=== PATIENT | male | born 1935 | race Caucasian/White ===

== ENCOUNTER 2020-02-11 14:28 | Outpatient (CLI) | payer OTHER, SELFPAY ==
--- NOTE | 2020-02-11 14:40 | USCV_ITS ---
Ruthie Bowen Age: 84 Gender: M : 1935 Exam Date: 02/11/2020 15:00 Ordering Phys: Stan Sen MD Technologist: Amrit Steen Exam Location: [facility] – [place] Indication: SOB CHEST PAIN BP: / HR: 78 Rhythm: Sinus Technical Quality: Good MEASUREMENTS (Male / Female) Normal Values 2D ECHO LV Diastolic Diameter PLAX 4.1 cm 4.2 - 5.9 / 3.9 - 5.3 cm LV Systolic Diameter PLAX 3.5 cm IVS Diastolic Thickness 1.0 cm 0.6 - 1.0 / 0.6 - 0.9 cm IVS Systolic Thickness 1.3 cm LVPW Diastolic Thickness 0.9 cm 0.6 - 1.0 / 0.6 - 0.9 cm LVPW Systolic Thickness 1.4 cm LVOT Diameter 2.1 cm LV Ejection Fraction 2D Teich 28.8 % LV Ejection Fraction MOD 2C 64.9 % LV Ejection Fraction 2C AL 65.4 % LA Diameter 5.5 cm LA Width 4.0 cm LA Height 5.6 cm RA Width 3.9 cm RA Height 5.7 cm Aorta at Sinotubular Diameter 1.3 cm M-MODE LV Diastolic Diameter MM 5.1 cm 4.2 - 5.9 / 3.9 - 5.3 cm LV Systolic Diameter MM 3.1 cm LV Ejection Fraction MM Teich 69.2 % IVS Diastolic Thickness MM 1.0 cm 0.6 - 1.0 / 0.6 - 0.9 cm IVS Systolic Thickness MM 1.3 cm LVPW Diastolic Thickness MM 1.0 cm 0.6 - 1.0 / 0.6 - 0.9 cm LVPW Systolic Thickness MM 1.7 cm RV Diastolic Diameter MM 1.7 cm Aortic Annulus Diameter 3.5 cm LA Ao Ratio MM 1.6 MV E Point Septal Separation 0.7 cm DOPPLER AV Peak Velocity 239.0 cm/s LVOT Peak Velocity 123.0 cm/s AV Area Cont Eq vti 2.1 cm squared AV Area Cont Eq pk 1.8 cm squared MV Area PHT 5.0 cm squared Mitral E to A Ratio 0.9 MV E' Velocity 14.0 cm/s Mitral E to MV E' Ratio 9.2 Mitral E to LV E' Lateral Ratio 7.8 Mitral E to LV E' Septal Ratio 11.3 TR Peak Velocity 267.0 cm/s TR Peak Gradient 28.6 mmHg TV Peak E Velocity 99.0 cm/s Right Atrial Pressure 3.0 mmHg Pulmonary Artery Systolic Pressu 31.5 mmHg PV Peak Velocity 145.0 cm/s FINDINGS Left Ventricle Normal left ventricular size, systolic function and wall thickness, with no regional wall motion abnormalities. Left ventricular ejection fraction is estimated at 64%. Normal diastolic function. Right Ventricle Normal right ventricular size and systolic function, RVSP 31.5 mmHg. Right Atrium Upper normal right atrial size. Left Atrium Mildly increased left atrial size. Mitral Valve Mild mitral annular calcification. No mitral valve stenosis. Mild mitral valve regurgitation. Aortic Valve Mildly thickened and calcified trileaflet aortic valve. Aortic valve sclerosis without stenosis. No aortic valve regurgitation. Tricuspid Valve Structurally normal tricuspid valve. Mild tricuspid valve regurgitation. Pulmonic Valve Structurally normal pulmonic valve. No pulmonary valve stenosis. Trace pulmonary valve regurgitation. Pericardium No pericardial effusion. Aorta Normal-sized aortic root. CONCLUSIONS 1. Normal left ventricular size, systolic function and wall thickness, with no regional wall motion abnormalities. Left ventricular ejection fraction is estimated at 64%. Normal diastolic function. 2. Normal right ventricular size and systolic function. 3. Pulmonary artery pressure estimated at 32 mmHg. 4. Mild mitral and tricuspid valve regurgitation. 5. No prior similar studies to compare. Flor Greene MD (Electronically Signed) Final Date: 13 February 2020 14:46 S
== END 2020-02-11 14:29 | disposition home or self-care (01) ==
LOC: RAD 14:31
PROVIDERS: Visit Provider Orthopaedic Surgery
DX: I25.10 Atherosclerotic heart disease of native coronary artery without angina pectoris (principal); R06.02 Shortness of breath; R07.9 Chest pain, unspecified; I34.0 Nonrheumatic mitral (valve) insufficiency; I07.1 Rheumatic tricuspid insufficiency
CPT/HCPCS: 93306

== ENCOUNTER → 2020-07-06 11:43 | Outpatient (BNVA) | payer OTHER, SELFPAY | PROVIDERS: Visit Provider Specialist | DX: R56.9 Unspecified convulsions (principal) | CPT/HCPCS: 95816 ==

== ENCOUNTER → 2020-08-05 11:50 | Outpatient (BNVA) | payer OTHER, SELFPAY | PROVIDERS: PCP Emergency Medicine Emergency Medical Services; Referring Provider Family Medicine; Visit Provider Specialist | DX: M17.11 Unilateral primary osteoarthritis, right knee (principal); M25.561 Pain in right knee; Z41.9 Encounter for procedure for purposes other than remedying health state, unspecified | CPT/HCPCS: 73560; 73565; 87081; 87086 ==

== ENCOUNTER → 2020-08-19 08:31 | Outpatient (BNVA) | payer OTHER, MEDICARE, SELFPAY | PROVIDERS: PCP Emergency Medicine Emergency Medical Services; Visit Provider Specialist | DX: Z01.812 Encounter for preprocedural laboratory examination (principal) | CPT/HCPCS: 87635 ==

== ENCOUNTER 2020-08-24 13:56 | Observation (INO) | payer OTHER, SELFPAY ==
[2020-08-19 08:59] VITALS: BMI 28.8
[2020-08-19 09:32] LABS: Basophils % 0.2 %; Eosinophils # 0.1 10^3/uL (0.0-0.8); Eosinophils % 1.9 %; Lymphocytes # 1.5 10^3/uL (0.8-4.8); Lymphocytes % 35.6 %; Mean Corpuscular HGB Conc 33.3 g/dL (30.0-36.0); Mean Corpuscular Hemoglobin 34.8 pg (28.0-34.0); Mean Corpuscular Volume 104.4 fL (80-94); Mean Platelet Volume 9.4 fL (7.4-10.4); Monocytes # 0.3 10^3/uL (0.2-0.9); Monocytes % 7.9 %; Neutrophils # 2.25 10^3/uL (1.8-7.7); Neutrophils % 54.2 %; Nucleated Red Blood Cells % 0 %; Platelet Count 130 10^3/cmm (130-400); Red Blood Count 3.16 10^6/uL (4.1-5.3); White Blood Count 4.2 10^3/uL (4.0-10.0)
[2020-08-19 09:35] LABS: Add Urine Microscopic? NO
--- NOTE | 2020-08-19 09:37 | P.ANESASSM_ITS ---
Pre-Anesthetic Assessment Pre-Anesthetic Assessment: Height/Weight: Height 1.7 m Weight 83.461 kg Preop Diagnosis: Right knee DJD Proposed Procedure: Operation Date: 08/24/20 10:35 Proposed Procedures p Total Knee Arthroplasty 72293 M17.10(Right) - Shira Tucker MD Familial anesthetic complications: None Social: Social History: No alcohol and No tobacco Exam: Pre-Anes Outpt Exam: alert, oriented x 3, clear to auscultation bilaterally and regular rate & rhythm Airway: Cervical ROM: WNL MP: 3 Dentition: Other (missing) Pulmonary: Pulmonary: Asthma and Sleep apnea (severe - refuses BIPAP) Comments: allergies CV/HEM: CV/HEM: CAD (triple bypass in 2012 - doing well since then, f/u every 2 years) and HTN Comments: plavix for stents in heart, takes nitroglycerin every once in awhile for chest pain GI: GI: GERD Neuropsych: Neuropsych: Seizure and TIA Anesthetic Plan: ASA status: 3 Anesthesia: Regional (specify below) Other: spinal + adductor Risk of > 500 ml blood loss (7ml/kg in children): No PFSH Anesthesia PFSH: Social History Smoking and tobacco status: never smoked Alcohol intake: never Data Anesthesia CBC & Chem 7: 08/19/20 09:25 08/19/20 09:25 Other Labs: Laboratory Results - last 48 hr 08/19/20 09:25 WBC 4.2 RBC 3.16 L Hgb 11.0 L Hct 33.0 L MCV 104.4 H MCH 34.8 H MCHC 33.3 RDW 13.0 Plt Count 130 MPV 9.4 Neut % (Auto) 54.2 Lymph % (Auto) 35.6 [place] % (Auto) 7.9 Eos % (Auto) 1.9 Baso % (Auto) 0.2 Neut # (Auto) 2.25 Lymph # (Auto) 1.5 [place] # (Auto) 0.3 Eos # (Auto) 0.1 Baso # (Auto) 0.0 Nucleated RBC % (auto) 0 Nucleated RBCs # 0.0 Cardiac Studies: No Data to Display
[2020-08-19 09:43] LABS: Bilirubin Urine Neg (Negative); Blood Urine Neg (Negative); Glucose Urine UA Norm (Normal); Ketones Urine Negative (Negative); Leukocyte Esterase Urine Negative (Negative); Nitrate Urine Negative (Negative); Protein Urine Neg (Negative); Urine Appearance Clear (CLEAR); Urine Color Straw (Yellow); Urobilinogen Urine Norm (Negative); pH Urine 5 (5-7)
[2020-08-19 09:51] LABS: Alanine Aminotransferase 13 U/L (0-41); Albumin Level 3.9 g/dL (3.5-5.2); Alkaline Phosphatase 63 IU/L (40-130); Anion Gap 12.2 (5-19); Aspartate Amino Transferase 16 U/L (0-40); Blood Urea Nitrogen 19 mg/dL (8-23); Calcium 8.9 mg/dL (8.5-10.5); Carbon Dioxide 28 mmol/L (22-29); Chloride 101 mmol/L (98-107); Globulin 2.9 g/dL (1.3-4.6); Glucose 144 mg/dL (65-115); Osmolality Calculated 289 mOsm/kg (285-295); Potassium 4.2 mmol/L (3.5-5.1); Sodium 137 mmol/L (136-145); Total Bilirubin 0.3 mg/dL (0.15-1.2); Total Protein 6.8 g/dL (6.6-8.7)
[2020-08-24] VITALS (16 sets, daily range): BP systolic 101–145; BP diastolic 57–75; PULSE 64–86; RESP 16–25; TEMP 36.3–36.9; O2SAT 93–100
--- NOTE | 2020-08-24 10:06 | W.PM.OPSUD ---
Surgery/Procedure H&P Update DATE OF PROCEDURE: August 24, 2020 DATE H&P PERFORMED: 08/05/20 H&P UPDATE INFORMATION: I have reviewed H&P completed within last 30 days, No changes to prior documentation and H&P is in [facility] EMR on date indicated PREOP DIAGNOSIS: Right knee DJD PLANNED PROCEDURE: Operation Date: 08/24/20 13:15 Proposed Procedures p Total Knee Arthroplasty 68558 M17.10(Right) - Shira Tucker MD Related Problem List Diagnoses (1) Primary osteoarthritis of right knee:
--- NOTE | 2020-08-24 10:36 | P.ANESUD_ITS ---
Pre-Anesthetic Update Pre-Anesthetic Assessment: Date of Surgery/Procedure: 08/24/20 Preop Paige gnosis: Right knee DJD Proposed Procedure: Operation Date: 08/24/20 13:15 Proposed Procedures p Total Knee Arthroplasty 60997 M17.10(Right) - Shira Tucker MD Any changes to Pre-Anesthetic Assessment?: No Last Intake: Intake Last Liquid Date 08/23/20 Last Liquid Time 16:00 Last Solid Date 08/23/20 Last Solid Time 16:00 Vitals: Temperature 98.5 F 08/24/20 10:30 Temperature Source Temporal Artery S can 08/24/20 10:30 Pulse Rate 82 08/24/20 10:30 Respiratory Rate 18 08/24/20 10:30 Blood Pressure 121/72 08/24/20 10:30 Blood Pressure Gina n 88 08/24/20 10:30 Pulse Oximetry 93 08/24/20 10:30 Oxygen Delivery Me thod 08/24/20 10:30 Exam: Pre-Anes Outpt Exam: alert, oriented x 3, clear to auscultation bilaterally and regular rate & rhythm Cardiac Studies: No Data to Display
[2020-08-24] MEDS: sodium chloride 0.9% 1,000 ML 30 ML IV (10:48)
[2020-08-24] MEDS: CELEcoxib 200 mg Capsule 400 MG PO (11:00)
[2020-08-24] MEDS: vancomycin 1,000 MG in sodium chloride 0.9% 250 ML 250 MG IV (11:12)
--- NOTE | 2020-08-24 11:54 | ANES.PROC ---
Anesthesia Procedures Procedure/Date: 08/24/20 Nerve Block ^: Nerve Block 1: Main Anesthesia: spinal anesthesia block Time Out Performed: Yes Consent: requested by attending/covering physician, from patient, risks and benefits reviewed and patient agrees to proceed Nerve block location: adductor canal (right) Anesthesia monitors applied: pulse oximetry, EKG, BP cuff and oxygen Nerve block position: supine Anesthetic Used: ropivicaine 0.5% Amount of anesthesia used (mL): 20 Ultrasound used to: recognize landmarks Nerve Stimulator Used?: No Interscalene/Femoral BLK: 4 stimuplex 21 g needle used for position and inplane approach Injection: neg aspiration of heme Patient Tolerated Procedure: well Complications: none
[2020-08-24] MEDS: vancomycin 1,000 MG SDV 1000 MG XX (12:21)
[2020-08-24] MEDS: ceFAZolin 1,000 mg SDV 2000 MG IRRIGATION (12:22)
--- NOTE | 2020-08-24 14:17 | XR_ITS ---
WS: [id number] Exam: XR knee RT 1-2V [id number] Date/Time of Exam: 08/24/2020 2:00 PM Reason For Exam: Right TKA A total knee prosthesis has been placed and appears to be in excellent position. Postoperative change s in the adjacent soft tissues. Anterior surgical skin clips. Additional surgical clips along the med ial aspect of the upper tibia may be secondary to vein harvesting. XR/XR knee RT 1-2V [id number] IMPRESSION: 1. Total knee prosthesis in excellent position.
--- NOTE | 2020-08-24 14:29 | P.OP_ITS ---
Operative Report Date of procedure: August 24, 2020 Pre-op Diagnosis: Right knee degenerative osteoarthritis with flexion contracture Post-op diagnosis: same Post-op Findings: Severe degenerative osteoarthritis with complete absence of ca rtilage and flexion contracture. Procedure Done: Right total knee arthroplasty Implants: The Mai total knee system with a size 4 triathlon beaded posterior stabilized femur right, a triathlon titanium tibial component size 5 beaded, a triathlon X3 posterior stabilized tibial bearing insert size 5 X 13 mm and a beaded triathlon titanium asymmetric patella size 32 x 10 mm Specimens removed/disposition: Bone, disposed of Pathology: none sent Surgeon: Shiar Tucker [employer] Flight Mechanic: [employer] operating [facility] assistance Anesthesia: MAC (With spinal, ASA 3) Estimated blood loss (mL): 5 Tourniquet time (min): 90 (At 250 mmHg) IV fluids (mL): 1,000 Urine output (mL): 100 Complications: None Findings: Severe degenerative osteoarthritis with a slight flexion contracture, obliteration of cartilage, and severe degenerative osteoarthritis Condition: stable Disposition: PACU (Then to floor for postoperative pain management and rehabilitation as well as medical monitoring) Brief History: This 84-year-old gentleman presented to the office with severe right knee pain which was incapacitating. He was unable to ambulate or perform reasonable activities of daily living. None of these activities were able to be accomplished comfortably. He was unresponsive to conservative measures and wished to proceed with right total knee arthroplasty risks and complications were discussed with him and his family. Consents were signed preoperatively, a nd questions were answered. The patient wished to proceed. Procedure: The patient was brought to the operating theater, and after undergoing adequate spinal anesthesia supplemented with regional block and sedation, ASA 3, the right lower extremity was prepped with Dura-Prep and draped in usual fashion following placement of a tourniquet high on the leg. The leg was then draped free. Following prepping and draping, the leg was exsanguinated, and the tourniquet was elevated to 250 mm Hg for a total tourniquet time of 90 minutes. Prior to elevation of the tourniquet, but following exposure of the site of surgery, a surgical pause was performed. At the time of the surgical pause, we confirmed the site and side of surgery. Additionally, we confirmed the appropriate and timely administration of preoperative antibiotics, vancomycin 1 g. and Transexemic acid 1 g. The availability of equipment was confirmed, and the patient's identity was verbalized as well. Following the surgical pause, an incision was made centering over the patella continuing proximally and distally as necessary to allow access to the knee joint. Dissection continued through skin and soft tissues using a scalpel. Hemostasis was obtained using electrocautery. The skin incision was followed by a median parapatellar arthrotomy. The leg was extended and the patella was everted. Following this, the leg was returned to flexed position. The distal femur was exposed and a drill hole was made in this for placement of the distal femoral jig. The distal femoral jig was set at 5? of valgus. The distal femoral cutting block was then placed in appropriate position, and an akbar wing was used to confirm an appropriate amount of distal femur would be resected. The distal femoral resection was accomplished with 10 mm of bone being resected distally secondary to the patient's preoperative flexion contracture. After the distal femoral resection had been accomplished, the femur was measured and it measured a size 4. Medial lateral dimension also measured a size 4. A size 4 femoral cutting block was placed in position, and we were then able to accomplish the anterior, posterior and chamfer cuts. This jig was then removed and the notch guide was placed in position. With the notch guide in appropriate position, the notch was excised including resection of the anterior and posterior cruciate ligaments. This notch was to allow for the posterior stabilized femoral component. At this point, the femur was prepared and attention was directed to the proximal tibia. The posterior knee retractor was placed along with medial and lateral retractors. Further resection of the menisci was accomplished as we had better visualization. A complete meniscectomy was performed both medially and laterally with care being taken to protect the popliteus. Retractors were then placed so that the proximal tibia was well visualized. A drill hole was then made in the tibia for placement of the intramedullary guide. This guide was placed so that approximately 2 mm of bone would be resected from the deficient medial tibial plateau. The intramedullary guide was utilized supplemented with an extramedullary guide to assure appropriate alignment for the proximal tibial resection. The proximal tibial jig was then evaluated, pinned in position, and the proximal tibial resection was accomplished without difficulty. The jig was removed, and the proximal tibia was measured. It measured a size 5. We then attempted a trial reduction with a size 5 by 13 mm insert. A small medial release was required. Osteophytes were also removed from the posterior tibia and femur. The femoral component was placed in position for the trial reduction, and the knee was placed through range of motion. With this, there was excellent stability with excellent varus-valgus alignment with appropriate patellar tracking. Extension was noted to be full as well. This was felt to be the appropriate size insert. There was full extension and flexion without lift off and the rotation of the tibia was marked. Alignment was checked from the hip to the ankle, and this was noted to be appropriate as well. Attention was then directed to the patella. The patella was measured with a caliper. We resected sufficient patella to leave approximately 14 mm of patella remaining. Measurements of the patella then indicated that a size asymmetric 32 mm x 10 mm was the appropriate patellar size. We then placed the jig to drill for the 3 pegs of the press-fit patella, and these drill holes were made without incident. A trial patella was then placed, and the knee was placed through range of motion. The patella was noted to track nicely without evidence of subluxation. The femur was prepared for a press-fit femur by drilling 2 holes for the femoral pegs. All trial components were subsequently removed. The tibial tray was then pinned into position, and we broached the tibia for the stem of the tibial component. Subsequently, 4 drill holes were made for placement of the press-fit tibia. This was accomplished without difficulty. Care was taken to assure appropriate rotation of the tibia as well as appropriate position on the proximal tibia. The tibial tray was completely seated on the proximal tibia. Following broaching, the tibial guide was removed, and all surfaces were copiously irrigated. The surfaces were then dried and a bone plug was placed into the distal femur. Exparel was also injected at this point. The Tritanium tibia was impacted into position. The beaded femur was then impacted into position in a cementless fashion. The tibial insert was placed. The patella was pressed into position with a patellar clamp. The knee was irrigated with 20 mL of Betadine and 500 mL of normal saline, and this was allowed to remain in the knee for 3-4 minutes. The knee was then copiously irrigated and suctioned dry. Attention was then directed to closure. Closure was accomplished with 0 Vicryl in the fascial tissues. Following this, a 2-0 Monocryl was used in the subcutaneous tissues, and the skin was closed with skin albert. A sterile dressing was then placed consisting of Exofin, telfa, 4x4's, ABD, sterile soft roll, and an Jack wrap. The patient was returned the Recovery Room in a satisfactory condition. X-rays were obtained there. The patient will be discharged to the floor for postoperative rehabilitation and pain management. Associated Problem List Diagnoses (1) Primary osteoarthritis of right knee:
--- NOTE | 2020-08-24 14:54 | SUR.PHASEI ---
1358 PT RO PACU AWAKE ALERT PLACED ON 3LNC PT WAS SPINAL ANESTHESIA, , PT ALERT FOLLOWS COMMANDS AND MOVES BILAT FEET, X RAY CALLED RT KNEE DRESSING D/I FIRST ICE TO SITE, DISTAL FOOT PINK WARM WITH PULSE MARKED, AND BILAT FOOT PUMPS ON .
--- NOTE | 2020-08-24 14:56 | SUR.PHASEI ---
1432 PT AWAKE ALERT MOVES BILAT FEET , RT KNEE DRESSING D.I PT TO FLOOR PER BED VSS CASTRO TO DD YELLOW URINE NOTED.
--- NOTE | 2020-08-24 15:29 | PM.CONSULT ---
Providers/Reason For Consult Consulting Physican/Specialty*: Orthopedic Reason for Consult*: Cardiovascular history, postoperative care Attending Physician: Shira Tucker MD Primary Care Provider: Antony Minaya DO History of Present Illness History of Present Illness Ruthie Bowen is a 84 year old male with a past medical history of CAD status post CABG, patient went under a cardiac catheterization in December 2019, found to have moderate right coronary artery disease with moderate circumflex disease, patent graft to diagonal and patent RUBIO to LAD, history of TIA, hypertension, hyperlipidemia, restless leg, who presents to [facility] for a right knee total arthroplasty by Dr. Tucker. Hospitalist team was consulted for medical management. Patient tells me that he is doing well, denies any chest pain, he saw his zipper joiner free of preoperative evaluation, he has been doing fine since then, no recent fevers, no chills, no cough, no shortness of breath. Denies a history of smoking. No history of COPD. No history of diabetes. No history of kidney disease. Does have a history of TIAs in the past. He tells me that his first has , the second that he is with currently they have been together for many years, he will was in the for over 20 years, he has had multiple surgeries he cannot remember all of them, he is a bit concerned about getting the second Covid vaccination, he really wants to get the second vaccination, he is planning on getting it this weekend, but he plans on going to the health center in his 's truck, and they will give me a shot while I am in the truck. Review of Systems Const: Denies: fever(s), chills, fatigue or malaise Eyes: Denies: change in vision or blurry vision ENMT: Denies: nasal congestion Resp: Denies: dyspnea, productive cough, non-productive cough or wheezing GI: Denies: abdominal pain, nausea, vomiting, hematemesis, diarrhea, constipation, hematochezia or melena : Denies: flank pain, difficulty urinating, dysuria or urinary frequency Musc: Denies: neck pain or back pain Skin/Breast: Denies: rash Neuro: Denies: headache(s), dizziness or vertigo Psych: Denies: anxiety or depression Endo: Denies: polyuria or polydipsia Meds/Allergies Home Medications and Allergies Home Medications Medication Instructions Recorded Confirmed Last Taken Type acetaminophen 500 mg capsule 500 mg PO Q6H PRN 07/06/20 08/24/20 08/10/20 History aspirin 81 mg tablet,delayed 81 mg PO DAILY 07/06/20 08/24/20 08/19/20 History release clonazepam 0.5 mg tablet 0.25 mg PO BID 07/06/20 08/24/20 08/23/20 History clopidogrel 75 mg tablet 75 mg PO DAILY 07/06/20 08/19/20 08/19/20 History diphenhydramine HCl 25 mg tablet 25 mg PO QID PRN 07/06/20 08/24/20 08/19/20 History docusate sodium 100 mg tablet 100 mg PO BID 07/06/20 08/24/20 08/19/20 History furosemide 40 mg tablet 40 mg PO DAILY 07/06/20 08/24/20 08/23/20 History gabapentin 300 mg capsule 300 mg PO BID 07/06/20 08/24/20 08/23/20 History isosorbide mononitrate 20 mg tablet 20 mg PO BID 07/06/20 08/24/20 08/24/20 06:30 History multivit-iron 18 mg-folic acid 400 18 tab PO DAILY 07/06/20 08/24/20 08/19/20 History mcg-calcium 450 mg-minerals tablet nitroglycerin 0.4 mg sublingual 0.4 mg SUBLINGUAL Q5M PRN 07/06/20 08/24/20 06/19/20 History tablet oxycodone-acetaminophen 5 mg-325 1 tab PO Q6H PRN 07/06/20 08/24/20 08/22/20 History mg tablet pantoprazole 20 mg tablet,delayed 20 mg PO DAILY 07/06/20 08/24/20 08/23/20 History release ropinirole 5 mg tablet 5 mg PO DAILY 07/06/20 08/24/20 08/23/20 History terazosin 10 mg capsule 10 mg PO DAILY 07/06/20 08/24/20 08/23/20 History vitamins A,C,O-bwxp-nrxbhz 14,320 1 cap PO BID 07/06/20 08/24/20 08/19/20 History unit-226 mg-200 unit capsule Allergies Allergy/AdvReac Type Severity Reaction Status Date / Time gluten Allergy Mild sick Verified 08/19/20 08:52 bee venom protein (honey bee) Allergy ADR-Swelling Verified 08/19/20 08:53 of the Eye PFSH Acute PFSH: Medical History (Updated 08/24/20 @ 15:33 by Evelio Esposito MD) Bronchitis History of TIA (transient ischemic attack) Pneumonia Shortness of breath Surgical History (Updated 08/24/20 @ 15:33 by Evelio Esposito MD) History of angioplasty 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 Family History Other CAD (coronary artery disease) Social History Smoking and tobacco status: never smoked Alcohol intake: never Vitals/I&O/Wt Last Vital Signs Temp 97.3 F L 08/24/20 14:30 Pulse 67 08/24/20 14:30 Resp 20 H 08/24/20 14:30 BP 136/67 08/24/20 14:30 Pulse Ox 99 08/24/20 14:30 08/24/20 08/24/20 08/24/20 06:59 14:59 22:59 Intake Total 560 / 560 Output Total 205 / 205 Balance 355 / 355 Physical Exam Const: COMMON NORMALS: no acute distress and patient oriented x3 GENERAL APPEARANCE: cooperative and comfortable HENMT: COMMON NORMALS: normocephalic HEAD & SCALP: normocephalic Eye: COMMON NORMALS: Equal, round and reactive pupils present and EOMs intact bilaterally GENERAL EYE: appearance normal, both eyes and all related structures PUPIL: Yes Equal, round and reactive pupils present Neck/C-Spine: COMMON NORMALS: full ROM, no lymphadenopathy and no JVD Lymph: LYMPHATIC: no lymphadenopathy noted Resp: COMMON NORMALS: normal respiratory effort, No retractions, No use of accessory muscles and clear to auscultation bilaterally AUSCULTATION: clear to auscultation bilaterally Cardio: COMMON NORMALS: no JVD, regular rate, regular rhythm, S1 normal heart sound present, S2 normal heart sound present, No gallops present (Cardio), No clicks present (Cardio) and No murmurs present (Cardio) RATE: regular rate RHYTHM: regular rhythm HEART SOUNDS: S1 normal heart sound present and S2 normal heart sound present GI: COMMON NORMALS: Normal to inspection, nondistended, normoactive bowel sounds present, Soft to palpation, non-tender and No hepatosplenomegaly present PALPATION: Yes Soft to palpation and Yes No hepatosplenomegaly present Extremity: COMMON NORMALS: normal to inspection, full ROM and no pedal edema Neuro: COMMON NORMALS: patient oriented x3 and CN's II-XII intact bilaterally Psych: COMMON NORMALS: mental status grossly normal Urinary Catheter Management^: F: Cath Placed During This Visit: yes Urinary Catheter Date of Insertion: 08/24/20 Urinary Catheter Time of Insertion: 11:40 A&P Assessment and plan (1) Primary osteoarthritis of right knee: Status post right knee arthroplasty by Dr. Tucker Pain control and anticoagulation as per orthopedic team PT OT Patient has had issues with anemia in the past, history of gastric ulcers in the past,, will monitor hemoglobin Patient and are adamant that he does not have a history of dementia, no history of UTIs, will monitor mentation closely Status: Acute (2) Hyperlipidemia: Continue home medication Status: Acute (3) Hypertension: Monitor blood pressures closely Status: Acute (4) CAD (coronary artery disease): Telemetry monitoring, monitor for chest pain Status: Acute Coding Level of Care Code Acute Enrollment Processor for Tushar Hoskins Diagnoses Primary osteoarthritis of right knee M17.11 Hyperlipidemia E78.5 Hypertension I10 CAD (coronary artery disease) I25.10
--- NOTE | 2020-08-24 16:28 | ANE.PACU2 ---
Inpatient post-anesthesia follow up: Airway intact: Yes Vital signs: Temperature 97.3 F Pulse Rate 64 Respiratory Rate 20 Blood Pressure 136/67 Pulse Oximetry 94 Oxygen Delivery Me thod Nasal Cannula Oxygen Flow Rate 2 Fraction of Inspir ed Oxygen Hydration adequate: Yes Nausea and vomiting: No Pain level: 1 Mental status: Baseline
[2020-08-24] MEDS: calcium carbonate 500 mg Chew Tablet 1000 MG PO (17:36)
[2020-08-24] MEDS: gabapentin 300 mg Capsule PO (17:36)
[2020-08-24] MEDS: iron polysaccharide complex 150 mg Capsule PO (17:36)
[2020-08-24] MEDS: CLONazepam 0.5 mg Tablet 0.25 MG PO (17:37)
[2020-08-24] MEDS: chlorhexidine gluconate 0.12% Btl 473 mL 30 ML MUCOUS MEM (17:48)
[2020-08-24] MEDS: isosorbide mononitrate 20 mg Tablet PO (17:53)
[2020-08-24] MEDS: CELEcoxib 200 mg Capsule PO (22:22)
[2020-08-25] VITALS: BP 101/43; PULSE 69; RESP 20; TEMP 36.7; O2SAT 94
[2020-08-25 02:22] LABS: Basophils % 0.2 %; Eosinophils % 0.9 %; Hematocrit 30.2 % (42.0-52.0); Hemoglobin 9.8 g/dL (11.7-16.6); Lymphocytes % 20.5 %; Mean Corpuscular HGB Conc 32.5 g/dL (30.0-36.0); Mean Corpuscular Hemoglobin 34.6 pg (28.0-34.0); Mean Corpuscular Volume 106.7 fL (80-94); Mean Platelet Volume 9.5 fL (7.4-10.4); Monocytes # 0.4 10^3/uL (0.2-0.9); Monocytes % 9.1 %; Neutrophils # 3.21 10^3/uL (1.8-7.7); Neutrophils % 69.3 %; Nucleated Red Blood Cells % 0 %; Platelet Count 118 10^3/cmm (130-400); Red Blood Count 2.83 10^6/uL (4.1-5.3); Red Cell Distribution Width 12.9 % (12.1-15.1); White Blood Count 4.6 10^3/uL (4.0-10.0)
[2020-08-25 02:41] LABS: Anion Gap 9.3 (5-19); Blood Urea Nitrogen 30 mg/dL (8-23); Calcium 8.6 mg/dL (8.5-10.5); Carbon Dioxide 29 mmol/L (22-29); Chloride 103 mmol/L (98-107); Glucose 102 mg/dL (65-115); Osmolality Calculated 290 mOsm/kg (285-295); Potassium 4.3 mmol/L (3.5-5.1); Sodium 137 mmol/L (136-145)
[2020-08-25 04:00] VITALS: BP 120/66; PULSE 73; RESP 20; TEMP 36.5; O2SAT 93
--- NOTE | 2020-08-25 05:10 | PC.NURSE ---
Removed Shelley Catheter at this time. Patient tolerated well. Patient had 350 mls out for the shift of clear yellow urine.
--- NOTE | 2020-08-25 07:06 | PC.NURSE ---
Bedside report to Sanjuana HOLLOWAY at this time.
[2020-08-25 07:26] VITALS: BP 125/65; PULSE 46; RESP 17; TEMP 36.9; O2SAT 95
[2020-08-25] MEDS: iron polysaccharide complex 150 mg Capsule PO (08:50)
[2020-08-25] MEDS: calcium carbonate 500 mg Chew Tablet 1000 MG PO (08:50)
[2020-08-25] MEDS: isosorbide mononitrate 20 mg Tablet PO (08:50)
[2020-08-25] MEDS: terazosin 5 mg Capsule 10 MG PO (08:50)
[2020-08-25] MEDS: CLONazepam 0.5 mg Tablet 0.25 MG PO (08:50)
[2020-08-25] MEDS: ropinirole 2 mg Tablet 5 MG PO (08:50)
[2020-08-25] MEDS: pantoprazole DR 40 mg Tablet PO (08:51)
[2020-08-25] MEDS: clopidogrel 75 mg Tablet PO (08:51)
[2020-08-25] MEDS: cholecalciferol (vitamin D3) 1,000 unit Tablet 1000 UNIT PO (08:51)
[2020-08-25] MEDS: FUROsemide 40 mg Tablet PO (08:51)
[2020-08-25] MEDS: CELEcoxib 200 mg Capsule PO (08:51)
[2020-08-25] MEDS: aspirin 325 mg EC Tablet PO (08:51)
[2020-08-25] MEDS: chlorhexidine gluconate 0.12% Btl 473 mL 30 ML MUCOUS MEM (08:51)
[2020-08-25] MEDS: multivitamin therapeutic Tablet 1 TAB PO (08:51)
[2020-08-25] MEDS: gabapentin 300 mg Capsule PO (08:51)
--- NOTE | 2020-08-25 09:52 | PC.CHAP ---
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 [] Patient/Family/Request visit [] Outpatient visit [] Follow-up visit [] Physician referral [] Code/Alert [x] Routine visit [] Staff referral [] Actively dying [] Patient sleeping [] Family support [] [] Out of room [] Palliative care [] [] Receiving care in room [] Pre-surgical visit [] Trauma [] Long length of stay [] ICU visit [] Other: Relational/Emotional Strength [x] Patient feels connected with others/family/visitors/staff [] Distress [] Loneliness/isolation [] Abandonment Spirituality of Patient [x] Person of Leslie [x] Attends Spiritism of their Leslie [x] Believes in Prayer [] Reads Bible or Spiritism materials [] There are Spiritual issues to be addressed Parlor Maid Interventions [x] Prayer [x] Active listening [] Non-anxious presence [] Spiritual/emotional support [] Crisis/trauma care [] Spiritual counseling [] Bereavement support [] Provided bereavement packet [] Provided Bible/devotional materials [] Provided toy/stuffed animal, coloring book to patient or family member [] Provided Communion [] Anointing/[facility] [] Salvation [x] Completed spiritual assessment [] Other: Impact on Illness or Injury [] Angry [] Fearful [] Anxious [] Often cries [] Exhaustion [] Unable to work [] Unable to attend orthodoxy [] Unable to walk/stand [] Unable to read [] Unable to drive [] Unable to eat/drink [] Unable to sleep [] Unable to be with family [] Patient intubated [] Other: Summary Time spent with patient 10 min
[2020-08-25] MEDS: vancomycin 1,000 MG in sodium chloride 0.9% 250 ML 250 MG IV (10:57)
[2020-08-25 11:25] VITALS: BP 104/57; PULSE 69; RESP 18; TEMP 36.4; O2SAT 95
--- NOTE | 2020-08-25 13:37 | PM.DCS ---
Discharge Providers Date of Admission: 08/24/20 13:56 Date of Discharge: August 25, 2020 Attending Provider at Admission: Shira Tucker MD Attending Provider at Discharge: Shira Tucker MD Primary Care Provider: Antony Minaya DO Diagnoses at Discharge Discharge Diagnosis (1) History of total right knee replacement: Status: Acute Permanent problem details: The Mai total knee system with a size 4 triathlon beaded posterior stabilized femur right, a triathlon titanium tibial component size 5 beaded, a triathlon X3 posterior stabilized tibial bearing insert size 5 X 13 mm and a beaded triathlon titanium asymmetric patella size 32 x 10 mm (2) Primary osteoarthritis of right knee: Status: Acute (3) Hyperlipidemia: Status: Acute (4) Hypertension: Status: Acute (5) CAD (coronary artery disease): Status: Acute Reason for Visit Reason for Visit: osteoarthirits of right knee Hospital Course Hospital Course This 84-year-old gentleman was admitted under observation status following right total knee arthroplasty. The patient came in under same-day surgery status, and he underwent an uneventful right total knee arthroplasty. The implants utilized include The [place] total knee system with a size 4 triathlon beaded posterior stabilized femur right, a triathlon titanium tibial component size 5 beaded, a triathlon X3 posterior stabilized tibial bearing insert size 5 X 13 mm and a beaded triathlon titanium asymmetric patella size 32 x 10 mm. The patient was evaluated by the medical service secondary to multiple medical comorbidities. They followed him throughout this hospital stay as well. On the first postoperative day, the patient was evaluated midday. He had worked with physical therapy. He was neurologically intact and was complaining of no pain. His dressing was removed, and his wound was benign. There was no evidence of DVT as the calf was quite soft. He was independent and actually in less pain and more functional than he had been prior to his surgical procedure. After discussion with the patient and his , he wished to be discharged home. He therefore was scheduled to be discharged home after evaluation by the medical service with [facility]. Physical Exam Const: COMMON NORMALS: no acute distress, average body habitus, patient oriented x3 and alert GENERAL APPEARANCE: cooperative and comfortable ORIENTATION/CONSCIOUSNESS: Yes awake HENMT: COMMON NORMALS: normocephalic and atraumatic HEAD & SCALP: normocephalic and atraumatic Eye: GENERAL EYE: appearance normal, both eyes and all related structures Chest: COMMONS NORMALS: normal inspection of the chest Resp: COMMON NORMALS: normal respiratory effort EFFORT & INSPECTION: Yes able to speak in complete sentences and Yes symmetric chest movement Extremity: RIGHT LOWER EXTREMITY: Yes knee joint (Dressing is removed, and the wound is benign. There is no swelling.) Right knee: Yes inspection (There is no drainage or evidence of infection. Minimal erythema), Yes palpation (No tenderness to palpation), Yes ROM (Not evaluated) and Yes neurovascular exam (Intact distally with no evidence of DVT) Neuro: COMMON NORMALS: patient oriented x3 SENSORIUM/ORIENTATION: Yes alert Psych: COMMON NORMALS: mental status grossly normal APPEARANCE: Yes grossly normal ATTITUDE: Yes calm and Yes engaged ATTENTION/CONCENTRATION: Yes attention grossly intact Skin: COMMON NORMALS: no rashes or lesions noted GENERAL SKIN EXAM: no rashes or lesions noted Urinary Catheter Management^: F: Cath Placed During This Visit: yes, but has since been removed by the nurse Reason for Continuing Indwelling Catheter: Decision to DC Catheter Urinary Catheter Date of Insertion: 08/24/20 Urinary Catheter Time of Insertion: 11:40 Date Urinary Catheter Removed: 08/25/20 Time Urinary Catheter Discontinued: 05:00 Discharge Data Data Completed and Pending: Completed Studies During Hospitalization Category Date Time Status XR knee RT 1-2V 7 [id number] Urgent Exams 08/24/20 14:17 Completed Pending at discharge Category Date Time Status Complete Blood Co unt w/Auto AM LABS Lab 08/26/20 04:00 Ordered Complete Blood Co unt w/Auto AM LABS Lab 08/27/20 04:00 Ordered Labs from last 24 hours 08/25/20 08/25/20 02:10 02:10 WBC 4.6 RBC 2.83 L Hgb 9.8 L Hct 30.2 L MCV 106.7 H MCH 34.6 H MCHC 32.5 RDW 12.9 Plt Count 118 L MPV 9.5 Neut % (Auto) 69.3 Lymph % (Auto) 20.5 [place] % (Auto) 9.1 Eos % (Auto) 0.9 Baso % (Auto) 0.2 Neut # (Auto) 3.21 Lymph # (Auto) 1.0 [place] # (Auto) 0.4 Eos # (Auto) 0.0 Baso # (Auto) 0.0 Nucleated RBC % (a uto) 0 Nucleated RBCs # 0.0 Sodium 137 Potassium 4.3 Chloride 103 Carbon Dioxide 29 Anion Gap 9.3 BUN 30 H Creatinine 1.4 H GFR Calculation Not Reportable Glucose 102 Calculated Osmolal ity 290 Calcium 8.6 Vitals: Last Vital Signs Temp 97.5 F L 08/25/20 11:25 Pulse 69 08/25/20 11:25 Resp 18 08/25/20 11:25 BP 104/57 08/25/20 11:25 Pulse Ox 95 08/25/20 11:25 Discharge Plan Discharge Patient Disposition: Home Health Service Condition: Stable Prescriptions: New aspirin 325 mg Tablet,Delayed Release (Dr/Ec) 325 mg PO DAILY 30 Days Qty: 0 RF: 0 celecoxib 200 mg Capsule 200 mg PO DAILY Qty: 30 RF: 0 oxycodone 5 mg Tablet 5 mg PO Q4H PRN (Reason: Moderate Pain) Qty: 30 RF: 0 Continued clopidogrel 75 mg tablet 75 mg PO DAILY RF: 0 terazosin 10 mg capsule 10 mg PO DAILY RF: 0 pantoprazole 20 mg tablet,delayed release (DR/EC) 20 mg PO DAILY RF: 0 ropinirole 5 mg tablet 5 mg PO DAILY RF: 0 gabapentin 300 mg capsule 300 mg PO BID RF: 0 isosorbide mononitrate 20 mg tablet 20 mg PO BID RF: 0 docusate sodium [DOK] 100 mg tablet 100 mg PO BID RF: 0 furosemide 40 mg tablet 40 mg PO DAILY RF: 0 clonazepam 0.5 mg tablet 0.25 mg PO BID RF: 0 diphenhydramine HCl [Allergy (diphenhydramine)] 25 mg tablet 25 mg PO QID PRN (Reason: Allergy Symptoms) RF: 0 aspirin [Adult Low Dose Aspirin] 81 mg tablet,delayed release (DR/EC) 81 mg PO DAILY RF: 0 PreserVision AREDS 14,320-226-200 [id number]-li-bllp capsule 1 cap PO BID RF: 0 One Daily Women's Health 18 mg iron-400 mcg-450 mg Ca tablet 18 tab PO DAILY RF: 0 nitroglycerin 0.4 mg tablet, sublingual 0.4 mg sublingual Q5M PRN (Reason: Chest Pain) RF: 0 acetaminophen 500 mg capsule 500 mg PO Q6H PRN (Reason: Pain) RF: 0 Discontinued oxycodone-acetaminophen 5-325 mg tablet 1 tab PO Q6H PRN (Reason: Pain) RF: 0 Discharge Orders: Discharge Order (Routine); Ordered 08/25/20 Ordered By: Shira Tucker Other Ambulatory Orders: Complete Blood Count w/Auto (Routine) Timeframe: 1 Week Location: Determined by Patient Ordered By: Evelio Esposito Physical Therapy Eval and Treat Outpatient (Order) Timeframe: 2 Weeks Facility: [facility] - Location: Physical Therapy Ordered By: Shira Tucker Referrals: Shira Tucker MD [Physician] - 09/06/20 9:45 am Discharge Diet: Advance as tolerated and Usual diet Discharge Activity: Increase activity as tolerated, Limit activity as instructed, Use walker/crutches as instructed and As per PT/OT instructions Patient Instructions: Oxycodone/Acetaminophen (By mouth), Aspirin (By mouth), Celecoxib (By mouth), Total Knee Replacement (DC) Activity Restrictions/Additional Instructions: Gait training, ambulation, and strengthening with physical therapy. Home health Recheck hemoglobin at primary care provider in 1 week, hemoglobin discharge 9.7 Discharge Attestations Time Spent in Discharge Care*: greater than 30 min Specific Discharge Activities: educating patient, documenting/other paperwork and evaluating patient/reviewing data Quality Metrics Clinical Quality Measures During this hospital stay, did patient experience: None Coding Level of Care Code Acute Hands Parter for Tushar Fwd Diagnoses History of total right knee replacement Z96.651 Primary osteoarthritis of right knee M17.11 Hyperlipidemia E78.5 Hypertension I10 CAD (coronary artery disease) I25.10 Anemia D64.9
--- NOTE | 2020-08-25 13:45 | PM.PN ---
Subjective Subjective: Interval history: Patient was examined this morning, he was a bit somnolent while sitting in the chair, leaning forward, he told me he did not sleep all night, he did follow commands, I reexamined patient in the afternoon, he is packed and ready at bedside, ready to go home, alert oriented x3, has no complaints of chest pain, no shortness of breath, no lightheadedness, dizziness His hemoglobin is 9.8, platelet count 118, follow-up with primary care provider in 1 week for repeat CBC Vitals/I&O/Wt Last Vital Signs Temp 97.5 F L 08/25/20 11:25 Pulse 69 08/25/20 11:25 Resp 18 08/25/20 11:25 BP 104/57 08/25/20 11:25 Pulse Ox 95 08/25/20 11:25 08/24/20 08/25/20 08/25/20 22:59 06:59 14:59 Intake Total 300 / 860 100 / 960 200 / 200 Output Total 350 / 555 150 / 150 Balance 300 / 655 -250 / 405 50 / 50 Physical Exam Urinary Catheter Management^: F: Cath Placed During This Visit: yes, but has since been removed by the nurse Reason for Continuing Indwelling Catheter: Decision to DC Catheter Urinary Catheter Date of Insertion: 08/24/20 Urinary Catheter Time of Insertion: 11:40 Date Urinary Catheter Removed: 08/25/20 Time Urinary Catheter Discontinued: 05:00 Data : 08/25/20 02:10 08/25/20 02:10 A&P Assessment and plan (1) Primary osteoarthritis of right knee: Status post right knee arthroplasty by Dr. Tucker Pain control and anticoagulation as per orthopedic team PT OT Patient has had issues with anemia in the past, history of gastric ulcers in the past,, hemoglobin discharge 9.8, repeat hemoglobin in 1 week Patient and are adamant that he does not have a history of dementia, no history of UTIs, will monitor mentation closely Status: Acute (2) Hyperlipidemia: Continue home medication Status: Acute (3) Hypertension: Monitor blood pressures closely Status: Acute (4) CAD (coronary artery disease): Telemetry monitoring, monitor for chest pain Status: Acute Attestations Medical Necessity Statement*: Patient will be discharged today for right knee arthroplasty Coding Level of Care Code Acute Blanket Weaver for g Fwd Diagnoses Primary osteoarthritis of right knee M17.11 Hyperlipidemia E78.5 Hypertension I10 CAD (coronary artery disease) I25.10
[2020-08-25 14:48] VITALS: BP 104/57; PULSE 69; RESP 18; TEMP 36.4; O2SAT 95
== END 2020-08-25 14:48 | disposition home health service (06) ==
LOC: MEDSURG 13:56
PROVIDERS: Admitting Provider Specialist; PCP Emergency Medicine Emergency Medical Services; Visit Provider Specialist
PROC: (CPT 27447; principal; 2020-08-24 12:45)
DX: M17.11 Unilateral primary osteoarthritis, right knee (principal); E78.5 Hyperlipidemia, unspecified; I10 Essential (primary) hypertension; I25.10 Atherosclerotic heart disease of native coronary artery without angina pectoris; D64.9 Anemia, unspecified
CPT/HCPCS: 27447; 36415; 51702; 64447; 73560; 76942; 80048; 80053; 81003; 85025; 96365; 96375; 96376; 97110; 97116; 97161; 97165; 97530; C1776; C9290; G0378; J0131; J0690; J2250; J2704; J2795; J3370; J3490; J7030; J7050

== ENCOUNTER → 2020-09-01 10:41 | Outpatient (BNVA) | payer OTHER, SELFPAY | PROVIDERS: PCP Emergency Medicine Emergency Medical Services; Visit Provider Specialist | DX: Z96.651 Presence of right artificial knee joint (principal); Z47.1 Aftercare following joint replacement surgery | CPT/HCPCS: 73560; 73565 ==

== ENCOUNTER 2020-09-01 12:14 | Outpatient (CLI) | payer OTHER, BC, SELFPAY ==
[2020-09-01 14:39] LABS: Basophils % 0.2 %; Eosinophils # 0.1 10^3/uL (0.0-0.8); Eosinophils % 1.1 %; Hematocrit 28.9 % (42.0-52.0); Hemoglobin 9.7 g/dL (11.7-16.6); Lymphocytes # 1.1 10^3/uL (0.8-4.8); Lymphocytes % 22.4 %; Mean Corpuscular HGB Conc 33.6 g/dL (30.0-36.0); Mean Corpuscular Hemoglobin 35.4 pg (28.0-34.0); Mean Corpuscular Volume 105.5 fL (80-94); Monocytes # 0.4 10^3/uL (0.2-0.9); Monocytes % 8.6 %; Neutrophils # 3.19 10^3/uL (1.8-7.7); Neutrophils % 67.3 %; Nucleated Red Blood Cells % 0 %; Platelet Count 150 10^3/cmm (130-400); Red Blood Count 2.74 10^6/uL (4.1-5.3); Red Cell Distribution Width 13.3 % (12.1-15.1); White Blood Count 4.7 10^3/uL (4.0-10.0)
[2020-09-01 15:04] LABS: D Dimer 10.53 ug/mIFEU (0-0.59)
== END 2020-09-01 12:15 | disposition home or self-care (01) ==
PROVIDERS: PCP Emergency Medicine Emergency Medical Services; Visit Provider Specialist
DX: Z96.651 Presence of right artificial knee joint (principal); D64.9 Anemia, unspecified; E78.5 Hyperlipidemia, unspecified
CPT/HCPCS: 36415; 85025; 85378; 87086

== ENCOUNTER 2020-09-02 18:30 | Emergency (ER) | payer OTHER, BC, SELFPAY ==
--- NOTE | 2020-09-02 18:39 | USCV_ITS ---
[place] Ruthie Age: 84 Gender: M : 1935 Exam Date: 09/02/2020 19:44 Ordering Phys: Katelynn Olsen MD Technologist: Amrit Steen [place] [facility]ication: RT LEG SWELLING POST KNEE SURG HISTORY: Lower extremity swelling. PROCEDURES: Venous duplex imaging was performed in only the right lower extremity. The following venous structures were evaluated: common femoral vein, profunda vein, proximal portion of the greater saphenous vein, superficial femoral vein, and the popliteal vein. In addition, the posterior tibial and peroneal trunk were evaluated. On the right side, the common femoral, superficial femoral, profunda femoral, popliteal, posterior tibial, greater saphenous veins and the peroneal trunk were identified and interrogated in the standard fashion. These veins were found to be easily compressible with spontaneous blood flow. No evidence of insufficiency or thrombus noted. FINDINGS: Normal 2-D Doppler and augmentation and compressibility throughout the lower extremity venous structures. Additional imaging through the proximal calf veins also reveals no thrombus. Limited evaluation of the greater saphenous vein is patent with no thrombus.. There is subcutaneous right lower extremity edema noted. CONCLUSIONS No DVT right lower extremity. Dr. Kelley Alvarado DO (Electronically Signed) Final Date: 03 September 2020 08:52 S
[2020-09-02 18:50] VITALS: BP 136/68; PULSE 74; RESP 15; TEMP 37.1; O2SAT 97; BMI 28.8
--- NOTE | 2020-09-02 19:09 | ED_ITS ---
HPI - Recheck/Abnormal Lab/Rx General: Chief Complaint: Recheck/Abnormal Lab/Rx Stated Complaint: abnormal lab work Time Seen by Provider: 09/02/20 18:56 Source: patient Mode of arrival: ambulatory Limitations: no limitations History of Present Illness: HPI narrative: 84-year-old male who had knee surgery roughly 10 days ago. He states he fell 3 days after that on the right knee. He states he had x-rays and had no fractures he states that since then he has had swelling from his mid thigh down. He saw his orthopedist today who stated his incision looked good was worried about a DVT and sent him up here to rule out DVT. He denies any shortness of breath or chest pain. Review of Systems Const: Denies: fever(s), chills, body aches or change in appetite Eyes: Denies: blurry vision or eye discomfort ENMT: Denies: throat pain or dental pain Card: Denies: chest pain Resp: Denies: dyspnea GI: Denies: abdominal pain, nausea, vomiting or diarrhea : Denies: dysuria Musc: Denies: neck pain or back pain Skin/Breast: Denies: rash Neuro: Denies: headache(s) Psych: Denies: depression Paul/Lymph: Denies: easy bruising All/Imm: Denies: urticaria PFSH ED PFSH: Medical History Bronchitis History of TIA (transient ischemic attack) Pneumonia Shortness of breath Surgical History History of angioplasty 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 Family History Other CAD (coronary artery disease) Social History Smoking and tobacco status: never smoked Alcohol intake: never Physical Exam Const: COMMON NORMALS: no acute distress, patient oriented x3 and healthy appearing HENMT: COMMON NORMALS: normocephalic and atraumatic HEAD & SCALP: normocephalic and atraumatic Eye: COMMON NORMALS: Equal, round and reactive pupils present and EOMs intact bilaterally PUPIL: Yes Equal, round and reactive pupils present Neck/C-Spine: COMMON NORMALS: full ROM and supple Chest: COMMONS NORMALS: normal inspection of the chest and normal palpation of entire chest wall Resp: COMMON NORMALS: normal respiratory effort, No retractions, No use of accessory muscles and clear to auscultation bilaterally AUSCULTATION: clear to auscultation bilaterally Cardio: COMMON NORMALS: regular rate, regular rhythm and No murmurs present (Cardio) RATE: regular rate RHYTHM: regular rhythm GI: COMMON NORMALS: Normal to inspection, nondistended, normoactive bowel sounds present, Soft to palpation, non-tender and no masses PALPATION: Yes Soft to palpation Extremity: NARRATIVE EXTREMITY EXAM: Swelling to right calf and knee. Incisions clean dry and intact with no signs of infection. No warmth to the right knee joint. Distal pulses are intact Neuro: COMMON NORMALS: patient oriented x3, moves all extremities and no focal motor deficits Psych: COMMON NORMALS: mental status grossly normal, Normal thought process present and cooperative THOUGHT PROCESS: Normal thought process present Skin: COMMON NORMALS: no rashes or lesions noted and no wounds GENERAL SKIN EXAM: no rashes or lesions noted Course Vital Signs: Vital signs: Vital Signs Temperature 98.7 F 09/02/20 18:50 Pulse Rate 69 09/02/20 20:48 Respiratory Rate 17 09/02/20 20:48 Blood Pressure 128/59 09/02/20 20:48 Pulse Oximetry 97 09/02/20 20:48 MDM - Recheck/Abnormal Lab/Rx MDM Narrative: Medical decision making narrative: Patient presents with swelling the right leg. Patient has good pulses distally and ultrasound here shows no DVT. Patient has no signs of joint infection or cellulitis. Patient stable for discharge and is to follow-up with PCP and return if worsening. Imaging Data^: US: Attestation: I personally reviewed and interpreted this imaging study as follows: My impression: no dvt Discharge Plan Discharge Patient Disposition: Home Clinical Impression: Leg swelling Condition: Stable Prescriptions: No Action clopidogrel 75 mg tablet 75 mg PO DAILY RF: 0 terazosin 10 mg capsule 10 mg PO DAILY RF: 0 pantoprazole 20 mg tablet,delayed release (DR/EC) 20 mg PO DAILY RF: 0 ropinirole 5 mg tablet 5 mg PO DAILY RF: 0 gabapentin 300 mg capsule 300 mg PO BID RF: 0 isosorbide mononitrate 20 mg tablet 20 mg PO BID RF: 0 docusate sodium [DOK] 100 mg tablet 100 mg PO BID RF: 0 furosemide 40 mg tablet 40 mg PO DAILY RF: 0 clonazepam 0.5 mg tablet 0.25 mg PO BID RF: 0 diphenhydramine HCl [Allergy (diphenhydramine)] 25 mg tablet 25 mg PO QID PRN (Reason: Allergy Symptoms) RF: 0 aspirin [Adult Low Dose Aspirin] 81 mg tablet,delayed release (DR/EC) 81 mg PO DAILY RF: 0 PreserVision AREDS 14,320-226-200 clyh-ik-grid capsule 1 cap PO BID RF: 0 One Daily Women's Health 18 mg iron-400 mcg-450 mg Ca tablet 18 tab PO DAILY RF: 0 nitroglycerin 0.4 mg tablet, sublingual 0.4 mg sublingual Q5M PRN (Reason: Chest Pain) RF: 0 acetaminophen 500 mg capsule 500 mg PO Q6H PRN (Reason: Pain) RF: 0 aspirin 325 mg Tablet,Delayed Release (Dr/Ec) 325 mg PO DAILY 30 Days Qty: 0 RF: 0 celecoxib 200 mg Capsule 200 mg PO DAILY Qty: 30 RF: 0 oxycodone 5 mg Tablet 5 mg PO Q4H PRN (Reason: Moderate Pain) Qty: 30 RF: 0 Discharge Orders: Discharge ED (Routine); Ordered 09/02/20 Ordered By: Katelynn Olsen Referrals: Shira Tucker MD [Physician] - 1-3 days Antony Minaya DO [Primary Care Provider] - Discharge Diet: Advance as tolerated Discharge Activity: Resume usual activity Patient Instructions: Leg Edema (ED) Coding Level of Care Code ED Archery Instructor for Chg Fwd Exam Comprehensive
[2020-09-02 20:48] VITALS: BP 128/59; PULSE 69; RESP 17; O2SAT 97
[2020-09-02 20:52] LABS: Add Urine Microscopic? NO
[2020-09-02 20:57] LABS: Bilirubin Urine Neg (Negative); Blood Urine Neg (Negative); Glucose Urine UA Norm (Normal); Ketones Urine Negative (Negative); Leukocyte Esterase Urine Negative (Negative); Nitrate Urine Negative (Negative); Protein Urine Neg (Negative); Urine Appearance Clear (CLEAR); Urine Color Yellow (Yellow); Urobilinogen Urine 1 mg/dL (Negative); pH Urine 7 (5-7)
== END 2020-09-02 20:48 | disposition home or self-care (01) ==
PROVIDERS: Emergency Provider Emergency Medicine; PCP Emergency Medicine Emergency Medical Services
DX: M79.89 Other specified soft tissue disorders (principal); Z79.02 Long term (current) use of antithrombotics/antiplatelets; Z79.82 Long term (current) use of aspirin; Z86.73 Personal history of transient ischemic attack (TIA), and cerebral infarction without residual deficits; Z95.1 Presence of aortocoronary bypass graft
CPT/HCPCS: 81003; 93971; 99283

== ENCOUNTER → 2020-09-13 09:38 | Outpatient (BNVA) | payer OTHER, BC, SELFPAY | PROVIDERS: PCP Emergency Medicine Emergency Medical Services; Visit Provider Specialist | DX: Z96.651 Presence of right artificial knee joint (principal) | CPT/HCPCS: 73560; 73565 ==

== ENCOUNTER 2020-09-16 06:00 | Outpatient (RCR) | payer OTHER, SELFPAY | END 2020-09-29 23:59 | disposition home or self-care (01) | LOC: GPT 06:00 | PROVIDERS: PCP Emergency Medicine Emergency Medical Services; Referring Provider Specialist; Visit Provider Specialist | DX: Z47.1 Aftercare following joint replacement surgery (principal); Z96.651 Presence of right artificial knee joint | CPT/HCPCS: 97110; 97116; 97162; 97530 ==

== ENCOUNTER 2020-09-20 10:22 | Emergency (ER) | payer OTHER, MEDICARE, SELFPAY ==
[2020-09-20 10:34] VITALS: BP 99/58; PULSE 93; RESP 19; TEMP 36.8; O2SAT 97; BMI 28.8
--- NOTE | 2020-09-20 10:49 | USCV_ITS ---
[place]uth[place] Bowen Age: 84 Gender: M : 1935 Exam Date: 09/20/2020 11:40 Ordering Phys: Julito Yoon DO Technologist: Maritza Gibbs Exam Location: [facility] – [place] Indication: RLE PAIN S/P RT KNEE REPLACMENT HISTORY: Lower extremity pain. Status post knee surgery. PROCEDURES: Venous duplex imaging was performed in only the right lower extremity. The following venous structures were evaluated: common femoral vein, profunda vein, proximal portion of the greater saphenous vein, superficial femoral vein, and the popliteal vein. In addition, the posterior tibial and peroneal trunk were evaluated. Serial compression, augmentation maneuvers, and spectral Doppler flow evaluation were performed. FINDINGS: Acute DVT in the right deep profunda and peroneal veins. Complex cystic mass with low level echos and no vascularity measuring 2.4 cm in the right popliteal fossa. CONCLUSIONS Acute DVT right peroneal and deep profunda veins. Dr. Kelley Alvarado DO (Electronically Signed) Final Date: 20 September 2020 16:28 S
--- NOTE | 2020-09-20 10:50 | CT_ITS ---
WS: [id number] CT HEAD NONCONTRAST HISTORY: acute neurologic changes TECHNIQUE: Contiguous axial imaging performed through the brain in 2.5 mm imaging. Bone and soft tiss ue windows. Sagittal and coronal reformats reviewed. All CT scans at [facility] use at ast one of these dose optimization techniques: automated exposure control; mA and/or kV adjustment pe r patient size (includes targeted exams where dose is matched to clinical indication); or iterative r econstruction. DLP: 953.55 mGy.cm COMPARISON: None available. No acute intracranial hemorrhage, midline shift or mass effect. Mild symmetric atrophy and chronic microvascular ischemic disease. Large territory infarcts. Tiny la cunar infarct in the RIGHT centrum semiovale ovale. Ventricles: Mildly prominent ventricles and extra-axial spaces on the basis of atrophy. Paranasal sinuses: Complete opacification of the RIGHT maxillary sinus. Mastoid air cells: Well pneumatized. Calvarium and scalp: Skull is intact with no soft tissue edema or swelling. CT/CT head wo con* [id number] IMPRESSION: 1. No acute intracranial hemorrhage or edema. 2. Mild cerebral atrophy and chronic ischemic disease. 3. RIGHT maxillary sinusitis.
--- NOTE | 2020-09-20 10:50 | XR_ITS ---
WS: [id number] Exam: XR chest 1V portable [id number] Date/Time of Exam: 09/20/2020 10:50 AM Reason For Exam: dyspnea/cough Comparison 07/24/2018. Persistent small left pleural effusion. The lungs are fully expanded. No consolidating infiltrates. M ild plaque atelectasis in the left base. Signs of previous CABG surgery. Cardiomediastinal structures are otherwise unremarkable. Reverse left total shoulder prosthesis. XR/XR chest 1V portable [id number] IMPRESSION: 1. Persistent small left pleural effusion and plaque atelectasis in the left lo wer lobe. Overall, no change.
--- NOTE | 2020-09-20 10:55 | PC.NURSE ---
post right knee surgery, right lower extremity edema noted.
--- NOTE | 2020-09-20 11:01 | ED_ITS ---
HPI - General Adult General: Chief complaint: General Medical Stated complaint: SHAKING, VISION LOSS Time Seen by Provider: 09/20/20 10:34 History of Present Illness: HPI narrative: 84-year-old male presents emergency room with complaints of shaking and tremor with some visual disturbance states he feels like he is in a fog overall is not feeling very well. Few weeks ago he had an right knee arthroplasty done. He felt like it has been increasingly worsening since then. He is also complaining of right calf pain. The wound from the right knee arthroplasty is healing well. He has been taking aspirin 81 mg a day as well as aspirin 325 4 times a day according to the who arranges medicines. His prescription for was 325 once daily of the aspirin but then when she got the bottle [id number] she interpreted as 4 times a day and is giving it to him without off the. Fortunately he has not been taking all of his medicines every day so he may not have been getting as much aspirin as she initially described. Otherwise he is awake and alert although somewhat hard of hearing. He does follow commands well. He has some obvious tremor almost more along the lines of a check with initiation of motion. He denies chest pain or shortness of breath denies headache usually the episodes bother him more in the morning and then resolved spontaneously. Has been taking oxycodone 5 mg twice a day. Onset (ago): week(s) (1-2 wks, worse the last 4 days. 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) Severity: mild Quality: aching (R lower leg) Relieving factors: none Exacerbating factors: none Associated symptoms: Deny chest pain, confusion, cough, diaphoresis, decreased appetite, dyspnea, fevers/chills, headache(s), malaise, nausea, rash, palpitations, seizures, short of breath, syncope, vomiting or weakness Treatments prior to arrival: none Review of Systems Const: Denies: malaise or diaphoresis ENMT: Denies: throat pain, ear or mastoid pain, nasal discharge or nasal congestion Card: Denies: chest pain, palpitations or syncope Resp: Denies: dyspnea GI: Denies: nausea or vomiting : Denies: flank pain, dysuria, urinary frequency or urinary urgency Skin/Breast: Denies: rash Neuro: Denies: headache(s) or confusion PFSH ED PFSH: Medical History Bronchitis History of TIA (transient ischemic attack) Pneumonia Shortness of breath Surgical History History of angioplasty 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 Family History Other CAD (coronary artery disease) Social History Smoking and tobacco status: never smoked Alcohol intake: never Physical Exam Const: COMMON NORMALS: no acute distress GENERAL APPEARANCE: cooperative an d comfortable ORIENTATION/CONSCIOUSNESS: Yes awake, Yes oriented to person, Yes oriented to place and Yes oriented to time HENMT: COMMON NORMALS: normocephalic, atraumatic and hearing grossly normal bilaterally HEAD & SCALP: normocephalic and atraumatic Neck/C-Spine: COMMON NORMALS: no JVD Resp: COMMON NORMALS: normal respiratory effort, No retractions, No use of accessory muscles and clear to auscultation bilaterally AUSCULTATION: clear to auscultation bilaterally Cardio: COMMON NORMALS: no JVD, regular rate, regular rhythm and No murmurs present (Cardio) RATE: regular rate RHYTHM: regular rhythm GI: COMMON NORMALS: Soft to palpation and No hepatosplenomegaly present AUSCULTATION: Yes normoactive bowel sounds PALPATION: Yes Soft to palpation, No Tenderness to palpation present (GI), No Guarding due to palpation present (GI) and Yes No hepatosplenomegaly present Extremity: COMMON NORMALS: normal to inspection, capillary refill normal, no clubbing, cyanosis or edema, no calf tenderness and no pedal edema Neuro: SENSORIUM/ORIENTATION: Yes oriented to person, Yes oriented to place and Yes oriented to time Skin: COMMON NORMALS: no rashes or lesions noted GENERAL SKIN EXAM: no rashes or lesions noted Course Vital Signs: Vital signs: Vital Signs Temperature 98.2 F 09/20/20 10:34 Pulse Rate 83 09/20/20 13:28 Respiratory Rate 16 09/20/20 13:28 Blood Pressure 121/81 09/20/20 13:28 Pulse Oximetry 97 09/20/20 13:28 MDM - General Adult MDM Narrative: Medical decision making narrative: Patient does have a DVT. Start him on Eliquis. He also has some level of iatrogenic hypotension re commend that he stop his isosorbide at this point. He does have bilateral spasmic-like attacks especially in the hands they seem to occur more often when he is startled. Will refer him to neurology for that. Reviewed the findings with the patient. Lab Data: Labs: Lab Results 09/20/20 09/20/20 Range/Units 11:15 11:15 WBC 4.1 (4.0-10.0) 10^3/ uL RBC 2.70 L (4.1-5.3) 10^6/u L Hgb 9.3 L (11.7-16.6) g/dL Hct 28.6 L (42.0-52.0) % MCV 105.9 H (80-94) fL MCH 34.4 H (28.0-34.0) pg MCHC 32.5 (30.0-36.0) g/dL RDW 14.0 (12.1-15.1) % Plt Count 147 (130-400) 10^3/c mm MPV 10.3 (7.4-10.4) fL Neut % (Auto) 64.3 % Lymph % (Auto) 24.6 % [place] % (Auto) 9.0 % Eos % (Auto) 1.7 % Baso % (Auto) 0.2 % Neut # (Auto) 2.64 (1.8-7.7) 10^3/u L Lymph # (Auto) 1.0 (0.8-4.8) 10^3/u L [place] # (Auto) 0.4 (0.2-0.9) 10^3/u L Eos # (Auto) 0.1 (0.0-0.8) 10^3/u L Baso # (Auto) 0.0 (0.0-0.1) 10^3/u L Nucleated RBC % (a uto) 0 % Nucleated RBCs # 0.0 /100WBC Sodium 140 (136-145) mmol/L Potassium 5.4 H (3.5-5.1) mmol/L Chloride 103 (98-107) mmol/L Carbon Dioxide 28 (22-29) mmol/L Anion Gap 14.4 (5-19) BUN 26 H (8-23) mg/dL Creatinine 1.4 H (0.7-1.2) mg/dL GFR Calculation Not Reportable Glucose 122 H (65-115) mg/dL Calculated Osmolal ity 296 H (285-295) mOsm/k g Calcium 8.7 (8.5-10.5) mg/dL Total Bilirubin 0.4 (0.15-1.2) mg/dL AST 30 (0-40) U/L ALT 8 (0-41) U/L Alkaline Phosphata se 72 (40-130) IU/L Creatine Kinase 81 (39-308) U/L Total Protein 6.4 L (6.6-8.7) g/dL Albumin 3.6 (3.5-5.2) g/dL Globulin 2.8 (1.3-4.6) g/dL Discharge Plan Discharge Patient Disposition: Home Clinical Impression: DVT (deep venous thrombosis), Hypertension, History of total right knee replacement, Medication side effects, Iatrogenic hypotension Condition: Stable Prescriptions: [facility] DVT-PE Treat 30D Start 5 mg (74 tabs) tablets,dose pack See Rx Instructions .ROUTE .COMPLEX Qty: 74 RF: 0 Discontinued isosorbide mononitrate 30 mg Tablet Extended Release 24 Hr 30 mg PO DAILY@08 RF: 0 No Action clopidogrel 75 mg tablet 75 mg PO DAILY@08 RF: 0 terazosin 10 mg capsule 10 mg PO DAILY@08 RF: 0 pantoprazole 20 mg tablet,delayed release (DR/EC) 20 mg PO BID@,18 RF: 0 gabapentin 300 mg capsule 300 mg PO BID@,18 RF: 0 docusate sodium [DOK] 100 mg tablet 100 mg PO BID@,18 RF: 0 furosemide 40 mg tablet 40 mg PO DAILY@08 RF: 0 clonazepam 0.5 mg tablet 0.25 mg PO BID@,18 RF: 0 diphenhydramine HCl [Allergy (diphenhydramine)] 25 mg tablet 50 mg PO BEDTIME RF: 0 aspirin [Adult Low Dose Aspirin] 81 mg tablet,delayed release (DR/EC) 81 mg PO DAILY@08 RF: 0 PreserVision AREDS 14,320-226-200 [id number] capsule 1 cap PO BID@08,18 RF: 0 One Daily [facility] 18 mg iron-400 mcg-450 mg Ca tablet 1 tab PO DAILY@08 RF: 0 nitroglycerin 0.4 mg tablet, sublingual 0.4 mg sublingual Q5M PRN (Reason: Chest Pain) RF: 0 acetaminophen 500 mg capsule 500 mg PO Q6H PRN (Reason: Pain) RF: 0 oxycodone 5 mg tablet 5 mg PO Q4H PRN (Reason: Moderate Pain) 7 Days Qty: 30 RF: 0 ropinirole 1 mg Tablet 1 mg PO BEDTIME@1999 RF: 0 Celebrex 200 mg capsule 200 mg PO BID@,18 RF: 0 aspirin 325 mg tablet,delayed release (DR/EC) 325 mg PO DAILY@08 RF: 0 Lomotil 2.5-0.025 mg Tablet 1 tab PO DAILY PRN (Reason: Diarrhea) RF: 0 Miralax 17 gram/dose Powder 17 g PO EVERY OTHER DAY RF: 0 Discharge Orders: Discharge ED (Routine); Ordered 09/20/20 Ordered By: Julito Yoon Referrals: Antony Minaya, DO [Primary Care Provider] - Discharge Diet: Usual diet Discharge Activity: Increase activity as tolerated Patient Instructions: Opioid Safety Activity Restrictions/Additional Instructions: Case management will make you a appointment with the neurologist for the tremor. 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
[2020-09-20 11:27] LABS: Basophils % 0.2 %; Eosinophils # 0.1 10^3/uL (0.0-0.8); Eosinophils % 1.7 %; Hematocrit 28.6 % (42.0-52.0); Hemoglobin 9.3 g/dL (11.7-16.6); Lymphocytes % 24.6 %; Mean Corpuscular HGB Conc 32.5 g/dL (30.0-36.0); Mean Corpuscular Hemoglobin 34.4 pg (28.0-34.0); Mean Corpuscular Volume 105.9 fL (80-94); Mean Platelet Volume 10.3 fL (7.4-10.4); Monocytes # 0.4 10^3/uL (0.2-0.9); Neutrophils # 2.64 10^3/uL (1.8-7.7); Neutrophils % 64.3 %; Nucleated Red Blood Cells % 0 %; Platelet Count 147 10^3/cmm (130-400); White Blood Count 4.1 10^3/uL (4.0-10.0)
[2020-09-20] MEDS: sodium chloride 0.9% 1,000 ML 999 ML IV (11:34)
[2020-09-20 11:41] VITALS: BP 100/54; PULSE 71; RESP 20; O2SAT 97
[2020-09-20 12:21] LABS: Alanine Aminotransferase 8 U/L (0-41); Albumin Level 3.6 g/dL (3.5-5.2); Alkaline Phosphatase 72 IU/L (40-130); Aspartate Amino Transferase 30 U/L (0-40); Blood Urea Nitrogen 26 mg/dL (8-23); Calcium 8.7 mg/dL (8.5-10.5); Carbon Dioxide 28 mmol/L (22-29); Chloride 103 mmol/L (98-107); Creatine Phosphokinase 81 U/L (39-308); Globulin 2.8 g/dL (1.3-4.6); Glucose 122 mg/dL (65-115); Osmolality Calculated 296 mOsm/kg (285-295); Sodium 140 mmol/L (136-145); Total Bilirubin 0.4 mg/dL (0.15-1.2); Total Protein 6.4 g/dL (6.6-8.7)
[2020-09-20 12:22] LABS: Anion Gap 14.4 (5-19); Potassium 5.4 mmol/L (3.5-5.1)
[2020-09-20] MEDS: enoxaparin 80 mg/0.8 mL Syringe SUBCUT (12:52)
[2020-09-20 13:28] VITALS: BP 121/81; PULSE 83; RESP 16; O2SAT 97
--- NOTE | 2020-09-21 14:29 | DCPLANNER ---
application architect manager had message to schedule a follow up appointment for patient with Dr. Kumari. application architect manager called Brenda Sanchez, cancer registry coordinator for Dr. Kumari. application architect manager was unable to speak with Brenda at this time, a voicemail was left regarding patient and needing follow up with Dr. Kumari. Patient has [employer] insurance, case assembler emailed patients information to Rosy with [employer] [facility], so that a consult could be placed for the authorization process could begin.
--- NOTE | 2020-10-06 14:31 | DCPLANNER ---
supply manager called the office of Dr. Kumari to confirm if a follow up appointment had been scheduled for patient. supply manager spoke with Amador, was told that a message would be given to Amador Sanchez about appointment.
--- NOTE | 2020-11-26 11:05 | DCPLANNER ---
Patient had a follow up appointment scheduled for 11.08.[address] Kumari - patient did attend appointment.
== END 2020-09-20 13:29 | disposition home or self-care (01) ==
PROVIDERS: Emergency Provider Family Medicine; PCP Emergency Medicine Emergency Medical Services
DX: I95.89 Other hypotension (principal); T50.905A Adverse effect of unspecified drugs, medicaments and biological substances, initial encounter; I10 Essential (primary) hypertension; I82.409 Acute embolism and thrombosis of unspecified deep veins of unspecified lower extremity; Z96.651 Presence of right artificial knee joint; Z79.82 Long term (current) use of aspirin; Z79.02 Long term (current) use of antithrombotics/antiplatelets; Z86.73 Personal history of transient ischemic attack (TIA), and cerebral infarction without residual deficits; M79.604 Pain in right leg
CPT/HCPCS: 70450; 71045; 80053; 82550; 85025; 93971; 96372; 99284; J1650; J7030

== ENCOUNTER 2020-09-30 06:00 | Outpatient (RCR) | payer OTHER, MEDICARE, BC, SELFPAY | END 2020-10-29 23:59 | disposition home or self-care (01) | LOC: GPT 06:00 | PROVIDERS: PCP Emergency Medicine Emergency Medical Services; Referring Provider Specialist; Visit Provider Specialist | DX: Z47.1 Aftercare following joint replacement surgery (principal); Z96.651 Presence of right artificial knee joint | CPT/HCPCS: 97110; 97112; 97116; 97164; 97530 ==

== ENCOUNTER 2020-10-02 16:13 | Emergency (ER) | payer OTHER, MEDICARE, BC, SELFPAY ==
[2020-10-02 16:30] VITALS: BP 125/75; PULSE 70; RESP 18; TEMP 36.4; O2SAT 97; BMI 28.8
--- NOTE | 2020-10-02 16:58 | CTR_ITS ---
PROCEDURE INFORMATION: Exam: CT Head Without Contrast Exam date and time: 10/02/2020 5:18 PM Age: 84 years old Clinical indication: Injury or trauma; Blunt trauma (contusions or hematomas); Patient HX: Syncope with fall two days ago. Sustained blow to head. Currently on eliquis S/P total knee replacement. ; Additional info: Fall on eliquis TECHNIQUE: Imaging protocol: Computed tomography of the head without contrast. Radiation optimization: All CT scans at this facility use at least one of these dose optimization techniques: automated exposure control; mA and/or kV adjustment per patient size (includes targeted exams where dose is matched to clinical indication); or iterative reconstruction. COMPARISON: CT head wo con* [id number] 09/20/2020 11:39 AM RADIATION DOSE METRICS: Total DLP (mGy-cm): 880.62 FINDINGS: Brain: There is diffuse cerebral atrophy present, consistent with this patient's age. Periventricular and subcortical white matter low densities are present which at this age likely represent microvascular ischemic change. 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 Please note acute ischemia can be occult by head CT. Cerebral ventricles: No ventriculomegaly. Bones/joints: Unremarkable. No acute fracture. Paranasal sinuses: Right maxillary sinus is opacified by mucosal thickening, unchanged from the prior study. Mastoid air cells: Visualized mastoid air cells are well aerated. Vasculature: Calcified plaque is present within the intracranial vasculature. Soft tissues: Unremarkable. CT/CT head wo con* [id number] IMPRESSION: There are senescent changes of the brain as described above. No evidence for large acute ischemic infarction or acute intracranial injury. Radiation Dose CTDIVOL = (mGy): DLP = 880.62 (mGy-cm)
--- NOTE | 2020-10-02 16:58 | XRR_ITS ---
PROCEDURE INFORMATION: Exam: XR Chest Exam date and time: 10/02/2020 5:18 PM Age: 84 years old Clinical indication: Dyspnea; Additional info: Fall TECHNIQUE: Imaging protocol: XR of the chest Views: 1 view. COMPARISON: CR XR chest 1V portable [id number] 09/20/2020 10:54 AM FINDINGS: Lungs: There are hazy opacities at the left lung base. Pleural spaces: Blunting of the left costophrenic angle is suggestive of a small pleural effusion and is similar to the prior study. Heart/Mediastinum: Heart border is obscured. Bones/joints: There are posterior sternotomy changes and postoperative changes overlying the mediastinum. XR/XR chest 1V portable [id number] IMPRESSION: Probable left pleural effusion. Hazy opacities at the left lung base are nonspecific and may represent pneumonia and/or atelectasis.
--- NOTE | 2020-10-02 16:58 | USCV_ITS ---
Ruthie Bowen Age: 84 Gender: M : 1935 Exam Date: 10/02/2020 17:36 Ordering Phys: Nikhil Roy MD Technologist: Exam Location: [facility] – [place] Indication: RT LEG PAIN HX OF RT DVT HISTORY: Lower extremity pain. DVT. RT CALF PROCEDURES: Venous duplex imaging was performed in only the right lower extremity. The following venous structures were evaluated: common femoral vein, profunda vein, proximal portion of the greater saphenous vein, superficial femoral vein, and the popliteal vein. In addition, the posterior tibial and peroneal trunk were evaluated. FINDINGS: THERE IS STILL A REMAINING NON OCCLULISIVE THROMBUS IN ONE OF THE RT PTV VEINS THE REST OF THE RT LEG VEINS ARE NORMAL One of the posterior tibial veins were found to be partially compressible CONCLUSIONS 1. Features of venous thrombosis with a partial occlusion in one of the posterior tibial veins. 2. Other deep veins were found to have no evidence of thrombosis Compared to the study from 09/20/2020, there is resolution of the DVT in the profunda femoral vein with recanalization in the posterior tibial vein Dr Jonathan Benites MD [facility] (Electronically Signed) Final Date: 03 October 2020 18:51 S
[2020-10-02 17:04] VITALS: PULSE 66
--- NOTE | 2020-10-02 17:08 | ED_ITS ---
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 Also 2 days ago he fell and hit his head. His said he was unconscious for 30 minutes however when he woke he did not want to go to the hospital because he has been here so many times recently. He says he gets unsteady on his feet sometimes and that is normal for him but he says he has no symptoms now and is not worried about it. Appro ximately 6 weeks ago he had a knee arthroplasty and on September 20 he was diagnosed with a DVT in that leg and started on Eliquis. MD complaint: loss of consciousness and felt faint Associated symptoms: Deny abdominal pain, chest pain or headache(s) Review of Systems General: Reports: 10 or more systems reviewed and unremarkable except in HPI and below Const: Denies: fatigue Eyes: Denies: change in vision, blurry vision or eye redness ENMT: Denies: throat pain, swelling of lips/tongue, ear or mastoid pain or nasal congestion Card: Denies: chest pain, palpitations, irregular heart rhythm, edema, dyspnea on exertion or orthopnea Resp: Denies: dyspnea, productive cough or non-productive cough GI: Denies: abdominal pain, diarrhea or GI cramping : Denies: flank pain, urinary frequency or urinary urgency Musc: Denies: neck pain, back pain, extremity pain, joint pain, joint redness, limited range of motion or muscle weakness Skin/Breast: Reports: skin swelling; Denies: rash, pruritus, erythema, skin pain or skin tenderness Neuro: Denies: headache(s), numbness in extremities, weakness in extremities, sensory changes, difficulty walking, dizziness, confusion or Slurred speech present Psych: Denies: anxiety or depression Endo: Denies: polyuria All/Imm: Denies: urticaria, throat swelling or tongue swelling PFS ED PFSH: Medical History Bronchitis History of TIA (transient ischemic attack) Pneumonia Shortness of breath Surgical History History of angioplasty 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 Family History Other CAD (coronary artery disease) Social History Smoking and tobacco status: never smoked Alcohol intake: never Physical Exam Const: COMMON NORMALS: no acute distress, average body habitus, patient oriented x3, no limitations, healthy appearing, alert and well nourished GENERAL APPEARANCE: cooperative, comfortable, well kempt and well developed ORIENTATION/CONSCIOUSNESS: Yes awake, Yes oriented to person, Yes oriented to place and Yes oriented to time HENMT: COMMON NORMALS: normocephalic, external ears normal and Normal external nose present HEAD & SCALP: normal to inspection and normocephalic NOSE: Normal external nose present EXTERNAL EAR: Yes external ears normal MOUTH: Normal oral and palatal mucosa present THROAT: posterior oropharynx normal Eye: COMMON NORMALS: Equal, round and reactive pupils present and EOMs intact bilaterally GENERAL EYE: appearance normal, both eyes and all related structures PUPIL: Yes Equal, round and reactive pupils present Neck/C-Spine: COMMON NORMALS: full ROM, no lymphadenopathy, no meningeal signs and no JVD GENERAL: Yes normal visual inspection Lymph: LYMPHATIC: no lymphadenopathy noted Chest: COMMONS NORMALS: normal inspection of the chest and normal palpation of entire chest wall Resp: COMMON NORMALS: normal respiratory effort, No retractions, No use of accessory muscles, clear to auscultation bilaterally and percussion normal EFFORT & INSPECTION: Yes able to speak in complete sentences AUSCULTATION: clear to auscultation bilaterally PERCUSSION: percussion normal Cardio: COMMON NORMALS: no JVD, regular rate, regular rhythm, S1 normal heart sound present, S2 normal heart sound present and Peripheral pulses 2+ throughout RATE: regular rate RHYTHM: regular rhythm HEART SOUNDS: S1 normal heart sound present and S2 normal heart sound present PERIPHERAL PULSES: Peripheral pulses 2+ throughout GI: COMMON NORMALS: Normal to inspection, nondistended, normoactive bowel sounds present, Soft to palpation, non-tender and no masses INSPECTION: Yes normal to inspection PALPATION: Yes Soft to palpation : COMMON NORMALS: Yes no CVA tenderness BLADDER/KIDNEY EXAM: Yes no CVA tenderness Back/Pelvis: COMMON NORMALS: no CVA tenderness, thoracic and lumbar spine normal to inspection, no thoracic nor lumbar tenderness and thoraco-lumbar ROM normal Extremity: COMMON NORMALS: normal to inspection, full ROM, capillary refill normal, no joint enlargement and no pedal edema NARRATIVE EXTREMITY EXAM: Mild swelling to right calf with associated tenderness. He has a known DVT in this leg so I did not manipulate it. Pulses intact distally and good cap refill in the toes. No significant color change. GENERAL: Yes normal exam except as noted Neuro: COMMON NORMALS: patient oriented x3, CN's II-XII intact bilaterally, moves all extremities, no focal motor deficits, no sensory deficits noted and gait normal SENSORIUM/ORIENTATION: Yes alert, Yes oriented to person, Yes oriented to place and Yes oriented to time MENINGEAL SIGNS: Yes no meningeal signs Psych: COMMON NORMALS: mental status grossly normal, Normal thought process present, cooperative, normal affect and speech normal APPEARANCE: Yes well kempt ATTITUDE: Yes calm SPEECH: Yes normal speech THOUGHT PROCESS: Normal thought process present Skin: COMMON NORMALS: no rashes or lesions noted GENERAL SKIN EXAM: no rashes or lesions noted Course 2 Vital Signs: Vital signs: Vital Signs Temperature 97.5 F L 10/02/20 16:30 Pulse Rate 66 10/02/20 20:04 Respiratory Rate 16 10/02/20 20:04 Blood Pressure 152/89 10/02/20 20:04 Pulse Oximetry 98 10/02/20 20:04 MDM - Syncope MDM Narrative: Medical decision making narrative: The patient came in complaining of right lower extremity pain and he has a known DVT on Eliquis already. Ultrasound again shows the DVT however it is improving. His pain spontaneously got better and he is stable for discharge. Related complaint is a couple days ago he had a 30-minute episode where he passed out versus had a TIA or seizure. He is not having any symptoms here and imaging has been negative for any injuries. He has not had this looked into. I recommended he follow-up with a neurologist and placed a case management referral to help him get him. I recommended he return to the ER if he has any more symptoms. Lab Data: Labs: Lab Results 10/02/20 10/02/20 10/02/20 Range/Units 17:25 17:25 17:25 WBC 4.6 (4.0-10.0) 10^3/ uL RBC 2.70 L (4.1-5.3) 10^6/u L Hgb 9.4 L (11.7-16.6) g/dL Hct 28.9 L (42.0-52.0) % MCV 107.0 H (80-94) fL MCH 34.8 H (28.0-34.0) pg MCHC 32.5 (30.0-36.0) g/dL RDW 14.2 (12.1-15.1) % Plt Count 141 (130-400) 10^3/c mm MPV 9.4 (7.4-10.4) fL Neut % (Auto) 58.0 % Lymph % (Auto) 33.0 % [place] % (Auto) 7.3 % Eos % (Auto) 1.5 % Baso % (Auto) 0.2 % Neut # (Auto) 2.69 (1.8-7.7) 10^3/u L Lymph # (Auto) 1.5 (0.8-4.8) 10^3/u L [place] # (Auto) 0.3 (0.2-0.9) 10^3/u L Eos # (Auto) 0.1 (0.0-0.8) 10^3/u L Baso # (Auto) 0.0 (0.0-0.1) 10^3/u L Nucleated RBC % (a uto) 0 % Nucleated RBCs # 0.0 /100WBC D-Dimer 1.88 H (0-0.59) ug/mIFE U Sodium 139 (136-145) mmol/L Potassium 4.8 (3.5-5.1) mmol/L Chloride 103 (98-107) mmol/L Carbon Dioxide 27 (22-29) mmol/L Anion Gap 13.8 (5-19) BUN 23 (8-23) mg/dL Creatinine 1.7 H (0.7-1.2) mg/dL GFR Calculation Not Reportable Glucose 95 (65-115) mg/dL Calculated Osmolal ity 291 (285-295) mOsm/k g Calcium 9.0 (8.5-10.5) mg/dL Total Bilirubin 0.2 (0.15-1.2) mg/dL AST 15 (0-40) U/L ALT 10 (0-41) U/L Alkaline Phosphata se 81 (40-130) IU/L Troponin T Baselin e (0-15) ng/L Total Protein 6.1 L (6.6-8.7) g/dL Albumin 4.1 (3.5-5.2) g/dL Globulin 2.0 (1.3-4.6) g/dL Urine Color (Yellow) Urine Appearance (CLEAR) Urine pH (5-7) Ur Specific Gravit y (1.005-1.030) Urine Protein (Negative) Urine Glucose (UA) (Normal) Urine Ketones (Negative) Urine Blood (Negative) Urine Nitrate (Negative) Urine Bilirubin (Negative) Urine Urobilinogen (Negative) mg/dL Ur Leukocyte Marcia ase (Negative) 10/02/20 10/02/20 Range/Units 17:25 18:10 WBC (4.0-10.0) 10^3/ uL RBC (4.1-5.3) 10^6/u L Hgb (11.7-16.6) g/dL Hct (42.0-52.0) % MCV (80-94) fL MCH (28.0-34.0) pg MCHC (30.0-36.0) g/dL RDW (12.1-15.1) % Plt Count (130-400) 10^3/c mm MPV (7.4-10.4) fL Neut % (Auto) % Lymph % (Auto) % [place] % (Auto) % Eos % (Auto) % Baso % (Auto) % Neut # (Auto) (1.8-7.7) 10^3/u L Lymph # (Auto) (0.8-4.8) 10^3/u L [place] # (Auto) (0.2-0.9) 10^3/u L Eos # (Auto) (0.0-0.8) 10^3/u L Baso # (Auto) (0.0-0.1) 10^3/u L Nucleated RBC % (a uto) % Nucleated RBCs # /100WBC D-Dimer (0-0.59) ug/mIFE U Sodium (136-145) mmol/L Potassium (3.5-5.1) mmol/L Chloride (98-107) mmol/L Carbon Dioxide (22-29) mmol/L Anion Gap (5-19) BUN (8-23) mg/dL Creatinine (0.7-1.2) mg/dL GFR Calculation Glucose (65-115) mg/dL Calculated Osmolal ity (285-295) mOsm/k g Calcium (8.5-10.5) mg/dL Total Bilirubin (0.15-1.2) mg/dL AST (0-40) U/L ALT (0-41) U/L Alkaline Phosphata se (40-130) IU/L Troponin T Baselin e 45 H (0-15) ng/L Total Protein (6.6-8.7) g/dL Albumin (3.5-5.2) g/dL Globulin (1.3-4.6) g/dL Urine Color Straw (Yellow) Urine Appearance Clear (CLEAR) Urine pH 5 (5-7) Ur Specific Gravit y 1.020 (1.005-1.030) Urine Protein Neg (Negative) Urine Glucose (UA) Norm (Normal) Urine Ketones Negative (Negative) Urine Blood Neg (Negative) Urine Nitrate Negative (Negative) Urine Bilirubin Neg (Negative) Urine Urobilinogen Norm (Negative) mg/dL Ur Leukocyte Marcia ase Negative (Negative) Discharge Plan Discharge Patient Disposition: Home Clinical Impression: DVT (deep venous thrombosis) Condition: Stable Prescriptions: No Action clopidogrel 75 mg tablet 75 mg PO DAILY@08 RF: 0 terazosin 10 mg capsule 10 mg PO DAILY@08 RF: 0 pantoprazole 20 mg tablet,delayed release (DR/EC) 20 mg PO BID@,18 RF: 0 gabapentin 300 mg capsule 300 mg PO BID@,18 RF: 0 docusate sodium [DOK] 100 mg tablet 100 mg PO BID@,18 RF: 0 furosemide 40 mg tablet 40 mg PO DAILY@08 RF: 0 clonazepam 0.5 mg tablet 0.25 mg PO BID@,18 RF: 0 diphenhydramine HCl [Allergy (diphenhydramine)] 25 mg tablet 50 mg PO BEDTIME RF: 0 aspirin [Adult Low Dose Aspirin] 81 mg tablet,delayed release (DR/EC) 81 mg PO DAILY@08 RF: 0 PreserVision AREDS 14,[id number] tpim-hd-uvjo capsule 1 cap PO BID@ RF: 0 One Daily Women's Health 18 mg iron-400 mcg-450 mg Ca tablet 1 tab PO DAILY@08 RF: 0 nitroglycerin 0.4 mg tablet, sublingual 0.4 mg sublingual Q5M PRN (Reason: Chest Pain) RF: 0 acetaminophen 500 mg capsule 500 mg PO Q6H PRN (Reason: Pain) RF: 0 oxycodone 5 mg tablet 5 mg PO Q4H PRN (Reason: Moderate Pain) 7 Days Qty: 30 RF: 0 ropinirole 1 mg Tablet 1 mg PO BEDTIME@1999 RF: 0 celecoxib [Celebrex] 200 mg capsule 200 mg PO BID@ RF: 0 diphenoxylate-atropine [Lomotil] 2.5-0.025 mg Tablet 1 tab PO DAILY PRN (Reason: Diarrhea) RF: 0 polyethylene glycol 3350 [Miralax] 17 gram/dose Powder 17 g PO EVERY OTHER DAY RF: 0 albuterol sulfate 2.5 mg /3 mL (0.083 %) Solution For Nebulization 2.5 mg INHALATION Q4H PRN (Reason: Shortness Of Breath) RF: 0 Zofran 8 mg Tablet 8 mg PO Q12H PRN (Reason: Nausea) RF: 0 Senna-S 8.6-50 mg Tablet 1 tab-cap PO DAILY PRN (Reason: CONSTIPATION (2ND)) RF: 0 Vitamin B-12 1,000 mcg Tablet 1,000 mcg PO DAILY@08 RF: 0 magnesium citrate Solution 150 ml PO ONCE PRN (Reason: Constipation (1ST)) RF: 0 Voltaren 1 % Gel 2 g TOPICAL QID PRN (Reason: Pain) RF: 0 Vitamin D3 50 mcg (2,000 unit) Capsule 50 mcg PO DAILY@08 RF: 0 Eliquis 5 mg tablet 5 mg PO BID@ RF: 0 Discharge Orders: Discharge ED (Routine); Ordered 10/02/20 Ordered By: Nikhil Roy Referrals: Antony Minaya DO [Primary Care Provider] - Discharge Diet: Advance as tolerated Discharge Activity: Resume usual activity Patient Instructions: Deep Venous Thrombosis (ED), Opioid Safety Activity Restrictions/Additional Instructions: You continue to have a blood clot in your right leg though it is improving since you started taking the Eliquis. The pain that you are having in your knee is probably from the surgery. Please continue to follow-up with your primary care physician in a couple days and I have also placed a case management referral to help you get an appointment with a neurologist as an outpatient. Return to the ER with any worsening symptoms or any of those passing out spells that you are having. You must get a release from your primary care physician to be able to return to physical therapy. Coding Level of Care Code ED Nurse General Duty for Tushar Hoskins Exam Comprehensive
--- NOTE | 2020-10-02 17:08 | ECG_ITS ---
[facility] Test Date: 2020-10-02 Pat Name: Ruthie Bowen Department: Room: Gender: Male Reconciliation Specialist: : 1935 Requested By: Nikhil Roy Order Number: [id number] Tommy MD: Jonathan Benites M.D. Measurements Intervals [place] Rate: 66 P: -58 DC: 141 QRS: 117 QRSD: 155 T: 26 QT: 417 QTc: 440 Interpretive Statements Possible SINUS RHYTHM RIGHT BUNDLE BRANCH BLOCK [120+ ms QRS DURATION, UPRIGHT V1, 40+ ms S IN I/aVL/V4/V5/V6] LEFT POSTERIOR FASCICULAR BLOCK [QRS AXIS > 109, INFERIOR Q] No previous ECG available for comparison Heavy baseline artifacts, need to repeat the study Electronically Signed On 10-02-2020 20:27:43 CDT by Jonathan Benites M.D. [id number]
[2020-10-02 17:27] VITALS: BP 130/69; PULSE 63; RESP 18; O2SAT 98
[2020-10-02 17:33] LABS: Basophils % 0.2 %; Eosinophils # 0.1 10^3/uL (0.0-0.8); Eosinophils % 1.5 %; Hematocrit 28.9 % (42.0-52.0); Hemoglobin 9.4 g/dL (11.7-16.6); Lymphocytes # 1.5 10^3/uL (0.8-4.8); Mean Corpuscular HGB Conc 32.5 g/dL (30.0-36.0); Mean Corpuscular Hemoglobin 34.8 pg (28.0-34.0); Mean Platelet Volume 9.4 fL (7.4-10.4); Monocytes # 0.3 10^3/uL (0.2-0.9); Monocytes % 7.3 %; Neutrophils # 2.69 10^3/uL (1.8-7.7); Nucleated Red Blood Cells % 0 %; Platelet Count 141 10^3/cmm (130-400); Red Cell Distribution Width 14.2 % (12.1-15.1); White Blood Count 4.6 10^3/uL (4.0-10.0)
[2020-10-02 17:48] LABS: D Dimer 1.88 ug/mIFEU (0-0.59)
[2020-10-02 17:55] LABS: Troponin(5th) Baseline 45 ng/L (0-15)
[2020-10-02 18:15] LABS: Add Urine Microscopic? NO
[2020-10-02 18:16] LABS: Alanine Aminotransferase 10 U/L (0-41); Albumin Level 4.1 g/dL (3.5-5.2); Alkaline Phosphatase 81 IU/L (40-130); Anion Gap 13.8 (5-19); Aspartate Amino Transferase 15 U/L (0-40); Blood Urea Nitrogen 23 mg/dL (8-23); Carbon Dioxide 27 mmol/L (22-29); Chloride 103 mmol/L (98-107); Glucose 95 mg/dL (65-115); Osmolality Calculated 291 mOsm/kg (285-295); Potassium 4.8 mmol/L (3.5-5.1); Sodium 139 mmol/L (136-145); Total Bilirubin 0.2 mg/dL (0.15-1.2); Total Protein 6.1 g/dL (6.6-8.7)
[2020-10-02 18:17] LABS: Bilirubin Urine Neg (Negative); Blood Urine Neg (Negative); Glucose Urine UA Norm (Normal); Ketones Urine Negative (Negative); Leukocyte Esterase Urine Negative (Negative); Nitrate Urine Negative (Negative); Protein Urine Neg (Negative); Urine Appearance Clear (CLEAR); Urine Color Straw (Yellow); Urobilinogen Urine Norm (Negative); pH Urine 5 (5-7)
--- NOTE | 2020-10-02 19:08 | ECG_ITS ---
Test Date: 2020-10-02 Pat Name: Ruthie Bowen Department: Room: Gender: Male Business Performance Analyst: : 1935 Requested By: Nikhil Roy Order Number: [id number] Tommy MD: Jonathan Benites M.D. Measurements Intervals [place] Rate: 64 P: 12 AR: 162 QRS: 108 QRSD: 142 T: 22 QT: 414 QTc: 429 Interpretive Statements SINUS RHYTHM RIGHT AXIS DEVIATION [QRS AXIS > 100] RIGHT BUNDLE BRANCH BLOCK [120+ ms QRS DURATION, UPRIGHT V1, 40+ ms S IN I/aVL/V4/V5/V6] Compared to ECG 10/02/2020 16:58:06 Right-axis deviation now present Left posterior fascicular block no longer present Electronically Signed On 10-02-2020 20:35:25 CDT by Jonathan Benites M.D. [id number]
[2020-10-02 20:04] VITALS: BP 152/89; PULSE 66; RESP 16; O2SAT 98
[2020-10-02 20:40] VITALS: BP 164/95; PULSE 96; RESP 18; O2SAT 94
--- NOTE | 2020-10-05 10:38 | DCPLANNER ---
development manager had message to schedule a follow up appointment for patient with Dr. Kumari. development manager called the office of Dr. Kumari, spoke with Dana, gave clinic patients information. development manager was told that patients information would be printed and reviewed. Clinic will call patient with appointment information. Patient has [facility] insurance, case planner emailed patients information to Rosy with [facility], so that the authorization process could be started.
--- NOTE | 2020-10-07 08:06 | DCPLANNER ---
Patient has a follow up appointment scheduled for Sunday, November 08, 2020 at 1:[address] Kumari. Clinic will call patient with appointment information. life sciences manager emailed September with [employer] [facility] [employer] [facility] that appointment information, so that the authorization process can be started.
--- NOTE | 2020-11-26 11:35 | DCPLANNER ---
Patient had a follow up appointment scheduled for 11.08.[address] Kumari - patient did attend appointment.
== END 2020-10-02 20:41 | disposition home or self-care (01) ==
PROVIDERS: Emergency Provider Family Medicine; PCP Emergency Medicine Emergency Medical Services
DX: I82.401 Acute embolism and thrombosis of unspecified deep veins of right lower extremity (principal); Z79.01 Long term (current) use of anticoagulants; Z79.02 Long term (current) use of antithrombotics/antiplatelets; Z79.82 Long term (current) use of aspirin; Z86.73 Personal history of transient ischemic attack (TIA), and cerebral infarction without residual deficits; Z95.1 Presence of aortocoronary bypass graft
CPT/HCPCS: 70450; 71045; 80053; 81003; 84484; 85025; 85378; 93005; 93971; 99284

== ENCOUNTER → 2020-10-11 11:01 | Outpatient (BNVA) | payer OTHER, SELFPAY | PROVIDERS: PCP Emergency Medicine Emergency Medical Services; Visit Provider Specialist | DX: M17.11 Unilateral primary osteoarthritis, right knee (principal); Z96.651 Presence of right artificial knee joint | CPT/HCPCS: 73560; 73565 ==

== ENCOUNTER 2020-10-30 06:00 | Outpatient (RCR) | payer OTHER, SELFPAY | END 2020-11-29 23:59 | disposition home or self-care (01) | LOC: GPT 06:00 | PROVIDERS: PCP Emergency Medicine Emergency Medical Services; Referring Provider Specialist; Visit Provider Specialist | DX: Z47.1 Aftercare following joint replacement surgery (principal); Z96.651 Presence of right artificial knee joint | CPT/HCPCS: 97110; 97116; 97530 ==

== ENCOUNTER → 2020-11-08 13:11 | Outpatient (BNVA) | payer OTHER, SELFPAY | PROVIDERS: PCP Emergency Medicine Emergency Medical Services; Visit Provider Specialist | DX: R56.9 Unspecified convulsions (principal); G25.0 Essential tremor | CPT/HCPCS: 99205 ==

== ENCOUNTER 2020-11-14 13:04 | Emergency (ER) | payer OTHER, BC, MEDICARE, SELFPAY ==
[2020-11-14 13:22] VITALS: BP 116/70; PULSE 87; RESP 17; TEMP 37; O2SAT 97
--- NOTE | 2020-11-14 13:36 | XRR_ITS ---
PROCEDURE INFORMATION: Exam: XR Abdomen Exam date and time: 11/14/2020 1:50 PM Age: 84 years old Clinical indication: Abdominal pain; Additional info: Vomiting, abd pain TECHNIQUE: Imaging protocol: XR of the abdomen. Views: Frontal supine view of the abdomen. 1 View. COMPARISON: CR XR knees AP WB w RT lmt ORTH 09/13/2020 9:45 AM FINDINGS: Tubes, catheters and devices: Surgical clips project over the right groin. Gastrointestinal tract: Nonobstructive bowel gas pattern. Bones/joints: Degenerative changes of the spine seen. XR/XR KUB portable [id number] IMPRESSION: Nonobstructive bowel gas pattern.
--- NOTE | 2020-11-14 13:48 | ED_ITS ---
HPI - Nausea/Vomiting/Diarrhea General: Chief complaint: Nausea/Vomiting/Diarrhea Stated complaint: DIFF BREATHING, N/V Time Seen by Provider: 11/14/20 13:30 History of Present Illness: HPI Narrative: 84-year-old male presents with some nausea and episode of vomiting this morning. Patient reports that he took a bunch of his pills a piece of toast and then vomited. Patient reports this happened a couple hours ago. He has not had any further vomiting since then. He reports he has had 2 large bowel movements today. He has no abdominal pain. Patient denies shortness of breath, chest pain, fever, chills. Associated nausea: Yes Associated symtoms: Reports nausea; Denies anxiety, chest pain, dysuria, headache(s) or palpitations Review of Systems Const: Denies: fever(s) or chills ENMT: Denies: throat pain Card: Denies: chest pain or palpitations Resp: Denies: dyspnea, productive cough or wheezing GI: Reports: nausea and vomiting; Denies: abdominal pain, diarrhea or constipation : Denies: difficulty urinating or dysuria Skin/Breast: Denies: rash or pruritus Neuro: Denies: headache(s) Psych: Denies: anxiety PFSH ED PFSH: Medical History Bronchitis History of TIA (transient ischemic attack) Pneumonia Shortness of breath Surgical History History of angioplasty 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 Family History Other CAD (coronary artery disease) Social History Smoking and tobacco status: never smoked Alcohol intake: never History of recent travel: No Physical Exam Const: COMMON NORMALS: no acute distress and patient oriented x3 GENERAL APPEARANCE: cooperative and well kempt HENMT: COMMON NORMALS: normocephalic and hearing grossly normal bilaterally HEAD & SCALP: normocephalic Eye: COMMON NORMALS: Equal, round and reactive pupils present PUPIL: Yes Equal, round and reactive pupils present Resp: COMMON NORMALS: normal respiratory effort, No retractions and clear to auscultation bilaterally EFFORT & INSPECTION: Yes able to speak in complete sentences AUSCULTATION: clear to auscultation bilaterally Cardio: COMMON NORMALS: regular rate and regular rhythm RATE: regular rate RHYTHM: regular rhythm GI: COMMON NORMALS: Normal to inspection, nondistended, normoactive bowel sounds present and Soft to palpation PALPATION: Yes Soft to palpation and Yes Tenderness to palpation present (GI) (Mild tenderness left lateral quadrant) : COMMON NORMALS: Yes no CVA tenderness BLADDER/KIDNEY EXAM: Yes no CVA tenderness Back/Pelvis: COMMON NORMALS: no CVA tenderness Extremity: COMMON NORMALS: full ROM Neuro: COMMON NORMALS: patient oriented x3, moves all extremities and no focal motor deficits Psych: APPEARANCE: Yes grossly normal and Yes well kempt Skin: COMMON NORMALS: no rashes or lesions noted GENERAL SKIN EXAM: no rashes or lesions noted Course Vital Signs: Vital signs: Vital Signs Temperature 98.6 F 11/14/20 13:22 Pulse Rate 87 11/14/20 13:22 Respiratory Rate 17 11/14/20 13:22 Blood Pressure 116/70 11/14/20 13:22 Pulse Oximetry 97 11/14/20 13:22 MDM - Nausea/Vomiting/Diarrhea MDM Narrative: Medical decision making narrative: Patient feeling significant better following some IV fluids and some Zofran. Patient with no significant ac ingrid findings. Patient likely a mild viral illness versus gastritis from his pills. I will discharge him home with some Zofran. He should follow-up with her primary care provider in a couple days if symptoms return Lab Data: Attestation: I reviewed the patient's lab results. Labs: Lab Results 11/14/20 11/14/20 Range/Units 13:53 13:53 WBC 4.3 (4.0-10.0) 10^3/ uL RBC 3.12 L (4.1-5.3) 10^6/u L Hgb 10.9 L (11.7-16.6) g/dL Hct 33.7 L (42.0-52.0) % MCV 108.0 H (80-94) fL MCH 34.9 H (28.0-34.0) pg MCHC 32.3 (30.0-36.0) g/dL RDW 14.1 (12.1-15.1) % Plt Count 165 (130-400) 10^3/c mm MPV 9.8 (7.4-10.4) fL Neut % (Auto) 56.7 % Lymph % (Auto) 32.2 % [place] % (Auto) 7.8 % Eos % (Auto) 2.6 % Baso % (Auto) 0.5 % Neut # (Auto) 2.41 (1.8-7.7) 10^3/u L Lymph # (Auto) 1.4 (0.8-4.8) 10^3/u L [place] # (Auto) 0.3 (0.2-0.9) 10^3/u L Eos # (Auto) 0.1 (0.0-0.8) 10^3/u L Baso # (Auto) 0.0 (0.0-0.1) 10^3/u L Nucleated RBC % (a uto) 0 % Nucleated RBCs # 0.0 /100WBC Sodium 138 (136-145) mmol/L Potassium 4.2 (3.5-5.1) mmol/L Chloride 100 (98-107) mmol/L Carbon Dioxide 31 H (22-29) mmol/L Anion Gap 11.2 (5-19) BUN 15 (8-23) mg/dL Creatinine 1.3 H (0.7-1.2) mg/dL GFR Calculation Not Reportable Glucose 119 H (65-115) mg/dL Calculated Osmolal ity 288 (285-295) mOsm/k g Calcium 8.4 L (8.5-10.5) mg/dL Total Bilirubin 0.2 (0.15-1.2) mg/dL AST 15 (0-40) U/L ALT 10 (0-41) U/L Alkaline Phosphata se 79 (40-130) IU/L Total Protein 7.0 (6.6-8.7) g/dL Albumin 4.0 (3.5-5.2) g/dL Globulin 3.0 (1.3-4.6) g/dL Lipase 18 (13-60) U/L Imaging Data^: KUB: My impression: No acute findings Radiologist's impression: XR/XR KUB portable [id number] IMPRESSION: Nonobstructive bowel gas pattern. Discharge Plan Discharge Patient Disposition: Home Clinical Impression: Nausea & vomiting Qualifiers: Vomiting type: unspecified Vomiting Intractability: non-intractable Qualified Code(s): R11.2 - Nausea with vomiting, unspecified Condition: Stable Prescriptions: New ondansetron HCl [Zofran] 4 mg tablet 4 mg PO Q6H PRN (Reason: nausea and vomiting) Qty: 20 RF: 0 No Action triamcinolone acetonide 0.5 % cream 1 applic topical DAILY RF: 0 hydrocodone-acetaminophen 5-325 mg tablet 1 tab PO DAILY PRNRF: 0 levetiracetam [Keppra] 500 mg tablet 500 mg PO DAILY Qty: 30 RF: 0 clopidogrel 75 mg tablet 75 mg PO DAILY@08 RF: 0 terazosin 10 mg capsule 10 mg PO DAILY@08 RF: 0 pantoprazole 20 mg tablet,delayed release (DR/EC) 20 mg PO BID@, RF: 0 gabapentin 300 mg capsule 300 mg PO BID@, RF: 0 docusate sodium [DOK] 100 mg tablet 100 mg PO BID@ RF: 0 furosemide 40 mg tablet 40 mg PO DAILY@08 RF: 0 clonazepam 0.5 mg tablet 0.25 mg PO BID@, RF: 0 diphenhydramine HCl [Allergy (diphenhydramine)] 25 mg tablet 50 mg PO BEDTIME RF: 0 aspirin [Adult Low Dose Aspirin] 81 mg tablet,delayed release (DR/EC) 81 mg PO DAILY@08 RF: 0 PreserVision AREDS 14,[id number] nbie-cq-yabm capsule 1 cap PO BID@ RF: 0 One Daily Women's Health 18 mg iron-400 mcg-450 mg Ca tablet 1 tab PO DAILY@08 RF: 0 nitroglycerin 0.4 mg tablet, sublingual 0.4 mg sublingual Q5M PRN (Reason: Chest Pain) RF: 0 acetaminophen 500 mg capsule 500 mg PO Q6H PRN (Reason: Pain) RF: 0 ropinirole 1 mg Tablet 1 mg PO BEDTIME@1999 RF: 0 diphenoxylate-atropine [Lomotil] 2.5-0.025 mg Tablet 1 tab PO DAILY PRN (Reason: Diarrhea) RF: 0 polyethylene glycol 3350 [Miralax] 17 gram/dose Powder 17 g PO EVERY OTHER DAY RF: 0 albuterol sulfate 2.5 mg /3 mL (0.083 %) Solution For Nebulization 2.5 mg INHALATION Q4H PRN (Reason: Shortness Of Breath) RF: 0 Zofran 8 mg Tablet 8 mg PO Q12H PRN (Reason: Nausea) RF: 0 Senna-S 8.6-50 mg Tablet 1 tab-cap PO DAILY PRN (Reason: CONSTIPATION (2ND)) RF: 0 Vitamin B-12 1,000 mcg Tablet 1,000 mcg PO DAILY@08 RF: 0 magnesium citrate Solution 150 ml PO ONCE PRN (Reason: Constipation (1ST)) RF: 0 Voltaren 1 % Gel 2 g TOPICAL QID PRN (Reason: Pain) RF: 0 Vitamin D3 50 mcg (2,000 unit) Capsule 50 mcg PO DAILY@08 RF: 0 Eliquis 5 mg tablet 5 mg PO BID@08,18 RF: 0 Discharge Orders: Discharge ED (Routine); Ordered 11/14/20 Ordered By: Bin Mackey Referrals: Antony Minaya DO [Primary Care Provider] - Discharge Diet: Advance as tolerated Discharge Activity: Resume usual activity Patient Instructions: Opioid Safety, Acute Nausea and Vomiting (ED) Activity Restrictions/Additional Instructions: [facility]your primary care provider in a couple days for recheck of today's symptoms Advance diet as tolerated, drink plenty of fluid Coding Level of Care Code ED Dehydrogenation Supervisor for Chg Fwd Exam Comprehensive
[2020-11-14 14:21] LABS: Basophils % 0.5 %; Eosinophils # 0.1 10^3/uL (0.0-0.8); Eosinophils % 2.6 %; Hematocrit 33.7 % (42.0-52.0); Hemoglobin 10.9 g/dL (11.7-16.6); Lymphocytes # 1.4 10^3/uL (0.8-4.8); Lymphocytes % 32.2 %; Mean Corpuscular HGB Conc 32.3 g/dL (30.0-36.0); Mean Corpuscular Hemoglobin 34.9 pg (28.0-34.0); Mean Platelet Volume 9.8 fL (7.4-10.4); Monocytes # 0.3 10^3/uL (0.2-0.9); Monocytes % 7.8 %; Neutrophils # 2.41 10^3/uL (1.8-7.7); Neutrophils % 56.7 %; Nucleated Red Blood Cells % 0 %; Platelet Count 165 10^3/cmm (130-400); Red Blood Count 3.12 10^6/uL (4.1-5.3); Red Cell Distribution Width 14.1 % (12.1-15.1); White Blood Count 4.3 10^3/uL (4.0-10.0)
[2020-11-14 14:29] LABS: Alanine Aminotransferase 10 U/L (0-41); Alkaline Phosphatase 79 IU/L (40-130); Anion Gap 11.2 (5-19); Aspartate Amino Transferase 15 U/L (0-40); Blood Urea Nitrogen 15 mg/dL (8-23); Calcium 8.4 mg/dL (8.5-10.5); Carbon Dioxide 31 mmol/L (22-29); Chloride 100 mmol/L (98-107); Glucose 119 mg/dL (65-115); Lipase 18 U/L (13-60); Osmolality Calculated 288 mOsm/kg (285-295); Potassium 4.2 mmol/L (3.5-5.1); Sodium 138 mmol/L (136-145); Total Bilirubin 0.2 mg/dL (0.15-1.2)
[2020-11-14] MEDS: lactated ringers 500 ML 999 ML IV (14:38)
[2020-11-14 14:39] LABS: Add Urine Microscopic? NO; Charge for UA Resulting for Rev
[2020-11-14] MEDS: ondansetron 2 mg/ML SDV 2 mL 4 MG IVP (14:39)
[2020-11-14 15:29] LABS: Urine Appearance Clear (CLEAR); Urine Color Straw (Yellow); pH Urine 5 (5-7)
[2020-11-14 15:30] LABS: Bilirubin Urine Neg (Negative); Blood Urine Neg (Negative); Glucose Urine UA Norm (Normal); Ketones Urine Negative (Negative); Leukocyte Esterase Urine Negative (Negative); Nitrate Urine Negative (Negative); Protein Urine Neg (Negative); Urobilinogen Urine Norm (Negative)
[2020-11-14 16:01] VITALS: BP 141/60; PULSE 70; RESP 16; O2SAT 97
== END 2020-11-14 16:02 | disposition home or self-care (01) ==
PROVIDERS: Emergency Provider Student in an Organized Health Care Education/Training Program; PCP Emergency Medicine Emergency Medical Services
DX: R11.2 Nausea with vomiting, unspecified (principal); Z79.01 Long term (current) use of anticoagulants; Z79.02 Long term (current) use of antithrombotics/antiplatelets; Z79.82 Long term (current) use of aspirin; Z86.73 Personal history of transient ischemic attack (TIA), and cerebral infarction without residual deficits; Z95.1 Presence of aortocoronary bypass graft
CPT/HCPCS: 74018; 80053; 81003; 83690; 85025; 96374; 99283; J2405

== ENCOUNTER 2020-12-22 11:28 | Emergency (ER) | payer OTHER, BC, SELFPAY ==
[2020-12-22 12:03] VITALS: BP 115/67; PULSE 84; RESP 18; TEMP 36.8; O2SAT 97; BMI 34.7
--- NOTE | 2020-12-22 12:51 | CT_ITS ---
WS: [id number] CT ORBITS, NONCONTRAST HISTORY: seeing brown spots. h/o bilateral macular degeneration Technique: All CT scans at [facility] use at least one of these dose optimization techniq ues: automated exposure control; mA and/or kV adjustment per patient size (includes targeted exams wh ere dose is matched to clinical indication); or iterative reconstruction. DLP: 441.01 mGy.cm COMPARISON: None available. No fracture or bone destruction. Orbits and globes are intact. No soft tissue mass is or protrusion. Size of the optic nerves and the extraocular muscles is similar. No edema within the retro-orbital fa t. Extensive calcifications within the intracranial carotid arteries to the cavernous sinuses. CT/CT orbit BI wo con* [id number] IMPRESSION: Negative orbit CT for acute hemorrhage or mass effect. Extensive atherosclerotic calcifications in the intracranial carotid arteries.
--- NOTE | 2020-12-22 12:51 | CT_ITS ---
WS: [id number] CT HEAD NONCONTRAST HISTORY: visual changes both eyes. h/o macular degeneration TECHNIQUE: Contiguous axial imaging performed through the brain in 2.5 mm imaging. Bone and soft tiss ue windows. Sagittal and coronal reformats reviewed. All CT scans at [facility] use at le ast one of these dose optimization techniques: automated exposure control; mA and/or kV adjustment pe r patient size (includes targeted exams where dose is matched to clinical indication); or iterative r econstruction. DLP: 924.02 mGy.cm COMPARISON: 10/02/2020 Mild cerebral and cerebellar atrophy with mild chronic microvascular ischemic disease. No hemorrhage or mass effect or edema. Mild microvascular ischemic disease. Ventricles: Normal size with no hydrocephalus. No inferior displacement of cerebellar tonsils. Paranasal sinuses: Complete opacification of the RIGHT maxillary sinus similar to the prior study. Th ere is evidence for prior endoscopic sinus surgery. Mastoid air cells: Well pneumatized. Calvarium and scalp: Skull is intact with no soft tissue edema or swelling. Moderate atherosclerotic plaque in the intracranial carotid arteries the cavernous sinuses. CT/CT head wo con* [id number] IMPRESSION: 1. No acute intracranial hemorrhage or edema. 2. Mild cerebral and cerebellar atrophy with chronic ischemic disease. Stable noncontrast head CT.
[2020-12-22 13:04] VITALS: BP 112/63; PULSE 62; RESP 18; O2SAT 93
[2020-12-22 13:18] LABS: Basophils % 0.5 %; Eosinophils # 0.1 10^3/uL (0.0-0.8); Eosinophils % 1.9 %; Hematocrit 32.4 % (42.0-52.0); Hemoglobin 10.7 g/dL (11.7-16.6); Lymphocytes # 1.2 10^3/uL (0.8-4.8); Lymphocytes % 31.7 %; Mean Corpuscular Hemoglobin 35.4 pg (28.0-34.0); Mean Corpuscular Volume 107.3 fL (80-94); Mean Platelet Volume 9.9 fL (7.4-10.4); Monocytes # 0.3 10^3/uL (0.2-0.9); Monocytes % 9.1 %; Neutrophils # 2.12 10^3/uL (1.8-7.7); Neutrophils % 56.5 %; Nucleated Red Blood Cells % 0 %; Platelet Count 163 10^3/cmm (130-400); Red Blood Count 3.02 10^6/uL (4.1-5.3); Red Cell Distribution Width 13.4 % (12.1-15.1); White Blood Count 3.8 10^3/uL (4.0-10.0)
[2020-12-22 13:41] LABS: Alanine Aminotransferase 9 U/L (0-41); Albumin Level 4.1 g/dL (3.5-5.2); Alkaline Phosphatase 60 IU/L (40-130); Anion Gap 13.7 (5-19); Aspartate Amino Transferase 13 U/L (0-40); Blood Urea Nitrogen 16 mg/dL (8-23); Calcium 9.1 mg/dL (8.5-10.5); Carbon Dioxide 29 mmol/L (22-29); Chloride 99 mmol/L (98-107); Globulin 2.3 g/dL (1.3-4.6); Glucose 90 mg/dL (65-115); Osmolality Calculated 287 mOsm/kg (285-295); Potassium 3.7 mmol/L (3.5-5.1); Sodium 138 mmol/L (136-145); Total Bilirubin 0.4 mg/dL (0.15-1.2); Total Protein 6.4 g/dL (6.6-8.7)
[2020-12-22 13:54] LABS: Add Urine Microscopic? YES; Bilirubin Urine Neg (Negative); Blood Urine Neg (Negative); Glucose Urine UA Norm (Normal); Ketones Urine Negative (Negative); Leukocyte Esterase Urine Negative (Negative); Nitrate Urine Negative (Negative); Protein Urine Neg (Negative); Urine Appearance Cloudy (CLEAR); Urine Color Straw (Yellow); Urobilinogen Urine Norm (Negative); pH Urine 6 (5-7)
[2020-12-22 13:55] LABS: Add Urine Culture? No; Bacteria Urine 4+ /hpf; Squamous Epithelial Cell Urine 0-4 /hpf (0-5); WBC Urine 0-4 /hpf (0-5)
[2020-12-22 14:48] VITALS: BP 119/63; PULSE 56; RESP 16; O2SAT 95
[2020-12-22 15:26] VITALS: BP 129/64; PULSE 71; RESP 16; O2SAT 94
--- NOTE | 2020-12-22 15:45 | ED_ITS ---
HPI - Neuro Symptoms/Deficit General: Chief Complaint: Neuro Symptoms/Deficit Stated Complaint: Loss of vision, bleeding R ear Time Seen by Provider: 12/22/20 12:17 History of Present Illness: HPI Narrative: The patient is an 85-year-old male with past medical history macular degeneration in both eyes who comes to the ER complaining of worsening of his vision over the past 4 days. He says he is vision has changed to a brownish coloration and he can see brown spots in his vision looks like a giant dominant. He says he sometimes these things that are not there and floating things that he tries to grab. He also complains that he is on Plavix and picks his ear and it has bleeding bleeding on and off for the past month. It is not currently bleeding Onset (ago): day(s) (4) Timing confirmed by: spouse History of same: Yes Severity: moderate Relieving factors: none Exacerbating factors: none Context: gradual onset Associated symptoms: Reports no associated symptoms; Deny chest pain or headache(s) Review of Systems General: Reports: 10 or more systems reviewed and unremarkable except in HPI and below Const: Denies: fatigue Eyes: Reports: blind spots and other (Worsening macular degeneration); Denies: change in vision, blurry vision or eye redness ENMT: Denies: throat pain, swelling of lips/tongue, ear or mastoid pain or nasal congestion Card: Denies: chest pain, palpitations, irregular heart rhythm, edema, dyspnea on exertion or orthopnea Resp: Denies: dyspnea, productive cough or non-productive cough GI: Denies: abdominal pain, diarrhea or GI cramping : Denies: flank pain, urinary frequency or urinary urgency Musc: Denies: neck pain, back pain, extremity pain, joint pain, joint redness, limited range of motion or muscle weakness Skin/Breast: Denies: rash, pruritus, erythema, skin pain or skin tenderness Neuro: Denies: headache(s), numbness in extremities, weakness in extremities, sensory changes, difficulty walking, dizziness, confusion or Slurred speech present Psych: Denies: anxiety or depression Endo: Denies: polyuria All/Imm: Denies: urticaria, throat swelling or tongue swelling PFS ED PFSH: Medical History Bronchitis History of TIA (transient ischemic attack) Pneumonia Shortness of breath Surgical History History of angioplasty 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 Family History Other CAD (coronary artery disease) Social History Smoking and tobacco status: never smoked Alcohol intake: never History of recent travel: No Physical Exam Const: COMMON NORMALS: no acute distress, average body habitus, patient oriented x3, no limitations, healthy appearing, alert and well nourished GENERAL APPEARANCE: cooperative, comfortable, well kempt and well developed ORIENTATION/CONSCIOUSNESS: Yes awake, Yes oriented to person, Yes oriented to place and Yes oriented to time HENMT: COMMON NORMALS: normocephalic, external ears normal and Normal external nose present HEAD & SCALP: normal to inspection and normocephalic NOSE: Normal external nose present EXTERNAL EAR: Yes external ears normal MOUTH: Normal oral and palatal mucosa present THROAT: posterior oropharynx normal OTHER: He appears to have visual he does have peripheral vision. Eye: COMMON NORMALS: Equal, round and reactive pupils present and EOMs intact bilaterally GENERAL EYE: appearance normal, both eyes and all related structures PUPIL: Yes Equal, round and reactive pupils present Neck/C-Spine: COMMON NORMALS: full ROM, no lymphadenopathy, no meningeal signs and no JVD GENERAL: Yes normal visual inspection Lymph: LYMPHATIC: no lymphadenopathy noted Chest: COMMONS NORMALS: normal inspection of the chest and normal palpation of entire chest wall Resp: COMMON NORMALS: normal respiratory effort, No retractions, No use of accessory muscles, clear to auscultation bilaterally and percussion normal EFFORT & INSPECTION: Yes able to speak in complete sentences AUSCULTATION: clear to auscultation bilaterally PERCUSSION: percussion normal Cardio: COMMON NORMALS: no JVD, regular rate, regular rhythm, S1 normal heart sound present, S2 normal heart sound present and Peripheral pulses 2+ throughout RATE: regular rate RHYTHM: regular rhythm HEART SOUNDS: S1 normal heart sound present and S2 normal heart sound present PERIPHERAL PULSES: Peripheral pulses 2+ throughout GI: COMMON NORMALS: Normal to inspection, nondistended, normoactive bowel sounds present, Soft to palpation, non-tender and no masses INSPECTION: Yes normal to inspection PALPATION: Yes Soft to palpation : COMMON NORMALS: Yes no CVA tenderness BLADDER/KIDNEY EXAM: Yes no CVA tenderness Back/Pelvis: COMMON NORMALS: no CVA tenderness, thoracic and lumbar spine normal to inspection, no thoracic nor lumbar tenderness and thoraco-lumbar ROM normal Extremity: COMMON NORMALS: normal to inspection, full ROM, capillary refill normal, no joint enlargement and no pedal edema GENERAL: Yes normal exam except as noted Neuro: COMMON NORMALS: patient oriented x3, CN's II-XII intact bilaterally, moves all extremities, no focal motor deficits, no sensory deficits noted and gait normal SENSORIUM/ORIENTATION: Yes alert, Yes oriented to person, Yes oriented to place and Yes oriented to time MENINGEAL SIGNS: Yes no meningeal signs Psych: COMMON NORMALS: mental status grossly normal, Normal thought process present, cooperative, normal affect and speech normal APPEARANCE: Yes well kempt ATTITUDE: Yes calm SPEECH: Yes normal speech THOUGHT PROCESS: Normal thought process present Skin: COMMON NORMALS: no rashes or lesions noted GENERAL SKIN EXAM: no rashes or lesions noted Course Vital Signs: Vital signs: Vital Signs Temperature 98.2 F 12/22/20 12:03 Pulse Rate 71 12/22/20 15:26 Respiratory Rate 16 12/22/20 15:26 Blood Pressure 129/64 12/22/20 15:26 Pulse Oximetry 94 12/22/20 15:26 MDM - Neuro Symptoms/Deficit MDM Narrative: Medical decision making narrative: The patient came to the ER complaining of worsening of macular degeneration and brown visual changes. Discussed with Dr. 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 He recommended following up in his clinic Sunday at 8:30 AM. I attached the phone number and follow-up instructions in the discharge paperwork. Patient will return to the ER with worsening symptoms otherwise follow-up in the clinic there. Lab Data: Labs: Lab Results 12/22/20 12/22/20 12/22/20 Range/Units 13:00 13:00 13:25 WBC 3.8 L (4.0-10.0) 10^3/ uL RBC 3.02 L (4.1-5.3) 10^6/u L Hgb 10.7 L (11.7-16.6) g/dL Hct 32.4 L (42.0-52.0) % MCV 107.3 H (80-94) fL MCH 35.4 H (28.0-34.0) pg MCHC 33.0 (30.0-36.0) g/dL RDW 13.4 (12.1-15.1) % Plt Count 163 (130-400) 10^3/c mm MPV 9.9 (7.4-10.4) fL Neut % (Auto) 56.5 % Lymph % (Auto) 31.7 % [place] % (Auto) 9.1 % Eos % (Auto) 1.9 % Baso % (Auto) 0.5 % Neut # (Auto) 2.12 (1.8-7.7) 10^3/u L Lymph # (Auto) 1.2 (0.8-4.8) 10^3/u L [place] # (Auto) 0.3 (0.2-0.9) 10^3/u L Eos # (Auto) 0.1 (0.0-0.8) 10^3/u L Baso # (Auto) 0.0 (0.0-0.1) 10^3/u L Nucleated RBC % (a uto) 0 % Nucleated RBCs # 0.0 /100WBC Sodium 138 (136-145) mmol/L Potassium 3.7 (3.5-5.1) mmol/L Chloride 99 (98-107) mmol/L Carbon Dioxide 29 (22-29) mmol/L Anion Gap 13.7 (5-19) BUN 16 (8-23) mg/dL Creatinine 1.4 H (0.7-1.2) mg/dL GFR Calculation Not Reportable Glucose 90 (65-115) mg/dL Calculated Osmolal ity 287 (285-295) mOsm/k g Calcium 9.1 (8.5-10.5) mg/dL Total Bilirubin 0.4 (0.15-1.2) mg/dL AST 13 (0-40) U/L ALT 9 (0-41) U/L Alkaline Phosphata se 60 (40-130) IU/L Total Protein 6.4 L (6.6-8.7) g/dL Albumin 4.1 (3.5-5.2) g/dL Globulin 2.3 (1.3-4.6) g/dL Urine Color Straw (Yellow) Urine Appearance Cloudy (CLEAR) Urine pH 6 (5-7) Ur Specific Gravit y 1.010 (1.005-1.030) Urine Protein Neg (Negative) Urine Glucose (UA) Norm (Normal) Urine Ketones Negative (Negative) Urine Blood Neg (Negative) Urine Nitrate Negative (Negative) Urine Bilirubin Neg (Negative) Urine Urobilinogen Norm (Negative) mg/dL Ur Leukocyte Marcia ase Negative (Negative) Urine RBC None (0-2) /hpf Urine WBC 0-4 H (0-5) /hpf Ur Squamous Epith Cells 0-4 H (0-5) /hpf Amorphous Sediment Not Reportable Urine Bacteria 4+ H (NONE) /hpf Discharge Plan Discharge Patient Disposition: Home Clinical Impression: Macular degeneration Condition: Stable Prescriptions: No Action triamcinolone acetonide 0.5 % cream 1 applic topical DAILY RF: 0 hydrocodone-acetaminophen 5-325 mg tablet 1 tab PO DAILY PRNRF: 0 levetiracetam [Keppra] 500 mg tablet 500 mg PO DAILY Qty: 30 RF: 0 clopidogrel 75 mg tablet 75 mg PO DAILY@08 RF: 0 terazosin 10 mg capsule 10 mg PO DAILY@08 RF: 0 pantoprazole 20 mg tablet,delayed release (DR/EC) 20 mg PO BID@,18 RF: 0 gabapentin 300 mg capsule 300 mg PO BID@,18 RF: 0 docusate sodium [DOK] 100 mg tablet 100 mg PO BID@,18 RF: 0 furosemide 40 mg tablet 40 mg PO DAILY@08 RF: 0 clonazepam 0.5 mg tablet 0.25 mg PO BID@, RF: 0 diphenhydramine HCl [Allergy (diphenhydramine)] 25 mg tablet 50 mg PO BEDTIME RF: 0 aspirin [Adult Low Dose Aspirin] 81 mg tablet,delayed release (DR/EC) 81 mg PO DAILY@08 RF: 0 PreserVision AREDS [id number],320-226-200 esft-ml-kawx capsule 1 cap PO BID@,18 RF: 0 One Daily Women's Health 18 mg iron-400 mcg-450 mg Ca tablet 1 tab PO DAILY@08 RF: 0 nitroglycerin 0.4 mg tablet, sublingual 0.4 mg sublingual Q5M PRN (Reason: Chest Pain) RF: 0 acetaminophen 500 mg capsule 500 mg PO Q6H PRN (Reason: Pain) RF: 0 Zofran 4 mg tablet 4 mg PO Q6H PRN (Reason: nausea and vomiting) Qty: 20 RF: 0 ropinirole 1 mg Tablet 1 mg PO BEDTIME@1999 RF: 0 diphenoxylate-atropine [Lomotil] 2.5-0.025 mg Tablet 1 tab PO DAILY PRN (Reason: Diarrhea) RF: 0 polyethylene glycol 3350 [Miralax] 17 gram/dose Powder 17 g PO EVERY OTHER DAY RF: 0 albuterol sulfate 2.5 mg /3 mL (0.083 %) Solution For Nebulization 2.5 mg INHALATION Q4H PRN (Reason: Shortness Of Breath) RF: 0 Zofran 8 mg Tablet 8 mg PO Q12H PRN (Reason: Nausea) RF: 0 Senna-S 8.6-50 mg Tablet 1 tab-cap PO DAILY PRN (Reason: CONSTIPATION (2ND)) RF: 0 Vitamin B-12 1,000 mcg Tablet 1,000 mcg PO DAILY@08 RF: 0 magnesium citrate Solution 150 ml PO ONCE PRN (Reason: Constipation (1ST)) RF: 0 Voltaren 1 % Gel 2 g TOPICAL QID PRN (Reason: Pain) RF: 0 Vitamin D3 50 mcg (2,000 unit) Capsule 50 mcg PO DAILY@08 RF: 0 Eliquis 5 mg tablet 5 mg PO BID@08,18 RF: 0 Discharge Orders: Discharge ED (Routine); Ordered 12/22/20 Ordered By: Nikhil Roy Referrals: Antony Minaya, DO [Primary Care Provider] - Discharge Diet: Advance as tolerated Discharge Activity: Resume usual activity Patient Instructions: Macular Degeneration, Opioid Safety Activity Restrictions/Additional Instructions: You have came in complaining of worsening visual changes. I have discussed with Dr. Barry who recommended you follow-up in his clinic the [facility] 8:30 AM Sunday morning. The phone number is [phone]. Coding Level of Care Code ED [employer] for Tushar Hoskins
[2020-12-22 16:00] VITALS: BP 114/63; PULSE 83; RESP 18; O2SAT 96
--- NOTE | 2020-12-24 15:47 | DCPLANNER ---
Patient has a follow up appointment scheduled with Dr. Barry, on 12.29.20 at 10:30. manager hvac emailed patients information to [facility], so that the authorization process could be started.
--- NOTE | 2021-01-05 13:47 | DCPLANNER ---
Patient had a follow up appointment scheduled for 12.29.20 at 10:[address] Barry - patient did attend appointment.
== END 2020-12-22 16:00 | disposition home or self-care (01) ==
PROVIDERS: Emergency Provider Family Medicine; PCP Emergency Medicine Emergency Medical Services
DX: H35.30 Unspecified macular degeneration (principal); Z79.01 Long term (current) use of anticoagulants; Z79.02 Long term (current) use of antithrombotics/antiplatelets; Z79.82 Long term (current) use of aspirin; Z86.73 Personal history of transient ischemic attack (TIA), and cerebral infarction without residual deficits; Z95.1 Presence of aortocoronary bypass graft
CPT/HCPCS: 70450; 70480; 80053; 81001; 85025; 99283

== ENCOUNTER → 2020-12-27 10:58 | Outpatient (BNVA) | payer OTHER, BC, SELFPAY | PROVIDERS: PCP Emergency Medicine Emergency Medical Services; Visit Provider Specialist | DX: M17.12 Unilateral primary osteoarthritis, left knee (principal); Z96.651 Presence of right artificial knee joint | CPT/HCPCS: 73560; 73565 ==

== ENCOUNTER 2021-01-17 10:30 | Outpatient (CLI) | payer OTHER, SELFPAY ==
--- NOTE | 2021-01-17 10:37 | MR_ITS ---
WS: [id number] MRI HEAD WITH CONTRAST TECHNIQUE: Sagittal T1, T2 axial, T2 axial FLAIR, axial susceptibility weighted imaging, axial diffus ion weighted images, and coronal T2 images were obtained. Pre and post-T1 axial and post T1 coronal i mages. ADC and FSPGR images. CLINICAL INFORMATION: MENTAL STATUS CHANGE COMPARISON: CT December 22, 2020 FINDINGS: No evidence of restricted diffusion to suggest acute ischemia. Ventricular system and basal cisterns are patent. Mild small vessel changes. Moderate parenchymal volume loss. Normal posterior fossa. Norm al vascular flow voids at the skull base. No extra-axial fluid collections. 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 Opacification right maxillary sinus. No hemosiderin on susceptibly chaya ghted images. No abnormal intracranial enhancement. Normal dural venous sinuses. Moderate symmetric atrophy tempora l lobes and hippocampal formations. Normal optic chiasm and pituitary infundibulum. MR/MR head wo/w con [id number] IMPRESSION: 1. No evidence of restricted diffusion to suggest acute ischemia. 2. Mild small vessel changes with moderate parenchymal volume loss. 3. 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 4. Chronic appearing opacification right maxillary sinus. 5. No hemosiderin on susceptibly weighted images. 6. No abnormal intracranial enhancement.
[2021-01-17] MEDS: gadobenate dimeglumine 20 mL vial IV (11:35)
== END 2021-01-17 10:31 | disposition home or self-care (01) ==
PROVIDERS: PCP Emergency Medicine Emergency Medical Services; Visit Provider Family Medicine
DX: R41.82 Altered mental status, unspecified (principal)
CPT/HCPCS: 70553; A9577

== ENCOUNTER 2021-02-22 13:09 | Outpatient (CLI) | payer OTHER, SELFPAY ==
--- NOTE | 2021-02-22 13:24 | USCV_ITS ---
Ruthie Bowen Age: 85 Gender: M : 1935 Exam Date: 02/22/2021 13:59 Ordering Phys: Angelica Ybarra MD Technologist: DILAN Exam Location: [facility] [place] Indication: MENTAL STATIS CHANGE Risk Factors: Previous Vascular Surgery: Right Brachial BP: / Left Brachial BP: / Right Left Velocity (cm/s) Spectral Plaque Velocity (cm/s) Spectral Plaque Syst/Diast Broadening Syst/Diast Broadening 59.40/ 16.10 Prox CCA 105.40/ 19.50 71.50/ 18.60 Mid CCA 103.10/ 27.50 76.90/ 24.10 Distal CCA 102.00/ 28.60 153.00/33.90 Hetro Prox ICA 91.70 / 28.60 Hetro 144.90/43.30 Jose L Mid ICA 90.50 / 22.90 Hetro 82.70/ 26.90 Hetro Distal ICA 82.50 / 21.80 101.40 ECA 103.10 2.14 ICA/CCA 0.89 Antegrade Vertebral Antegrade 49.00/ 14.40 cm/s 48.40/ 14.20 cm/s Bi Subclavian Bi 91.70 131.2 0 CONCLUSIONS Right ICA stenosis 50-69%. Moderate atheromatous plaque right carotid bulb/ICA. Left ICA stenosis <50%. Mild atheromatous plaque left carotid bulb/ICA. Normal antegrade Doppler flow noted in the right vertebral artery. Normal antegrade Doppler flow noted in the left vertebral artery. Kan Hermosillo MD (Electronically Signed) Final Date: 22 February 2021 15:11 S
== END 2021-02-22 13:10 | disposition home or self-care (01) ==
LOC: US 13:13
PROVIDERS: PCP Emergency Medicine Emergency Medical Services; Visit Provider Family Medicine
DX: R41.82 Altered mental status, unspecified (principal); I65.23 Occlusion and stenosis of bilateral carotid arteries
CPT/HCPCS: 93880

== ENCOUNTER → 2021-03-28 10:08 | Outpatient (BNVA) | payer OTHER, SELFPAY | PROVIDERS: PCP Emergency Medicine Emergency Medical Services; Visit Provider Specialist | DX: Z48.89 Encounter for other specified surgical aftercare (principal); Z96.651 Presence of right artificial knee joint | CPT/HCPCS: 73560; 73565 ==

== ENCOUNTER → 2021-04-05 08:22 | Outpatient (BNVA) | payer OTHER, SELFPAY | PROVIDERS: PCP Emergency Medicine Emergency Medical Services; Referring Provider Emergency Medicine Emergency Medical Services; Visit Provider Anesthesiology Pain Medicine | DX: G89.29 Other chronic pain (principal); M51.36 Other intervertebral disc degeneration, lumbar region; M47.816 Spondylosis without myelopathy or radiculopathy, lumbar region; M54.16 Radiculopathy, lumbar region; M48.062 Spinal stenosis, lumbar region with neurogenic claudication; M25.561 Pain in right knee; M79.659 Pain in unspecified thigh; M79.606 Pain in leg, unspecified; Z79.891 Long term (current) use of opiate analgesic | CPT/HCPCS: 99204 ==

== ENCOUNTER → 2021-04-27 09:34 | Outpatient (BNVA) | payer OTHER, SELFPAY | PROVIDERS: PCP Emergency Medicine Emergency Medical Services; Referring Provider Emergency Medicine Emergency Medical Services; Visit Provider Specialist | DX: M25.562 Pain in left knee (principal) | CPT/HCPCS: 73560; 73565 ==

== ENCOUNTER 2021-05-05 12:30 | Emergency (ER) | payer OTHER, MEDICARE, SELFPAY ==
[2021-05-05 12:52] VITALS: BP 128/73; PULSE 75; RESP 16; TEMP 36.7; O2SAT 96
--- NOTE | 2021-05-05 13:17 | W.ED.BACK ---
HPI - Back Pain/Injury General: Chief Complaint: Back Pain/Injury Stated Complaint: back pain Time Seen by Provider: 05/05/21 12:58 Source: patient and family () Mode of arrival: wheelchair Limitations: no limitations History of Present Illness: HPI Narrative: Patient is an 85-year-old male who presents to ED today along with his for complaints of lower back pain. According to the patient has had lower back pain for years . He has recently been evaluated by Dr. Villaseñor who said patient could potentially be a candidate for SETH/MBB and possibly RFA. He had ordered an MRI for further evaluation. Patient tells me for some reason this got canceled and is now rescheduled for May 10. Patient tells me he does not want to wait that long for imaging as his pain is severe. Patient has been prescribed hydrocodone for the pain. He also has tramadol he was prescribed for tooth. states he will take one or the other once daily every other day for pain. He states he is frustrated because they don't work. He states his pain seems to be localized his lower lumbar and across his lower back. He does not complain of radicular symptoms at this time. He states his pain today is his chronic pain only worse in severity. No new injury or trauma. No fever/chills. MD elicited complaint: back pain Pertinent past history: prior back pain Onset (ago): year(s) Timing: constant Severity: severe Pain scale (0-10): 8 Similar Symptoms Previously: Yes Location: lumbar spine, right lower back and left lower back Radiation: none Exacerbating factors: movement and walking Associated symptoms: Reports difficulty walking (secondary to back pain); Deny abdominal pain, fatigue or fever(s) Work related injury: No Review of Systems Const: Denies: fever(s) or fatigue Card: Denies: chest pain Resp: Denies: dyspnea GI: Denies: abdominal pain : Denies: flank pain Musc: Reports: back pain; Denies: neck pain, extremity pain, extremity swelling, joint pain or joint swelling Skin/Breast: Denies: rash Neuro: Reports: difficulty walking (secondary to back pain); Denies: numbness in extremities or sensory changes [facility] ED PFSH: Medical History Bronchitis History of TIA (transient ischemic attack) Pneumonia Shortness of breath Surgical History History of angioplasty 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 Family History Other CAD (coronary artery disease) Social History Smoking and tobacco status: never smoked Alcohol intake: never History of recent travel: No Physical Exam Const: COMMON NORMALS: no acute distress, patient oriented x3, no limitations, alert and well nourished GENERAL APPEARANCE: cooperative ORIENTATION/CONSCIOUSNESS: Yes awake, Yes oriented to person, Yes oriented to place and Yes oriented to time : COMMON NORMALS: Yes no CVA tenderness BLADDER/KIDNEY EXAM: Yes no CVA tenderness Back/Pelvis: COMMON NORMALS: no CVA tenderness THORACIC SPINE/UPPER BACK: Yes normal to inspection, No thoracic spinal tenderness and No paraspinal muscle tenderness LUMBAR SPINE/LOWER BACK: Yes pain with ROM, Yes lumbar spinal tenderness Lumbar spinal tenderness location: L3, L4 and L5, Yes paraspinal muscle tenderness Lumbar paraspinal muscle tenderness: bilateral and No paraspinal muscle spasm PELVIS: Yes buttocks normal Extremity: COMMON NORMALS: normal to inspection, full ROM, no calf tenderness and no pedal edema GENERAL: Yes normal exam except as noted Neuro: COMMON NORMALS: patient oriented x3, moves all extremities, no focal motor deficits and no sensory deficits noted SENSORIUM/ORIENTATION: Yes alert, Yes oriented to person, Yes oriented to place and Yes oriented to time DEEP TENDON REFLEXES: Right patellar reflex intensity grade: 2+ and Left patellar reflex intensity grade: 2+ OTHER: pt seated but has 5/5 strength with flexion/extension knees, pushes/pulls of feet, and flexion of hips Skin: COMMON NORMALS: no rashes or lesions noted GENERAL SKIN EXAM: no rashes or lesions noted Course Vital Signs: Vital signs: Vital Signs Temperature 98.1 F 05/05/21 12:52 Pulse Rate 75 05/05/21 13:21 Respiratory Rate 16 05/05/21 13:34 Blood Pressure 128/73 05/05/21 13:21 Pulse Oximetry 96 05/05/21 13:21 MDM - Back Pain/Injury MDM Narrative: Medical decision making narrative: Patient is an 85-year-old male who presents to ED today with complaint of acute on chronic lower back pain. He has no acute neurologic deficits on today's exam. He states his pain is his normal chronic pain only worse in severity. He has an MRI scheduled on Sunday and is scheduled to see Dr. Villaseñor shortly after. Patient's pain went from an 8/10 to a barely 4/10 after medications here. He feels comfortable going home. Spoke about how him taking one pain tablet a day every other day is not going to be enough to control severe pain. We spoke about risk vs benefit potential of these medications and I think using them short term until we can get him for his MRI/evaluation from Dr. Villaseñor for SETH/MBB/RFA is appropriate. Will place on steroids/muscle relaxers and told him he can try these two meds first and then take the hydrocodone OR tramadol if he needs something even further to help control pain. and verbalize understanding. Discharge Plan Discharge Patient Disposition: Home Clinical Impression: Chronic low back pain Qualifiers: Back pain laterality: bilateral Sciatica presence: without sciatica Qualified Code(s): M54.50 - Low back pain, unspecified Condition: Stable Prescriptions: New Medrol (Richar) 4 mg tablets,dose pack See Rx Instructions .ROUTE .COMPLEX Qty: 21 RF: 0 cyclobenzaprine 10 mg tablet 10 mg PO TID Qty: 20 RF: 0 No Action triamcinolone acetonide 0.5 % cream 1 applic topical DAILY RF: 0 clopidogrel 75 mg tablet 75 mg PO DAILY@08 RF: 0 terazosin 10 mg capsule 10 mg PO DAILY@08 RF: 0 pantoprazole 20 mg tablet,delayed release (DR/EC) 20 mg PO BID@,18 RF: 0 gabapentin 300 mg capsule 300 mg PO BID@,18 RF: 0 docusate sodium [DOK] 100 mg tablet 100 mg PO BID@,18 RF: 0 furosemide 40 mg tablet 40 mg PO DAILY@08 RF: 0 clonazepam 0.5 mg tablet 0.25 mg PO BID@,18 RF: 0 diphenhydramine HCl [Allergy (diphenhydramine)] 25 mg tablet 50 mg PO BEDTIME RF: 0 aspirin [Adult Low Dose Aspirin] 81 mg tablet,delayed release (DR/EC) 81 mg PO DAILY@08 RF: 0 PreserVision AREDS [id number] capsule 1 cap PO BID@ RF: 0 One Daily Women's Health 18 mg iron-400 mcg-450 mg Ca tablet 1 tab PO DAILY@08 RF: 0 nitroglycerin 0.4 mg tablet, sublingual 0.4 mg sublingual Q5M PRN (Reason: Chest Pain) RF: 0 acetaminophen 500 mg capsule 500 mg PO Q6H PRN (Reason: Pain) RF: 0 tramadol 50 mg tablet 50 mg PO Q6H PRNRF: 0 amoxicillin-pot clavulanate [Augmentin] 875-125 mg tablet 1 tab PO BID 30 Days Qty: 60 RF: 0 levetiracetam [Keppra] 500 mg tablet 500 mg PO DAILY Qty: 30 RF: 3 Zofran 4 mg tablet 4 mg PO Q6H PRN (Reason: nausea and vomiting) Qty: 20 RF: 0 ropinirole 1 mg Tablet 1 mg PO BEDTIME@1999 RF: 0 diphenoxylate-atropine [Lomotil] 2.5-0.025 mg Tablet 1 tab PO DAILY PRN (Reason: Diarrhea) RF: 0 polyethylene glycol 3350 [Miralax] 17 gram/dose Powder 17 g PO EVERY OTHER DAY RF: 0 albuterol sulfate 2.5 mg /3 mL (0.083 %) Solution For Nebulization 2.5 mg INHALATION Q4H PRN (Reason: Shortness Of Breath) RF: 0 Zofran 8 mg Tablet 8 mg PO Q12H PRN (Reason: Nausea) RF: 0 Senna-S 8.6-50 mg Tablet 1 tab-cap PO DAILY PRN (Reason: CONSTIPATION (2ND)) RF: 0 Vitamin B-12 1,000 mcg Tablet 1,000 mcg PO DAILY@08 RF: 0 magnesium citrate Solution 150 ml PO ONCE PRN (Reason: Constipation (1ST)) RF: 0 Voltaren 1 % Gel 2 g TOPICAL QID PRN (Reason: Pain) RF: 0 Vitamin D3 50 mcg (2,000 unit) Capsule 50 mcg PO DAILY@08 RF: 0 Eliquis 5 mg tablet 5 mg PO BID@ RF: 0 Discharge Orders: Discharge ED (Routine); Ordered 05/05/21 Ordered By: Ashley Nuñez Referrals: Antony Minaya, DO [Primary Care Provider] - Activity Restrictions/Additional Instructions: Please keep appointment on Sunday for his MRI. He is scheduled to follow-up with Dr. Villaseñor shortly after. Will place patient on steroids and muscle relaxers as he gained relief following these here. As we discussed he has hydrocodone and tramadol at home he may take for discomfort. I do not want him taking both of these medications at the same time but he may take 1 tablet of either every 6 hours as needed for severe pain. Coding Level of Care Code ED Substance Abuse Specialist for [facility] Fwd Exam Detailed
[2021-05-05 13:21] VITALS: BP 128/73; PULSE 75; RESP 14; O2SAT 96
[2021-05-05 13:34] VITALS: RESP 16
[2021-05-05] MEDS: orphenadrine 30 mg/mL Inj 2 mL 60 MG IM (13:34)
[2021-05-05] MEDS: morphine 4 mg/mL SDV 1 mL IM (13:34)
[2021-05-05] MEDS: dexamethasone 10 mg/mL INJ 8 MG IM (13:34)
--- NOTE | 2021-05-05 14:10 | PC.NURSE ---
PATIENT PAIN AFTER MEDICATION IS 4/10. PATIENT AMBULATED 5 FEET AND WANTED TO SIT BACK DOWN. PATIENT GAIT UNSTEADY, BUT PATIENT STATES THIS IS NORMAL. PROVIDER NOTIFIED.
[2021-05-05 14:47] VITALS: BP 125/71; PULSE 72; RESP 16; O2SAT 96
== END 2021-05-05 14:45 | disposition home or self-care (01) ==
PROVIDERS: Emergency Provider Physician Assistant; PCP Emergency Medicine Emergency Medical Services
DX: M54.50 Low back pain, unspecified (principal); Z79.891 Long term (current) use of opiate analgesic; Z79.01 Long term (current) use of anticoagulants; Z79.82 Long term (current) use of aspirin
CPT/HCPCS: 96372; 99283; J1100; J2270; J2360

== ENCOUNTER 2021-05-10 12:35 | Outpatient (CLI) | payer OTHER, SELFPAY ==
--- NOTE | 2021-05-10 13:00 | MR_ITS ---
WS: [id number] MRI LUMBAR SPINE NONCONTRAST HISTORY: M48.062 - Spinal stenosis, lumbar region with neurogenic ... COMPARISON: None available. TECHNIQUE: Sagittal and axial multisequence imaging is submitted. Diffuse osteopenia. Mild increase in the thoracic kyphosis. Straightening of the normal lumbar lordosis. L2 retrolisthesis by 4 mm. 2 mm retrolisthesis of L1 and L3. No acute fracture or marrow edema. Severe disc space narrowing and desiccation with endplate chronic degenerative changes. Conus terminates normally at L1. L1-L2: Diffuse annular disc bulging and osteophytic ridging. Mild bilateral foraminal stenosis and fa cet arthritis. L2-L3: Encroachment upon the ventral thecal sac by retrolisthesis of L2 and annular disc bulging and osteophytic ridging. Moderate bilateral facet joint arthritis, LEFT greater than RIGHT. Mild central and bilateral foraminal stenosis. Moderate bilateral subarticular recess stenosis. L3-L4: Mild annular disc bulging with moderate facet joint arthritis. Mild bilateral foraminal narrow ing. L4-L5: Diffuse moderate annular disc bulging with a central disc protrusion. Mild osteophytic ridging . Moderate ligamentum flavum hypertrophy and severe facet joint arthritis. Mild central stenosis with disc and ligamentum flavum encroaching into the subarticular recesses. Mild central stenosis with mi ld to moderate bilateral subarticular recess and foraminal stenosis. L5-S1: Mild annular disc bulging with a central disc protrusion. Moderate to severe bilateral facet j oint arthritis. Moderate subarticular recess stenosis with mild foraminal stenosis. LEFT renal cyst measures 3.1 x 2.5 cm. MR/MR lumbar spine wo con* [id number] IMPRESSION: 1. 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 2. Mild central and bilateral foraminal stenosis with moderate subarticular re cess stenosis at L2-3. 3. Mild central stenosis with mild to moderate bilateral subarticular recess a nd foraminal stenosis at L4-5. 4. Moderate subarticular recess stenosis at L5-S1 with mild foraminal stenosis . 5. Moderate to severe bilateral facet joint arthritis at L5-S1. 6. Moderate bilateral facet joint arthritis, LEFT greater than RIGHT at L2-3. 7. Severe facet joint arthritis at L4-5.
== END 2021-05-10 12:36 | disposition home or self-care (01) ==
LOC: RADSHAW 12:38
PROVIDERS: PCP Emergency Medicine Emergency Medical Services; Visit Provider Anesthesiology Pain Medicine
DX: M48.062 Spinal stenosis, lumbar region with neurogenic claudication (principal); M51.36 Other intervertebral disc degeneration, lumbar region; M47.816 Spondylosis without myelopathy or radiculopathy, lumbar region; M48.061 Spinal stenosis, lumbar region without neurogenic claudication; M48.07 Spinal stenosis, lumbosacral region; M47.817 Spondylosis without myelopathy or radiculopathy, lumbosacral region; G40.909 Epilepsy, unspecified, not intractable, without status epilepticus; G30.9 Alzheimer's disease, unspecified; F02.80 Dementia in other diseases classified elsewhere, unspecified severity, without behavioral disturbance, psychotic disturbance, mood disturbance, and anxiety; G25.0 Essential tremor
CPT/HCPCS: 72148; 96116; 99214

== ENCOUNTER → 2021-05-12 08:45 | Outpatient (BNVA) | payer OTHER, SELFPAY | PROVIDERS: PCP Emergency Medicine Emergency Medical Services; Visit Provider Anesthesiology Pain Medicine | DX: G89.29 Other chronic pain (principal); M51.36 Other intervertebral disc degeneration, lumbar region; M47.816 Spondylosis without myelopathy or radiculopathy, lumbar region; M54.16 Radiculopathy, lumbar region; M79.604 Pain in right leg; Z79.891 Long term (current) use of opiate analgesic | CPT/HCPCS: 99214 ==

== ENCOUNTER → 2021-05-31 12:41 | Outpatient (BNVA) | payer OTHER, SELFPAY | PROVIDERS: PCP Emergency Medicine Emergency Medical Services; Visit Provider Anesthesiology Pain Medicine | DX: M54.16 Radiculopathy, lumbar region (principal); Z79.891 Long term (current) use of opiate analgesic | CPT/HCPCS: 64483; 64484; J1100; J3490 ==

== ENCOUNTER 2021-06-05 09:57 | Emergency (ER) | payer OTHER, MEDICARE, SELFPAY ==
[2021-06-05 10:05] VITALS: BP 141/72; PULSE 76; RESP 22; O2SAT 96; BMI 28.8
[2021-06-05 10:32] VITALS: BP 141/72; PULSE 73; RESP 22; O2SAT 95
--- NOTE | 2021-06-05 10:48 | W.ED.NEUROSD ---
Documented by User: Elliot Muniz MD 06/11/21 00:02 HPI - Neuro Symptoms/Deficit General: Chief Complaint: Neuro Symptoms/Deficit Stated Complaint: NEURO SX:DIFF VISION,SPEAKING,NO STRENGTH Time Seen by Provider: 06/05/21 10:05 History of Present Illness: HPI Narrative: Mr. Bowen is a 85-year-old gentleman with history of hypertension, hyperlipidemia, CAD, seizure disorder, Alzheimer's, chronic back pain who presents to the emergency department due to altered mental status type episode. He reports his overall health is poor however he felt at his baseline health yesterday. He woke up this morning and felt normal. He went to do something at about 630 and upon going downstairs started feeling abnormal. He endorses bilateral total vision loss with no sensory to light that came on suddenly. He has difficulty characterizing if there were any other associated neurologic symptoms with this however it does not seem so. No associated headache. His found him and put him in the car and he slept all the way here which he describes falling asleep for approximately 1 hour and when he awoke his vision had returned to baseline. He currently feels roughly baseline. He perhaps has associated baseline shortness of breath which may be worse and chest pain which may be similar. Overall the course of symptoms has now improved. There are no specific provoking factors. There are no known relieving factors. He has had similar episodes in the past which he reports are largely unexplained. No other changes in health reported. 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 Bronchitis DVT (deep venous thrombosis) History of TIA (transient ischemic attack) Pneumonia Self-catheterizes urinary bladder every 3-6 days Shortness of breath Urethral stricture Surgical History History of angioplasty 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 History of total knee arthroplasty Family History Other CAD (coronary artery disease) Social History Smoking and tobacco status: never smoked Alcohol intake: never Lives independently: No Household members: spouse Marital status: History of recent travel: No Physical Exam Narrative: EXAM NARRATIVE: GENERAL/CONSTITUTIONAL -chronically ill-appearing. No acute distress. Eyes - pupils appropriate to ambient light accommodation, equal, no scleral icterus, no conjunctival injection ENMT - Atraumatic external nose and ears. Moist mucous membranes NECK - supple. trachea midline CARDIOVASCULAR - regular rate and rhythm. Normal peripheral perfusion RESPIRATORY - clear to auscultation bilaterally. ABDOMEN/GI - Nontender/Nondistended. MSK - Extremities without obvious deformity or tenderness to palpation SKIN - Warm, Dry NEURO - alert and appropriately oriented. Cranial nerves II through XII intact. Right upper extremity 4/5 strength, left upper extremity 3/5 strength. Bilateral lower extremities 4/5 strength. Sensory intact. Coordination normal. Course ED course: - Patient was seen and evaluated by me at bedside upon the start of my shift, patient had been in the ED for some period of time prior to my evaluation - Patient placed on cardiac monitors, IV access obtained - Initial evaluation notable for exam as noted above, NIHSS 2 though may be related to chronic shoulder pain which limits strength as noted above. Generalized weakness throughout. - Labs notable for no leukocytosis, near baseline macrocytic anemia. There is no acute electrolyte abnormality or metabolic derangement to explain the patient's symptoms. Urinalysis not concerning for urinary tract infection. - Imaging notable for no acute finding on CT or CTA to explain the patient's symptoms. - Upon serial reexamination after treatment the patient was similar. Orthostatics negative. - I did contact [facility] in [place] and requested neurology general consult however was connected with the stroke service. After discussion with stroke attending Dr. Mccurdy there is no indication for acute intervention, no requirement for further advanced imaging. No acute need for hospitalization from a neuro/stroke standpoint if w/u otherwise negative. - Based on patient history, evaluation, labs, and imaging as interpreted the most likely cause of the patient's condition is unclear, unspecified neurologic event which may be secondary to seizure, TIA, or other event - The results of ED evaluation were discussed with the patient including prescriptions and/or symptomatic cares (if applicable) including appropriate and responsible use, followup plan, and return precautions. The patient verbalized understanding and felt safe for discharge. - Patient discharged in satisfactory condition. Note - authorship and all portions of patient encounter performed by myself, Elliot Muniz MD, I am usure why Dr Harper appears as author of note and myself as cosigner. Vital Signs: Vital signs: Vital Signs Pulse Rate 85 06/05/21 14:39 Respiratory Rate 20 H 06/05/21 12:40 Blood Pressure 123/74 06/05/21 12:40 Pulse Oximetry 97 06/05/21 14:39 MDM - Neuro Symptoms/Deficit Medical Records: Attestation: I reviewed the patient's medical records. Lab Data: Attestation: I reviewed the patient's lab results. Labs: Lab Results 06/05/21 06/05/21 06/05/21 10:31 10:31 10:31 WBC 4.7 10^3/uL 10^3/ uL (4.0-10.0) RBC 3.27 10^6/uL L 10 ^6/uL (4.1-5.3) Hgb 11.6 g/dL L g/dL (11.7-16.6) Hct 34.3 % L % (42.0-52.0) MCV 104.9 fl H fl (80-94) MCH 35.5 pg H pg (28.0-34.0) MCHC 33.8 g/dL g/dL (30.0-36.0) RDW 13.0 % % (12.1-15.1) Plt Count 198 10^3/cmm 10^3 /cmm (130-400) MPV 9.9 fL fL (7.4-10.4) Neut % (Auto) 54.3 % % Lymph % (Auto) 34.7 % % [place] % (Auto) 8.9 % % Eos % (Auto) 1.7 % % Baso % (Auto) 0.2 % % Neut # (Auto) 2.56 10^3/uL 10^3 /uL (1.8-7.7) Lymph # (Auto) 1.6 10^3/uL 10^3/ uL (0.8-4.8) [place] # (Auto) 0.4 10^3/uL 10^3/ uL (0.2-0.9) Eos # (Auto) 0.1 10^3/uL 10^3/ uL (0.0-0.8) Baso # (Auto) 0.0 10^3/uL 10^3/ uL (0.0-0.1) Nucleated RBC % (a uto) 0 % % Nucleated RBCs # 0.0 /100WBC /100W BC Sodium 142 mmol/L mmol/L (136-145) Potassium 3.8 mmol/L mmol/L (3.5-5.1) Chloride 103 mmol/L mmol/L (98-107) Carbon Dioxide 24 mmol/L mmol/L (22-29) Anion Gap 18.8 (5-19) BUN 22 mg/dL mg/dL (8-23) Creatinine 1.2 mg/dL mg/dL (0.7-1.2) GFR Calculation Not Reportable Glucose 92 mg/dL mg/dL (65-115) POC Glucose Calculated Osmolal ity 297 mOsm/kg H mOs m/kg (285-295) Calcium 8.5 mg/dL mg/dL (8.5-10.5) Magnesium 1.9 mg/dL mg/dL (1.7-2.3) Total Bilirubin 0.4 mg/dL mg/dL (0.15-1.2) AST 15 U/L U/L (0-40) ALT 10 U/L U/L (0-41) Alkaline Phosphata se 66 IU/L IU/L (40-130) Troponin T Baselin e 37 ng/L H ng/L (0-15) Troponin T 120 Min kaibab Delta Troponin T NT-Pro-B Natriuret Pep 309 pg/mL pg/mL (0-450) Total Protein 6.7 g/dL g/dL (6.6-8.7) Albumin 4.1 g/dL g/dL (3.5-5.2) Globulin 2.6 g/dL g/dL (1.3-4.6) TSH 2.27 uIU/mL uIU/m L (0.27-4.20) Urine Color Urine Appearance Urine pH Ur Specific Gravit y Urine Protein Urine Glucose (UA) Urine Ketones Urine Blood Urine Nitrate Urine Bilirubin Urine Urobilinogen Ur Leukocyte Marcia ase 06/05/21 06/05/21 06/05/21 11:15 11:21 12:31 WBC RBC Hgb Hct MCV MCH MCHC RDW Plt Count MPV Neut % (Auto) Lymph % (Auto) [place] % (Auto) Eos % (Auto) Baso % (Auto) Neut # (Auto) Lymph # (Auto) [place] # (Auto) Eos # (Auto) Baso # (Auto) Nucleated RBC % (a uto) Nucleated RBCs # Sodium Potassium Chloride Carbon Dioxide Anion Gap BUN Creatinine GFR Calculation Glucose POC Glucose 119 mg/dL H mg/dL (70-110) Calculated Osmolal ity Calcium Magnesium Total Bilirubin AST ALT Alkaline Phosphata se Troponin T Baselin e Troponin T 120 Min kaibab 34.03 ng/L H ng/L (0-15) Delta Troponin T -2.97 ABS# L ABS# (0-10) NT-Pro-B Natriuret Pep Total Protein Albumin Globulin TSH Urine Color Straw (Yellow) Urine Appearance Clear (CLEAR) Urine pH 6.5 (5-7) Ur Specific Gravit y 1.010 (1.005-1.030) Urine Protein Neg (Negative) Urine Glucose (UA) Norm (Normal) Urine Ketones Negative (Negative) Urine Blood Neg (Negative) Urine Nitrate Negative (Negative) Urine Bilirubin Neg (Negative) Urine Urobilinogen Norm mg/dL mg/dL (Negative) Ur Leukocyte Marcia ase Negative (Negative) EKG Data^: EKG 1: Attestation: I personally reviewed and interpreted this EKG as follows: EKG interpretation date: 06/05/21 EKG interpretation time: 11:20 Interpretation: Twelve-lead EKG shows a regular rhythm at a rate of 71 MD interval 133, QRS duration 142, QTc 440 borderline axis. Interpretation: Sinus rhythm. R bundle branch block. EKG 2: Attestation: I personally reviewed and interpreted this EKG as follows: EKG interpretation date: 06/05/21 EKG interpretation time: 13:31 Interpretation: Twelve-lead EKG shows a regular rhythm at a rate of 60 MD interval 164, QRS duration 153, QTc 457 borderline axis. Interpretation: Sinus rhythm. R bundle branch block. Discharge Plan Discharge Patient Disposition: Home Clinical Impression: Stroke-like episode Condition: Stable Prescriptions: No Action triamcinolone acetonide 0.5 % cream 1 applic topical DAILY PRN (Reason: UNKNOWN) RF: 0 clopidogrel 75 mg tablet 75 mg PO DAILY@08 RF: 0 Hold Instructions: Resume on 06/17/21. pantoprazole 20 mg tablet,delayed release (DR/EC) 20 mg PO BID@, RF: 0 gabapentin 300 mg capsule 300 mg PO BID@, RF: 0 docusate sodium [DOK] 100 mg tablet 100 mg PO BID@ RF: 0 furosemide 40 mg tablet 40 mg PO DAILY@08 RF: 0 PreserVision AREDS 14,320-226-200 [id number]-[id number]-ryfq capsule 1 cap PO BID@, RF: 0 One Daily Women's Health 18 mg iron-400 mcg-450 mg Ca tablet 1 tab PO DAILY@08 RF: 0 nitroglycerin 0.4 mg tablet, sublingual 0.4 mg sublingual Q5M PRN (Reason: Chest Pain) RF: 0 acetaminophen 500 mg capsule 1,000 mg PO BID RF: 0 levetiracetam 750 mg tablet 750 mg PO BID Qty: 60 RF: 3 galantamine 4 mg tablet 4 mg PO BID Qty: 60 RF: 3 tramadol 50 mg tablet 50 mg PO Q6H PRN (Reason: Pain) RF: 0 ondansetron HCl [Zofran] 4 mg tablet 4 mg PO Q6H PRN (Reason: nausea and vomiting) Qty: 20 RF: 0 ropinirole 1 mg Tablet 1 mg PO BEDTIME@1999 RF: 0 diphenoxylate-atropine [Lomotil] 2.5-0.025 mg Tablet 1 tab PO DAILY PRN (Reason: Diarrhea) RF: 0 polyethylene glycol 3350 [Miralax] 17 gram/dose Powder 17 g PO DAILY PRN (Reason: Constipation) RF: 0 albuterol sulfate 2.5 mg /3 mL (0.083 %) Solution For Nebulization 2.5 mg INHALATION Q4H PRN (Reason: Shortness Of Breath) RF: 0 sennosides-docusate sodium [Senna-S] 8.6-50 mg Tablet 1 tab-cap PO DAILY PRN (Reason: CONSTIPATION (2ND)) RF: 0 cyanocobalamin (vitamin B-12) [Vitamin B-12] 1,000 mcg Tablet 1,000 mcg PO DAILY@08 RF: 0 magnesium citrate Solution 150 ml PO ONCE PRN (Reason: Constipation (1ST)) RF: 0 cholecalciferol (vitamin D3) [Vitamin D3] 50 mcg (2,000 unit) Capsule 50 mcg PO DAILY@08 RF: 0 Eliquis 5 mg tablet 2.5 mg PO BID@ RF: 0 Hold Instructions: Resume on 06/18/21. multivitamin Tablet 1 tab PO DAILY RF: 0 hydrocodone-acetaminophen 5-325 mg tablet 1 tab PO Q6H PRN (Reason: Pain) RF: 0 albuterol sulfate [ProAir HFA] 90 mcg/actuation HFA aerosol inhaler 2 puff INHALATION Q6H PRN (Reason: Shortness Of Breath) RF: 0 cyclobenzaprine 5 mg tablet 5 mg PO BID RF: 0 atorvastatin 80 mg tablet 80 mg PO DAILY RF: 0 pantoprazole 40 mg tablet,delayed release (DR/EC) 40 mg PO BID 42 Days Qty: 84 RF: 0 Discharge Orders: Discharge ED (Routine); Ordered 06/05/21 Ordered By: Elliot Muniz Referrals: Antony Minaya DO [Primary Care Provider] - Discharge Diet: Usual diet Discharge Activity: Resume usual activity Patient Instructions: Altered Mental Status (ED) Activity Restrictions/Additional Instructions: Thank you for visiting the emergency department. You were seen and evaluated for an abnormal neurologic event. The exact cause of these symptoms is unclear. It is possible that this was a TIA though some of the features are not typical. It is also possible that this was a seizure. In discussion with a stroke neurologist, and based on history including previous evaluation, you do not require further inpatient management at this time. Please follow-up with your primary care provider and neurologist. Return to the emergency department for recurrent episodes, any new neurologic symptoms, or anything else that you are concerned about and feel needs emergency department evaluation. I will order an outpatient event monitor. For secondary stroke prevention I will prescribe atorvastatin. Please follow-up with your primary care provider regarding this medication. General seizure precautions given to all patients include do not drive until 6 months seizure-free, do not swim or take baths alone, do not cook over open flame, do not climb high objects or operate other heavy machinery, do not perform any other tasks that would put you at risk if you were to have another event. 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 Bronchitis DVT (deep venous thrombosis) History of TIA (transient ischemic attack) Pneumonia Self-catheterizes urinary bladder every 3-6 days Shortness of breath Urethral stricture Surgical History History of angioplasty 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 History of total knee arthroplasty Family History Other CAD (coronary artery disease) Social History Smoking and tobacco status: never smoked Alcohol intake: never Lives independently: No Household members: spouse Marital status: History of recent travel: No Course Vital Signs: Vital signs: Vital Signs Pulse Rate 85 06/05/21 14:39 Respiratory Rate 20 H 06/05/21 12:40 Blood Pressure 123/74 06/05/21 12:40 Pulse Oximetry 97 06/05/21 14:39 MDM - Neuro Symptoms/Deficit Lab Data: Labs: Lab Results 06/05/21 06/05/21 06/05/21 10:31 10:31 10:31 WBC 4.7 10^3/uL 10^3/ uL (4.0-10.0) RBC 3.27 10^6/uL L 10 ^6/uL (4.1-5.3) Hgb 11.6 g/dL L g/dL (11.7-16.6) Hct 34.3 % L % (42.0-52.0) MCV 104.9 fl H fl (80-94) MCH 35.5 pg H pg (28.0-34.0) MCHC 33.8 g/dL g/dL (30.0-36.0) RDW 13.0 % % (12.1-15.1) Plt Count 198 10^3/cmm 10^3 /cmm (130-400) MPV 9.9 fL fL (7.4-10.4) Neut % (Auto) 54.3 % % Lymph % (Auto) 34.7 % % [place] % (Auto) 8.9 % % Eos % (Auto) 1.7 % % Baso % (Auto) 0.2 % % Neut # (Auto) 2.56 10^3/uL 10^3 /uL (1.8-7.7) Lymph # (Auto) 1.6 10^3/uL 10^3/ uL (0.8-4.8) [place] # (Auto) 0.4 10^3/uL 10^3/ uL (0.2-0.9) Eos # (Auto) 0.1 10^3/uL 10^3/ uL (0.0-0.8) Baso # (Auto) 0.0 10^3/uL 10^3/ uL (0.0-0.1) Nucleated RBC % (a uto) 0 % % Nucleated RBCs # 0.0 /100WBC /100W BC Sodium 142 mmol/L mmol/L (136-145) Potassium 3.8 mmol/L mmol/L (3.5-5.1) Chloride 103 mmol/L mmol/L (98-107) Carbon Dioxide 24 mmol/L mmol/L (22-29) Anion Gap 18.8 (5-19) BUN 22 mg/dL mg/dL (8-23) Creatinine 1.2 mg/dL mg/dL (0.7-1.2) GFR Calculation Not Reportable Glucose 92 mg/dL mg/dL (65-115) POC Glucose Calculated Osmolal ity 297 mOsm/kg H mOs m/kg (285-295) Calcium 8.5 mg/dL mg/dL (8.5-10.5) Magnesium 1.9 mg/dL mg/dL (1.7-2.3) Total Bilirubin 0.4 mg/dL mg/dL (0.15-1.2) AST 15 U/L U/L (0-40) ALT 10 U/L U/L (0-41) Alkaline Phosphata se 66 IU/L IU/L (40-130) Troponin T Baselin e 37 ng/L H ng/L (0-15) Troponin T 120 Min kaibab Delta Troponin T NT-Pro-B Natriuret Pep 309 pg/mL pg/mL (0-450) Total Protein 6.7 g/dL g/dL (6.6-8.7) Albumin 4.1 g/dL g/dL (3.5-5.2) Globulin 2.6 g/dL g/dL (1.3-4.6) TSH 2.27 uIU/mL uIU/m L (0.27-4.20) Urine Color Urine Appearance Urine pH Ur Specific Gravit y Urine Protein Urine Glucose (UA) Urine Ketones Urine Blood Urine Nitrate Urine Bilirubin Urine Urobilinogen Ur Leukocyte Marcia ase 06/05/21 06/05/21 06/05/21 11:15 11:21 12:31 WBC RBC Hgb Hct MCV MCH MCHC RDW Plt Count MPV Neut % (Auto) Lymph % (Auto) [place] % (Auto) Eos % (Auto) Baso % (Auto) Neut # (Auto) Lymph # (Auto) [place] # (Auto) Eos # (Auto) Baso # (Auto) Nucleated RBC % (a uto) Nucleated RBCs # Sodium Potassium Chloride Carbon Dioxide Anion Gap BUN Creatinine GFR Calculation Glucose POC Glucose 119 mg/dL H mg/dL (70-110) Calculated Osmolal ity Calcium Magnesium Total Bilirubin AST ALT Alkaline Phosphata se Troponin T Baselin e Troponin T 120 Min kaibab 34.03 ng/L H ng/L (0-15) Delta Troponin T -2.97 ABS# L ABS# (0-10) NT-Pro-B Natriuret Pep Total Protein Albumin Globulin TSH Urine Color Straw (Yellow) Urine Appearance Clear (CLEAR) Urine pH 6.5 (5-7) Ur Specific Gravit y 1.010 (1.005-1.030) Urine Protein Neg (Negative) Urine Glucose (UA) Norm (Normal) Urine Ketones Negative (Negative) Urine Blood Neg (Negative) Urine Nitrate Negative (Negative) Urine Bilirubin Neg (Negative) Urine Urobilinogen Norm mg/dL mg/dL (Negative) Ur Leukocyte Marcia ase Negative (Negative) Discharge Plan Discharge Patient Disposition: Home Clinical Impression: Stroke-like episode Condition: Stable Prescriptions: No Action triamcinolone acetonide 0.5 % cream 1 applic topical DAILY PRN (Reason: UNKNOWN) RF: 0 clopidogrel 75 mg tablet 75 mg PO DAILY@08 RF: 0 Hold Instructions: Resume on 06/17/21. pantoprazole 20 mg tablet,delayed release (DR/EC) 20 mg PO BID@08,18 RF: 0 gabapentin 300 mg capsule 300 mg PO BID@,18 RF: 0 docusate sodium [DOK] 100 mg tablet 100 mg PO BID@,18 RF: 0 furosemide 40 mg tablet 40 mg PO DAILY@08 RF: 0 PreserVision AREDS 14,320-226-200 [id number] capsule 1 cap PO BID@, RF: 0 One Daily Women's [facility] 18 mg iron-400 mcg-450 mg Ca tablet 1 tab PO DAILY@08 RF: 0 nitroglycerin 0.4 mg tablet, sublingual 0.4 mg sublingual Q5M PRN (Reason: Chest Pain) RF: 0 acetaminophen 500 mg capsule 1,000 mg PO BID RF: 0 levetiracetam 750 mg tablet 750 mg PO BID Qty: 60 RF: 3 galantamine 4 mg tablet 4 mg PO BID Qty: 60 RF: 3 tramadol 50 mg tablet 50 mg PO Q6H PRN (Reason: Pain) RF: 0 ondansetron HCl [Zofran] 4 mg tablet 4 mg PO Q6H PRN (Reason: nausea and vomiting) Qty: 20 RF: 0 ropinirole 1 mg Tablet 1 mg PO BEDTIME@1999 RF: 0 diphenoxylate-atropine [Lomotil] 2.5-0.025 mg Tablet 1 tab PO DAILY PRN (Reason: Diarrhea) RF: 0 polyethylene glycol 3350 [Miralax] 17 gram/dose Powder 17 g PO DAILY PRN (Reason: Constipation) RF: 0 albuterol sulfate 2.5 mg /3 mL (0.083 %) Solution For Nebulization 2.5 mg INHALATION Q4H PRN (Reason: Shortness Of Breath) RF: 0 sennosides-docusate sodium [Senna-S] 8.6-50 mg Tablet 1 tab-cap PO DAILY PRN (Reason: CONSTIPATION (2ND)) RF: 0 cyanocobalamin (vitamin B-12) [Vitamin B-12] 1,000 mcg Tablet 1,000 mcg PO DAILY@08 RF: 0 magnesium citrate Solution 150 ml PO ONCE PRN (Reason: Constipation (1ST)) RF: 0 cholecalciferol (vitamin D3) [Vitamin D3] 50 mcg (2,000 unit) Capsule 50 mcg PO DAILY@08 RF: 0 Eliquis 5 mg tablet 2.5 mg PO BID@ RF: 0 Hold Instructions: Resume on 06/18/21. multivitamin Tablet 1 tab PO DAILY RF: 0 hydrocodone-acetaminophen 5-325 mg tablet 1 tab PO Q6H PRN (Reason: Pain) RF: 0 albuterol sulfate [ProAir HFA] 90 mcg/actuation HFA aerosol inhaler 2 puff INHALATION Q6H PRN (Reason: Shortness Of Breath) RF: 0 cyclobenzaprine 5 mg tablet 5 mg PO BID RF: 0 atorvastatin 80 mg tablet 80 mg PO DAILY RF: 0 pantoprazole 40 mg tablet,delayed release (DR/EC) 40 mg PO BID 42 Days Qty: 84 RF: 0 Discharge Orders: Discharge ED (Routine); Ordered 06/05/21 Ordered By: Elliot Muniz Referrals: Antony Minaya DO [Primary Care Provider] - Discharge Diet: Usual diet Discharge Activity: Resume usual activity Patient Instructions: Altered Mental Status (ED) Activity Restrictions/Additional Instructions: Thank you for visiting the emergency department. You were seen and evaluated for an abnormal neurologic event. The exact cause of these symptoms is unclear. It is possible that this was a TIA though some of the features are not typical. It is also possible that this was a seizure. In discussion with a stroke neurologist, and based on history including previous evaluation, you do not require further inpatient management at this time. Please follow-up with your primary care provider and neurologist. Return to the emergency department for recurrent episodes, any new neurologic symptoms, or anything else that you are concerned about and feel needs emergency department evaluation. I will order an outpatient event monitor. For secondary stroke prevention I will prescribe atorvastatin. Please follow-up with your primary care provider regarding this medication. General seizure precautions given to all patients include do not drive until 6 months seizure-free, do not swim or take baths alone, do not cook over open flame, do not climb high objects or operate other heavy machinery, do not perform any other tasks that would put you at risk if you were to have another event. Coding Level of Care Code ED [employer] [facility] Assistant for Tushar Hoskins
--- NOTE | 2021-06-05 11:04 | XRR_ITS ---
PROCEDURE INFORMATION: Exam: XR Chest Exam date and time: 06/05/2021 11:04 AM Age: 85 years old Clinical indication: Pain; Shortness of breath; Chest pressure; Additional info: SOB, chest pain TECHNIQUE: Imaging protocol: XR of the chest. Views: 1 view. COMPARISON: CR XR knees AP WB w LT lmt ORTH 04/27/2021 9:41 AM FINDINGS: Lungs: Unremarkable. No consolidation. Pleural spaces: Unremarkable. No pleural effusion. No pneumothorax. Heart/Mediastinum: Unremarkable. No cardiomegaly. Bones/joints: Metallic arthroplasty is present in the left shoulder stable since prior. Metallic sternotomy wires are in place. XR/XR chest 1V portable [id number] IMPRESSION: 1. No acute findings. 2. Left shoulder. Arthroplasty in good position. 3. Status post sternotomy Radiation Dose CTDIVOL = (mGy): DLP = (mGy-cm)
--- NOTE | 2021-06-05 11:04 | CTR_ITS ---
PROCEDURE INFORMATION: Exam: CT Head Without Contrast Exam date and time: 06/05/2021 11:04 AM Age: 85 years old Clinical indication: Visual disturbance and weakness, extremity; Bilateral; Additional info: Stroke like symptoms TECHNIQUE: Imaging protocol: Computed tomography of the head without contrast. Radiation optimization: All CT scans at this facility use at least one of these dose optimization techniques: automated exposure control; mA and/or kV adjustment per patient size (includes targeted exams where dose is matched to clinical indication); or iterative reconstruction. COMPARISON: MR head wo/w con [id number] 01/17/2021 11:00 AM RADIATION DOSE METRICS: Total DLP (mGy-cm): 987.12 FINDINGS: Brain: Cerebral volume loss appropriate for age. No hemorrhage. A a Unremarkable white matter. No mass effect. Cerebral ventricles: Moderate ventriculomegaly appropriate for age. Paranasal sinuses: Visualized sinuses are unremarkable. No fluid levels. Mastoid air cells: Visualized mastoid air cells are well aerated. Bones/joints: Unremarkable. No acute fracture. Soft tissues: Unremarkable. CT/CT head wo con* [id number] IMPRESSION: No acute intracranial abnormality. Radiation Dose CTDIVOL = (mGy): DLP = 987.12 (mGy-cm)
--- NOTE | 2021-06-05 11:05 | ECG_ITS ---
[facility] Test Date: 2021-06-05 Pat Name: Ruthie Bowen Department: Room: Gender: Male [employer]: : 1935 Requested By: Elliot Muniz Order Number: [id number] Tommy MD: James Barbosa M.D. Measurements Intervals [place] Rate: 71 P: -38 DE: 133 QRS: 82 QRSD: 142 T: 16 QT: 418 QTc: 455 Interpretive Statements SINUS RHYTHM RIGHT BUNDLE BRANCH BLOCK [120+ ms QRS DURATION, UPRIGHT V1, 40+ ms S IN I/aVL/V4/V5/V6] Compared to ECG 10/02/2020 18:33:03 Right-axis deviation no longer present Electronically Signed On 06-06-2021 17:00:41 FAMILY CONSUMER SCIENTIST by James Barbosa M.D. [id number]
--- NOTE | 2021-06-05 11:15 | CTR_ITS ---
PROCEDURE INFORMATION: Exam: CT Angiography Head With Contrast, Arteriography Exam date and time: 06/05/2021 11:15 AM Age: 85 years old Clinical indication: Visual disturbance and weakness; Additional info: Transient vision loss, lue weakness, stroke like episodes TECHNIQUE: Imaging protocol: Computed tomography angiography of the head with contrast. Exam focused on the arteries. 3D rendering (Not supervised by radiologist): MIP and/or 3D reconstructed images were created by the technologist. Radiation optimization: All CT scans at this facility use at least one of these dose optimization techniques: automated exposure control; mA and/or kV adjustment per patient size (includes targeted exams where dose is matched to clinical indication); or iterative reconstruction. Contrast material: VISI 320; Contrast volume: 95 ml; Contrast route: INTRAVENOUS (IV); COMPARISON: CT head wo con* [id number] 06/05/2021 12:16 PM RADIATION DOSE METRICS: Total DLP (mGy-cm): 2336.34 FINDINGS: ANTERIOR CIRCULATION: Right internal carotid artery: Unremarkable. Intracranial segment is patent with no significant stenosis. No aneurysm. Right middle cerebral artery: Unremarkable. No occlusion or significant stenosis. No aneurysm. Right anterior cerebral artery: Unremarkable. No occlusion or significant stenosis. No aneurysm. Left internal carotid artery: Unremarkable. Intracranial segment is patent with no significant stenosis. No aneurysm. Left middle cerebral artery: Unremarkable. No occlusion or significant stenosis. No aneurysm. Left anterior cerebral artery: Unremarkable. No occlusion or significant stenosis. No aneurysm. POSTERIOR CIRCULATION: Right vertebral artery: Unremarkable. No occlusion or significant stenosis. No aneurysm. Left vertebral artery: Unremarkable. No occlusion or significant stenosis. No aneurysm. Basilar artery: Unremarkable. No occlusion or significant stenosis. No aneurysm. Right posterior cerebral artery: Unremarkable. No occlusion or significant stenosis. No aneurysm. Left posterior cerebral artery: Unremarkable. No occlusion or significant stenosis. No aneurysm. Brain: No definite mass, mass effect, or midline shift. Cerebral ventricles: No ventriculomegaly. Bones/joints: Unremarkable. No acute fracture. Soft tissues: Unremarkable. PROCEDURE INFORMATION: Exam: CT Angiography Neck With Contrast Exam date and time: 06/05/2021 11:15 AM Age: 85 years old Clinical indication: Visual disturbance and weakness; Additional info: Transient vision loss, lue weakness, stroke like episodes TECHNIQUE: Imaging protocol: Computed tomography angiography of the neck with contrast. 3D rendering (Not supervised by radiologist): MIP and/or 3D reconstructed images were created by the technologist. Radiation optimization: All CT scans at this facility use at least one of these dose optimization techniques: automated exposure control; mA and/or kV adjustment per patient size (includes targeted exams where dose is matched to clinical indication); or iterative reconstruction. Contrast material: VISI 320; Contrast volume: 95 ml; Contrast route: INTRAVENOUS (IV); COMPARISON: CT head wo con* [id number] 06/05/2021 12:16 PM RADIATION DOSE METRICS: Total DLP (mGy-cm): 2336.34 FINDINGS: Right common carotid artery: No stenosis. No dissection or occlusion. Right internal carotid artery: No stenosis of the extracranial segment. No dissection or occlusion. Right external carotid artery: No occlusion or stenosis of the origin. Left common carotid artery: No stenosis. No dissection or occlusion. Left internal carotid artery: No stenosis of the extracranial segment. No dissection or occlusion. Left external carotid artery: No occlusion or stenosis of the origin. Right vertebral artery: No stenosis. No dissection or occlusion. Left vertebral artery: No stenosis. No dissection or occlusion. Soft tissues: Normal. No significant soft tissue swelling. Bones/joints: No acute fracture. CT/CT angio headneck* [id number] IMPRESSION: No large vessel stenosis or occlusion. IMPRESSION: No stenosis or occlusion. REFERENCES: NASCET CRITERIA. The degree of internal carotid artery stenosis is based on NASCET criteria. Normal is no stenosis. Mild is less than 50% stenosis. Moderate is 50-69% stenosis. Severe is 70% to 99% stenosis. Total occlusion is no detectable patent lumen. Radiation Dose CTDIVOL = (mGy): DLP = 2336.34~2336.34 (mGy-cm)
[2021-06-05 11:16] VITALS: BP 141/72; PULSE 96; RESP 23; O2SAT 95
[2021-06-05 11:18] LABS: Glucose Point of Care 119 mg/dL (70-110)
[2021-06-05 11:23] LABS: Add Urine Microscopic? NO; Charge for UA Resulting for Rev
[2021-06-05 11:30] LABS: Bilirubin Urine Neg (Negative); Blood Urine Neg (Negative); Glucose Urine UA Norm (Normal); Ketones Urine Negative (Negative); Leukocyte Esterase Urine Negative (Negative); Nitrate Urine Negative (Negative); Protein Urine Neg (Negative); Urine Appearance Clear (CLEAR); Urine Color Straw (Yellow); Urobilinogen Urine Norm (Negative); pH Urine 6.5 (5-7)
[2021-06-05 11:31] LABS: Basophils % 0.2 %; Eosinophils # 0.1 10^3/uL (0.0-0.8); Eosinophils % 1.7 %; Hematocrit 34.3 % (42.0-52.0); Hemoglobin 11.6 g/dL (11.7-16.6); Lymphocytes # 1.6 10^3/uL (0.8-4.8); Lymphocytes % 34.7 %; Mean Corpuscular HGB Conc 33.8 g/dL (30.0-36.0); Mean Corpuscular Hemoglobin 35.5 pg (28.0-34.0); Mean Corpuscular Volume 104.9 fl (80-94); Mean Platelet Volume 9.9 fL (7.4-10.4); Monocytes # 0.4 10^3/uL (0.2-0.9); Monocytes % 8.9 %; Neutrophils # 2.56 10^3/uL (1.8-7.7); Neutrophils % 54.3 %; Nucleated Red Blood Cells % 0 %; Platelet Count 198 10^3/cmm (130-400); Red Blood Count 3.27 10^6/uL (4.1-5.3); White Blood Count 4.7 10^3/uL (4.0-10.0)
[2021-06-05 11:54] LABS: Troponin(5th) Baseline 37 ng/L (0-15)
[2021-06-05 12:04] LABS: Alanine Aminotransferase 10 U/L (0-41); Albumin Level 4.1 g/dL (3.5-5.2); Alkaline Phosphatase 66 IU/L (40-130); Anion Gap 18.8 (5-19); Aspartate Amino Transferase 15 U/L (0-40); Blood Urea Nitrogen 22 mg/dL (8-23); Calcium 8.5 mg/dL (8.5-10.5); Carbon Dioxide 24 mmol/L (22-29); Chloride 103 mmol/L (98-107); Globulin 2.6 g/dL (1.3-4.6); Glucose 92 mg/dL (65-115); Magnesium 1.9 mg/dL (1.7-2.3); NT Pro B Type Natriuretic Pept 309 pg/mL (0-450); Osmolality Calculated 297 mOsm/kg (285-295); Potassium 3.8 mmol/L (3.5-5.1); Sodium 142 mmol/L (136-145); Thyroid Stimulating Hormone 2.27 uIU/mL (0.27-4.20); Total Bilirubin 0.4 mg/dL (0.15-1.2); Total Protein 6.7 g/dL (6.6-8.7)
[2021-06-05] MEDS: iodixanol 320 mg/mL 100mL Btl IV (12:24)
[2021-06-05 12:40] VITALS: BP 123/74; BP 135/81; BP 144/81; PULSE 67; PULSE 76; PULSE 78; RESP 20; O2SAT 94
--- NOTE | 2021-06-05 13:05 | ECG_ITS ---
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 Measurements Intervals [place] Rate: 60 P: 8 MI: 164 QRS: 95 QRSD: 153 T: 16 QT: 456 QTc: 458 Interpretive Statements SINUS RHYTHM RIGHT BUNDLE BRANCH BLOCK [120+ ms QRS DURATION, UPRIGHT V1, 40+ ms S IN I/aVL/V4/V5/V6] Compared to ECG 10/02/2020 18:33:03 Right-axis deviation no longer present Electronically Signed On 06-05-2021 13:26:44 FACILITIES MAINTENANCE ASSISTANT by James Barbosa M.D. [id number]
[2021-06-05] MEDS: sodium chloride 0.9% 1,000 ML 999 ML IV (13:10)
[2021-06-05 13:19] LABS: Troponin 5 2HR 34.03 ng/L (0-15)
[2021-06-05 13:26] LABS: Troponin 5 2HR Delta -2.97 ABS# (0-10)
[2021-06-05 14:39] VITALS: PULSE 85; O2SAT 97
--- NOTE | 2021-06-05 14:50 | PC.NURSE ---
DISREGARD FIRST DISCHARGE PLAN IT WAS DOCUMENTED ON INCORRECT PATIENT AT 1439.
--- NOTE | 2021-06-06 07:37 | DCPLANNER ---
Addendum entered by Ludmila Carl 06/07/21 11:04: accounting manager had message to schedule an appointment for a cardiac event monitor. Patient has [employer] insurance, skilled nursing case manager cannot schedule an appointment for an event monitor due to VA insurance. accounting manager called [facility], spoke with Bindu, gave clinic patients information. A follow up appointment is scheduled for Sunday, June 22, 2021 at 2:[address] Benites. Patient has since been admitted to the hospital, skilled nursing case manager called [facility] on the in patient side, spoke with Chantel, gave her the appointment information to put with patients discharge information. Addendum entered by Ludmila Carl 06/06/21 08:04: Patient has VA insurance, skilled nursing case manager emailed patients information to September, with [facility], for the authorization process to be started. Original Note: accounting manager had message to schedule a follow up appointment for patient with neurology clinic. accounting manager emailed patients information to the neurology clinic. Patients information will be printed and reviewed. Clinic will call patient with appointment information.
--- NOTE | 2021-06-16 07:27 | DCPLANNER ---
Patient has a follow up appointment scheduled for Sunday, August 09, 2020 at 10:[address] Kumari. Clinic will call patient with appointment information.
--- NOTE | 2021-06-29 15:41 | DCPLANNER ---
Patient had a follow up appointment scheduled with heart care and neurology - both appointments were cancelled.
== END 2021-06-05 14:42 | disposition home or self-care (01) ==
PROVIDERS: Emergency Provider Emergency Medicine; PCP Emergency Medicine Emergency Medical Services
DX: R41.82 Altered mental status, unspecified (principal); Z86.73 Personal history of transient ischemic attack (TIA), and cerebral infarction without residual deficits; Z95.1 Presence of aortocoronary bypass graft; I10 Essential (primary) hypertension; E78.5 Hyperlipidemia, unspecified; I25.10 Atherosclerotic heart disease of native coronary artery without angina pectoris; G30.9 Alzheimer's disease, unspecified; F02.80 Dementia in other diseases classified elsewhere, unspecified severity, without behavioral disturbance, psychotic disturbance, mood disturbance, and anxiety; Z79.01 Long term (current) use of anticoagulants; Z79.02 Long term (current) use of antithrombotics/antiplatelets
CPT/HCPCS: 36415; 36416; 70450; 70496; 70498; 71045; 80053; 81003; 82962; 83735; 83880; 84443; 84484; 85025; 93005; 96365; 99284; J7030; Q9967

== ENCOUNTER 2021-06-06 10:32 | Observation (INO) | payer OTHER, MEDICARE, SELFPAY ==
[2021-06-06] VITALS (11 sets, daily range): BP systolic 130–183; BP diastolic 67–101; PULSE 57–73; RESP 12–18; TEMP 36.4–36.6; O2SAT 96–99; BMI 28.8
--- NOTE | 2021-06-06 12:34 | W.ED.GENADLT ---
HPI - General Adult General: Chief complaint: Nausea/Vomiting/Diarrhea Stated complaint: THROWING UP Time Seen by Provider: 06/06/21 12:27 History of Present Illness: HPI narrative: Patient is an 85-year-old male with history of prior agent orange exposure, CABG, back surgery, multiple TIAs, who presents to the emergency room for evaluation of multiple episodes of dark vomits since AM. The patient, he has been vomiting black substance this morning at 8 AM. Patient says that he has no abdominal pain. He is on Plavix and on Eliquis. Patient denies any hematochezia or melena. Patient has no complaints of fever/chills, cough, runny nose, sore throat, hemoptysis, nausea/vomiting, chest pain or shortness of breath. Patient denies a history of cirrhosis alcohol use. No excessive recent NSAIDS use. Onset: 4 hrs ago Duration:15 minutes Location:home Severity: Review of Systems Narrative: Constitutional: No fever, no chills. HEENT: No vision changes CV: No chest pain, no palpitations PULM: no cough, no dyspnea. GI: No abdominal pain, +N/+V/-D. +dark vomitus : No dysuria MSKEL: No muscle pain SKIN: No new rashes, no lesions. NEURO: No headache, no focal weakness. HEME: No visible bruises PSYCH: Normal mood PFSH ED PFSH: Medical History Bronchitis History of TIA (transient ischemic attack) Pneumonia Shortness of breath Surgical History History of angioplasty 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 Family History Other CAD (coronary artery disease) Social History Smoking and tobacco status: never smoked Alcohol intake: never History of recent travel: No Physical Exam Narrative: EXAM NARRATIVE: Head: Atraumatic Eyes: PERRL, conjunctiva without injection ENT: Mucous membrane moist NECK: Supple, ROM intact LUNGS: LCTAB, no crackles/rhonchi CV: RRR ABDOMEN: Soft, No focal TTP. NO guarding rebound, guarding, rigidity. No CVA tenderness to percussion. Neg Morrison/Neg McBurney's point tenderness, no suprabupic tenderness to palpation. EXTREMITY: Normal ROM SKIN: No rash or erythema NEURO: Awake and alert, no focal motor deficits PSYCH: Normal mood and affect Course Vital Signs: Vital signs: Vital Signs Temperature 97.8 F 06/06/21 11:06 Pulse Rate 59 L 06/06/21 14:00 Respiratory Rate 18 06/06/21 14:00 Blood Pressure 156/75 06/06/21 14:00 Pulse Oximetry 97 06/06/21 14:00 MDM - General Adult MDM Narrative: Medical decision making narrative: 85-year-old male on Plavix and Eliquis presenting to the emergency room with multiple episodes of dark black vomitus since 10 AM this morning. Arrival, patient is hemodynamically stable with no focal tenderness palpation of the abdomen. Patient is currently not vomiting. H&H appears to be stable today of 11.9. Patient s/p Protonix 80mg. Will be admitted to hospital for EGD and scope. Case was discussed with Dr. Elaine for possible EGD in the AM. Disposition: Admission Lab Data: Labs: Lab Results 06/06/21 06/06/21 06/06/21 12:45 12:45 12:45 WBC 5.4 10^3/uL 10^3/ uL (4.0-10.0) RBC 3.30 10^6/uL L 10 ^6/uL (4.1-5.3) Hgb 11.9 g/dL g/dL (11.7-16.6) Hct 33.7 % L % (42.0-52.0) MCV 102.1 fl H fl (80-94) MCH 36.1 pg H pg (28.0-34.0) MCHC 35.3 g/dL g/dL (30.0-36.0) RDW 12.8 % % (12.1-15.1) Plt Count 192 10^3/cmm 10^3 /cmm (130-400) MPV 9.7 fL fL (7.4-10.4) Neut % (Auto) 61.0 % % Lymph % (Auto) 30.0 % % [place] % (Auto) 7.1 % % Eos % (Auto) 1.3 % % Baso % (Auto) 0.2 % % Neut # (Auto) 3.27 10^3/uL 10^3 /uL (1.8-7.7) Lymph # (Auto) 1.6 10^3/uL 10^3/ uL (0.8-4.8) [place] # (Auto) 0.4 10^3/uL 10^3/ uL (0.2-0.9) Eos # (Auto) 0.1 10^3/uL 10^3/ uL (0.0-0.8) Baso # (Auto) 0.0 10^3/uL 10^3/ uL (0.0-0.1) Nucleated RBC % (a uto) 0 % % Nucleated RBCs # 0.0 /100WBC /100W BC PT 15.00 SECONDS H S ECONDS (12.1-14.9) INR 1.15 (0.8-1.2) APTT 33.2 SECONDS SECO NDS (23.9-36.7) Sodium 141 mmol/L mmol/L (136-145) Potassium 3.9 mmol/L mmol/L (3.5-5.1) Chloride 103 mmol/L mmol/L (98-107) Carbon Dioxide 26 mmol/L mmol/L (22-29) Anion Gap 15.9 (5-19) BUN 18 mg/dL mg/dL (8-23) Creatinine 1.2 mg/dL mg/dL (0.7-1.2) GFR Calculation Not Reportable Glucose 94 mg/dL mg/dL (65-115) Calculated Osmolal ity 294 mOsm/kg mOsm/ kg (285-295) Calcium 8.4 mg/dL L mg/dL (8.5-10.5) Total Bilirubin 0.3 mg/dL mg/dL (0.15-1.2) AST 16 U/L U/L (0-40) ALT 10 U/L U/L (0-41) Alkaline Phosphata se 69 IU/L IU/L (40-130) Total Protein 6.9 g/dL g/dL (6.6-8.7) Albumin 4.2 g/dL g/dL (3.5-5.2) Globulin 2.7 g/dL g/dL (1.3-4.6) Lipase 28 U/L U/L (13-60) Urine Color Urine Appearance Urine pH Ur Specific Gravit y Urine Protein Urine Glucose (UA) Urine Ketones Urine Blood Urine Nitrate Urine Bilirubin Urine Urobilinogen Ur Leukocyte Marcia ase Urine RBC Urine WBC Ur Squamous Epith Cells Amorphous Sediment Urine Bacteria 06/06/21 13:25 WBC RBC Hgb Hct MCV MCH MCHC RDW Plt Count MPV Neut % (Auto) Lymph % (Auto) [place] % (Auto) Eos % (Auto) Baso % (Auto) Neut # (Auto) Lymph # (Auto) [place] # (Auto) Eos # (Auto) Baso # (Auto) Nucleated RBC % (a uto) Nucleated RBCs # PT INR APTT Sodium Potassium Chloride Carbon Dioxide Anion Gap BUN Creatinine GFR Calculation Glucose Calculated Osmolal ity Calcium Total Bilirubin AST ALT Alkaline Phosphata se Total Protein Albumin Globulin Lipase Urine Color Yellow (Yellow) Urine Appearance Clear (CLEAR) Urine pH 5 (5-7) Ur Specific Gravit y 1.020 (1.005-1.030) Urine Protein Neg (Negative) Urine Glucose (UA) Norm (Normal) Urine Ketones Negative (Negative) Urine Blood 2+ H (Negative) Urine Nitrate Negative (Negative) Urine Bilirubin Neg (Negative) Urine Urobilinogen Norm mg/dL mg/dL (Negative) Ur Leukocyte Marcia ase Negative (Negative) Urine RBC 0-4 /hpf H /hpf (0-2) Urine WBC 0-4 /hpf H /hpf (0-5) Ur Squamous Epith Cells 0-4 /hpf H /hpf (0-5) Amorphous Sediment Not Reportable Urine Bacteria None /hpf /hpf (NONE) Discharge Plan Discharge Patient Disposition: Admitted As Inpatient Clinical Impression: Hematemesis, Nausea & vomiting Condition: Stable Coding Level of Care Code ED Insurance Counsel for Tushar Hoskins
--- NOTE | 2021-06-06 12:50 | PC.NURSE ---
stated she st cath pt at home once or twice a week. OKayed by provider, to st cath pt
[2021-06-06 12:52] LABS: Basophils % 0.2 %; Eosinophils # 0.1 10^3/uL (0.0-0.8); Eosinophils % 1.3 %; Hematocrit 33.7 % (42.0-52.0); Hemoglobin 11.9 g/dL (11.7-16.6); Lymphocytes # 1.6 10^3/uL (0.8-4.8); Mean Corpuscular HGB Conc 35.3 g/dL (30.0-36.0); Mean Corpuscular Hemoglobin 36.1 pg (28.0-34.0); Mean Corpuscular Volume 102.1 fl (80-94); Mean Platelet Volume 9.7 fL (7.4-10.4); Monocytes # 0.4 10^3/uL (0.2-0.9); Monocytes % 7.1 %; Neutrophils # 3.27 10^3/uL (1.8-7.7); Nucleated Red Blood Cells % 0 %; Platelet Count 192 10^3/cmm (130-400); Red Cell Distribution Width 12.8 % (12.1-15.1); White Blood Count 5.4 10^3/uL (4.0-10.0)
[2021-06-06] MEDS: pantoprazole 40 mg SDV 80 MG IVP (12:56)
[2021-06-06 13:04] LABS: INR 1.15 (0.8-1.2)
[2021-06-06 13:05] LABS: Partial Thromboplastin Time 33.2 SECONDS (23.9-36.7)
[2021-06-06 13:23] LABS: Alanine Aminotransferase 10 U/L (0-41); Albumin Level 4.2 g/dL (3.5-5.2); Alkaline Phosphatase 69 IU/L (40-130); Anion Gap 15.9 (5-19); Aspartate Amino Transferase 16 U/L (0-40); Blood Urea Nitrogen 18 mg/dL (8-23); Calcium 8.4 mg/dL (8.5-10.5); Carbon Dioxide 26 mmol/L (22-29); Chloride 103 mmol/L (98-107); Globulin 2.7 g/dL (1.3-4.6); Glucose 94 mg/dL (65-115); Lipase 28 U/L (13-60); Osmolality Calculated 294 mOsm/kg (285-295); Potassium 3.9 mmol/L (3.5-5.1); Sodium 141 mmol/L (136-145); Total Bilirubin 0.3 mg/dL (0.15-1.2); Total Protein 6.9 g/dL (6.6-8.7)
[2021-06-06 13:54] LABS: Add Urine Culture? No; Add Urine Microscopic? YES; Bilirubin Urine Neg (Negative); Blood Urine 2+ (Negative); Glucose Urine UA Norm (Normal); Ketones Urine Negative (Negative); Leukocyte Esterase Urine Negative (Negative); Nitrate Urine Negative (Negative); Protein Urine Neg (Negative); RBC Urine 0-4 /hpf (0-2); Squamous Epithelial Cell Urine 0-4 /hpf (0-5); Urine Appearance Clear (CLEAR); Urine Color Yellow (Yellow); Urobilinogen Urine Norm (Negative); WBC Urine 0-4 /hpf (0-5); pH Urine 5 (5-7)
--- NOTE | 2021-06-06 14:35 | PC.NURSE ---
per provider, okay for pt to eat. Provided pt a meal
--- NOTE | 2021-06-06 15:52 | PM.HP ---
Providers/Chief Complaint Primary Care Provider: Antony Minaya DO Chief Complaint: THROWING UP History of Present Illness Very pleasant 85-year-old gentleman with history of recurrent TIA, history of CAD, status post CABG in 2010, history of agent orange exposure, on chronic anticoagulation with Eliquis, presented to the hospital due to several episodes of dark vomitus this morning. He has been taking Plavix and Eliquis. He was assessed in ER yesterday also due to a TIA episode in the ER, although his denies that he received any aspirin. He does not use NSAIDs. Does not drink alcohol. Has no history of liver cirrhosis. He has been compliant with his medications, although vomited after taking this morning's doses. Reports history of gastric ulcer perforation with bleeding which required surgery in the 1960s. He currently states he is feeling very well. Denies any abdominal pain or discomfort. No nausea. Has been regular his bowel movements, denies any melena or hematochezia. Earlier and yesterday was having some mid to upper abdominal pain to the right of the midline. He has been having difficulties with his memory, so his who is at bedside has been feeling in parts of history where he gets confused. She states she does not anticipate that he should get confused and get up or be at risk of falling overnight. Due to urethral stricture and self catheterizes every 3-6 days. With regards to CODE STATUS, he is very clear he wanted to be AND, confirmed by his . Review of Systems Const: Denies: fever(s), chills, body aches or malaise Eyes: Denies: change in vision or eye redness ENMT: Denies: throat pain, oral sores or ear or mastoid pain Card: Denies: chest pain, edema, pre-syncope or dyspnea on exertion Resp: Denies: dyspnea, productive cough, change in phlegm color or hemoptysis GI: Reports: abdominal pain, nausea, vomiting and coffee ground emesis; Denies: diarrhea, constipation, hematochezia or melena : Denies: flank pain, difficulty urinating, urinary frequency or hematuria Musc: Denies: back pain, joint swelling or joint redness Skin/Breast: Denies: rash, sores or new lesions Neuro: Denies: headache(s), numbness in extremities, weakness in extremities, dizziness, confusion or seizure-like activity Endo: Denies: polyuria or polydipsia Paul/Lymph: Denies: easy bleeding or purpura All/Imm: Denies: urticaria, throat swelling or tongue swelling Medications/Allergies Home Medications Medication Instructions Recorded Confirmed Last Taken Type acetaminophen 500 mg capsule 1,000 mg PO BID 07/06/20 06/06/21 08/10/20 History clopidogrel 75 mg tablet 75 mg PO DAILY@07/06/20 06/06/21 06/06/21 History docusate sodium 100 mg tablet 100 mg PO BID@,07/06/20 06/06/21 06/06/21 History furosemide 40 mg tablet 40 mg PO DAILY@07/06/20 06/06/21 06/06/21 History gabapentin 300 mg capsule 300 mg PO BID@,07/06/20 06/06/21 06/06/21 History multivit-iron 18 mg-folic acid 400 1 tab PO DAILY@07/06/20 06/06/21 06/06/21 History mcg-calcium 450 mg-minerals tablet nitroglycerin 0.4 mg sublingual 0.4 mg SUBLINGUAL Q5M PRN 07/06/20 06/06/21 06/19/20 History tablet pantoprazole 20 mg tablet,delayed 20 mg PO BID@,07/06/20 06/06/21 06/06/21 History release vitamins A,C,I-orjd-qtoqzt 14,320 1 cap PO BID@,07/06/20 06/06/21 06/06/21 History unit-226 mg-200 unit capsule diphenoxylate-atropine [Lomotil] 1 tab PO DAILY PRN 09/20/20 06/06/21 Unknown History polyethylene glycol 3350 [Miralax] 17 g PO DAILY PRN 09/20/20 06/06/21 10/01/20 History ropinirole 1 mg PO BEDTIME@199909/20/20 06/06/21 06/04/21 History albuterol sulfate 2.5 mg INHALATION Q4H PRN 10/02/20 06/06/21 Unknown History apixaban [Eliquis] 2.5 mg PO BID@,10/02/20 06/06/21 06/06/21 06:30 History cholecalciferol (vitamin D3) 50 mcg PO DAILY@08 10/02/20 06/06/21 06/06/21 History [Vitamin D3] cyanocobalamin (vitamin B-12) 1,000 mcg PO DAILY@10/02/20 06/06/21 06/06/21 History [Vitamin B-12] diclofenac sodium [Voltaren] 2 g TOPICAL QID PRN 10/02/20 06/06/21 Unknown History magnesium citrate 150 ml PO ONCE PRN 10/02/20 06/06/21 Unknown History sennosides-docusate sodium 1 tab-cap PO DAILY PRN 10/02/20 06/06/21 06/05/21 History [Senna-S] triamcinolone acetonide 0.5 % 1 applic TOPICAL DAILY PRN 11/08/20 06/06/21 Unknown History topical cream ondansetron HCl [Zofran] 4 mg PO Q6H PRN #20 tab 11/14/20 06/06/21 Unknown Rx tramadol 50 mg tablet 50 mg PO Q6H PRN 04/27/21 06/06/21 06/06/21 06:30 History galantamine 4 mg tablet 4 mg PO BID #60 tab 05/10/21 06/06/21 06/06/21 Rx levetiracetam 750 mg tablet 750 mg PO BID #60 tab 05/10/21 06/06/21 06/06/21 Rx albuterol sulfate [ProAir HFA] 2 puff INHALATION Q6H PRN 06/05/21 06/06/21 Unknown History hydrocodone-acetaminophen 1 tab PO Q6H PRN 06/05/21 06/06/21 Unknown History multivitamin 1 tab PO DAILY 06/05/21 06/06/21 06/06/21 History atorvastatin 80 mg PO DAILY 06/06/21 06/06/21 Unknown History cyclobenzaprine 5 mg PO BID 06/06/21 06/06/21 Unknown History Allergies Allergy/AdvReac Type Severity Reaction Status Date / Time gluten Allergy Mild sick Verified 05/31/21 13:19 bee venom protein (honey bee) Allergy ADR-Swelling Verified 05/31/21 13:19 of the Eye dairy Allergy ALGY-Swell Uncoded 05/12/21 08:57 Lip/Tongue/Throat PFSH Acute PFSH: Medical History Acute perforated gastric ulcer with hemorrhage Reports in 1960s, required surgery 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 Bronchitis History of TIA (transient ischemic attack) Pneumonia Self-catheterizes urinary bladder every 3-6 days Shortness of breath Urethral stricture Surgical History History of angioplasty 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 History of total knee arthroplasty Family History Other CAD (coronary artery disease) Social History Smoking and tobacco status: never smoked Alcohol intake: never Substance/Drug Use: never Lives independently: No Household members: spouse Marital status: History of recent travel: No Vitals/I&O/Wt Last Vital Signs Temp 97.8 F 06/06/21 11:06 Pulse 60 06/06/21 15:00 Resp 18 06/06/21 15:00 BP 167/90 06/06/21 15:00 Pulse Ox 98 06/06/21 15:00 Weight last 48 hrs Weight 83.461 kg Physical Exam Narrative: EXAM NARRATIVE: His spouse is at bedside. Const: COMMON NORMALS: no acute distress and alert GENERAL APPEARANCE: cooperative and comfortable ORIENTATION/CONSCIOUSNESS: Yes awake HENMT: COMMON NORMALS: oropharynx normal Neck/C-Spine: COMMON NORMALS: no JVD Resp: COMMON NORMALS: normal respiratory effort and clear to auscultation bilaterally AUSCULTATION: clear to auscultation bilaterally Cardio: COMMON NORMALS: no JVD, regular rhythm, S1 normal heart sound present, S2 normal heart sound present and No murmurs present (Cardio) RHYTHM: regular rhythm HEART SOUNDS: S1 normal heart sound present and S2 normal heart sound present GI: COMMON NORMALS: Normal to inspection, nondistended, normoactive bowel sounds present, Soft to palpation and non-tender PALPATION: Yes Soft to palpation and Yes Tenderness to palpation present (GI) (Min tender to R of midline of mid to upper abdomen) Extremity: COMMON NORMALS: no joint enlargement and no pedal edema Neuro: COMMON NORMALS: patient oriented x3 and moves all extremities Skin: COMMON NORMALS: no rashes or lesions noted GENERAL SKIN EXAM: no rashes or lesions noted Urinary Catheter Management^: Straight: Cath Placed During This Visit: yes Urinary Catheter Date of Insertion: 06/06/21 Urinary Catheter Time of Insertion: 13:00 Data : 06/06/21 12:45 06/06/21 12:45 A&P Assessment and plan (1) Hematemesis: Discussed with him and his , hold Eliquis, Plavix for now, recheck hemoglobin. N.p.o. for now except sips and chips. Potentially consider resuming Plavix if hemoglobin steady and no further hematemesis given recurrent TIAs. Will obtain also acute abdominal series given reports history of perforated bleeding gastric ulcer requiring surgery in the past, although this was back in the 1960s. Endoscopy service consulted in ER. Would discontinue diclofenac at discharge. Received L4-5 transforaminal SETH on 05/31. Status: Acute (2) Chronic anticoagulation: Discussed with him and his . Hold Eliquis. Status: Acute (3) Self-catheterizes urinary bladder: Due to urethral stricture every 3-6 days he self catheterizes, reportedly has about 40-50 mL residual which accumulates eventually with overflow incontinence/frequency, which is how he knows he needs a straight cath. They state he will be able to let us know when it is time. Status: Acute Additional A&P Information Recurrent TIA Chronic back pain, status post CSI on 05/31 CAD, s/p CABG, denies any stents History of exposure to agent orange Essential tremor Other chronic medical problems noted Attestations Medical Necessity Statement*: Place in observation for assessment management of hematemesis in a gentleman on a blood thinner and antiplatelet medication due to recurrent TIA. Coding Level of Care Code Acute Instructional Technology Coordinator for Tushar Hoskins Diagnoses Hematemesis K92.0 Chronic anticoagulation Z79.01 Self-catheterizes urinary bladder Z78.9
--- NOTE | 2021-06-06 18:04 | PC.NURSE ---
Admitting physician at bedside.
[2021-06-06] MEDS: gabapentin 300 mg Capsule PO (20:59)
[2021-06-06] MEDS: docusate sodium 100 mg Capsule PO (20:59)
[2021-06-06] MEDS: ropinirole 1 mg Tablet PO (20:59)
[2021-06-06] MEDS: cyclobenzaprine 10 mg Tablet 5 MG PO (20:59)
[2021-06-06] MEDS: levETIRAcetam 500 mg Tablet 750 MG PO (21:00)
[2021-06-06] MEDS: acetaminophen 325 mg Tablet 650 MG PO (21:00)
[2021-06-06 22:50] LABS: Hemoglobin 10.9 g/dL (11.7-16.6)
[2021-06-07] VITALS: BP 121/65; PULSE 66; RESP 17; TEMP 36.4; O2SAT 90
[2021-06-07 04:00] VITALS: BP 152/85; PULSE 68; RESP 17; TEMP 36.9; O2SAT 94
--- NOTE | 2021-06-07 05:04 | PC.NURSE ---
Patient very upset about not being able to eat or drink and having to wait 12 hours in ER to be kept overnight for a test that they aren't doing . This nurse informed patient that endoscopy was consulted and that was why he was NPO. Patient called his to come get him to leave. This nurse spoke to Dr Henley and informed her of patient aggravation. The patient's called and stated that she would be at the hospital in 2 hours to see if she could help diffuse the situation and convince the patient to stay. Patient is refusing all care from staff.
--- NOTE | 2021-06-07 07:48 | P.CONIM_ITS ---
Providers/Reason For Consult Consulting Physician/Specialty*: Endoscopist Reason for Consult*: Possible GI bleed. Attending Physician: Demetrius Gamble Primary Care Provider: Antony Minaya DO History of Present Illness History of Present Illness Ruthie Bowen is a 85 year old male who presented to the emergency room because his was concerned that he may have had an upper gastrointestinal bleed. The morning of admission, the patient became nauseated and began vomiting. Apparently he vomited intermittently for about 15 minutes. There was some dark or black mucousy material in the toilet. There was no coffee-ground. There was nothing red or any blood. He contacted the [facility] and they instructed him to go to the ER for further evaluation. The patient is not using any oral NSAIDs. He does use diclofenac gel. He is currently on clopidogrel and Eliquis. Apparently he is on Eliquis because he had a blood clot in his leg after a recent procedure in August of this year. Neither he or his were sure why he was still on Eliquis. Apparently there was a committee in the [place] that determined it was felt appropriate for him to be on it. Review of Systems General: Reports: 10 or more systems reviewed and unremarkable except in HPI and below Const: Denies: fever(s) Card: Denies: chest pain or irregular heart rhythm Resp: Denies: dyspnea Neuro: Reports: confusion, difficulty communicating thoughts and other (The patient does have some confusion.) Meds/Allergies Home Medications and Allergies Home Medications Medication Instructions Recorded Confirmed Last Taken Type acetaminophen 500 mg capsule 1,000 mg PO BID 07/06/20 06/06/21 08/10/20 History clopidogrel 75 mg tablet 75 mg PO DAILY@07/06/20 06/06/21 06/06/21 History docusate sodium 100 mg tablet 100 mg PO BID@07/06/20 06/06/21 06/06/21 History furosemide 40 mg tablet 40 mg PO DAILY@07/06/20 06/06/21 06/06/21 History gabapentin 300 mg capsule 300 mg PO BID@07/06/20 06/06/21 06/06/21 History multivit-iron 18 mg-folic acid 400 1 tab PO DAILY@07/06/20 06/06/21 06/06/21 History mcg-calcium 450 mg-minerals tablet nitroglycerin 0.4 mg sublingual 0.4 mg SUBLINGUAL Q5M PRN 07/06/20 06/06/21 06/19/20 History tablet pantoprazole 20 mg tablet,delayed 20 mg PO BID@07/06/20 06/06/21 06/06/21 History release vitamins A,C,N-ribp-amcqdj 14,320 1 cap PO BID@07/06/20 06/06/21 06/06/21 History unit-226 mg-200 unit capsule diphenoxylate-atropine [Lomotil] 1 tab PO DAILY PRN 09/20/20 06/06/21 Unknown History polyethylene glycol 3350 [Miralax] 17 g PO DAILY PRN 09/20/20 06/06/21 10/01/20 History ropinirole 1 mg PO BEDTIME@199909/20/20 06/06/21 06/04/21 History albuterol sulfate 2.5 mg INHALATION Q4H PRN 10/02/20 06/06/21 Unknown History apixaban [Eliquis] 2.5 mg PO BID@10/02/20 06/06/21 06/06/21 06:30 History cholecalciferol (vitamin D3) 50 mcg PO DAILY@10/02/20 06/06/21 06/06/21 History [Vitamin D3] cyanocobalamin (vitamin B-12) 1,000 mcg PO DAILY@10/02/20 06/06/21 06/06/21 History [Vitamin B-12] diclofenac sodium [Voltaren] 2 g TOPICAL QID PRN 10/02/20 06/06/21 Unknown History magnesium citrate 150 ml PO ONCE PRN 10/02/20 06/06/21 Unknown History sennosides-docusate sodium 1 tab-cap PO DAILY PRN 10/02/20 06/06/21 06/05/21 History [Senna-S] triamcinolone acetonide 0.5 % 1 applic TOPICAL DAILY PRN 11/08/20 06/06/21 Unknown History topical cream ondansetron HCl [Zofran] 4 mg PO Q6H PRN #20 tab 11/14/20 06/06/21 Unknown Rx tramadol 50 mg tablet 50 mg PO Q6H PRN 04/27/21 06/06/21 06/06/21 06:30 History galantamine 4 mg tablet 4 mg PO BID #60 tab 05/10/21 06/06/21 06/06/21 Rx levetiracetam 750 mg tablet 750 mg PO BID #60 tab 05/10/21 06/06/21 06/06/21 Rx albuterol sulfate [ProAir HFA] 2 puff INHALATION Q6H PRN 06/05/21 06/06/21 Unknown History hydrocodone-acetaminophen 1 tab PO Q6H PRN 06/05/21 06/06/21 Unknown History multivitamin 1 tab PO DAILY 06/05/21 06/06/21 06/06/21 History atorvastatin 80 mg PO DAILY 06/06/21 06/06/21 Unknown History cyclobenzaprine 5 mg PO BID 06/06/21 06/06/21 Unknown History Allergies Allergy/AdvReac Type Severity Reaction Status Date / Time gluten Allergy Mild sick Verified 05/31/21 13:19 bee venom protein (honey bee) Allergy ADR-Swelling Verified 05/31/21 13:19 of the Eye dairy Allergy ALGY-Swell Uncoded 05/12/21 08:57 Lip/Tongue/Throat Current Medications Current Medications Generic Name Dose Route Start Last Admin Trade Name Freq PRN Reason Stop Dose Admin Acetaminophen 650 mg 06/06/21 20:25 06/06/21 21:00 Acetaminophen 325 Mg Tablet PO 650 mg BID ARISTIDES Administration Cyclobenzaprine HCl 5 mg 06/06/21 20:25 06/06/21 20:59 Cyclobenzaprine 10 Mg Tablet PO 5 mg BID ARISTIDES Administration Docusate Sodium 100 mg 06/06/21 20:25 06/06/21 20:59 Docusate Sodium 100 Mg Capsule PO 100 mg BID@ ARISTIDES Administration Gabapentin 300 mg 06/06/21 20:25 06/06/21 20:59 Gabapentin 300 Mg Capsule PO 300 mg BID@ ARISTIDES Administration Levetiracetam 750 mg 06/06/21 20:25 06/06/21 21:00 Levetiracetam 500 Mg Tablet PO 750 mg BID ARISTIDES Administration Non-Formulary Medication 4 mg 06/06/21 20:25 06/06/21 21:01 Galantamine PO Not Given BID ARISTIDES Pantoprazole Sodium 40 mg 06/07/21 00:30 06/07/21 00:15 Pantoprazole 40 Mg Sdv IVP Not Given Q12H [facility] Ropinirole HCl 1 mg 06/06/21 20:25 06/06/21 20:59 Ropinirole 1 Mg Tablet PO 1 mg BEDTIME@1999 [facility] Administration PFSH Acute PFSH: Medical History Acute perforated gastric ulcer with hemorrhage Reports in 1960s, required surgery 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 Bronchitis History of TIA (transient ischemic attack) Pneumonia Self-catheterizes urinary bladder every 3-6 days Shortness of breath Urethral stricture Surgical History History of angioplasty 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 History of total knee arthroplasty Family History Other CAD (coronary artery disease) Social History Smoking and tobacco status: never smoked Alcohol intake: never Substance/Drug Use: never Lives independently: No Household members: spouse Marital status: History of recent travel: No Vitals/I&O/Wt Last Vital Signs Temp 98.4 F 06/07/21 04:00 Pulse 68 06/07/21 04:00 Resp 17 06/07/21 04:00 BP 152/85 06/07/21 04:00 Pulse Ox 94 06/07/21 04:00 06/06/21 06/07/21 06/07/21 22:59 06:59 14:59 Intake Total 600 / 600 Balance 600 / 600 Weight last 48 hrs Weight 184 lb Weight 184 lb Physical Exam Const: COMMON NORMALS: no acute distress and alert (Is able to converse well, but gets confused regarding details.) GENERAL APPEARANCE: cooperative, comfortable and well developed HENMT: COMMON NORMALS: normocephalic and moist oral mucous membranes HEAD & SCALP: normocephalic Chest: COMMONS NORMALS: normal inspection of the chest Resp: COMMON NORMALS: normal respiratory effort and clear to auscultation bilaterally AUSCULTATION: clear to auscultation bilaterally Cardio: COMMON NORMALS: regular rate, regular rhythm, No gallops present (Cardio), No murmurs present (Cardio) and No rub (Cardio) RATE: regular rate RHYTHM: regular rhythm Extremity: COMMON NORMALS: normal to inspection Neuro: COMMON NORMALS: no focal motor deficits SENSORIUM/ORIENTATION: Yes alert (Is able to converse well, but gets confused regarding details.) Skin: COMMON NORMALS: no rashes or lesions noted GENERAL SKIN EXAM: no rashes or lesions noted Urinary Catheter Management^: Straight: Cath Placed During This Visit: yes Urinary Catheter Date of Insertion: 06/06/21 Urinary Catheter Time of Insertion: 13:00 A&P Assessment and plan (1) Nausea & vomiting: The patient has not had any more episodes of vomiting. He does not feel nauseous. Status: Acute (2) Hematemesis: There was no sign of bleeding other than black mucousy vomitus. His hemoglobin is down less than 1 point from the day before but is still higher than his average hemoglobin this year. His vital signs have been stable. He had 1 small normal stool this morning that was not black per the patient. Since it is unclear if the patient actually had hematemesis, and he is currently anticoagulated, an EGD is not urgently indicated. I am setting up the patient for an outpatient EGD. An EGD has been scheduled at 7 AM on June 16. I discussed the risks of bleeding, and perforation, as well as the risks of sedation to the patient and his . They have no further questions and would like to proceed. Status: Acute (3) Chronic anticoagulation: The indication for anticoagulation since there is a question of an upper gastrointestinal bleed, he should remain off his Eliquis and his Plavix until the EGD is performed. Status: Acute Coding Level of Care Code Acute [facility] Grinder for [facility] Diagnoses Nausea & vomiting R11.2 Hematemesis K92.0 Chronic anticoagulation Z79.01
[2021-06-07 08:00] VITALS: BP 141/80; PULSE 87; RESP 17; TEMP 36.6; O2SAT 94
[2021-06-07] MEDS: cyclobenzaprine 10 mg Tablet 5 MG PO (08:09)
[2021-06-07] MEDS: docusate sodium 100 mg Capsule PO (08:09)
[2021-06-07] MEDS: atorvastatin 40 mg Tablet 80 MG PO (08:10)
[2021-06-07] MEDS: gabapentin 300 mg Capsule PO (08:10)
[2021-06-07] MEDS: levETIRAcetam 500 mg Tablet 750 MG PO (08:10)
[2021-06-07] MEDS: acetaminophen 325 mg Tablet 650 MG PO (08:11)
[2021-06-07 09:14] VITALS: PULSE 76; RESP 18; O2SAT 93
[2021-06-07 10:20] LABS: Basophils % 0.2 %; Eosinophils # 0.1 10^3/uL (0.0-0.8); Hematocrit 33.5 % (42.0-52.0); Hemoglobin 11.2 g/dL (11.7-16.6); Lymphocytes # 1.4 10^3/uL (0.8-4.8); Lymphocytes % 26.9 %; Mean Corpuscular HGB Conc 33.4 g/dL (30.0-36.0); Mean Corpuscular Hemoglobin 35.6 pg (28.0-34.0); Mean Corpuscular Volume 106.3 fl (80-94); Mean Platelet Volume 9.5 fL (7.4-10.4); Monocytes # 0.4 10^3/uL (0.2-0.9); Monocytes % 7.6 %; Neutrophils # 3.22 10^3/uL (1.8-7.7); Neutrophils % 64.1 %; Nucleated Red Blood Cells % 0 %; Platelet Count 177 10^3/cmm (130-400); Red Blood Count 3.15 10^6/uL (4.1-5.3)
[2021-06-07 12:45] VITALS: PULSE 76; RESP 18; O2SAT 93
--- NOTE | 2021-06-07 13:26 | P.DS_ITS ---
Discharge Providers Date of Admission: 06/06/21 14:24 Date of Discharge: June 07, 2021 Attending Provider at Admission: Demetrius Gamble Attending Provider at Discharge: Demetrius Gamble Primary Care Provider: Antony Minaya DO Diagnoses at Discharge Discharge Diagnosis (1) Nausea & vomiting: Status: Acute (2) Hematemesis: Status: Acute (3) Chronic anticoagulation: Status: Acute Reason for Visit Reason for Visit: THROWING UP Hospital Course Hospital Course Pleasant 85-year-old gentleman with history of recurrent TIA, on Plavix, also on Eliquis with history of DVT in , also history of CAD, status post CABG in 2010 without any subsequent stents, history of agent orange exposure, remote history of abdominal surgery due to not entirely clear reason, possibly ulcer perforation with bleeding or hernia repair in the , patient and are not sure, seizure disorder, essential tremor, urethral stricture for which he self catheterizes every 3-6 days, chronic back pain problems, with SETH injection 05/31, intermittently using Voltaren gel, was hospitalized for additional assessment after reporting about a 15-minute long episode of vomiting intermittently with dark or black contents. Started on PPI IV twice daily with 40 mg of Protonix, hemoglobin was followed in the hospital, without noted acute decrease. Eliquis and Plavix are held until additional assessment by EGD. He is also asked to revisit with his primary care office as to whether Eliquis needs to be continued at all given his DVT was back in following orthopedic surgery. While in hospital had no recurrence of similar vomiting, has felt well. Is requesting to return home today. He was assessed by endoscopy service, and they had discussed options, with agreement to set up for outpatient EGD which is scheduled for 7 AM on June 16. He is asked to discontinue Voltaren and avoid any NSAIDs. He continues on PPI 40 mg twice daily at this time. Please follow-up results of endoscopic evaluation and adjust according to the findings. If safe he could then resume Plavix. Please revisit whether he needs to continue Eliquis. Physical Exam Narrative: EXAM NARRATIVE: Spouse is at bedside. Const: COMMON NORMALS: no acute distress, patient oriented x3 and alert GENERAL APPEARANCE: cooperative and comfortable ORIENTATION/CONSCIOUSNESS: Yes awake HENMT: COMMON NORMALS: oropharynx normal Neck/C-Spine: COMMON NORMALS: no JVD Resp: COMMON NORMALS: normal respiratory effort and clear to auscultation bilaterally AUSCULTATION: clear to auscultation bilaterally Cardio: COMMON NORMALS: no JVD, regular rhythm, S1 normal heart sound present, S2 normal heart sound present and No murmurs present (Cardio) RHYTHM: regular rhythm HEART SOUNDS: S1 normal heart sound present and S2 normal heart sound present GI: COMMON NORMALS: Normal to inspection, nondistended, normoactive bowel sounds present, Soft to palpation and non-tender PALPATION: Yes Soft to palpation Extremity: COMMON NORMALS: no joint enlargement and no pedal edema Neuro: COMMON NORMALS: patient oriented x3 and moves all extremities SENSORIUM/ORIENTATION: Yes alert Skin: COMMON NORMALS: no rashes or lesions noted GENERAL SKIN EXAM: no rashes or lesions noted Urinary Catheter Management^: Straight: Cath Placed During This Visit: yes Urinary Catheter Date of Insertion: 06/06/21 Urinary Catheter Time of Insertion: 13:00 Discharge Data Data Completed and Pending: Labs from last 24 hours 06/07/21 06/06/21 06/06/21 10:14 22:45 13:25 WBC 5.0 RBC 3.15 L Hgb 11.2 L 10.9 L Hct 33.5 L MCV 106.3 H MCH 35.6 H MCHC 33.4 D RDW 13.0 Plt Count 177 MPV 9.5 Neut % (Auto) 64.1 Lymph % (Auto) 26.9 [place] % (Auto) 7.6 Eos % (Auto) 1.0 Baso % (Auto) 0.2 Neut # (Auto) 3.22 Lymph # (Auto) 1.4 [place] # (Auto) 0.4 Eos # (Auto) 0.1 Baso # (Auto) 0.0 Nucleated RBC % (a uto) 0 Nucleated RBCs # 0.0 Urine Color Yellow Urine Appearance Clear Urine pH 5 Ur Specific Gravit y 1.020 Urine Protein Neg Urine Glucose (UA) Norm Urine Ketones Negative Urine Blood 2+ H Urine Nitrate Negative Urine Bilirubin Neg Urine Urobilinogen Norm Ur Leukocyte Marcia ase Negative Urine RBC 0-4 H Urine WBC 0-4 H Ur Squamous Epith Cells 0-4 H Amorphous Sediment Not Reportable Urine Bacteria None Vitals: Last Vital Signs Temp 97.8 F 06/07/21 08:00 Pulse 76 12/07/21 12:45 Resp 18 06/07/21 12:45 BP 141/80 06/07/21 08:00 Pulse Ox 93 06/07/21 12:45 Discharge Plan Discharge Patient Disposition: Home Condition: Stable Prescriptions: New pantoprazole 40 mg tablet,delayed release (DR/EC) 40 mg PO BID 42 Days Qty: 84 RF: 0 Continued triamcinolone acetonide 0.5 % cream 1 applic topical DAILY PRN (Reason: UNKNOWN) RF: 0 pantoprazole 20 mg tablet,delayed release (DR/EC) 20 mg PO BID@, RF: 0 gabapentin 300 mg capsule 300 mg PO BID@, RF: 0 docusate sodium [DOK] 100 mg tablet 100 mg PO BID@ RF: 0 furosemide 40 mg tablet 40 mg PO DAILY@08 RF: 0 PreserVision AREDS 14,320-226-200 geth-ro-iozs capsule 1 cap PO BID@ RF: 0 One Daily Women's [facility] 18 mg iron-400 mcg-450 mg Ca tablet 1 tab PO DAILY@08 RF: 0 nitroglycerin 0.4 mg tablet, sublingual 0.4 mg sublingual Q5M PRN (Reason: Chest Pain) RF: 0 acetaminophen 500 mg capsule 1,000 mg PO BID RF: 0 levetiracetam 750 mg tablet 750 mg PO BID Qty: 60 RF: 3 galantamine 4 mg tablet 4 mg PO BID Qty: 60 RF: 3 tramadol 50 mg tablet 50 mg PO Q6H PRN (Reason: Pain) RF: 0 ondansetron HCl [Zofran] 4 mg tablet 4 mg PO Q6H PRN (Reason: nausea and vomiting) Qty: 20 RF: 0 ropinirole 1 mg Tablet 1 mg PO BEDTIME@1999 RF: 0 diphenoxylate-atropine [Lomotil] 2.5-0.025 mg Tablet 1 tab PO DAILY PRN (Reason: Diarrhea) RF: 0 polyethylene glycol 3350 [Miralax] 17 gram/dose Powder 17 g PO DAILY PRN (Reason: Constipation) RF: 0 albuterol sulfate 2.5 mg /3 mL (0.083 %) Solution For Nebulization 2.5 mg INHALATION Q4H PRN (Reason: Shortness Of Breath) RF: 0 sennosides-docusate sodium [Senna-S] 8.6-50 mg Tablet 1 tab-cap PO DAILY PRN (Reason: CONSTIPATION (2ND)) RF: 0 cyanocobalamin (vitamin B-12) [Vitamin B-12] 1,000 mcg Tablet 1,000 mcg PO DAILY@08 RF: 0 magnesium citrate Solution 150 ml PO ONCE PRN (Reason: Constipation (1ST)) RF: 0 cholecalciferol (vitamin D3) [Vitamin D3] 50 mcg (2,000 unit) Capsule 50 mcg PO DAILY@08 RF: 0 multivitamin Tablet 1 tab PO DAILY RF: 0 hydrocodone-acetaminophen 5-325 mg tablet 1 tab PO Q6H PRN (Reason: Pain) RF: 0 albuterol sulfate [ProAir HFA] 90 mcg/actuation HFA aerosol inhaler 2 puff INHALATION Q6H PRN (Reason: Shortness Of Breath) RF: 0 cyclobenzaprine 5 mg tablet 5 mg PO BID RF: 0 atorvastatin 80 mg tablet 80 mg PO DAILY RF: 0 Held clopidogrel 75 mg tablet 75 mg PO DAILY@08 RF: 0 Hold Instructions: Resume on 06/17/21. Eliquis 5 mg tablet 2.5 mg PO BID@,18 RF: 0 Hold Instructions: Resume on 06/18/21. Discontinued diclofenac sodium [Voltaren] 1 % Gel 2 g TOPICAL QID PRN (Reason: Pain) RF: 0 Discharge Orders: Discharge Order (Routine); Ordered 06/07/21 Ordered By: Demetrius Gamble Referrals: Jonathan Benites MD [Physician] - 06/22/21 2:45 pm (Appt June 22 2021 at 245pm) Antony Minaya DO [Primary Care Provider] - 06/13/21 2:00 pm () Discharge Diet: As Directed and Full LIquid Discharge Activity: Increase activity as tolerated Patient Instructions: Clopidogrel (By mouth) (Plavix), Pantoprazole (By mouth) (Protonix), Apixaban (By mouth) (Eliquis), Hematemesis (GEN), Upper Endoscopy (GEN) Activity Restrictions/Additional Instructions: Please hold Eliquis and Plavix until EGD is performed and you are cleared to resume Plavix. Please discuss with your primary doctor whether you need to resume Eliquis, as it is likely you may not need the medication any further. You are referred for repeat duplex ultrasound of right lower extremity to help with this decision as well. In case of any additional vomiting of dark material, blood, or any other concerning symptoms, seek medical attention immediately. Please stop Voltaren gel, avoid this and similar medications which fall into the group of NSAIDs which may lead to gastritis and gastrointestinal bleeding among other complications. Discharge Attestations Time Spent in Discharge Care*: greater than 30 min Quality Metrics Clinical Quality Measures During this hospital stay, did patient experience: None Coding Level of Care Code Acute g [facility] note Diagnoses Nausea & vomiting R11.2 Hematemesis K92.0 Chronic anticoagulation Z79.01
== END 2021-06-07 12:47 | disposition home or self-care (01) ==
LOC: ER 17:14 → MEDSURG 18:00
PROVIDERS: Physician Assistant; Admitting Provider Internal Medicine; Emergency Provider Emergency Medicine; PCP Emergency Medicine Emergency Medical Services; Visit Provider Internal Medicine
DX: K92.0 Hematemesis (principal); R11.2 Nausea with vomiting, unspecified; I25.10 Atherosclerotic heart disease of native coronary artery without angina pectoris; G25.0 Essential tremor; N35.919 Unspecified urethral stricture, male, unspecified site; Z79.01 Long term (current) use of anticoagulants; Z95.1 Presence of aortocoronary bypass graft; Z86.718 Personal history of other venous thrombosis and embolism
CPT/HCPCS: 12345; 36415; 51702; 80053; 81001; 83690; 85018; 85025; 85610; 85730; 96374; 99285; C9113; G0378

== ENCOUNTER 2021-06-14 12:34 | Outpatient (CLI) | payer OTHER, SELFPAY ==
--- NOTE | 2021-06-14 14:15 | USCV_ITS ---
Jessi Edwinreg Age: 85 Gender: M : 1935 Exam Date: 06/14/2021 13:14 Ordering Phys: Demetrius Gamble MD Technologist: SIENNA Exam Location: [facility] [place] Indication: ASSESS FOR DVT PROCEDURES: Venous duplex imaging was performed in only the right lower extremity. The following venous structures were evaluated: common femoral vein, profunda vein, proximal portion of the greater saphenous vein, superficial femoral vein, and the popliteal vein. In addition, the posterior tibial and peroneal trunk were evaluated. Serial compression, augmentation maneuvers, and spectral Doppler flow evaluation were performed. FINDINGS: Normal 2-D Doppler and augmentation and compressibility throughout the lower extremity venous structures. Additional imaging through the proximal calf veins also reveals no thrombus. Limited evaluation of the greater saphenous vein is patent with no thrombus.. CONCLUSIONS No evidence of right lower extremity DVT. Kan Hermosillo MD (Electronically Signed) Final Date: 14 June 2021 16:22 S
== END 2021-06-14 12:35 | disposition home or self-care (01) ==
LOC: RAD 12:37
PROVIDERS: PCP Emergency Medicine Emergency Medical Services; Visit Provider Internal Medicine
DX: Z79.01 Long term (current) use of anticoagulants (principal); I82.409 Acute embolism and thrombosis of unspecified deep veins of unspecified lower extremity
CPT/HCPCS: 93971

== ENCOUNTER → 2021-06-15 10:15 | Outpatient (BNVA) | payer OTHER, SELFPAY | PROVIDERS: PCP Emergency Medicine Emergency Medical Services; Visit Provider Anesthesiology Pain Medicine | DX: G89.29 Other chronic pain (principal); M54.16 Radiculopathy, lumbar region; M51.36 Other intervertebral disc degeneration, lumbar region; M47.816 Spondylosis without myelopathy or radiculopathy, lumbar region; M79.604 Pain in right leg; Z79.891 Long term (current) use of opiate analgesic | CPT/HCPCS: 99214 ==

== ENCOUNTER 2021-06-16 05:41 | Day surgery (SDC) | payer OTHER, SELFPAY ==
[2021-06-14 13:11] VITALS: BMI 29.9
[2021-06-16 06:00] VITALS: BP 146/79; PULSE 70; RESP 16; TEMP 36.4; O2SAT 94
[2021-06-16] MEDS: sodium chloride 0.9% 1,000 ML 30 ML IV (06:37)
--- NOTE | 2021-06-16 06:49 | ANES.PREANE2 ---
Pre-Anesthetic Assessment Pre-Anesthetic Assessment: Height/Weight: Height 1.7 m Weight 86.636 kg Temp Pulse Resp BP Pulse Ox 97.5 F L 70 16 146/79 94 06/16/21 06:00 06/16/21 06:00 06/16/21 06:00 06/16/21 06:00 06/16/21 06:00 Preop Diagnosis: N/V with possible hematemesis Proposed Procedure: Operation Date: 06/16/21 07:00 Proposed Procedures p EGD(Not Applicable) - Howie Elaine MD Familial anesthetic complications: none Was Beta Scarlett taken within 24 hours: N/A Was Clonidine taken within 24 hours: N/A Last intake: Intake Last Liquid Date 06/15/21 Last Liquid Time 18:30 Last Solid Date 06/15/21 Last Solid Time 17:30 Social: Social History: No alcohol and No tobacco Exam: Pre-Anes Outpt Exam: alert, oriented x 3 and clear to auscultation bilaterally Airway: Submandibular: WNL Cervical ROM: WNL MP: 2 History/ROS: No significant history except as noted Pulmonary: Pulmonary: Sleep apnea and SOB CV/HEM: CV/HEM: CAD, DVT and CT (2013) : Comments: self catheterization Hepatic: Hepatic: None reported GI: GI: GERD Metabolic: Metabolic: Hyperlipidemia and None reported Musc/skel: Musc/skel: Lower Back Pain Comments: tremors Neuropsych: Neuropsych: Dementia and Seizure Comments: mid-level alzheimers Anesthetic Plan: ASA status: 3 Meds/Allergies Current Medications: Current Medications Generic Name Dose Route Start Last Admin Trade Name Freq PRN Reason Stop Dose Admin Sodium Chloride 1,000 mls @ 30 ml s/hr 06/16/21 06:15 06/16/21 06:37 Sodium Chloride 0.9% IV 06/17/21 06:14 30 mls/hr .Q24H ARISTIDES Administration PFSH Anesthesia PFSH: Medical History Acute perforated gastric ulcer with hemorrhage Reports in 1960s, required surgery 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 Bronchitis DVT (deep venous thrombosis) History of TIA (transient ischemic attack) Pneumonia Self-catheterizes urinary bladder every 3-6 days Shortness of breath Urethral stricture Surgical History History of angioplasty 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 History of total knee arthroplasty Family History Other CAD (coronary artery disease) Social History Smoking and tobacco status: never smoked Alcohol intake: never Lives independently: No Household members: spouse Marital status: History of recent travel: No Data Anesthesia Cardiac Studies: No Data to Display
--- NOTE | 2021-06-16 06:53 | W.PM.OPSUD ---
Surgery/Procedure H&P Update DATE OF PROCEDURE: June 16, 2021 DATE H&P PERFORMED: 08/24/20 H&P UPDATE INFORMATION: I have reviewed H&P completed within last 30 days, I have examined patient prior to procedure, No changes to prior documentation and H&P is in [facility] [place] on date indicated CHANGES TO PREVIOUS DOCUMENTATION: He has not had any further episodes of hematemesis since his hospitalization. He has been off his Eliquis and Plavix since his previous hospitalization as well. PREOP DIAGNOSIS: Hematemesis PRIMARY INDICATION FOR PROCEDURE: Hematemesis PLANNED PROCEDURE: Operation Date: 06/16/21 07:00 Proposed Procedures p EGD(Not Applicable) - Howie Elaine MD
[2021-06-16 07:20] VITALS: BP 107/64; PULSE 68; RESP 18; TEMP 36.7; O2SAT 99
[2021-06-16 07:28] VITALS: BP 113/54; PULSE 65; RESP 18; TEMP 36.3; O2SAT 95
--- NOTE | 2021-06-16 14:06 | ANE.PACU2 ---
Inpatient post-anesthesia follow up: Airway intact: Yes Vital signs: Temperature 97.4 F Pulse Rate 65 Respiratory Rate 18 Blood Pressure 113/54 Pulse Oximetry 95 Oxygen Delivery Me thod Room Air Oxygen Flow Rate Fraction of Inspir ed Oxygen Hydration adequate: Yes Nausea and vomiting: No Pain level: 1 Mental status: Baseline
== END 2021-06-16 07:59 | disposition home or self-care (01) ==
PROVIDERS: PCP Emergency Medicine Emergency Medical Services; Visit Provider Family Medicine
PROC: 0DJ08ZZ Inspection of Upper Intestinal Tract, Via Natural or Artificial Opening Endoscopic (ICD-10-PCS; CPT 43235; principal; 2021-06-16 07:00)
DX: K92.0 Hematemesis (principal); K29.70 Gastritis, unspecified, without bleeding; G47.30 Sleep apnea, unspecified; I25.10 Atherosclerotic heart disease of native coronary artery without angina pectoris; Z86.718 Personal history of other venous thrombosis and embolism; I25.2 Old myocardial infarction; K21.9 Gastro-esophageal reflux disease without esophagitis; E78.5 Hyperlipidemia, unspecified; F03.90 Unspecified dementia, unspecified severity, without behavioral disturbance, psychotic disturbance, mood disturbance, and anxiety
CPT/HCPCS: 12345; 43239; 88305; 96360; J2704; J7030

== ENCOUNTER → 2021-07-04 12:26 | Outpatient (BNVA) | payer OTHER, SELFPAY | PROVIDERS: PCP Emergency Medicine Emergency Medical Services; Visit Provider Anesthesiology Pain Medicine | DX: G89.29 Other chronic pain (principal); M47.816 Spondylosis without myelopathy or radiculopathy, lumbar region; Z79.891 Long term (current) use of opiate analgesic | CPT/HCPCS: 64493; 64494; 64495; J3490 ==

== ENCOUNTER → 2021-07-18 09:30 | Outpatient (BNVA) | payer OTHER, SELFPAY | PROVIDERS: PCP Emergency Medicine Emergency Medical Services; Visit Provider Anesthesiology Pain Medicine | DX: G89.29 Other chronic pain (principal); M54.16 Radiculopathy, lumbar region; M51.36 Other intervertebral disc degeneration, lumbar region; M47.816 Spondylosis without myelopathy or radiculopathy, lumbar region; M79.604 Pain in right leg; M19.90 Unspecified osteoarthritis, unspecified site; Z79.891 Long term (current) use of opiate analgesic | CPT/HCPCS: 99214 ==

== ENCOUNTER → 2021-07-27 13:29 | Outpatient (BNVA) | payer OTHER, SELFPAY | PROVIDERS: PCP Emergency Medicine Emergency Medical Services; Visit Provider Anesthesiology Pain Medicine | DX: G89.29 Other chronic pain (principal); Z79.891 Long term (current) use of opiate analgesic | CPT/HCPCS: 64635; 64636; J1030 ==

== ENCOUNTER → 2021-08-09 10:18 | Outpatient (BNVA) | payer OTHER, SELFPAY | PROVIDERS: PCP Emergency Medicine Emergency Medical Services; Visit Provider Specialist | DX: R56.9 Unspecified convulsions (principal); G31.83 Neurocognitive disorder with Lewy bodies; F02.80 Dementia in other diseases classified elsewhere, unspecified severity, without behavioral disturbance, psychotic disturbance, mood disturbance, and anxiety; Z86.718 Personal history of other venous thrombosis and embolism; Z79.01 Long term (current) use of anticoagulants | CPT/HCPCS: 99215 ==

== ENCOUNTER → 2021-08-29 11:49 | Outpatient (BNVA) | payer OTHER, SELFPAY | PROVIDERS: PCP Emergency Medicine Emergency Medical Services; Visit Provider Internal Medicine Critical Care Medicine | DX: Z20.822 Contact with and (suspected) exposure to COVID-19 (principal); R06.02 Shortness of breath | CPT/HCPCS: 87635 ==

== ENCOUNTER 2021-09-04 08:25 | Emergency (ER) | payer OTHER, SELFPAY ==
[2021-09-04] VITALS (9 sets, daily range): BP systolic 120–178; BP diastolic 65–83; PULSE 62–76; RESP 14–20; TEMP 36.8; O2SAT 94–96; BMI 30.1
--- NOTE | 2021-09-04 08:27 | ECG_ITS ---
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 [email or web address]/[id number] [email or web address]
--- NOTE | 2021-09-04 08:27 | XRR_ITS ---
PROCEDURE INFORMATION: Exam: XR Chest Exam date and time: 09/04/2021 8:27 AM Age: 85 years old Clinical indication: Pain; Chest pressure; Additional info: Cp TECHNIQUE: Imaging protocol: XR of the chest. Views: 1 view. Other technique: Frontal portable upright view of the chest. COMPARISON: CR XR chest 1V portable [id number] 06/05/2021 11:50 AM FINDINGS: Tubes, catheters and devices: The patient is status post median sternotomy with intact sternal cerclage wires. EKG leads are present overlying the chest. Lungs: Increased left basilar pulmonary partial/subsegmental atelectasis. The pulmonary vasculature is normal. Pleural spaces: Small stable left pleural effusion/pleural fibrosis. No pneumothorax. Heart/Mediastinum: A moderate hiatal hernia is present above the level of the diaphragm. The heart is normal in size and contour. Bones/joints: Left shoulder reverse arthroplasty. XR/XR chest 1V portable [id number] IMPRESSION: 1. Increased left basilar pulmonary partial/subsegmental atelectasis. 2. Hiatal hernia. 3. Small stable left pleural effusion/pleural fibrosis.
--- NOTE | 2021-09-04 08:43 | W.ED.CHESTPA ---
HPI - Chest Pain General: Chief Complaint: Chest Pain Stated Complaint: CP Time Seen by Provider: 09/04/21 08:27 Source: patient Mode of arrival: ambulatory Limitations: no limitations History of Present Illness: 85-year-old male has extensive history of heart disease states been having some chest pain since last night. He states the pain is been a dull ache in the center of his chest is improved with nitro states pain is currently 3 out of 10 denies any nausea or diaphoresis he is in no distress currently denies any worsening factors. Associated symptoms: Deny abdominal pain, dyspnea, fever(s), nausea or vomiting Review of Systems Const: Denies: fever(s), chills, body aches or change in appetite Eyes: Denies: blurry vision or eye discomfort ENMT: Denies: throat pain or dental pain Card: Reports: chest pain Resp: Denies: dyspnea GI: Denies: abdominal pain, nausea, vomiting or diarrhea : Denies: dysuria Musc: Denies: neck pain or back pain Skin/Breast: Denies: rash Neuro: Denies: headache(s) Psych: Denies: depression Paul/Lymph: Denies: easy bruising All/Imm: Denies: urticaria PFSH ED PFSH: Medical History Acute perforated gastric ulcer with hemorrhage Reports in 1960s, required surgery 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 Bronchitis DVT (deep venous thrombosis) History of TIA (transient ischemic attack) Pneumonia Self-catheterizes urinary bladder every 3-6 days Shortness of breath Urethral stricture Surgical History History of angioplasty 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 History of total knee arthroplasty Family History Other CAD (coronary artery disease) Social History Smoking and tobacco status: never smoked Alcohol intake: never Lives independently: No Household members: spouse Marital status: History of recent travel: No Physical Exam Const: COMMON NORMALS: no acute distress, patient oriented x3 and healthy appearing HENMT: COMMON NORMALS: normocephalic and atraumatic HEAD & SCALP: normocephalic and atraumatic Eye: COMMON NORMALS: Equal, round and reactive pupils present and EOMs intact bilaterally PUPIL: Yes Equal, round and reactive pupils present Neck/C-Spine: COMMON NORMALS: full ROM and supple Chest: COMMONS NORMALS: normal inspection of the chest and normal palpation of entire chest wall Resp: COMMON NORMALS: normal respiratory effort, No retractions, No use of accessory muscles and clear to auscultation bilaterally AUSCULTATION: clear to auscultation bilaterally Cardio: COMMON NORMALS: regular rate, regular rhythm and No murmurs present (Cardio) RATE: regular rate RHYTHM: regular rhythm GI: COMMON NORMALS: Normal to inspection, nondistended, normoactive bowel sounds present, Soft to palpation, non-tender and no masses PALPATION: Yes Soft to palpation Extremity: COMMON NORMALS: normal to inspection and full ROM Neuro: COMMON NORMALS: patient oriented x3, moves all extremities and no focal motor deficits Psych: COMMON NORMALS: mental status grossly normal, Normal thought process present and cooperative THOUGHT PROCESS: Normal thought process present Skin: COMMON NORMALS: no rashes or lesions noted and no wounds GENERAL SKIN EXAM: no rashes or lesions noted Course Vital Signs: Vital signs: Vital Signs Temperature 98.2 F 09/04/21 08:36 Pulse Rate 71 09/04/21 12:14 Respiratory Rate 20 H 09/04/21 12:14 Blood Pressure 124/65 09/04/21 12:14 Pulse Oximetry 95 09/04/21 12:14 MDM - Chest Pain Medical Decision Making Patient presents here with chest pain going on for couple days 2-hour troponin here is negative he feels much improved and would like to go home he has no signs of acute coronary syndrome. 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 Lab Data : 09/04/21 09:21 09/04/21 09:21 Radiology Impressions Chest X-Ray 09/04/21 08:27 IMPRESSION: 1. Increased left basilar pulmonary partial/subsegmental atelectasis. 2. Hiatal hernia. 3. Small stable left pleural effusion/pleural fibrosis. Laboratory Results WBC 4.7 10^3/uL (4.0-10.0) 09/04/21 09:21 RBC 3.17 10^6/uL (4.1-5.3) L 09/04/21 09: Hgb 11.3 g/dL (11.7-16.6) L 09/04/21 09: Hct 34.1 % (42.0-52.0) L 09/04/21 09:21 MCV 107.6 fl (80-94) H 09/04/21 09:21 MCH 35.6 pg (28.0-34.0) H 09/04/21 09: MCHC 33.1 g/dL (30.0-36.0) 09/04/21 09: RDW 13.1 % (12.1-15.1) 09/04/21 09: Plt Count 162 10^3/cmm (130-400) 09/04/21 09: MPV 9.9 fL (7.4-10.4) 09/04/21 09: Neut % (Auto) 55.3 % 09/04/21 09: Lymph % (Auto) 35.3 % 09/04/21 09: [place] % (Auto) 8.2 % 09/04/21 09:21 Eos % (Auto) 0.8 % 09/04/21 09: Baso % (Auto) 0.2 % 09/04/21 09: Neut # (Auto) 2.61 10^3/uL (1.8-7.7) 09/04/21 09: Lymph # (Auto) 1.7 10^3/uL (0.8-4.8) 09/04/21 09: [place] # (Auto) 0.4 10^3/uL (0.2-0.9) 09/04/21 09: Eos # (Auto) 0.0 10^3/uL (0.0-0.8) 09/04/21 09: Baso # (Auto) 0.0 10^3/uL (0.0-0.1) 09/04/21 09: Nucleated RBC % (auto) 0 % 09/04/21 09: Nucleated RBCs # 0.0 /100WBC 09/04/21 09: Sodium 143 mmol/L (136-145) 09/04/21 09: Potassium 4.3 mmol/L (3.5-5.1) 09/04/21 09:21 Chloride 104 mmol/L (98-107) 09/04/21 09:21 Carbon Dioxide 26 mmol/L (22-29) 09/04/21 09:21 Anion Gap 17.3 (5-19) 09/04/21 09:21 BUN 21 mg/dL (8-23) 09/04/21 09:21 Creatinine 1.2 mg/dL (0.7-1.2) 09/04/21 09:21 GFR Calculation Not Reportable 09/04/21 09:21 Glucose 107 mg/dL (65-115) 09/04/21 09:21 Calculated Osmolality 299 mOsm/kg (285-295) H 09/04/21 09:21 Calcium 8.7 mg/dL (8.5-10.5) 09/04/21 09:21 Total Bilirubin 0.3 mg/dL (0.15-1.2) 09/04/21 09:21 AST 15 U/L (0-40) 09/04/21 09:21 ALT 11 U/L (0-41) 09/04/21 09:21 Alkaline Phosphatase 66 IU/L (40-130) 09/04/21 09:21 Troponin T Baseline 31 ng/L (0-15) H 09/04/21 09:21 Troponin T 120 Minute 30.10 ng/L (0-15) H 09/04/21 11:37 Delta Troponin T -0.90 ABS# (0-10) L 09/04/21 11:37 Total Protein 6.3 g/dL (6.6-8.7) L 09/04/21 09:21 Albumin 4.2 g/dL (3.5-5.2) 09/04/21 09:21 Globulin 2.1 g/dL (1.3-4.6) 09/04/21 09:21 EKG Data EKG 1: I personally reviewed and interpreted this EKG as follows: EKG interpretation date: 09/04/21 EKG interpretation time: 08:43 Interpretation: nsr hr [address] or t wave abnormalities qrs 142 qtc 42 Discharge Plan Discharge Patient Disposition: Home Clinical Impression: Chest pain Qualifiers: Chest pain type: unspecified Qualified Code(s): R07.9 - Chest pain, unspecified Condition: Stable Prescriptions: No Action methylprednisolone acetate [Depo-Medrol] 40 mg/mL suspension 40 mg Infiltration ONCE Qty: 1 0RF lidocaine (PF) 20 mg/mL (2 %) solution 20 mg SUBCUT ONCE Qty: 1 0RF clopidogrel 75 mg tablet 75 mg PO DAILY@08 0RF Hold Instructions: Until your primary care provider has an opportunity to review the risks and benefits of being on Plavix. gabapentin 300 mg capsule 300 mg PO BID@08,18 0RF docusate sodium [DOK] 100 mg tablet 100 mg PO BID@08,18 0RF furosemide 40 mg tablet 40 mg PO DAILY@08 0RF PreserVision AREDS 14,320-226-200 bcmx-vr-evqt capsule 1 cap PO BID@08,18 0RF One Daily Women's Health 18 mg iron-400 mcg-450 mg Ca tablet 1 tab PO DAILY@08 0RF nitroglycerin 0.4 mg tablet, sublingual 0.4 mg sublingual Q5M PRN (Reason: Chest Pain) 0RF Rx Instructions: do not exceed 3 doses per episode acetaminophen 500 mg capsule 1,000 mg PO BID 0RF galantamine 4 mg tablet 4 mg PO BID Qty: 60 3RF Rx Instructions: administer with AM and PM meals tramadol 50 mg tablet 50 mg PO Q6H PRN (Reason: Pain) 0RF hydrocodone-acetaminophen 5-325 mg tablet 1 tab PO BID PRN (Reason: Pain) 30 Days Qty: 60 0RF levetiracetam 750 mg tablet See Rx Instructions .ROUTE .COMPLEX Qty: 60 3RF Dose Instruction: TAKE ONE TABLET BY MOUTH TWICE A DAY FOR SEIZURES. SWALLOW WHOLE, DO NOT CRUSH OR CHEW. Rx Instructions: TAKE ONE TABLET BY MOUTH TWICE A DAY FOR SEIZURES. SWALLOW WHOLE, DO NOT CRUSH OR CHEW. ondansetron HCl [Zofran] 4 mg tablet 4 mg PO Q6H PRN (Reason: nausea and vomiting) Qty: 20 0RF ropinirole 1 mg Tablet 1 mg PO BEDTIME@1999 0RF diphenoxylate-atropine [Lomotil] 2.5-0.025 mg Tablet 1 tab PO DAILY PRN (Reason: Diarrhea) 0RF polyethylene glycol 3350 [Miralax] 17 gram/dose Powder 17 g PO DAILY PRN (Reason: Constipation) 0RF albuterol sulfate 2.5 mg /3 mL (0.083 %) Solution For Nebulization 2.5 mg INHALATION Q4H PRN (Reason: Shortness Of Breath) 0RF sennosides-docusate sodium [Senna-S] 8.6-50 mg Tablet 1 tab-cap PO DAILY PRN (Reason: CONSTIPATION (2ND)) 0RF cyanocobalamin (vitamin B-12) [Vitamin B-12] 1,000 mcg Tablet 1,000 mcg PO DAILY@08 0RF magnesium citrate Solution 150 ml PO DAILY PRN (Reason: Constipation (1ST)) 0RF cholecalciferol (vitamin D3) [Vitamin D3] 50 mcg (2,000 unit) capsule 100 mcg PO DAILY@08 0RF albuterol sulfate [ProAir HFA] 90 mcg/actuation HFA aerosol inhaler 2 puff INHALATION Q6H PRN (Reason: Shortness Of Breath) 0RF Discharge Orders: Discharge ED (Routine); Ordered 09/04/21 Ordered By: Katelynn Olsen Referrals: Antony Minaya, DO [Primary Care Provider] - Discharge Diet: Advance as tolerated Discharge Activity: Resume usual activity Patient Instructions: Chest Pain (ED) Coding Level of Care Code ED Senior Engineering Tech for Chg Fwd Exam Comprehensive
[2021-09-04 09:34] LABS: Basophils % 0.2 %; Eosinophils % 0.8 %; Hematocrit 34.1 % (42.0-52.0); Hemoglobin 11.3 g/dL (11.7-16.6); Lymphocytes # 1.7 10^3/uL (0.8-4.8); Lymphocytes % 35.3 %; Mean Corpuscular HGB Conc 33.1 g/dL (30.0-36.0); Mean Corpuscular Hemoglobin 35.6 pg (28.0-34.0); Mean Corpuscular Volume 107.6 fl (80-94); Mean Platelet Volume 9.9 fL (7.4-10.4); Monocytes # 0.4 10^3/uL (0.2-0.9); Monocytes % 8.2 %; Neutrophils # 2.61 10^3/uL (1.8-7.7); Neutrophils % 55.3 %; Nucleated Red Blood Cells % 0 %; Platelet Count 162 10^3/cmm (130-400); Red Blood Count 3.17 10^6/uL (4.1-5.3); Red Cell Distribution Width 13.1 % (12.1-15.1); White Blood Count 4.7 10^3/uL (4.0-10.0)
[2021-09-04 10:05] LABS: Troponin(5th) Baseline 31 ng/L (0-15)
[2021-09-04 10:06] LABS: Alanine Aminotransferase 11 U/L (0-41); Albumin Level 4.2 g/dL (3.5-5.2); Alkaline Phosphatase 66 IU/L (40-130); Aspartate Amino Transferase 15 U/L (0-40); Blood Urea Nitrogen 21 mg/dL (8-23); Calcium 8.7 mg/dL (8.5-10.5); Carbon Dioxide 26 mmol/L (22-29); Chloride 104 mmol/L (98-107); Globulin 2.1 g/dL (1.3-4.6); Glucose 107 mg/dL (65-115); Osmolality Calculated 299 mOsm/kg (285-295); Sodium 143 mmol/L (136-145); Total Bilirubin 0.3 mg/dL (0.15-1.2); Total Protein 6.3 g/dL (6.6-8.7)
[2021-09-04 10:35] LABS: Anion Gap 17.3 (5-19); Potassium 4.3 mmol/L (3.5-5.1)
== END 2021-09-04 13:31 | disposition home or self-care (01) ==
PROVIDERS: Emergency Provider Emergency Medicine; PCP Emergency Medicine Emergency Medical Services
DX: R07.9 Chest pain, unspecified (principal); Z79.02 Long term (current) use of antithrombotics/antiplatelets; Z86.73 Personal history of transient ischemic attack (TIA), and cerebral infarction without residual deficits; Z95.1 Presence of aortocoronary bypass graft
CPT/HCPCS: 36415; 71045; 80053; 84484; 85025; 93005; 99284

== ENCOUNTER 2021-09-06 10:26 | Outpatient (CLI) | payer OTHER, SELFPAY ==
--- NOTE | 2021-09-06 12:43 | PFTS_ITS ---
Date of Study:09/06/21 Date of Dictation:05/2022 MECHANICS: Postbronchodilator forced vital capacity (FVC) is reduced. Postbronchodilator forced expiratory volume in one second (FEV1) is moderately reduced 75 % FEV1/FVC is normal. There is significant response to bronchodilators. FLOW VOLUME LOOP: Normal LUNG VOLUMES: Total lung capacity (TLC) is mildly reduced 71 %.. Residual volume (RV) is normal. DIFFUSING CAPACITY FOR CARBON MONOXIDE: Moderately reduced 60% . INTERPRETATION: The postbronchodilator spirometry is consistent with moderate restriction.? There is significant response to bronchodilators.? Lung volumes also suggestive of mild restriction.? Gas transfer is moderately reduced. Correlate clinically. MTDD
== END 2021-09-06 10:27 | disposition home or self-care (01) ==
LOC: RT 10:26
PROVIDERS: PCP Emergency Medicine Emergency Medical Services; Visit Provider Internal Medicine Critical Care Medicine
DX: R06.02 Shortness of breath (principal)
CPT/HCPCS: 94060; 94726; 94729; J7611

== ENCOUNTER → 2021-09-08 08:43 | Outpatient (BNVA) | payer OTHER, SELFPAY | PROVIDERS: PCP Emergency Medicine Emergency Medical Services; Visit Provider Specialist | DX: Z47.1 Aftercare following joint replacement surgery (principal); Z96.651 Presence of right artificial knee joint | CPT/HCPCS: 73560; 73565 ==

== ENCOUNTER → 2021-09-28 13:27 | Outpatient (BNVA) | payer OTHER, BC, SELFPAY | PROVIDERS: PCP Emergency Medicine Emergency Medical Services; Visit Provider Anesthesiology Pain Medicine | DX: G89.29 Other chronic pain (principal); Z79.891 Long term (current) use of opiate analgesic; M47.816 Spondylosis without myelopathy or radiculopathy, lumbar region | CPT/HCPCS: 64635; 64636; J1030 ==

== ENCOUNTER → 2021-10-12 09:18 | Outpatient (BNVA) | payer OTHER, SELFPAY | PROVIDERS: PCP Emergency Medicine Emergency Medical Services; Visit Provider Anesthesiology Pain Medicine | DX: G89.29 Other chronic pain (principal); M54.16 Radiculopathy, lumbar region; M51.36 Other intervertebral disc degeneration, lumbar region; M47.816 Spondylosis without myelopathy or radiculopathy, lumbar region; M79.604 Pain in right leg; Z79.891 Long term (current) use of opiate analgesic | CPT/HCPCS: 99214 ==

== ENCOUNTER → 2021-11-09 09:47 | Outpatient (BNVA) | payer OTHER, SELFPAY | PROVIDERS: PCP Emergency Medicine Emergency Medical Services; Visit Provider Anesthesiology Pain Medicine | DX: G89.29 Other chronic pain (principal); M54.16 Radiculopathy, lumbar region; M51.36 Other intervertebral disc degeneration, lumbar region; M47.816 Spondylosis without myelopathy or radiculopathy, lumbar region; M79.604 Pain in right leg; Z79.891 Long term (current) use of opiate analgesic | CPT/HCPCS: 99214 ==

== ENCOUNTER 2021-12-19 10:37 | Observation (INO) | payer OTHER, SELFPAY ==
[2021-12-19] VITALS (15 sets, daily range): BP systolic 108–135; BP diastolic 58–73; PULSE 65–84; RESP 16–18; TEMP 36.8; O2SAT 91–99; BMI 28.8; BMI 31.0
--- NOTE | 2021-12-19 11:28 | ECG_ITS ---
[facility] Test Date: 2021-12-19 Pat Name: Ruthie Bowen Department: Room: 250 Gender: Male Certification Officer: : 1935 Requested By: Tom Harper Order Number: [id number] Tommy MD: Flor Greene M.D. Measurements Intervals [place] Rate: 61 P: 11 TX: 171 QRS: 95 QRSD: 145 T: 18 QT: 435 QTc: 440 Interpretive Statements SINUS RHYTHM INDETERMINATE AXIS RIGHT BUNDLE BRANCH BLOCK [120+ ms QRS DURATION, UPRIGHT V1, 40+ ms S IN I/aVL/V4/V5/V6] Compared to ECG 12/19/2021 14:00:40 No significant changes Electronically Signed On 12-19-2021 21:18:25 CDT by Flor Greene M.D. [email or web address]
--- NOTE | 2021-12-19 11:28 | XR_ITS ---
WS: [email or web address] Exam: XR chest 1V portable [id number] Date/Time of Exam: 12/19/2021 11:30 AM Reason For Exam: dyspnea Comparison 09/04/2021. Chronic pleural thickening at the left costophrenic angle. No acute infiltrates. The lungs are fully inflated. Heart size top limits normal. Signs of previous CABG surgery. Bony structures are intact. T he mediastinum is normal in contour. Left reverse shoulder prosthesis. XR/XR chest 1V portable [id number] IMPRESSION: 1. No acute cardiopulmonary finding. 2. Chronic pleural thickening at the left costophrenic angle.
--- NOTE | 2021-12-19 11:29 | W.ED.GENADLT ---
HPI - General Adult General: Chief complaint: Shortness of Breath/Dyspnea Stated complaint: Sob, Spot on R ear Time Seen by Provider: 12/19/21 11:27 History of Present Illness: Patient is an 86-year-old male with history of severe asthma, CABG x 3, HTN, CHF presenting to the emergency room for evaluation of shortness of breath x3 days. Per patient, he recently came back from a trip to [place] on for his grandsons graduation. Shot on Sunday, patient has been having ongoing dyspnea started after patient was working in his shop. Patient has a symptom has been progressive despite taking his albuterol inhaler. Patient tells me that he was to follow-up with his primary care provider at the [facility] however because it is a public holiday decided come to the emergency room. Patient denies any fever/chills, chest pain, generalized weakness malaise, phlegm production, abdominal complaints, complaints, nausea/vomiting, diaphoresis diarrhea melena or hematochezia. Patient has no complaints. Patient tells me that the shortness of breath is worse with exertion. She denies any excessive leg swelling or requirement of extra pillows to sleep at night. Patient is taking furosemide 40 mg daily for his CHF. Patient tells me that he is noncompliant with his medicine. Onset:3 days ago Duration:3 days Location:home Severity:moderate Associated symptoms: Reports dyspnea; Deny chest pain, nausea, rash, palpitations or vomiting Review of Systems Const: Denies: fever(s) or chills Eyes: Denies: change in vision ENMT: Denies: mouth pain Card: Denies: chest pain or palpitations Resp: Reports: dyspnea and other (+exertional dyspnea); Denies: non-productive cough GI: Denies: abdominal pain, nausea, vomiting or diarrhea : Denies: dysuria Musc: Denies: extremity pain Skin/Breast: Denies: rash or new lesions Neuro: Denies: weakness in extremities Psych: Reports: other (Normal mood) Paul/Lymph: Denies: easy bruising [facility] ED PFSH: Medical History Acute perforated gastric ulcer with hemorrhage Reports in 1960s, required surgery 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 Bronchitis DVT (deep venous thrombosis) History of TIA (transient ischemic attack) Pneumonia Self-catheterizes urinary bladder every 3-6 days Shortness of breath Urethral stricture Surgical History History of angioplasty 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 History of total knee arthroplasty Family History Other CAD (coronary artery disease) Social History Smoking and tobacco status: never smoked Second hand smoke exposure: No Alcohol intake: never Lives independently: No Household members: spouse Marital status: History of recent travel: Yes Details: [place] Out of state: Yes Physical Exam Const: COMMON NORMALS: alert HENMT: COMMON NORMALS: atraumatic HEAD & SCALP: atraumatic MOUTH: moist mucous membranes not abnormal Eye: COMMON NORMALS: EOMs intact bilaterally and conjunctivae normal CONJUNCTIVA: Yes conjunctivae normal Neck/C-Spine: COMMON NORMALS: full ROM and supple Resp: COMMON NORMALS: normal respiratory effort and clear to auscultation bilaterally AUSCULTATION: clear to auscultation bilaterally Cardio: COMMON NORMALS: regular rate RATE: regular rate OTHER: 2+ radial pulses b/l GI: COMMON NORMALS: Soft to palpation and non-tender PALPATION: Yes Soft to palpation Extremity: COMMON NORMALS: full ROM OTHER: +no lower extremity edema Neuro: SENSORIUM/ORIENTATION: Yes alert MOTOR EXAM: No Abnormal motor strength present and Other motor observations present (no focal motor deficits) Psych: COMMON NORMALS: speech normal SPEECH: Yes normal speech MOOD & AFFECT: Yes euthymic mood Course Vital Signs: Vital signs: Vital Signs Temperature 98.2 F 12/19/21 10:47 Pulse Rate 73 12/19/21 12:34 Respiratory Rate 18 12/19/21 12:24 Blood Pressure 108/58 12/19/21 12:30 Pulse Oximetry 97 12/19/21 12:30 [facility] - General Adult Medical Decision Making 86-year-old male with a history of asthma, since CABG x3, hypertension who presents the emergency room for evaluation of 3 days of dyspnea worse with exertion. On physical exam, patient is noted to be satting at 9 1 to 92% on room air. Patient has no coarse breath sounds. No wheezing. No lower extremity swelling plain. X-ray chest negative for any acute pathology. Patient received DuoNeb in the emergency room with mild improvement in wheezing. Troponin of 41. D-dimer appears to be elevated today. CTA negative for PE. Patient received DuoNeb reports her shortness breath is better. Given the fact that patient has no wheezing on exam does not possibly concerning for exertional dyspnea, patient admitted to hospital for anginal work-up. Disposition: admission Lab Data : 12/19/21 12:00 12/19/21 12:00 Radiology Impressions Chest X-Ray 12/19/21 11:28 IMPRESSION: 1. No acute cardiopulmonary finding. 2. Chronic pleural thickening at the left costophrenic angle. Chest CTA 12/19/21 12:37 IMPRESSION: 1. No evidence of pulmonary embolus. 2. Normal caliber thoracic aorta. 3. Slight patchy infiltrates in the bilateral lower lobes with subsegmental atelectasis. Trace pleural fluid.. 4. Large esophageal hiatal hernia. Partial intrathoracic stomach. Laboratory Results WBC 4.2 10^3/uL (4.0-10.0) 12/19/21 12:00 RBC 3.10 10^6/uL (4.1-5.3) L 12/19/21 12:00 Hgb 11.1 g/dL (11.7-16.6) L 12/19/21 12:00 Hct 32.3 % (42.0-52.0) L 12/19/21 12:00 MCV 104.2 fl (80-94) H 12/19/21 12:00 MCH 35.8 pg (28.0-34.0) H 12/19/21 12:00 MCHC 34.4 g/dL (30.0-36.0) 12/19/21 12:00 RDW 13.0 % (12.1-15.1) 12/19/21 12:00 Plt Count 157 10^3/cmm (130-400) 12/19/21 12:00 MPV 10.2 fL (7.4-10.4) 12/19/21 12:00 Neut % (Auto) 58.2 % 12/19/21 12:00 Lymph % (Auto) 28.2 % 12/19/21 12:00 [place] % (Auto) 12.4 % 12/19/21 12:00 Eos % (Auto) 0.5 % 12/19/21 12:00 Baso % (Auto) 0.2 % 12/19/21 12:00 Neut # (Auto) 2.44 10^3/uL (1.8-7.7) 12/19/21 12:00 Lymph # (Auto) 1.2 10^3/uL (0.8-4.8) 12/19/21 12:00 [place] # (Auto) 0.5 10^3/uL (0.2-0.9) 12/19/21 12:00 Eos # (Auto) 0.0 10^3/uL (0.0-0.8) 12/19/21 12:00 Baso # (Auto) 0.0 10^3/uL (0.0-0.1) 12/19/21 12:00 Nucleated RBC % (auto) 0 % 12/19/21 12:00 Nucleated RBCs # 0.0 /100WBC 12/19/21 12:00 D-Dimer 1.02 ug/mIFEU (0-0.59) H 12/19/21 12:00 Sodium 140 mmol/L (136-145) 12/19/21 12:00 Potassium 4.1 mmol/L (3.5-5.1) 12/19/21 12:00 Chloride 99 mmol/L (98-107) 12/19/21 12:00 Carbon Dioxide 30 mmol/L (22-29) H 12/19/21 12:00 Anion Gap 15.1 (5-19) 12/19/21 12:00 BUN 20 mg/dL (8-23) 12/19/21 12:00 Creatinine 1.3 mg/dL (0.7-1.2) H 12/19/21 12:00 GFR Calculation Not Reportable 12/19/21 12:00 Glucose 102 mg/dL (65-115) 12/19/21 12:00 Calculated Osmolality 293 mOsm/kg (285-295) 12/19/21 12:00 Calcium 9.1 mg/dL (8.5-10.5) 12/19/21 12:00 Troponin T Baseline 41 ng/L (0-15) H 12/19/21 12:00 NT-Pro-B Natriuret Pep 956 pg/mL (0-450) H 12/19/21 12:00 Imaging Data Other Imaging: Radiologist's impression: [facility] [place] [place] [address] [place] [address] CT Scan Report Signed Patient: Ruthie Bowen Unit #: [id number] : 1935 Age/Sex: 86 / M ADM Date: 12/19/21 Loc: ER Room/Bed: Attending Dr: Ordering Provider/Ordering MD: Tom Harper MD Date of Service: 12/19/21 Procedure(s): CT angio chest PE protcl [id number] Accession Number(s): [id number] Report Number: [id number] WS: [email or web address] CTA OF THE CHEST WITH PULMONARY EMBOLISM PROTOCOL TECHNIQUE: High-resolution contrast enhanced CTA of the chest with coronal and sagittal reformatted images with pulmonary embolism protocol. MIP images are also reviewed. CLINICAL INFORMATION: elevated dimer, recent immobilization/travel, hypoxemia COMPARISON: None. DLP: 530.[address] scans at [facility] use at least one of these dose optimization techniques: automated exposure control; mA and/or kV adjustment per patient size (includes targeted exams where dose is matched to clinical indication); or iterative reconstruction. FINDINGS: Moderate chronic emphysematous changes. Small amount of patchy infiltrates in the bilateral lower lobes with slight subsegmental atelectasis. Recommend correlation for pneumonia. Trace pleural fluid. Prior sternotomy. Adrenal glands are normal. Fatty atrophy of the pancreas. Large esophageal hiatal hernia with partial intrathoracic stomach. Normal caliber thoracic aorta. Aortic calcification. No mediastinal or hilar lymphadenopathy. No axillary lymphadenopathy. Proximal main pulmonary arteries are normal. Normal segmental and subsegmental pulmonary arteries. No evidence of pulmonary embolus. Postoperative changes LEFT TSA. CT/CT angio chest PE protcl [id number] IMPRESSION: ? 1.? No evidence of pulmonary embolus. 2.? Normal caliber thoracic aorta. 3.? Slight patchy infiltrates in the bilateral lower lobes with subsegmental atelectasis. Trace pleural fluid.. 4.? Large esophageal hiatal hernia. Partial intrathoracic stomach. ? Dictated By: Kan Hermosillo MD Signed By: Kan Hermosillo MD Signed Date/Time: 12/19/21 1338 DD/ [address] [address] XRay Report Signed Patient: Ruthie Bowen Unit #: [id number] : 1935 Age/Sex: 86 / M ADM Date: 12/19/21 Loc: ER Room/Bed: Attending Dr: Ordering Provider/Ordering MD: Tom Harper MD Date of Service: 12/19/21 Procedure(s): XR chest 1V portable [id number] Accession Number(s): [id number] Report Number: [id number] WS: [email or web address] Exam: XR chest 1V portable [id number] Date/Time of Exam: 12/19/2021 11:30 AM Reason For Exam: dyspnea Comparison 09/04/2021. Chronic pleural thickening at the left costophrenic angle. No acute infiltrates. The lungs are fully inflated. Heart size top limits normal. Signs of previous CABG surgery. Bony structures are intact. The mediastinum is normal in contour. Left reverse shoulder prosthesis. XR/XR chest 1V portable [id number] IMPRESSION: 1. No acute cardiopulmonary finding. 2. Chronic pleural thickening at the left costophrenic angle. ? Dictated By: Kamari Ware DO Signed By: Kamari Ware DO Signed Date/Time: 12/19/21 1155 DD/ 1143 Discharge Plan Discharge Patient Disposition: Admitted As Inpatient Clinical Impression: Dyspnea Condition: Stable Coding Level of Care Code ED Html Web Developer for Chg Fwd Exam Comprehensive
[2021-12-19 12:16] LABS: Basophils % 0.2 %; Eosinophils % 0.5 %; Hematocrit 32.3 % (42.0-52.0); Hemoglobin 11.1 g/dL (11.7-16.6); Lymphocytes # 1.2 10^3/uL (0.8-4.8); Lymphocytes % 28.2 %; Mean Corpuscular HGB Conc 34.4 g/dL (30.0-36.0); Mean Corpuscular Hemoglobin 35.8 pg (28.0-34.0); Mean Corpuscular Volume 104.2 fl (80-94); Mean Platelet Volume 10.2 fL (7.4-10.4); Monocytes # 0.5 10^3/uL (0.2-0.9); Monocytes % 12.4 %; Neutrophils # 2.44 10^3/uL (1.8-7.7); Neutrophils % 58.2 %; Nucleated Red Blood Cells % 0 %; Platelet Count 157 10^3/cmm (130-400); White Blood Count 4.2 10^3/uL (4.0-10.0)
[2021-12-19] MEDS: ipratropium-albuterol 3 mL Neb INHALATION ×4 (12:21→20:16)
[2021-12-19 12:35] LABS: D Dimer 1.02 ug/mIFEU (0-0.59)
--- NOTE | 2021-12-19 12:37 | CT_ITS ---
WS: [id number] CTA OF THE CHEST WITH PULMONARY EMBOLISM PROTOCOL TECHNIQUE: High-resolution contrast enhanced CTA of the chest with coronal and sagittal reformatted i mages with pulmonary embolism protocol. MIP images are also reviewed. CLINICAL INFORMATION: elevated dimer, recent immobilization/travel, hypoxemia COMPARISON: None. DLP: 530.[address] scans at [facility] use at least one of these dose optimization techniques: automated e xposure control; mA and/or kV adjustment per patient size (includes targeted exams where dose is matc hed to clinical indication); or iterative reconstruction. FINDINGS: Moderate chronic emphysematous changes. Small amount of patchy infiltrates in the bilateral lower lob es with slight subsegmental atelectasis. Recommend correlation for pneumonia. Trace pleural fluid. Prior sternotomy. Adrenal glands are normal. Fatty atrophy of the pancreas. Large esophageal hiatal h ernia with partial intrathoracic stomach. Normal caliber thoracic aorta. Aortic calcification. No mediastinal or hilar lymphadenopathy. No axillary lymphadenopathy. Proximal main pulmonary arteries are normal. Normal segmental and subsegmental pulmonary arteries. No evidence of pulmonary embolus. Postoperative changes LEFT TSA. CT/CT angio chest PE protcl [id number] IMPRESSION: 1. No evidence of pulmonary embolus. 2. Normal caliber thoracic aorta. 3. Slight patchy infiltrates in the bilateral lower lobes with subsegmental at electasis. Trace pleural fluid.. 4. Large esophageal hiatal hernia. Partial intrathoracic stomach.
[2021-12-19 12:44] LABS: Troponin(5th) Baseline 41 ng/L (0-15)
[2021-12-19 12:53] LABS: Anion Gap 15.1 (5-19); Blood Urea Nitrogen 20 mg/dL (8-23); Calcium 9.1 mg/dL (8.5-10.5); Carbon Dioxide 30 mmol/L (22-29); Chloride 99 mmol/L (98-107); Glucose 102 mg/dL (65-115); NT Pro B Type Natriuretic Pept 956 pg/mL (0-450); Osmolality Calculated 293 mOsm/kg (285-295); Potassium 4.1 mmol/L (3.5-5.1); Sodium 140 mmol/L (136-145)
[2021-12-19] MEDS: iohexol 350 mg/mL 100 mL Btl IV (13:21)
--- NOTE | 2021-12-19 13:28 | ECG_ITS ---
[facility] Test Date: 2021-12-19 Pat Name: Ruthie Bowen Department: Room: Gender: Male Rn Practitioner: : 1935 Requested By: Tom Harper Order Number: [id number] Tommy MD: Flor Greene M.D. Measurements Intervals [place] Rate: 67 P: -19 [place]: 131 QRS: 86 QRSD: 138 T: 15 QT: 429 QTc: 456 Interpretive Statements SINUS RHYTHM INDETERMINATE AXIS RIGHT BUNDLE BRANCH BLOCK [120+ ms QRS DURATION, UPRIGHT V1, 40+ ms S IN I/aVL/V4/V5/V6] Compared to ECG 12/19/2021 11:38:47 Ventricular premature complex(es) no longer present Electronically Signed On 12-19-2021 21:29:38 CDT by Flor Greene M.D. [id number]
--- NOTE | 2021-12-19 13:58 | PM.HP ---
Providers/Chief Complaint Primary Care Provider: Antony Minaya DO Chief Complaint: Sob, Spot on R ear History of Present Illness Ruthie Bowen is a 86 year old male presented with shortness of breath. Patient is stating that his symptom started on Sunday, however before Sunday he was bracing shortness of breath on exertion now it has gotten worse to the point that is limiting his daily activities. He is living with his , does not use oxygen, he has not noticed any chest pain or fever or diarrhea. Patient is stating that he takes multiple tablets he is not sure if he is on Lasix. His home medication does show Lasix 40 mg daily. In the ER he was diagnosed with a CHF exacerbation, he was admitted for stress test tomorrow morning. Currently chest pain-free. High BNP, clinically does not look fluid overloaded, will request echo and keep him on Lasix, At the time my evaluation patient was asking for food because he has not eaten since morning CT chest rule out PE, D-dimer is 1 Troponin W/O significant delta She does carry history of bypass in the past, Review of Systems Const: Reports: body aches and change in appetite; Denies: fever(s) Eyes: Denies: change in vision ENMT: Denies: throat pain Card: Denies: chest pain Resp: Reports: dyspnea and non-productive cough GI: Denies: abdominal pain : Denies: flank pain Musc: Denies: neck pain Skin/Breast: Denies: rash Neuro: Denies: headache(s) Psych: Denies: anxiety Endo: Denies: polyuria Paul/Lymph: Denies: easy bruising All/Imm: Denies: urticaria Medications/Allergies Home Medications Medication Instructions Recorded Confirmed Last Taken Type acetaminophen 500 mg capsule 1,000 mg PO BID 07/06/20 12/19/21 12/19/21 History clopidogrel 75 mg tablet 75 mg PO DAILY@07/06/20 12/19/21 12/19/21 History docusate sodium 100 mg tablet (DOK) 100 mg PO BID@,07/06/20 12/19/21 12/19/21 History furosemide 40 mg tablet 40 mg PO DAILY@07/06/20 12/19/21 12/19/21 History gabapentin 300 mg capsule 300 mg PO BID@,07/06/20 12/19/2120/22 History multivit-iron 18 mg-folic acid 400 1 tab PO DAILY@07/06/20 12/19/21 12/19/21 History mcg-calcium 450 mg-minerals tablet (One Daily Women's Health) nitroglycerin 0.4 mg sublingual 0.4 mg SUBLINGUAL Q5M PRN 07/06/20 12/19/21 06/19/20 History tablet vitamins A,C,P-ccvk-tpiwis 14,320 1 cap PO BID@07/06/20 12/19/21 12/19/21 History unit-226 mg-200 unit capsule (PreserVision AREDS) diphenoxylate-atropine 2.5 1 tab PO DAILY PRN 09/20/20 12/19/21 Unknown History mg-0.025 mg tablet (Lomotil) polyethylene glycol 3350 17 17 g PO DAILY PRN 09/20/20 12/19/21 10/01/20 History gram/dose oral powder (Miralax) ropinirole 1 mg tablet 1 mg PO BEDTIME@199909/20/20 12/19/21 12/18/21 History albuterol sulfate 2.5 mg INHALATION Q4H PRN 10/02/20 12/19/21 12/19/21 History cyanocobalamin (vitamin B-12) 1,000 mcg PO DAILY@10/02/20 12/19/21 12/19/21 History 1,000 mcg tablet (Vitamin B-12) magnesium citrate 150 ml PO DAILY PRN 10/02/20 12/19/21 Unknown History sennosides 8.6 mg-docusate sodium 1 tab-cap PO DAILY PRN 10/02/20 12/19/21 06/05/21 History 50 mg tablet (Senna-S) albuterol sulfate 90 mcg/actuation 2 puff INHALATION Q6H PRN 06/05/21 12/19/21 12/19/21 History aerosol inhaler (ProAir HFA) levetiracetam 750 mg tablet See Rx Instructions .ROUTE 08/26/21 12/19/21 12/19/21 Rx .COMPLEX #60 tab galantamine 4 mg tablet 4 mg PO BID #60 tab 09/05/21 12/19/21 12/19/21 Rx fluticasone 100 mcg-salmeterol 50 1 inh INHALATION BID 30 Days #60 ea 09/07/21 12/19/21 12/19/21 Rx mcg/dose blistr powdr for inhalation (Wixela Inhub) cholecalciferol (vitamin D3) 50 3,000 unit PO DAILY@08 cap 11/09/21 12/19/21 12/19/21 History mcg (2,000 unit) capsule (Vitamin D3) hydrocodone 5 mg-acetaminophen 325 1 tab PO BID PRN 30 Days #60 tab 11/09/21 12/19/21 12/19/21 Rx mg tablet pantoprazole 40 mg tablet,delayed 40 mg PO BID tab 11/09/21 12/19/21 12/19/21 History release (Protonix) ondansetron 4 mg disintegrating 4 mg PO Q6H PRN 12/19/21 12/19/21 Unknown History tablet Allergies Allergy/AdvReac Type Severity Reaction Status Date / Time gluten Allergy Mild sick Verified 11/09/21 09:58 atorvastatin Allergy Unknown Verified 12/19/21 12:50 bee venom protein (honey bee) Allergy ADR-Swelling Verified 11/09/21 09:58 of the Eye chllorine Allergy rash Uncoded 11/09/21 09:58 dairy Allergy ALGY-Swell Uncoded 11/09/21 09:58 Lip/Tongue/Throat PFSH Acute PFSH: Medical History Acute perforated gastric ulcer with hemorrhage Reports in 1960s, required surgery 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 Bronchitis DVT (deep venous thrombosis) History of TIA (transient ischemic attack) Pneumonia Self-catheterizes urinary bladder every 3-6 days Shortness of breath Urethral stricture Surgical History History of angioplasty 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 History of total knee arthroplasty Family History Other CAD (coronary artery disease) Social History Smoking and tobacco status: never smoked Second hand smoke exposure: No Alcohol intake: never Lives independently: No Household members: spouse Marital status: History of recent travel: Yes [facility] Out of state: Yes Vitals/I&O/Wt Last Vital Signs Temp 98.2 F 12/19/21 10:47 Pulse 73 12/19/21 12:34 Resp 18 12/19/21 12:24 BP 108/58 12/19/21 12:30 Pulse Ox 97 12/19/21 12:30 Weight last 48 hrs Weight 83.461 kg Physical Exam Narrative: Patient is laying in his bed Saturating well on room air Asking for food Nonfocal neuro exam Very pleasant cooperative Clinically does not have overt signs of congestive heart failure Close MD no signs of edema Bilateral breath sounds without adventitious rhonchi or crackles Abdomen distended with obesity Nontender Soft EOMI, PERRLA Data : 12/19/21 12:00 12/19/21 12:00 A&P Assessment and plan (1) Dyspnea: Status: Acute (2) Lewy body dementia: Status: Acute Qualifiers: Dementia behavioral disturbance: without behavioral disturbance Qualified Code(s): G31.83 - Dementia with Lewy bodies; F02.80 - Dementia in other diseases classified elsewhere without behavioral disturbance (3) Alzheimer disease: Status: Acute (4) Lumbar radiculopathy: Status: Acute (5) Degenerative lumbar disc: Status: Acute (6) Essential tremor: Status: Acute (7) Generalized seizure: Status: Acute Plan Dyspnea on exertion My concern is related to CHF exacerbation EF is unknown Will do echo I will add Bumex Cardiac stress test in the morning Patient does not have chest pain Not complain of chest pain at home as well Cardiac diet Troponin without significant delta Requested TSH SHERLYN: Cardiorenal anticipating problem with diuresis Cardiac stress test tomorrow morning Cardiac diet N.p.o. 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
[2021-12-19 14:27] LABS: Troponin 5 2HR 41.02 ng/L (0-15)
[2021-12-19 14:28] LABS: Troponin 5 2HR Delta 0.02 ABS# (0-10)
[2021-12-19 14:34] LABS: Thyroid Stimulating Hormone 1.04 uIU/mL (0.27-4.20)
--- NOTE | 2021-12-19 17:28 | ECG_ITS ---
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 Measurements Intervals [place] Rate: 74 P: 5 [place]: 168 QRS: 99 QRSD: 138 T: 14 QT: 403 QTc: 448 Interpretive Statements SINUS RHYTHM WITH OCCASIONAL VENTRICULAR PREMATURE COMPLEXES INDETERMINATE AXIS RIGHT BUNDLE BRANCH BLOCK [120+ ms QRS DURATION, UPRIGHT V1, 40+ ms S IN I/aVL/V4/V5/V6] Compared to ECG 09/04/2021 08:43:11 Ventricular premature complex(es) now present Indeterminate axis now present Electronically Signed On 12-19-2021 21:30:01 CDT by Flor Greene M.D. [id number]
--- NOTE | 2021-12-19 18:11 | USCV_ITS ---
Ruthie Bowen Age: 86 Gender: M : 1935 Exam Date: 12/19/2021 22:50 Ordering Phys: Liza Sorto MD Technologist: LUIS Exam Location: [facility] [place] Indication: Shortness of breath. hx CABG x 2; hx cardiac stents. BP: 118 / 70 HR: 72 Rhythm: Sinus Technical Quality: Adequate MEASUREMENTS (Male / Female) Normal Values 2D ECHO LV Diastolic Diameter PLAX 3.7 cm 4.2 - 5.9 / 3.9 - 5.3 cm LV Systolic Diameter PLAX 2.6 cm IVS Diastolic Thickness 1.4 cm 0.6 - 1.0 / 0.6 - 0.9 cm IVS Systolic Thickness 2.0 cm LVPW Diastolic Thickness 1.4 cm 0.6 - 1.0 / 0.6 - 0.9 cm LVPW Systolic Thickness 2.2 cm LVOT Diameter 2.0 cm LV Ejection Fraction 2D Teich 56.8 % LV Ejection Fraction MOD 2C 61.9 % LV Ejection Fraction 2C AL 62.0 % LA Diameter 5.0 cm LA Width 5.0 cm LA Height 5.5 cm RA Width 4.5 cm RA Height 5.6 cm Aorta at Sinotubular Diameter 2.8 cm IVC Diameter 1.5 cm M-MODE Aortic Annulus Diameter 2.9 cm LA Ao Ratio MM 1.8 MV E Point Septal Separation 0.4 cm DOPPLER AV Peak Velocity 90.0 cm/s LVOT Peak Velocity 96.0 cm/s AV Area Cont Eq vti 3.6 cm squared AV Area Cont Eq pk 3.5 cm squared MV Peak Velocity 131.0 cm/s MV Area PHT 4.1 cm squared Mitral E to A Ratio 0.6 MV E' Velocity 42.5 cm/s Mitral E to MV E' Ratio 8.0 Mitral E to LV E' Lateral Ratio 6.9 Mitral E to LV E' Septal Ratio 9.4 TR Peak Velocity 299.5 cm/s TR Peak Gradient 35.9 mmHg TV Peak E Velocity 59.0 cm/s Right Atrial Pressure 10.0 mmHg Pulmonary Artery Systolic Pressu 45.9 mmHg PV Peak Velocity 113.0 cm/s RV Acceleration Time 0.1 s RV Ejection Time 0.3 s RV AcT/ET 0.2 FINDINGS Left Ventricle Normal left ventricular size, systolic function and wall thickness, with no regional wall motion abnormalities. Left ventricular ejection fraction is estimated at 60 %. Normal diastolic function Right Ventricle Normal right ventricular size and systolic function. Right ventricular systolic pressure 33 mmHg. Right Atrium Normal right atrial size. Left Atrium Mildly increased left atrial size. Mitral Valve Mildly thickened mitral valve. No mitral valve stenosis. Trace mitral valve regurgitation. Aortic Valve Aortic valve not well visualized. No aortic valve stenosis. No aortic valve regurgitation. Tricuspid Valve Structurally normal tricuspid valve. No tricuspid valve stenosis. Mild tricuspid valve regurgitation. Pulmonic Valve Structurally normal pulmonic valve. No pulmonary valve stenosis. Trace pulmonary valve regurgitation. Pericardium No pericardial effusion. Aorta Normal sized aortic root. IVC Normal inferior vena cava. CONCLUSIONS 1. Normal left ventricular size, systolic function and wall thickness, with no regional wall motion abnormalities. Left ventricular ejection fraction is estimated at 60 %. Normal diastolic function 2. Mild tricuspid valve regurgitation. 3. Pulmonary pressure estimated at 33 mmHg. 4. No significant change when compared to previous echo dated 02/11/2020. Flor Greene MD (Electronically Signed) Final Date: 20 December 2021 15:08 S
--- NOTE | 2021-12-19 18:23 | PC.NURSE ---
Pt stated caths me once every 3 days
[2021-12-19 18:37] LABS: Troponin 5 6HR 40.29 ng/L (0-15)
[2021-12-19] MEDS: pantoprazole DR 40 mg Tablet PO (18:39)
[2021-12-19 18:45] LABS: Troponin 5 6HR Delta -0.71 ng/L (0-12)
[2021-12-19] MEDS: ropinirole 1 mg Tablet PO (20:54)
[2021-12-19] MEDS: levETIRAcetam 500 mg Tablet 750 MG PO (20:55)
[2021-12-20 05:10] LABS: Basophils % 0.3 %; Eosinophils % 0.3 %; Hemoglobin 10.7 g/dL (11.7-16.6); Lymphocytes # 1.2 10^3/uL (0.8-4.8); Mean Corpuscular HGB Conc 34.5 g/dL (30.0-36.0); Mean Corpuscular Hemoglobin 35.8 pg (28.0-34.0); Mean Corpuscular Volume 103.7 fl (80-94); Mean Platelet Volume 10.1 fL (7.4-10.4); Monocytes # 0.4 10^3/uL (0.2-0.9); Monocytes % 10.9 %; Neutrophils # 1.95 10^3/uL (1.8-7.7); Neutrophils % 54.2 %; Nucleated Red Blood Cells % 0 %; Platelet Count 146 10^3/cmm (130-400); Red Blood Count 2.99 10^6/uL (4.1-5.3); White Blood Count 3.6 10^3/uL (4.0-10.0)
[2021-12-20 05:55] VITALS: PULSE 82
--- NOTE | 2021-12-20 07:22 | ECG_ITS ---
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 Interpretive Statements NAME OF STUDY: LEXISCAN SESTAMIBI STRESS TEST INDICATION: Ua, PROCEDURE: At the baseline, the EKG revealed normal sinus rhythm with a right bundle branch block pattern.. The baseline blood pressure was 117/58 mm Hg with a heart rate of 86 beats/min. Lexiscan was infused over a period of 20 seconds. A total of 0.4 milligrams of Lexiscan was infused. The stress phase was continued for a total of 5 minutes. Heart rate at the end of the stress phase was 105 with a blood pressure 111/63. The EKG at the peak infusion revealed no significant changes. Sestamibi was injected 20 seconds after the Lexiscan infusion. Blood pressure at the end of the recovery phase was 97/61 with a heart rate of 104 per minute. CONCLUSION: 1. No significant EKG changes with the LexiScan infusion 2. No LexiScan induced chest pain or cardiac arrhythmia 3. Normal blood pressure and heart rate response 4. Sestamibi/sestamibi perfusion scan pending; see separate report. Electronically Signed On 12-20-2021 22:42:53 CDT by Jonathan Benites M.D. [id number]
[2021-12-20 07:37] LABS: Alanine Aminotransferase 13 U/L (0-41); Albumin Level 3.7 g/dL (3.5-5.2); Alkaline Phosphatase 59 IU/L (40-130); Anion Gap 16.1 (5-19); Aspartate Amino Transferase 18 U/L (0-40); Blood Urea Nitrogen 19 mg/dL (8-23); Calcium 8.9 mg/dL (8.5-10.5); Carbon Dioxide 27 mmol/L (22-29); Chloride 98 mmol/L (98-107); Globulin 3.1 g/dL (1.3-4.6); Glucose 95 mg/dL (65-115); Osmolality Calculated 286 mOsm/kg (285-295); Potassium 4.1 mmol/L (3.5-5.1); Sodium 137 mmol/L (136-145); Total Bilirubin 0.3 mg/dL (0.15-1.2); Total Protein 6.8 g/dL (6.6-8.7)
[2021-12-20] MEDS: ipratropium-albuterol 3 mL Neb INHALATION (07:44)
[2021-12-20 07:45] VITALS: PULSE 95; RESP 18; O2SAT 97
[2021-12-20] MEDS: regadenoson 0.4 Mg/5 ml Syringe IVP (09:35)
[2021-12-20 09:47] VITALS: BP 97/61; PULSE 104
[2021-12-20] MEDS: clopidogrel 75 mg Tablet PO (11:28)
[2021-12-20] MEDS: levETIRAcetam 500 mg Tablet 750 MG PO (11:29)
[2021-12-20] MEDS: FUROsemide 40 mg Tablet PO (11:29)
[2021-12-20] MEDS: pantoprazole DR 40 mg Tablet PO (11:29)
--- NOTE | 2021-12-20 13:29 | P.DS_ITS ---
Discharge Providers Date of Admission: 12/19/21 13:59 Date of Discharge: December 20, 2021 Attending Provider at Admission: Liza Sorto MD Attending Provider at Discharge: Liza Sorto MD Primary Care Provider: Antony Minaya DO Diagnoses at Discharge Discharge Diagnosis (1) Dyspnea: (2) Lewy body dementia: Qualifiers: Dementia behavioral disturbance: without behavioral disturbance Qualified Code(s): G31.83 - Dementia with Lewy bodies; F02.80 - Dementia in other diseases classified elsewhere without behavioral disturbance (3) Alzheimer disease: (4) Lumbar radiculopathy: (5) Degenerative lumbar disc: (6) Essential tremor: (7) Generalized seizure: Reason for Visit Reason for Visit: Sob, Spot on R ear Hospital Course Hospital Course Patient was admitted for management and evaluation of dyspnea on exertion. Cardiac echo and stress test requested. Patient remained hemodynamically stable. He never experienced chest pain, troponin trending down. BNP 956. TSH normal. He was kept on Lasix 40 mg daily which is his home regimen clinically he looked euvolemic. CTA chest ruled out PE. No signs of pneumonia. He does have large esophageal hiatal hernia which could be the cause of his symptoms. ECHO AND STRESS TEST unremarkable. Physical Exam Narrative: Patient is very agitated and he wants to go home We are waiting on stress test and echo report Clinically looks euvolemic at the bedside Hemodynamically stable Currently on room air Abdomen soft Discharge Data Studies Completed and Pending Completed Studies During Hospitalization Category Date Time Status CTA chest [CT angio chest PE protcl [id number]] Urgent Cat Scan 12/19/21 12:37 Completed Sestamibi Stress Test Request Routine Exams 12/20/21 07:22 Draft XR chest 1V portable [id number] Stat Exams 12/19/21 11:28 Completed Pending at discharge Category Date Time Status Sestamibi Stress Test Request Routine Exams 12/19/21 18:11 Stop Req NM sindhu perf SPECT r/s* [id number] Routine Nuc Med 12/20/21 18:11 Taken CV. echo complete* [id number] Routine Ultrasound 12/19/21 18:11 Taken Radiology Impressions Chest X-Ray 12/19/21 11:28 IMPRESSION: 1. No acute cardiopulmonary finding. 2. Chronic pleural thickening at the left costophrenic angle. Chest CTA 12/19/21 12:37 IMPRESSION: 1. No evidence of pulmonary embolus. 2. Normal caliber thoracic aorta. 3. Slight patchy infiltrates in the bilateral lower lobes with subsegmental atelectasis. Trace pleural fluid.. 4. Large esophageal hiatal hernia. Partial intrathoracic stomach. Laboratory Results WBC 3.6 10^3/uL (4.0-10.0) L 12/20/21 04:16 RBC 2.99 10^6/uL (4.1-5.3) L 12/20/21 04:16 Hgb 10.7 g/dL (11.7-16.6) L 12/20/21 04:16 Hct 31.0 % (42.0-52.0) L 12/20/21 04:16 MCV 103.7 fl (80-94) H 12/20/21 04:16 MCH 35.8 pg (28.0-34.0) H 12/20/21 04:16 MCHC 34.5 g/dL (30.0-36.0) 12/20/21 04:16 RDW 13.0 % (12.1-15.1) 12/20/21 04:16 Plt Count 146 10^3/cmm (130-400) 12/20/21 04:16 MPV 10.1 fL (7.4-10.4) 12/20/21 04:16 Neut % (Auto) 54.2 % 12/20/21 04:16 Lymph % (Auto) 34.0 % 12/20/21 04:16 [place] % (Auto) 10.9 % 12/20/21 04:16 Eos % (Auto) 0.3 % 12/20/21 04:16 Baso % (Auto) 0.3 % 12/20/21 04:16 Neut # (Auto) 1.95 10^3/uL (1.8-7.7) 12/20/21 04:16 Lymph # (Auto) 1.2 10^3/uL (0.8-4.8) 12/20/21 04:16 [place]on # (Auto) 0.4 10^3/uL (0.2-0.9) 12/20/21 04:16 Eos # (Auto) 0.0 10^3/uL (0.0-0.8) 12/20/21 04:16 Baso # (Auto) 0.0 10^3/uL (0.0-0.1) 12/20/21 04:16 Nucleated RBC % (auto) 0 % 12/20/21 04:16 Nucleated RBCs # 0.0 /100WBC 12/20/21 04:16 D-Dimer 1.02 ug/mIFEU (0-0.59) H 12/19/21 12:00 Sodium 137 mmol/L (136-145) 12/20/21 04:17 Potassium 4.1 mmol/L (3.5-5.1) 12/20/21 04:17 Chloride 98 mmol/L (98-107) 12/20/21 04:17 Carbon Dioxide 27 mmol/L (22-29) 12/20/21 04:17 Anion Gap 16.1 (5-19) 12/20/21 04:17 BUN 19 mg/dL (8-23) 12/20/21 04:17 Creatinine 1.2 mg/dL (0.7-1.2) 12/20/21 04:17 GFR Calculation Not Reportable 12/20/21 04:17 Glucose 95 mg/dL (65-115) 12/20/21 04:17 Calculated Osmolality 286 mOsm/kg (285-295) 12/20/21 04:17 Calcium 8.9 mg/dL (8.5-10.5) 12/20/21 04:17 Total Bilirubin 0.3 mg/dL (0.15-1.2) 12/20/21 04:17 AST 18 U/L (0-40) 12/20/21 04:17 ALT 13 U/L (0-41) 12/20/21 04:17 Alkaline Phosphatase 59 IU/L (40-130) 12/20/21 04:17 Troponin T Baseline 41 ng/L (0-15) H 12/19/21 12:00 Troponin T 120 Minute 41.02 ng/L (0-15) H 12/19/21 13:52 Delta Troponin T 0.02 ABS# (0-10) 12/19/21 13:52 Troponin T Hi Sens 6Hr 40.29 ng/L (0-15) H 12/19/21 17:54 Troponin T Hi Sens 6Hr Delta -0.71 ng/L (0-12) L 12/19/21 17:54 NT-Pro-B Natriuret Pep 956 pg/mL (0-450) H 12/19/21 12:00 Total Protein 6.8 g/dL (6.6-8.7) 12/20/21 04:17 Albumin 3.7 g/dL (3.5-5.2) 12/20/21 04:17 Globulin 3.1 g/dL (1.3-4.6) 12/20/21 04:17 TSH 1.04 uIU/mL (0.27-4.20) 12/19/21 13:51 Vitals Last Vital Signs Temp 98.2 F 12/19/21 10:47 Pulse 104 H 12/20/21 09:47 Resp 18 12/20/21 07:45 BP 97/61 12/20/21 09:47 Pulse Ox 97 12/20/21 07:45 Discharge Plan Discharge Patient Disposition: Home Condition: Stable Prescriptions: Continued fluticasone propion-salmeterol [Wixela Inhub] 100-50 mcg/dose blister with device 1 inh inhalation BID 30 Days Qty: 60 4RF clopidogrel 75 mg tablet 75 mg PO DAILY@08 0RF Hold Instructions: Resume on 06/17/21. gabapentin 300 mg capsule 300 mg PO BID@08,18 0RF docusate sodium [DOK] 100 mg tablet 100 mg PO BID@08,18 0RF furosemide 40 mg tablet 40 mg PO DAILY@08 0RF PreserVision AREDS 14,320-226-200 qajp-vp-orop capsule 1 cap PO BID@08,18 0RF One Daily Women's Health 18 mg iron-400 mcg-450 mg Ca tablet 1 tab PO DAILY@08 0RF nitroglycerin 0.4 mg tablet, sublingual 0.4 mg sublingual Q5M PRN (Reason: Chest Pain) 0RF Rx Instructions: do not exceed 3 doses per episode acetaminophen 500 mg capsule 1,000 mg PO BID 0RF pantoprazole [Protonix] 40 mg tablet,delayed release (DR/EC) 40 mg PO BID 0RF hydrocodone-acetaminophen 5-325 mg tablet 1 tab PO BID PRN (Reason: Pain) 30 Days Qty: 60 0RF levetiracetam 750 mg tablet See Rx Instructions .ROUTE .COMPLEX Qty: 60 3RF Dose Instruction: TAKE ONE TABLET BY MOUTH TWICE A DAY FOR SEIZURES. SWALLOW WHOLE, DO NOT CRUSH OR CHEW. Rx Instructions: TAKE ONE TABLET BY MOUTH TWICE A DAY FOR SEIZURES. SWALLOW WHOLE, DO NOT CRUSH OR CHEW. galantamine 4 mg tablet 4 mg PO BID Qty: 60 5RF Rx Instructions: administer with AM and PM meals ropinirole 1 mg Tablet 1 mg PO BEDTIME@2000 0RF diphenoxylate-atropine [Lomotil] 2.5-0.025 mg Tablet 1 tab PO DAILY PRN (Reason: Diarrhea) 0RF polyethylene glycol 3350 [Miralax] 17 gram/dose Powder 17 g PO DAILY PRN (Reason: Constipation) 0RF albuterol sulfate 2.5 mg /3 mL (0.083 %) Solution For Nebulization 2.5 mg INHALATION Q4H PRN (Reason: Shortness Of Breath) 0RF sennosides-docusate sodium [Senna-S] 8.6-50 mg Tablet 1 tab-cap PO DAILY PRN (Reason: CONSTIPATION (2ND)) 0RF cyanocobalamin (vitamin B-12) [Vitamin B-12] 1,000 mcg Tablet 1,000 mcg PO DAILY@08 0RF magnesium citrate Solution 150 ml PO DAILY PRN (Reason: Constipation (1ST)) 0RF cholecalciferol (vitamin D3) [Vitamin D3] 50 mcg (2,000 unit) capsule 3,000 unit PO DAILY@08 0RF albuterol sulfate [ProAir HFA] 90 mcg/actuation HFA aerosol inhaler 2 puff INHALATION Q6H PRN (Reason: Shortness Of Breath) 0RF ondansetron 4 mg Tablet,Disintegrating 4 mg PO Q6H PRN (Reason: Nausea) 0RF Discharge Orders: Discharge Order (Routine); Ordered 12/20/21 Ordered By: Liza Sorto Referrals: Antony Minaya DO [Primary Care Provider] - 12/22/21 3:30 pm Patient Instructions: Dyspnea (GEN), Shortness of Breath (GEN), Opioid Safety Discharge Attestations Time Spent in Discharge Care*: less than 30 min Quality Metrics Clinical Quality Measures [ No reported AMI, CVA or VTE this stay] Coding Level of Care Code Acute Chg FW DC note Diagnoses Dyspnea R06.00 Lewy body dementia G31.83; F02.80 Dementia behavioral disturbance: without behavioral disturbance Alzheimer disease G30.9; F02.80 Lumbar radiculopathy M54.16 Degenerative lumbar disc M51.36 Essential tremor G25.0 Generalized seizure R56.9
--- NOTE | 2021-12-20 18:11 | NMCV_ITS ---
NM sindhu perf SPECT r/s* [id number] Ruthie Bowen Age: 86 Gender: M : 1935 Exam Date: 12/20/2021 18:11 Ordering Phys: Liza Sorto MD Technologist: SHAHEED Suero Exam Location: [facility] Indications: CHEST PAIN STRESS TEST Please see separate stress test report in [facility] for full findings IMAGE PROTOCOL Rest/Stress 1 Lexiscan Day Radiopharmaceutical Dose (mCi) Administration Site Administered by Rest: Tc-99m 10.8 IV Francy Arnold, SUPERVISOR [employer] Sestamibi Stress:Tc-99m 32.8 IV Francy Arnold, SUPERVISOR [employer] Sestamibi Rest: 20-Dec-2021 60 Discovery 630 Stress: 20-Dec-2021 30 Discovery 630 0.4mg Lexiscan. Supine position only as patient was unable to lay prone. SPECT RESULTS Technical Quality: Excellent Raw Data Analysis: Normal Image Corrections: No attenuation or motion correction applied Summed Stress Score: 8 Summed Rest Score: 5 Summed Difference Score: 3 PERFUSION FINDINGS Moderate area of moderately decreased tracer uptake in the basal inferolateral, mid inferolateral, mid anterolateral and apical lateral regions with some reversibility in these regions. FUNCTIONAL RESULTS (calculated via Gated SPECT) Stress Image LV EF (%): 61 Stress EDV (mL):84 TID: 1.12 Stress ESV (mL):33 FUNCTIONAL FINDINGS: Segmental wall motion analysis revealing mild hypokinesia of the apex IMPRESSIONS 1. Myocardial perfusion imaging revealing moderate area of moderately decreased tracer uptake in the inferolateral, anterolateral and apical lateral regions with some reversibility suggesting myocardial scarring with ischemia in the distribution of the left circumflex artery. 2. Normal LV ejection fraction 61%. 3. Mild hypokinesia of the left ventricular apex. 4. Normal LV volume. No similar previous studies are available for comparison Dr Jonathan Benites MD [facility] (Electronically Signed) Final Date: 20 December 2021 22:17 S
== END 2021-12-20 16:00 | disposition home or self-care (01) ==
LOC: ER 14:25 → MEDSURG 17:39
PROVIDERS: Admitting Provider Internal Medicine; Emergency Provider Emergency Medicine; PCP Emergency Medicine Emergency Medical Services; Visit Provider Internal Medicine
DX: R06.00 Dyspnea, unspecified (principal); G31.83 Neurocognitive disorder with Lewy bodies; F02.80 Dementia in other diseases classified elsewhere, unspecified severity, without behavioral disturbance, psychotic disturbance, mood disturbance, and anxiety; G30.9 Alzheimer's disease, unspecified; M54.16 Radiculopathy, lumbar region; M51.36 Other intervertebral disc degeneration, lumbar region; G25.0 Essential tremor; R56.9 Unspecified convulsions; Z86.718 Personal history of other venous thrombosis and embolism; Z86.73 Personal history of transient ischemic attack (TIA), and cerebral infarction without residual deficits; I45.10 Unspecified right bundle-branch block; Z95.1 Presence of aortocoronary bypass graft; I11.0 Hypertensive heart disease with heart failure; I50.9 Heart failure, unspecified
CPT/HCPCS: 36415; 71045; 71275; 78452; 80048; 80053; 83880; 84443; 84484; 85025; 85378; 93005; 93017; 93306; 94640; 99285; A9500; G0378; J2785; Q9967

== ENCOUNTER 2021-12-31 17:59 | Emergency (ER) | payer OTHER, SELFPAY ==
[2021-12-31] VITALS (8 sets, daily range): BP systolic 106–137; BP diastolic 50–70; PULSE 56–80; RESP 16–26; O2SAT 90–96; BMI 28.1
--- NOTE | 2021-12-31 18:11 | ECG_ITS ---
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 Measurements Intervals [place] Rate: 76 P: -8 NV: 150 QRS: 95 QRSD: 146 T: 12 QT: 435 QTc: 491 Interpretive Statements SINUS RHYTHM WITH OCCASIONAL VENTRICULAR PREMATURE COMPLEXES RIGHT BUNDLE BRANCH BLOCK [120+ ms QRS DURATION, UPRIGHT V1, 40+ ms S IN I/aVL/V4/V5/V6] Compared to ECG 12/19/2021 18:15:43 Ventricular premature complex(es) now present Indeterminate axis no longer present Electronically Signed On 01-01-2022 8:36:53 CDT by Melvin Dumotn M.D. [email or web address]
--- NOTE | 2021-12-31 18:11 | XRR_ITS ---
PROCEDURE INFORMATION: Exam: XR Chest Exam date and time: 12/31/2021 7:01 PM Age: 86 years old Clinical indication: Angina; Additional info: Cp TECHNIQUE: Imaging protocol: Radiologic exam of the chest. Views: 1 view. COMPARISON: CR XR chest 1V portable [id number] 12/19/2021 11:40 AM FINDINGS: Lungs: There are streaky opacities at the left lung base. Pleural spaces: See Heart/Mediastinum finding. Heart/Mediastinum: There is a left pericardial fat pad. Blunting of the left costophrenic angle may be secondary to the fat pad however a pleural effusion cannot be excluded. Bones/joints: There are posterior sternotomy changes and postoperative changes overlying the mediastinum. XR/XR chest 1V portable [id number] IMPRESSION: 1. There streaky opacities at the left lung base which are nonspecific. Consider PA and lateral views of the chest for further evaluation as clinically warranted. 2. There is a left pericardial fat pad. Blunting of the left costophrenic angle may be secondary to the fat pad however a pleural effusion cannot be excluded.
--- NOTE | 2021-12-31 18:23 | W.ED.CHESTPA ---
HPI - Chest Pain General: Chief Complaint: Chest Pain Stated Complaint: CHEST PAIN Time Seen by Provider: 12/31/21 18:00 Source: patient History of Present Illness: 86-year-old gentleman with a history of coronary disease. He tells me that a couple years ago he passed a stress test. He has had a bypass surgery in the past. He had chest pain sometime after 4 PM while watching TV in his home. He was short of breath with it. He took 3 nitroglycerin at home, without significant relief. He arrives by helicopter ambulance on a nitro drip at 40. His pain is down to 4 out of 10. His blood pressure is normal. He is no longer short of breath. MD complaint: chest pain Pertinent past history: coronary artery disease Onset (ago): hour(s) Timing of current episode: constant Prior episodes: Yes Onset: during rest Pain location: substernal Pain radiation: none Severity: moderate Quality: aching and heaviness Relieving factors: nitroglycerin (Potentially) Exacerbating factors: nothing Associated symptoms: Reports dyspnea; Deny abdominal pain, diaphoresis, fever(s), leg edema, nausea, palpitations or vomiting Treatment prior to arrival: nitroglycerin, oxygen and other (Refused aspirin, says he cannot take it.) Review of Systems Const: Denies: fever(s) or diaphoresis Eyes: Denies: change in vision ENMT: Denies: throat pain Card: Reports: chest pain; Denies: palpitations or edema Resp: Reports: dyspnea and non-productive cough (Chronic) GI: Denies: abdominal pain, nausea or vomiting : Denies: flank pain Musc: Denies: neck pain Skin/Breast: Denies: rash PFSH ED PFSH: Medical History Acute perforated gastric ulcer with hemorrhage Reports in 1960s, required surgery 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 Alzheimer disease Bronchitis Degenerative lumbar disc DVT (deep venous thrombosis) Dyspnea Essential tremor Generalized seizure History of TIA (transient ischemic attack) Lewy body dementia Lumbar radiculopathy Pneumonia Self-catheterizes urinary bladder every 3-6 days Shortness of breath Urethral stricture Surgical History History of angioplasty 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 History of total knee arthroplasty Family History Other CAD (coronary artery disease) Social History Smoking and tobacco status: never smoked Second hand smoke exposure: No Alcohol intake: never Lives independently: No Household members: spouse Marital status: History of recent travel: Yes Details: [place] Out of state: Yes Physical Exam Const: GENERAL APPEARANCE: cooperative, ill appearing (Mildly) and frail appearing ORIENTATION/CONSCIOUSNESS: Yes awake HENMT: COMMON NORMALS: normocephalic and atraumatic HEAD & SCALP: normocephalic and atraumatic FACE & SINUS: normal facial exam and face symmetric Eye: COMMON NORMALS: Equal, round and reactive pupils present and EOMs intact bilaterally PUPIL: Yes Equal, round and reactive pupils present Neck/C-Spine: GENERAL: Yes trachea midline Chest: CHEST: Yes Symmetrical chest wall rise Resp: COMMON NORMALS: normal respiratory effort, No use of accessory muscles and clear to auscultation bilaterally AUSCULTATION: clear to auscultation bilaterally Cardio: COMMON NORMALS: regular rate and regular rhythm RATE: regular rate RHYTHM: regular rhythm GI: COMMON NORMALS: Normal to inspection, nondistended, normoactive bowel sounds present, Soft to palpation and non-tender PALPATION: Yes Soft to palpation Extremity: GENERAL: Yes edema (Trace) Neuro: ANUPAMA COMA SCALE: document GCS findings [place] coma scale eye opening: Spontaneous [place]upama coma scale verbal response: Orientated [place] coma scale motor response: Obey commands [place] coma scale total score: 15 Course Vital Signs: Vital signs: Vital Signs Pulse Rate 80 12/31/21 21:50 Respiratory Rate 16 12/31/21 21:50 Blood Pressure 110/54 12/31/21 21:50 Pulse Oximetry 94 12/31/21 21:50 MDM - Chest Pain Medical Decision Making patient was admitted to the hospital a couple of weeks ago with similar complaints. He had a, myocardial perfusion stress test which was negative at that time. echo revealed a normal ejection fraction. His pain improved after morphine and GI cocktail here. Nitroglycerin did not seem to relieve his pain in the ambulance on the way here. His hiatal hernia/reflux was indicated as a likely potential cause of his pain on his prior admission. Family was counseled. They will follow up with cardiology. Lab Data : 12/31/21 18:13 12/31/21 18:13 Radiology Impressions Chest X-Ray 12/31/21 18:11 IMPRESSION: 1. There streaky opacities at the left lung base which are nonspecific. Consider PA and lateral views of the chest for further evaluation as clinically warranted. 2. There is a left pericardial fat pad. Blunting of the left costophrenic angle may be secondary to the fat pad however a pleural effusion cannot be excluded. Laboratory Results WBC 5.2 10^3/uL (4.0-10.0) 12/31/21 18:13 RBC 2.94 10^6/uL (4.1-5.3) L 12/31/21 18:13 Hgb 10.6 g/dL (11.7-16.6) L 12/31/21 18:13 Hct 30.2 % (42.0-52.0) L 12/31/21 18:13 MCV 102.7 fl (80-94) H 12/31/21 18:13 MCH 36.1 pg (28.0-34.0) H 12/31/21 18:13 MCHC 35.1 g/dL (30.0-36.0) 12/31/21 18:13 RDW 12.7 % (12.1-15.1) 12/31/21 18:13 Plt Count 203 10^3/cmm (130-400) 12/31/21 18:13 MPV 10.1 fL (7.4-10.4) 12/31/21 18:13 Neut % (Auto) 55.1 % 12/31/21 18:13 Lymph % (Auto) 34.4 % 12/31/21 18:13 [place] % (Auto) 8.5 % 12/31/21 18:13 Eos % (Auto) 1.4 % 12/31/21 18:13 Baso % (Auto) 0.4 % 12/31/21 18:13 Neut # (Auto) 2.86 10^3/uL (1.8-7.7) 12/31/21 18:13 Lymph # (Auto) 1.8 10^3/uL (0.8-4.8) 12/31/21 18:13 [place] # (Auto) 0.4 10^3/uL (0.2-0.9) 12/31/21 18:13 Eos # (Auto) 0.1 10^3/uL (0.0-0.8) 12/31/21 18:13 Baso # (Auto) 0.0 10^3/uL (0.0-0.1) 12/31/21 18:13 Nucleated RBC % (auto) 0 % 12/31/21 18:13 Nucleated RBCs # 0.0 /100WBC 12/31/21 18:13 PT 13.90 SECONDS (12.1-14.9) 12/31/21 18:13 INR 1.04 (0.8-1.2) 12/31/21 18:13 APTT 26.3 SECONDS (23.9-36.7) 12/31/21 18:13 Sodium 139 mmol/L (136-145) 12/31/21 18:13 Potassium 3.5 mmol/L (3.5-5.1) 12/31/21 18:13 Chloride 101 mmol/L (98-107) 12/31/21 18:13 Carbon Dioxide 26 mmol/L (22-29) 12/31/21 18:13 Anion Gap 15.5 (5-19) 12/31/21 18:13 BUN 19 mg/dL (8-23) 12/31/21 18:13 Creatinine 1.3 mg/dL (0.7-1.2) H 12/31/21 18:13 GFR Calculation Not Reportable 12/31/21 18:13 Glucose 113 mg/dL (65-115) 12/31/21 18:13 Calculated Osmolality 291 mOsm/kg (285-295) 12/31/21 18:13 Calcium 9.1 mg/dL (8.5-10.5) 12/31/21 18:13 Total Bilirubin 0.3 mg/dL (0.15-1.2) 12/31/21 18:13 AST 15 U/L (0-40) 12/31/21 18:13 ALT 10 U/L (0-41) 12/31/21 18:13 Alkaline Phosphatase 56 IU/L (40-130) 12/31/21 18:13 Creatine Kinase 90 U/L (39-308) 12/31/21 18:13 Troponin T Baseline 33 ng/L (0-15) H 12/31/21 18:13 Troponin T 120 Minute 32.93 ng/L (0-15) H 12/31/21 19:35 Delta Troponin T -0.07 ABS# (0-10) L 12/31/21 19:35 NT-Pro-B Natriuret Pep 506 pg/mL (0-450) H 12/31/21 18:13 Total Protein 6.7 g/dL (6.6-8.7) 12/31/21 18:13 Albumin 4.2 g/dL (3.5-5.2) 12/31/21 18:13 Globulin 2.5 g/dL (1.3-4.6) 12/31/21 18:13 Discharge Plan Discharge Patient Disposition: Home Clinical Impression: Chest pain Condition: Stable Prescriptions: No Action fluticasone propion-salmeterol [Wixela Inhub] 100-50 mcg/dose blister with device 1 inh inhalation BID 30 Days Qty: 60 4RF clopidogrel 75 mg tablet 75 mg PO DAILY@08 0RF Hold Instructions: Resume on 06/17/21. gabapentin 300 mg capsule 300 mg PO BID@08,18 0RF docusate sodium [DOK] 100 mg tablet 100 mg PO BID@08,18 0RF furosemide 40 mg tablet 40 mg PO DAILY@08 0RF PreserVision AREDS 14,320-226-200 diap-sq-[id number] capsule 1 cap PO BID@08,18 0RF One Daily Women's Health 18 mg iron-400 mcg-450 mg Ca tablet 1 tab PO DAILY@08 0RF nitroglycerin 0.4 mg tablet, sublingual 0.4 mg sublingual Q5M PRN (Reason: Chest Pain) 0RF Rx Instructions: do not exceed 3 doses per episode acetaminophen 500 mg capsule 1,000 mg PO BID 0RF pantoprazole [Protonix] 40 mg tablet,delayed release (DR/EC) 40 mg PO BID 0RF hydrocodone-acetaminophen 5-325 mg tablet 1 tab PO BID PRN (Reason: Pain) 30 Days Qty: 60 0RF levetiracetam 750 mg tablet See Rx Instructions .ROUTE .COMPLEX Qty: 60 3RF Dose Instruction: TAKE ONE TABLET BY MOUTH TWICE A DAY FOR SEIZURES. SWALLOW WHOLE, DO NOT CRUSH OR CHEW. Rx Instructions: TAKE ONE TABLET BY MOUTH TWICE A DAY FOR SEIZURES. SWALLOW WHOLE, DO NOT CRUSH OR CHEW. galantamine 4 mg tablet 4 mg PO BID Qty: 60 5RF Rx Instructions: administer with AM and PM meals ropinirole 1 mg Tablet 1 mg PO BEDTIME@2000 0RF diphenoxylate-atropine [Lomotil] 2.5-0.025 mg Tablet 1 tab PO DAILY PRN (Reason: Diarrhea) 0RF polyethylene glycol 3350 [Miralax] 17 gram/dose Powder 17 g PO DAILY PRN (Reason: Constipation) 0RF albuterol sulfate 2.5 mg /3 mL (0.083 %) Solution For Nebulization 2.5 mg INHALATION Q4H PRN (Reason: Shortness Of Breath) 0RF sennosides-docusate sodium [Senna-S] 8.6-50 mg Tablet 1 tab-cap PO DAILY PRN (Reason: CONSTIPATION (2ND)) 0RF cyanocobalamin (vitamin B-12) [Vitamin B-12] 1,000 mcg Tablet 1,000 mcg PO DAILY@08 0RF magnesium citrate Solution 150 ml PO DAILY PRN (Reason: Constipation (1ST)) 0RF cholecalciferol (vitamin D3) [Vitamin D3] 50 mcg (2,000 unit) capsule 3,000 unit PO DAILY@08 0RF albuterol sulfate [ProAir HFA] 90 mcg/actuation HFA aerosol inhaler 2 puff INHALATION Q6H PRN (Reason: Shortness Of Breath) 0RF ondansetron 4 mg Tablet,Disintegrating 4 mg PO Q6H PRN (Reason: Nausea) 0RF Discharge Orders: Discharge ED (Routine); Ordered 12/31/21 Ordered By: Nick Urbina Referrals: Antony Minaya DO [Primary Care Provider] - 4-7 days Patient Instructions: Chest Pain (ED), Hiatal Hernia (ED) Activity Restrictions/Additional Instructions: Return for repeated episodes of chest pain, syncope or passing out, worsening shortness of breath, any other concerning symptoms. 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
[2021-12-31] MEDS: ondansetron 2 mg/ML SDV 2 mL 4 MG IVP (18:30)
[2021-12-31 18:35] LABS: Basophils % 0.4 %; Eosinophils # 0.1 10^3/uL (0.0-0.8); Eosinophils % 1.4 %; Hematocrit 30.2 % (42.0-52.0); Hemoglobin 10.6 g/dL (11.7-16.6); Lymphocytes # 1.8 10^3/uL (0.8-4.8); Lymphocytes % 34.4 %; Mean Corpuscular HGB Conc 35.1 g/dL (30.0-36.0); Mean Corpuscular Hemoglobin 36.1 pg (28.0-34.0); Mean Corpuscular Volume 102.7 fl (80-94); Mean Platelet Volume 10.1 fL (7.4-10.4); Monocytes # 0.4 10^3/uL (0.2-0.9); Monocytes % 8.5 %; Neutrophils # 2.86 10^3/uL (1.8-7.7); Neutrophils % 55.1 %; Nucleated Red Blood Cells % 0 %; Platelet Count 203 10^3/cmm (130-400); Red Blood Count 2.94 10^6/uL (4.1-5.3); Red Cell Distribution Width 12.7 % (12.1-15.1); White Blood Count 5.2 10^3/uL (4.0-10.0)
[2021-12-31] MEDS: morphine 4 mg/mL SDV 1 mL 2 MG IVP (18:41)
[2021-12-31 18:47] LABS: INR 1.04 (0.8-1.2)
[2021-12-31 18:48] LABS: Partial Thromboplastin Time 26.3 SECONDS (23.9-36.7)
[2021-12-31 19:57] LABS: Troponin(5th) Baseline 33 ng/L (0-15)
[2021-12-31 20:02] LABS: Alanine Aminotransferase 10 U/L (0-41); Albumin Level 4.2 g/dL (3.5-5.2); Alkaline Phosphatase 56 IU/L (40-130); Anion Gap 15.5 (5-19); Aspartate Amino Transferase 15 U/L (0-40); Blood Urea Nitrogen 19 mg/dL (8-23); Calcium 9.1 mg/dL (8.5-10.5); Carbon Dioxide 26 mmol/L (22-29); Chloride 101 mmol/L (98-107); Creatine Phosphokinase 90 U/L (39-308); Globulin 2.5 g/dL (1.3-4.6); Glucose 113 mg/dL (65-115); NT Pro B Type Natriuretic Pept 506 pg/mL (0-450); Osmolality Calculated 291 mOsm/kg (285-295); Potassium 3.5 mmol/L (3.5-5.1); Sodium 139 mmol/L (136-145); Total Bilirubin 0.3 mg/dL (0.15-1.2); Total Protein 6.7 g/dL (6.6-8.7)
[2021-12-31 20:04] LABS: Creatinine Clr Calc Pharmacy 40.9497
[2021-12-31] MEDS: lidocaine 2% viscous 15 ML, aluminum-mag hydrox-simethicon 30 ML, sucralfate oral liq 1 GM PO (20:26)
[2021-12-31 20:30] LABS: Troponin 5 2HR 32.93 ng/L (0-15); Troponin 5 2HR Delta -0.07 ABS# (0-10)
--- NOTE | 2022-01-03 12:26 | DCPLANNER ---
Addendum entered by Ludmila Carl 03/17/22 11:47: Patient had a follow up appointment scheduled with heart care - patient did attend appointment. Addendum entered by Ludmila Carl 01/23/22 14:48: Patient has a follow up appointment scheduled for Tuesday March 01, 2022 at 9:[address] Greene at [facility]. Clinic will call patient with appointment information. Original Note: manager rental had message to schedule a follow up appointment for patient with cardiology. manager rental sent patients information to the front office staff at [facility]. Patients information will be printed and reviewed. Clinic will call patient with appointment information.
== END 2021-12-31 21:51 | disposition home or self-care (01) ==
PROVIDERS: Emergency Provider Emergency Medicine; PCP Emergency Medicine Emergency Medical Services
DX: R07.9 Chest pain, unspecified (principal); Z79.02 Long term (current) use of antithrombotics/antiplatelets; G30.9 Alzheimer's disease, unspecified; F02.80 Dementia in other diseases classified elsewhere, unspecified severity, without behavioral disturbance, psychotic disturbance, mood disturbance, and anxiety; Z86.73 Personal history of transient ischemic attack (TIA), and cerebral infarction without residual deficits; Z95.1 Presence of aortocoronary bypass graft
CPT/HCPCS: 71045; 80053; 82550; 83880; 84484; 85025; 85610; 85730; 93005; 96374; 96375; 99285; J2270; J2405

== ENCOUNTER → 2022-01-30 09:34 | Outpatient (BNVA) | payer OTHER, SELFPAY | PROVIDERS: PCP Emergency Medicine Emergency Medical Services; Visit Provider Anesthesiology Pain Medicine | DX: M79.604 Pain in right leg (principal); Z79.891 Long term (current) use of opiate analgesic; G89.29 Other chronic pain; M51.36 Other intervertebral disc degeneration, lumbar region; M47.816 Spondylosis without myelopathy or radiculopathy, lumbar region; M54.16 Radiculopathy, lumbar region | CPT/HCPCS: 99213 ==

== ENCOUNTER → 2022-02-06 12:54 | Outpatient (BNVA) | payer OTHER, SELFPAY | PROVIDERS: PCP Emergency Medicine Emergency Medical Services; Visit Provider Specialist | DX: R56.9 Unspecified convulsions (principal); G31.83 Neurocognitive disorder with Lewy bodies; F02.80 Dementia in other diseases classified elsewhere, unspecified severity, without behavioral disturbance, psychotic disturbance, mood disturbance, and anxiety; D75.89 Other specified diseases of blood and blood-forming organs | CPT/HCPCS: 36415; 82607; 99214 ==

== ENCOUNTER → 2022-03-01 09:26 | Outpatient (BNVA) | payer OTHER, SELFPAY | PROVIDERS: PCP Emergency Medicine Emergency Medical Services; Visit Provider Internal Medicine Cardiovascular Disease | DX: I25.10 Atherosclerotic heart disease of native coronary artery without angina pectoris (principal); I10 Essential (primary) hypertension; E78.5 Hyperlipidemia, unspecified; G31.83 Neurocognitive disorder with Lewy bodies; F02.80 Dementia in other diseases classified elsewhere, unspecified severity, without behavioral disturbance, psychotic disturbance, mood disturbance, and anxiety; R56.9 Unspecified convulsions | CPT/HCPCS: 99204 ==

== ENCOUNTER 2022-03-23 09:20 | Emergency (ER) | payer OTHER, SELFPAY ==
[2022-03-23 09:38] VITALS: BP 138/91; PULSE 68; RESP 16; TEMP 36.8; O2SAT 93; BMI 27.9
--- NOTE | 2022-03-23 11:30 | ED_ITS ---
HPI - Seizure General: Chief Complaint: Seizure Stated Complaint: Possible seizure Time Seen by Provider: 03/23/22 10:39 Source: patient Mode of arrival: ambulatory History of Present Illness: HPI Narrative: 86-year-old male presents emergency room after seizure at about 430 this morning. Unsure how long the seizure lasted. Patient has a known history of seizure disorder he recently increased his Keppra by his primary care physician. Despite this he has continued to have seizures patient is awake and alert he is aware of the fact that he has seizure and he is aware that he likely will have more expresses that he wants to just be discharged he at his age he states he does not intermediate he has or the rest he knows that he cannot drive. Usually sees Dr. Kumari. complaint: seizure Onset (ago): hour(s) Description of Episode: tonic-clonic movement Witnessed: No Trauma: No Seizure History: Yes Place: Home Associated symptoms: Deny chest pain, chills, confusion, cough, diaphoresis, fever(s), anorexia, malaise, rash, short of breath, syncope or weakness Treatments prior to arrival: none Review of Systems Const: Denies: fever(s), chills, malaise or diaphoresis ENMT: Denies: throat pain, ear or mastoid pain, nasal discharge or nasal congestion Card: Denies: chest pain or syncope Resp: Denies: dyspnea, productive cough or non-productive cough GI: Denies: abdominal pain, nausea, vomiting, hematemesis, coffee ground emesis, diarrhea, constipation, bloating, hematochezia or melena : Denies: flank pain, dysuria, urinary frequency or urinary urgency Skin/Breast: Denies: rash or pruritus Neuro: Denies: confusion [facility] ED PFSH: Medical History Acute perforated gastric ulcer with hemorrhage Reports in 1960s, required surgery 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 Alzheimer disease Bronchitis Degenerative lumbar disc DVT (deep venous thrombosis) Dyspnea Essential tremor Generalized seizure History of TIA (transient ischemic attack) Lewy body dementia Lumbar radiculopathy Pneumonia Self-catheterizes urinary bladder every 3-6 days Shortness of breath Urethral stricture Surgical History History of angioplasty 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 History of total knee arthroplasty Family History Other CAD (coronary artery disease) Social History Smoking and tobacco status: never smoked Second hand smoke exposure: No Alcohol intake: never Lives independently: No Household members: spouse Marital status: History of recent travel: Yes Details: [place] Out of state: Yes Physical Exam Const: COMMON NORMALS: no acute distress GENERAL APPEARANCE: cooperative and comfortable ORIENTATION/CONSCIOUSNESS: Yes awake, Yes oriented to person, Yes oriented to place and Yes oriented to time HENMT: COMMON NORMALS: normocephalic, atraumatic, hearing grossly normal bilaterally, external ears normal, EAC's normal, TM's normal bilaterally, Normal nasal mucous membranes and turbinates present, moist oral mucous membranes and oropharynx normal HEAD & SCALP: normocephalic and atraumatic NOSE: Normal nasal mucous membranes and turbinates present EXTERNAL EAR: Yes external ears normal EXTERNAL AUDITORY CANAL: EAC's normal TYMPANIC MEMBRANE: TM's normal bilaterally Eye: COMMON NORMALS: Equal, round and reactive pupils present, EOMs intact bilaterally, conjunctivae normal and no scleral icterus CONJUNCTIVA: Yes conjunctivae normal PUPIL: Yes Equal, round and reactive pupils present Neck/C-Spine: COMMON NORMALS: full ROM, no lymphadenopathy, supple and no JVD Resp: COMMON NORMALS: normal respiratory effort, No retractions, No use of a ccessory muscles and clear to auscultation bilaterally AUSCULTATION: clear to auscultation bilaterally Cardio: COMMON NORMALS: no JVD, regular rate, regular rhythm and No murmurs present (Cardio) RATE: regular rate RHYTHM: regular rhythm GI: COMMON NORMALS: Soft to palpation and No hepatosplenomegaly present AUSCULTATION: Yes normoactive bowel sounds PALPATION: Yes Soft to palpation, No Tenderness to palpation present (GI), No Guarding due to palpation present (GI) and Yes No hepatosplenomegaly present Extremity: COMMON NORMALS: normal to inspection, capillary refill normal, no clubbing, cyanosis or edema, no calf tenderness and no pedal edema Neuro: SENSORIUM/ORIENTATION: Yes oriented to person, Yes oriented to place and Yes oriented to time Skin: COMMON NORMALS: no rashes or lesions noted GENERAL SKIN EXAM: no rashes or lesions noted Course Vital Signs: Vital signs: Vital Signs Temperature 98.2 F 03/23/22 09:38 Pulse Rate 68 03/23/22 09:38 Respiratory Rate 16 03/23/22 09:38 Blood Pressure 138/91 03/23/22 09:38 Pulse Oximetry 93 03/23/22 09:38 Oxygen Delivery Me thod 03/23/22 09:38 MDM - Seizure MDM Narrative Medical decision making narrative: Patient states he has had several seizures in the past he does not want to have anything done he does not want to be hospitalized. He is not even interested in having any lab work done. I did call and discussed with Dr. Kumari who sees him usually, she recommends starting the patient on Depakote 500 twice daily follow-up in the office. Patient vies to return if he has further problems. Medical Records Attestation: I reviewed the patient's medical records. Discharge Plan Discharge Patient Disposition: Home Clinical Impression: Seizure Condition: Stable Prescriptions: New Depakote 500 mg tablet,delayed release (DR/EC) 500 mg PO BID Qty: 60 0RF No Action fluticasone propion-salmeterol [Wixela Inhub] 100-50 mcg/dose blister with device 1 inh inhalation BID 30 Days Qty: 60 4RF clopidogrel 75 mg tablet 75 mg PO DAILY@08 Hold Instructions: Resume on 06/17/21. gabapentin 300 mg capsule 300 mg PO BID@08,18 docusate sodium [DOK] 100 mg tablet 100 mg PO BID@08,18 furosemide 40 mg tablet 40 mg PO DAILY@08 PreserVision AREDS 14,320-226-200 wylw-yz-sbwl capsule 1 cap PO BID@08,18 One Daily Women's Health 18 mg iron-400 mcg-450 mg Ca tablet 1 tab PO DAILY@08 nitroglycerin 0.4 mg tablet, sublingual 0.4 mg sublingual Q5M PRN (Reason: Chest Pain) Rx Instructions: do not exceed 3 doses per episode acetaminophen 500 mg capsule 1,000 mg PO BID pantoprazole [Protonix] 40 mg tablet,delayed release (DR/EC) 40 mg PO BID hydrocodone-acetaminophen 5-325 mg tablet 1 tab PO BID PRN (Reason: Pain) 30 Days Qty: 60 0RF ranolazine [Ranexa] 500 mg tablet extended release 12 hr 500 mg PO DAILY Qty: 30 6RF ondansetron 4 mg tablet,disintegrating 4 mg PO Q6H PRN (Reason: Nausea) Qty: 15 0RF levetiracetam 750 mg tablet See Rx Instructions .ROUTE .COMPLEX Qty: 60 3RF Dose Instruction: TAKE ONE TABLET BY MOUTH TWICE A DAY FOR SEIZURES. SWALLOW WHOLE, DO NOT CRUSH OR CHEW. Rx Instructions: TAKE ONE TABLET BY MOUTH TWICE A DAY FOR SEIZURES. SWALLOW WHOLE, DO NOT CRUSH OR CHEW. galantamine 4 mg tablet See Rx Instructions .ROUTE .COMPLEX Qty: 60 0RF Dose Instruction: TAKE 1 TABLET BY MOUTH TWICE DAILY IN THE MORNING AND IN THE EVENING WITH MEALS Rx Instructions: TAKE 1 TABLET BY MOUTH TWICE DAILY IN THE MORNING AND IN THE EVENING WITH MEALS ropinirole 1 mg Tablet 1 mg PO BEDTIME@2000 diphenoxylate-atropine [Lomotil] 2.5-0.025 mg Tablet 1 tab PO DAILY PRN (Reason: Diarrhea) polyethylene glycol 3350 [Miralax] 17 gram/dose Powder 17 g PO DAILY PRN (Reason: Constipation) albuterol sulfate 2.5 mg /3 mL (0.083 %) Solution For Nebulization 2.5 mg INHALATION Q4H PRN (Reason: Shortness Of Breath) sennosides-docusate sodium [Senna-S] 8.6-50 mg Tablet 1 tab-cap PO DAILY PRN (Reason: CONSTIPATION (2ND)) cyanocobalamin (vitamin B-12) [Vitamin B-12] 1,000 mcg Tablet 1,000 mcg PO DAILY@08 magnesium citrate Solution 150 ml PO DAILY PRN (Reason: Constipation (1ST)) cholecalciferol (vitamin D3) [Vitamin D3] 50 mcg (2,000 unit) capsule 3,000 unit PO DAILY@08 albuterol sulfate [ProAir HFA] 90 mcg/actuation HFA aerosol inhaler 2 puff INHALATION Q6H PRN (Reason: Shortness Of Breath) Discharge Orders: Discharge ED (Routine); Ordered 03/23/22 Ordered By: Julito Yoon Referrals: Antony Minaya, [Primary Care Provider] - Discharge Diet: Usual diet Discharge Activity: Increase activity as tolerated Patient Instructions: Opioid Safety, Pain Management Activity Restrictions/Additional Instructions: Follow-up with Dr. Kumari within the next 10 to 14 days. Coding Level of Care Code ED Digital Proofing And Platemaker for Teodorag Fwd Exam Comprehensive
== END 2022-03-23 12:18 | disposition home or self-care (01) ==
PROVIDERS: Emergency Provider Family Medicine; PCP Emergency Medicine Emergency Medical Services
DX: R56.9 Unspecified convulsions (principal); Z79.02 Long term (current) use of antithrombotics/antiplatelets; G30.9 Alzheimer's disease, unspecified; F02.80 Dementia in other diseases classified elsewhere, unspecified severity, without behavioral disturbance, psychotic disturbance, mood disturbance, and anxiety; Z86.73 Personal history of transient ischemic attack (TIA), and cerebral infarction without residual deficits; Z95.1 Presence of aortocoronary bypass graft
CPT/HCPCS: 99283

== ENCOUNTER 2022-04-10 15:19 | Inpatient (IN) | payer OTHER, SELFPAY ==
[2022-04-10] VITALS (18 sets, daily range): BP systolic 76–155; BP diastolic 53–97; PULSE 75–153; RESP 15–21; TEMP 36.7–37.9; O2SAT 90–99; BMI 28.1; BMI 30.7
--- NOTE | 2022-04-10 15:34 | XRR_ITS ---
PROCEDURE INFORMATION: Exam: XR Chest Exam date and time: 04/10/2022 4:49 PM Age: 86 years old Clinical indication: Cough and dyspnea; Additional info: Dyspnea/cough TECHNIQUE: Imaging protocol: Radiologic exam of the chest. Views: 1 view. COMPARISON: CR (CHEST, ) 12/31/2021 7:01 PM FINDINGS: Lungs: There is some partial atelectasis at the lung bases. Pleural spaces: Unremarkable. No pleural effusion. No pneumothorax. Heart/Mediastinum: Heart is mildly enlarged. Bones/joints: Sternotomy wires and mediastinal surgical clips are present, consistent with previous coronary arterial bypass grafting. Left shoulder replacement is unchanged. XR/XR chest 1V portable [id number] IMPRESSION: 1. Mild cardiomegaly 2. Mild basilar atelectasis.
[2022-04-10] MEDS: esmolol drip 2,500 MG/250 ML PREMIX 25.18 MG IV (15:39)
[2022-04-10 16:03] LABS: Basophils % 0.1 %; Eosinophils % 0.2 %; Hematocrit 33.7 % (42.0-52.0); Hemoglobin 11.4 g/dL (11.7-16.6); Lymphocytes # 0.8 10^3/uL (0.8-4.8); Lymphocytes % 8.5 %; Mean Corpuscular HGB Conc 33.8 g/dL (30.0-36.0); Mean Corpuscular Hemoglobin 36.8 pg (28.0-34.0); Mean Corpuscular Volume 108.7 fl (80-94); Mean Platelet Volume 10.3 fL (7.4-10.4); Monocytes # 0.4 10^3/uL (0.2-0.9); Monocytes % 4.8 %; Neutrophils # 7.73 10^3/uL (1.8-7.7); Neutrophils % 86.1 %; Nucleated Red Blood Cells % 0 %; Platelet Count 163 10^3/cmm (130-400); Red Cell Distribution Width 12.9 % (12.1-15.1)
[2022-04-10] MEDS: acetaminophen 1,000 MG/100 ML PIGGYBACK 400 MG IV (16:03)
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
[2022-04-10 16:27] LABS: Troponin(5th) Baseline 30 ng/L (0-15)
[2022-04-10 16:28] LABS: Lactic Sepsis W/Reflex 1.9 mmol/L (0.5-2.2)
[2022-04-10 16:29] LABS: Alanine Aminotransferase 25 U/L (0-41); Albumin Level 4.1 g/dL (3.5-5.2); Alkaline Phosphatase 66 U/L (40-130); Anion Gap 14.8 (5-19); Aspartate Amino Transferase 21 U/L (0-40); Blood Urea Nitrogen 17 mg/dL (8-23); Calcium 9.2 mg/dL (8.5-10.5); Carbon Dioxide 30 mmol/L (22-29); Chloride 98 mmol/L (98-107); Creatine Phosphokinase 103 U/L (39-308); Glucose 124 mg/dL (65-115); Osmolality Calculated 291 mOsm/kg (285-295); Potassium 3.8 mmol/L (3.5-5.1); Sodium 139 mmol/L (136-145); Total Bilirubin 0.3 mg/dL (0.15-1.2); Total Protein 7.1 g/dL (6.6-8.7)
--- NOTE | 2022-04-10 16:46 | PC.PHAR ---
pt unable to verify medications-pts states she takes care of the pts medications-pts states pt takes [facility] depakote dr 500mg bid ext med history shows [facility] for er 500mg bid pts states pt not gotten the [facility] rx yet-pts states the pts galantamine 4mg bid was dced on 04/07/22-notes are made in the pharmacy comments
[2022-04-10 16:48] LABS: Add Urine Microscopic? NO; Charge for UA Resulting for Rev
--- NOTE | 2022-04-10 16:56 | ECG_ITS ---
[facility] Test Date: 2022-04-10 Pat Name: Ruthie Bowen Department: Room: Gender: Male Program Clerk: : 1935 Requested By: Julito Caldera Order Number: [id number] Tommy MD: Jonathan Benites M.D. Measurements Intervals [place] Rate: 151 P: 175 RI: 116 QRS: 146 QRSD: 143 T: -12 QT: 312 QTc: 495 Interpretive Statements POSSIBLE ATRIAL FLUTTER RIGHT BUNDLE BRANCH BLOCK [120+ ms QRS DURATION, UPRIGHT V1, 40+ ms S IN I/aVL/V4/V5/V6] LEFT POSTERIOR FASCICULAR BLOCK [QRS AXIS > 109, INFERIOR Q] CRITICAL TEST RESULT Compared to ECG 12/31/2021 18:08:34 Left posterior fascicular block now present Sinus rhythm no longer present Ventricular premature complex(es) no longer present Electronically Signed On 04-10-2022 21:27:44 CDT by Jonathan Benites M.D. [id number]
[2022-04-10 17:03] LABS: Specific Gravity, Urine 1.005 (1.005-1.030); Urine Appearance Clear (CLEAR); Urine Color Yellow (Yellow); pH Urine 6 (5-7)
[2022-04-10 17:04] LABS: Bilirubin Urine Neg (Negative); Blood Urine Neg (Negative); Glucose Urine UA Norm (Normal); Ketones Urine Negative (Negative); Leukocyte Esterase Urine Negative (Negative); Nitrate Urine Negative (Negative); Protein Urine Neg (Negative); Urobilinogen Urine Norm (Negative)
[2022-04-10 17:07] LABS: ABG PCO2 44.3 mmHg (35-45); ABG PH Result 7.39 (7.35-7.45); Alveolar-Arterial Oxygen Gradi 8.7 mmHg (5-10); Arterial Blood Gas Hematocrit 29.7 % (42-52); Base Excess ABG 1.6 mmol/L (-2.0-2.0); Blood Gas Allen Test Pos; Blood Gas Operator Identificat CAK; Blood Gas Sample Site Radial, left; Blood Gas Sample Type Arterial; Carboxyhemoglobin 1.5 %THgb (0.4-20.1); HCO3 ABG 26.9 mmol/L (22-26); HGB O2 Sat 94.1 % (95-100); Ionized Calcium Level - ABG 1.1 mmol/L (1.1-1.4); Methemoglobin 0.7 % (0.4-1.5); Oxygen Device NC; Oxygen Saturation ABG 96.3; PO2 ABG 78.3 mmHg (80.0-100.0); Potassium Level - ABG 3.6 mmol/L (3.5-5.0); Total Hemoglobin 9.7 g/dL (14-18)
[2022-04-10] MEDS: sodium chloride 0.9% 1,000 ML 999 ML IV (17:11)
--- NOTE | 2022-04-10 17:13 | CTR_ITS ---
PROCEDURE INFORMATION: Exam: CT Head Without Contrast Exam date and time: 04/10/2022 5:26 PM Age: 86 years old Clinical indication: Altered mental status/memory loss; Additional info: AMS TECHNIQUE: Imaging protocol: Computed tomography of the head without contrast. Radiation optimization: All CT scans at this facility use at least one of these dose optimization techniques: automated exposure control; mA and/or kV adjustment per patient size (includes targeted exams where dose is matched to clinical indication); or iterative reconstruction. COMPARISON: CT head wo con* [id number] 06/05/2021 12:16 PM RADIATION DOSE METRICS: Total DLP (mGy-cm): 1115.6 FINDINGS: Brain: There is moderate cortical atrophy. Low-density changes in the white matter are consistent with nonspecific small vessel chronic ischemic change. There is no intracranial mass, hemorrhage or edema. Cerebral ventricles: No ventriculomegaly. Paranasal sinuses: There is medial antrectomy of the right maxillary sinus with residual mucosal thickening and mucous retention cysts not significantly changed. Mastoid air cells: Visualized mastoid air cells are well aerated. Bones/joints: Unremarkable. No acute fracture. Soft tissues: Unremarkable. CT/CT head wo con* [id number] IMPRESSION: No acute intracranial finding.
[2022-04-10 17:32] LABS: Creatine Phosphokinase 143 U/L (39-308); Lactic Sepsis W/Reflex 1.3 mmol/L (0.5-2.2); Lipase 13 U/L (13-60)
--- NOTE | 2022-04-10 17:34 | ECG_ITS ---
[facility] Test Date: 2022-04-10 Pat Name: Ruthie Bowen Department: Room: Gender: Male Director Of Market Analysis: : 1935 Requested By: Julito Caldera Order Number: [id number] Tommy MD: Jonathan Benites M.D. Measurements Intervals [place] Rate: 94 P: 10 DE: 145 QRS: 193 QRSD: 154 T: 14 QT: 392 QTc: 491 Interpretive Statements SINUS RHYTHM INTRAVENTRICULAR CONDUCTION DELAY [130+ ms QRS DURATION] RIGHT VENTRICULAR HYPERTROPHY [SOME/ALL OF: PROMINENT R IN V1, LATE TRANSITION, RAD, MARTINEZ, SSS] INFERIOR MYOCARDIAL INFARCTION , PROBABLY OLD [40+ ms Q WAVE AND/OR ST/T ABNORMALITY IN II/aVF] Compared to ECG 04/10/2022 16:56:51 Intraventricular conduction delay now present Atrial abnormality now present Right ventricular hypertrophy now present Myocardial infarct finding now present Right bundle-branch block no longer present Left posterior fascicular block no longer present Electronically Signed On 04-10-2022 21:35:18 CDT by Jonathan Benites M.D. [id number]
[2022-04-10 17:43] LABS: Ketone (Acetest) Serum Negative (Negative)
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
[2022-04-10 18:45] LABS: Troponin 5 2HR 27.01 ng/L (0-15)
[2022-04-10 18:46] LABS: Troponin 5 2HR Delta -2.99 ABS# (0-10)
[2022-04-10] MEDS: heparin 5,000 unit/mL INJ 1 mL 5000 UNIT SUBCUT (20:22)
[2022-04-10] MEDS: ropinirole 1 mg Tablet PO (20:23)
[2022-04-10] MEDS: sodium chloride 0.9% 1,000 ML 75 ML IV (20:24)
[2022-04-10] MEDS: piperacillin-tazobactam 3.375 GM in sodium chloride 0.9% (plus) 50 ML IV (20:24)
[2022-04-10 21:21] LABS: Troponin 5 6HR 31.47 ng/L (0-15); Troponin 5 6HR Delta 1.47 ng/L (0-12)
--- NOTE | 2022-04-10 21:34 | ECG_ITS ---
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 Measurements Intervals [place] Rate: 151 P: 167 IA: 85 QRS: 145 QRSD: 141 T: -7 QT: 304 QTc: 483 Interpretive Statements POSSIBLE ATRIAL FLUTTER RIGHT BUNDLE BRANCH BLOCK [120+ ms QRS DURATION, UPRIGHT V1, 40+ ms S IN I/aVL/V4/V5/V6] LEFT POSTERIOR FASCICULAR BLOCK [QRS AXIS > 109, INFERIOR Q] ST DEPRESSION, CONSIDER SUBENDOCARDIAL INJURY [0.1+ mV ST DEPRESSION] CRITICAL TEST RESULT Compared to ECG 12/31/2021 18:08:34 Left posterior fascicular block now present ST (T wave) deviation now present Sinus rhythm no longer present Ventricular premature complex(es) no longer present Electronically Signed On 04-10-2022 21:34:29 CDT by Jonathan Benites M.D. [id number]
[2022-04-10] MEDS: ranolazine (12HR) 500 mg Tablet PO (22:04)
[2022-04-10] MEDS: sodium chloride 0.9% 1,000 ML 100 ML IV (22:16)
[2022-04-11] VITALS (78 sets, daily range): BP systolic 95–168; BP diastolic 50–137; PULSE 53–174; RESP 14–31; TEMP 36.6–36.9; O2SAT 79–100
[2022-04-11] MEDS: esmolol drip 2,500 MG/250 ML PREMIX 25.18 MG IV (01:08)
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
[2022-04-11] MEDS: piperacillin-tazobactam 3.375 GM in sodium chloride 0.9% (plus) 50 ML IV ×2 (01:30→20:46)
[2022-04-11] MEDS: ziprasidone 20 mg/mL SDV 5 MG IM ×2 (03:21→05:21)
[2022-04-11 04:18] LABS: Basophils % 0.1 %; Eosinophils # 0.1 10^3/uL (0.0-0.8); Eosinophils % 0.9 %; Hemoglobin 10.1 g/dL (11.7-16.6); Lymphocytes # 1.5 10^3/uL (0.8-4.8); Lymphocytes % 21.8 %; Mean Corpuscular HGB Conc 32.6 g/dL (30.0-36.0); Mean Corpuscular Hemoglobin 36.5 pg (28.0-34.0); Mean Corpuscular Volume 111.9 fl (80-94); Mean Platelet Volume 10.7 fL (7.4-10.4); Monocytes # 0.5 10^3/uL (0.2-0.9); Monocytes % 7.4 %; Neutrophils # 4.71 10^3/uL (1.8-7.7); Neutrophils % 69.5 %; Nucleated Red Blood Cells % 0 %; Platelet Count 148 10^3/cmm (130-400); Red Blood Count 2.77 10^6/uL (4.1-5.3); Red Cell Distribution Width 13.2 % (12.1-15.1); White Blood Count 6.8 10^3/uL (4.0-10.0)
[2022-04-11 05:55] LABS: Alanine Aminotransferase 23 U/L (0-41); Albumin Level 3.4 g/dL (3.5-5.2); Alkaline Phosphatase 55 U/L (40-130); Aspartate Amino Transferase 34 U/L (0-40); Blood Urea Nitrogen 15 mg/dL (8-23); Calcium 8.5 mg/dL (8.5-10.5); Carbon Dioxide 27 mmol/L (22-29); Chloride 105 mmol/L (98-107); Globulin 2.8 g/dL (1.3-4.6); Glucose 105 mg/dL (65-115); Osmolality Calculated 293 mOsm/kg (285-295); Sodium 141 mmol/L (136-145); Total Bilirubin 0.4 mg/dL (0.15-1.2); Total Protein 6.2 g/dL (6.6-8.7)
[2022-04-11 05:58] LABS: Anion Gap 12.9 (5-19); Potassium 3.9 mmol/L (3.5-5.1)
[2022-04-11] MEDS: enoxaparin 100 mg/mL Syringe 90 MG SUBCUT (06:34)
[2022-04-11] MEDS: haloperidol inj 5 mg/mL INJ 1 mL 2 MG IM (08:01)
[2022-04-11] MEDS: OLANZapine 10 mg VIAL IM (09:35)
--- NOTE | 2022-04-11 10:36 | ECG_ITS ---
[facility] Test Date: 2022-04-11 Pat Name: Ruthie Bowen Department: Room: ICU06 Gender: Male Cardiographer: : 1935 Requested By: Kandi Tello Order Number: [id number] Tommy MD: James Barbosa M.D. Measurements Intervals Darby Rate: 169 P: HI: QRS: 144 QRSD: 133 T: -18 QT: 220 QTc: 370 Interpretive Statements POSSIBLE ATRIAL FLUTTER WITH RVR RIGHT BUNBLE BRANCH BLOCK Compared to ECG 04/10/2022 17:16:45 Sinus rhythm no longer present Intraventricular conduction delay no longer present Right ventricular hypertrophy no longer present Atrial abnormality no longer present Myocardial infarct finding no longer present Electronically Signed On 04-12-2022 8:28:07 CDT by James Barbosa M.D. [id number]
[2022-04-11] MEDS: metoprolol tartrate 1 mg/1 mL SDV 5 mL 5 MG IVP ×2 (10:42→11:56)
[2022-04-11] MEDS: dexmedeTOMIDine 0.9 % NaCL 400 MCG/100 ML PREMIX 10.94 MCG IV ×2 (10:51→17:36)
--- NOTE | 2022-04-11 15:32 | PM.PN ---
Subjective Subjective: Seen this morning. Patient has been having tachycardia. Seems like SVT versus atrial flutter. He is DNR/DNI therefore will await adenosine at this time. Discussed briefly with cardiology and repeat EKG. Gave patient metoprolol 5 IV x2 placed to do Cardizem drip. Vitals/I&O/Wt Last Vital Signs Temp 98.4 F 04/11/22 12:00 Pulse 127 H 04/11/22 14:30 Resp 31 H 04/11/22 14:30 BP 95/73 04/11/22 14:30 Pulse Ox 79 L 04/11/22 14:30 O2 Del Method 04/11/22 12:00 O2 Flow Rate 2 04/10/22 21:34 04/11/22 04/11/22 04/11/22 06:59 14:59 22:59 Intake Total 141.483 / 3960.261 141.6 / 141.6 Output Total 1100 / 1900 Balance -958.517 / 2060.261 141.6 / 141.6 Weight last 48 hrs Weight 87.498 kg Weight 88.995 kg Weight 83.915 kg Physical Exam Narrative: No acute distress, on 2L NC, NC/AT, EOMI Lungs clear to auscultation b/l, no wheezes or ronchi Abdomen soft but slightly tender close to pelvic area, no guarding, BS + No LE edema, Neuro: confused, moves all 4 extremities, alert but not oriented. Urinary Catheter Management: Cm Latex: Cath Placed During This Visit: yes Reason for Continuing Indwelling Catheter: Accurate Measurement of Urinary Output in Critically Ill Patients Urinary Catheter Date of Insertion: 04/10/22 Urinary Catheter Time of Insertion: 21:54 Data : 04/11/22 03:56 04/11/22 05:16 Micro: Microbiology 04/10/22 17:07 Blood Culture - Preliminary Blood SPECIMEN COLLECTED 04/10/22 17:00 Blood Culture - Preliminary Blood SPECIMEN COLLECTED A&P Assessment and plan (1) Encephalopathy: (2) Tachycardia, paroxysmal: (3) Seizures: (4) Lewy body dementia: Qualifiers: Dementia behavioral disturbance: without behavioral disturbance Qualified Code(s): G31.83 - Dementia with Lewy bodies; F02.80 - Dementia in other diseases classified elsewhere without behavioral disturbance (5) Shortness of breath: (6) DVT (deep venous thrombosis): (7) Chronic back pain: (8) Hyperlipidemia: (9) Hypertension: (10) CAD (coronary artery disease): (11) Seizure: Plan #Frequent falls, found on ground #Hx of Seizures #Lewy body dementia, worsening with hallucinations #Fever of unknown origin #UTI ruled out #SVT Vs. Atrial flutter #Agitation, combativeness, altered - Place on telemetry - Monitor in ICU - COntinue home medications. Check keppra and depakote levels - Unsure of etiology of fever at this time. CXR done. mild cardiomegaly - continue cm. - Reviewed neurology note most recent office visit. Neuro does not believe he is having true seizures. His symptoms are most likely 2/2 to his worsening lewy body dementia. Pt unable to provide history. Vitamin B12 level ok. - Check PT/OT - Check orthostatics - Fall precautions - Will place on zosyn empirically. -Discussed with Dr. Kumari regarding his care. She believes patient is not having seizures - Will consult cardiology regarding patient's tachycardia - Will check CTA but patient will not lay still. Will place on therapeutic lovenox. - Head CT - no acute intracranial finding. - Will switch medications to IV as patient not taking orals consult psych patient may qualify for ese-psych facility has affidavit signed in court and has placed pt on 96 hour hold. - Continue reshma melendrez. Consult cardiology DNR/DNI Heparin for DVT PPX. 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
[2022-04-11] MEDS: pantoprazole 40 mg SDV IVP ×2 (16:05→20:46)
[2022-04-11] MEDS: valproic acid 250 mg/5 mL UDC 500 MG PO (16:05)
[2022-04-11 16:17] LABS: Valproic Acid Level 25.8 ug/mL (50-100)
--- NOTE | 2022-04-11 17:42 | PM.CONSULT ---
Providers/Reason For Consult Consulting Physician/Specialty*: Dr. Greene, Cardiology Reason for Consult*: Tachycardia Attending Physician: Kandi Tello MD Primary Care Provider: Antony Minaya DO History of Present Illness History of Present Illness Ruthie Bowen is a 86 year old male with PMHx of h/o CAD s/p CABG in 2012, last [facility] [place] few years back, Lewy body dementia, h/o DVT, h/o seizures and multiple other problems.?He was admitted with worsening hallucinations, behavioral issues and after being found on the ground. 911 was called. Patient is DNR/DNI. Patient unable to provide any history at this time. He was Found to be tachycardic and was started on esmolol gtt that was continued on and off overnight till this morning. He went back into tachycardiac earlier this afternoon. EKG shows tachycardic rhythm that likley is SVT with RBBB and LPFB. Atrial flutter cannot be completely ruled out. He was started on cardizem gtt and precedex drip for agitation. Adenosine not given d/t his DNR/DNI status. He currently has a sitter. At the time of evaluation, he has converted to SR. Review of Systems General: Reports: ROS unobtainable due to medical condition Medications/Allergies Home Medications Medication Instructions Recorded Confirmed Last Taken Type acetaminophen 500 mg capsule 1,000 mg PO BID 07/06/20 04/10/22 04/10/22 History clopidogrel 75 mg tablet 75 mg PO DAILY@07/06/20 04/10/22 04/10/22 History docusate sodium 100 mg tablet (DOK) 100 mg PO BID@07/06/20 04/10/22 04/10/22 History furosemide 40 mg tablet 40 mg PO DAILY@07/06/20 04/10/22 04/10/22 History gabapentin 300 mg capsule 300 mg PO BID@07/06/20 04/10/22 04/10/22 History multivit-iron 18 mg-folic acid 400 1 tab PO DAILY@07/06/20 04/10/22 04/09/22 History mcg-calcium 450 mg-minerals tablet (One Daily [employer]) nitroglycerin 0.4 mg sublingual 0.4 mg sublingual Q5M PRN Chest 07/06/20 04/10/2206/19/20 History tablet Pain vitamins A,C,Y-szlk-ummddf 14,320 1 cap PO BID@07/06/20 04/10/22 04/10/22 History unit-226 mg-200 unit capsule (PreserVision AREDS) diphenoxylate-atropine 2.5 1 tab PO DAILY PRN Diarrhea 09/20/20 04/10/22 Unknown History mg-0.025 mg tablet (Lomotil) polyethylene glycol 3350 17 17 g PO DAILY PRN Constipation 09/20/20 04/10/22 10/01/20 History gram/dose oral powder (Miralax) ropinirole 1 mg tablet 1 mg PO BEDTIME@199909/20/20 04/10/22 04/09/22 History albuterol sulfate 2.5 mg/3 mL 2.5 mg inhalation Q4H PRN 10/02/20 04/10/22 04/10/22 History (0.083 %) solution for nebulization Shortness Of Breath cyanocobalamin (vitamin B-12) 1,000 mcg PO DAILY@10/02/20 04/10/22 04/09/22 History 1,000 mcg tablet (Vitamin B-12) magnesium citrate 150 ml PO DAILY PRN Constipation 10/02/20 04/10/22 Unknown History sennosides 8.6 mg-docusate sodium 1 tab-cap PO DAILY PRN Constipation 10/02/20 04/10/22 06/05/21 History 50 mg tablet (Senna-S) albuterol sulfate 90 mcg/actuation 2 puff inhalation Q6H PRN 06/05/21 04/10/22 04/10/22 History aerosol inhaler (ProAir HFA) Shortness Of Breath fluticasone 100 mcg-salmeterol 50 1 inh inhalation BID 30 days #60 ea 09/07/21 04/10/22 04/10/22 Rx mcg/dose blistr powdr for inhalation (Wixela Inhub) cholecalciferol (vitamin D3) 50 2,000 unit PO DAILY@11/09/21 04/10/22 04/09/22 History mcg (2,000 unit) capsule (Vitamin D3) hydrocodone 5 mg-acetaminophen 325 1 tab PO BID PRN Pain 30 days #60 11/09/21 04/10/22 04/10/22 Rx mg tablet tabs pantoprazole 40 mg tablet,delayed 40 mg PO BID 11/09/21 04/10/22 04/10/22 History release (Protonix) ondansetron 4 mg disintegrating 4 mg PO Q6H PRN Nausea #15 tabs 03/01/22 04/10/22 Unknown Rx tablet olanzapine 5 mg tablet (Zyprexa) 5 mg PO BID #60 tabs 04/05/22 04/10/22 04/10/22 Rx divalproex 500 mg tablet,delayed 500 mg PO BID #60 tabs 04/06/22 04/10/22 04/10/22 Rx release (Depakote) levetiracetam 500 mg tablet 1,000 mg PO BID 04/10/22 04/10/22 04/10/22 History ranolazine 500 mg tablet,extended 500 mg PO BEDTIME 04/10/22 04/10/22 04/09/22 History release,12 hr (Ranexa) Allergies Allergy/AdvReac Type Severity Reaction Status Date / Time gluten Allergy Mild sick Verified 02/06/22 13:03 atorvastatin Allergy Unknown Verified 02/06/22 13:03 bee venom protein (honey bee) Allergy ADR-Swelling Verified 02/06/22 13:03 of the Eye chllorine Allergy rash Uncoded 01/30/22 09:43 dairy Allergy ALGY-Swell Uncoded 01/30/22 09:43 Lip/Tongue/Throat Current Medications Generic Name Dose Route Start Last Admin Trade Name Freq PRN Reason Stop Dose Admin Albuterol Sulfate 2.5 mg 04/10/22 20:00 04/11/22 16:07 Albuterol 2.5 Mg/0.5 Ml Neb INHALATION Not Given QID.RESPIRATORY ARISTIDES Budesonide 0.5 mg 04/10/22 20:00 04/11/22 09:11 Budesonide 0.5 Mg/2 Ml Neb INHALATION Not Given BID.RESPIRATORY ARISTIDES Clopidogrel Bisulfate 75 mg 04/11/22 08:00 04/11/22 10:52 Clopidogrel 75 Mg Tablet PO Not Given DAILY@08 [facility] Cyanocobalamin 1,000 mcg 04/11/22 18:00 04/11/22 17:34 Cyanocobalamin 1,000 Mcg Tablet PO Not Given DAILY@18 [facility] Divalproex Sodium 500 mg 04/11/22 09:00 04/11/22 10:[address] 500 Mg Tablet PO Not Given BID ARISTIDES Esmolol HCl 2,500 mg in 250 mls @ 0 mls/hr 04/10/22 15:45 04/11/22 10:51 Brevibloc Drip IV 0 mcg/kg/min .Q0M ARISTIDES 0 mls/hr Titration Protocol Per Protocol Piperacillin Sod/Tazobactam 50 mls @ 12.5 mls/hr 04/10/22 18:30 04/11/22 12:04 Sod 3.375 gm/ Sodium Chloride IV Not Given Q8H ARISTIDES Protocol Sodium Chloride 1,000 mls @ 100 mls/hr 04/10/22 21:22 04/11/22 10:57 Sodium Chloride 0.9% IV Not Given .Q10H ARISTIDES dexmedeTOMIDine 0.9 % NaCL 400 mcg in 100 mls @ 0 mls/hr 04/11/22 10:30 04/11/22 17:36 Precedex IV 0.5 mcg/kg/hr .Q0M ARISTIDES 10.94 mls/hr Administration Protocol Per Protocol Diltiazem HCl 50 mg/ Sodium 50 mls @ 0 mls/hr 04/11/22 11:00 04/11/22 17:37 Chloride IV Infused .Q0M ARISTIDES Titration Protocol Per Protocol Levetiracetam 1,000 mg/ Sodium 110 mls @ 440 mls/hr 04/11/22 14:30 04/11/22 16:05 Chloride IV 440 mls/hr 0900,2100 [facility]ES Administration Levetiracetam 1,000 mg 04/11/22 09:00 04/11/22 10:56 Levetiracetam 500 Mg Tablet PO Not Given BID [facility]ID[facility] Metoprolol Tartrate 5 mg 04/11/22 11:45 04/11/22 16:12 Metoprolol Tartrate 1 Mg/1 Ml Sdv 5 Ml IVP Not Given Q4H [facility] Non-Formulary Medication 1 inh 04/11/22 09:00 04/11/22 17:34 Fluticasone Propion-Salmeterol [Wixela Inhub] INHALATION Not Given BID [facility] Olanzapine 10 mg 04/11/22 14:30 04/11/22 15:27 Olanzapine 10 Mg Odt PO Not Given BID@0900,2100 [facility] Pantoprazole Sodium 40 mg 04/11/22 09:00 04/11/22 10:[address] 40 Mg Tablet PO Not Given BID [facility] Pantoprazole Sodium 40 mg 04/11/22 14:30 04/11/22 16:05 Pantoprazole 40 Mg Sdv IVP 40 mg 0900,2100 [facility] Administration Ranolazine 500 mg 04/10/22 21:00 04/10/22 22:04 Ranolazine (12hr) 500 Mg Tablet PO 500 mg BEDTIME [facility]STIDES Administration Ropinirole HCl 1 mg 04/10/22 20:00 04/10/22 20:23 Ropinirole 1 Mg Tablet PO 1 mg BEDTIME@1999 [facility] Administration Valproic Acid 500 mg 04/11/22 14:30 04/11/22 16:05 Valproic Acid 250 Mg/5 Ml Udc PO 500 mg BID@0900,2100 [facility] Administration Vitamin D 2,000 unit 04/11/22 18:00 04/11/22 17:34 Cholecalciferol (Vitamin D3) 1,000 Unit Tablet PO Not Given DAILY@18 [facility] PFSH Acute PFSH: Medical History Acute perforated gastric ulcer with hemorrhage Reports in 1960s, required surgery 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 Alzheimer disease Bronchitis Degenerative lumbar disc DVT (deep venous thrombosis) Dyspnea Essential tremor Generalized seizure History of TIA (transient ischemic attack) Lewy body dementia Lumbar radiculopathy Pneumonia Self-catheterizes urinary bladder every 3-6 days Shortness of breath Urethral stricture Surgical History History of angioplasty 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 History of total knee arthroplasty Family History Other CAD (coronary artery disease) Social History Smoking and tobacco status: never smoked Second hand smoke exposure: No Alcohol intake: never Lives independently: No Household members: spouse Marital status: History of recent travel: Yes Details: [place] Out of state: Yes Vitals/I&O/Wt Last Vital Signs Temp 98.4 F 04/11/22 12:00 Pulse 150 H 04/11/22 16:07 Resp 31 H 04/11/22 14:30 BP 95/73 04/11/22 14:30 Pulse Ox 79 L 04/11/22 14:30 O2 Del Method 04/11/22 12:00 O2 Flow Rate 2 04/10/22 21:34 04/11/22 04/11/22 04/11/22 06:59 14:59 22:59 Intake Total 141.483 / 3960.261 141.6 / 141.6 123.845 / 265.445 Output Total 1100 / 1900 Balance -958.517 / 2060.261 141.6 / 141.6 123.845 / 265.445 Weight last 48 hrs Weight 192 lb 14.4 oz Weight 196 lb 3.2 oz Weight 185 lb Physical Exam Narrative: Gen: laying in bed agitated RS: CTAB/L CVS: S1, S2 regular, No murmur or gallop Ext: No edema or clubbing OUTSOLE FLEXER: drowsy PA: soft, mild diffuse tenderness. Urinary Catheter Management: Shelley Latex: Cath Placed During This Visit: yes Reason for Continuing Indwelling Catheter: Accurate Measurement of Urinary Output in Critically Ill Patients Urinary Catheter Date of Insertion: 04/10/22 Urinary Catheter Time of Insertion: 21:54 Data : 04/11/22 03:56 04/11/22 05:16 Micro: Microbiology 04/10/22 17:07 Blood Culture - Preliminary Blood NEGATIVE TO DATE 04/10/22 17:00 Blood Culture - Preliminary Blood NEGATIVE TO DATE Other data: Date of Service: 12/20/21 Procedure(s): Sestamibi Stress Test Request CONCLUSION: 1. No significant EKG changes with the LexiScan infusion 2. No LexiScan induced chest pain or cardiac arrhythmia 3. Normal blood pressure and heart rate response 4. Sestamibi/sestamibi perfusion scan pending; see separate report. Electronically Signed On 12-20-2021 22:42:53 CDT by Jonathan Benites M.D. Date of Service: 12/20/21 Procedure(s): NM sindhu perf SPECT r/s* [id number] ?IMPRESSIONS ?1.? Myocardial perfusion imaging revealing moderate area of moderately ?decreased tracer uptake in the inferolateral, anterolateral and apical lateral ?regions with some reversibility suggesting myocardial scarring with ischemia in?the distribution of the left circumflex artery. ?2.? Normal LV ejection fraction 61%. ?3.? Mild hypokinesia of the left ventricular apex. ?4.? Normal LV volume. ?No similar previous studies are available for comparison ?Dr Jonathan Benites MD LOCATED WITHIN [facility]? ?(Electronically Signed) Date of Service: 12/19/21 Procedure(s): CV. echo complete* [id number] ?CONCLUSIONS ?1. Normal left ventricular size, systolic function and wall ?thickness, with no regional wall motion abnormalities. Left ?ventricular ejection fraction is estimated at 60 %.? Normal?diastolic function ?2. Mild tricuspid valve regurgitation. ?3. Pulmonary pressure estimated at 33 mmHg. ?4.? No significant change when compared to previous echo dated?02/11/2020. ?Flor Greene MD? ?(Electronically Signed) Date of Service: 02/22/21 Procedure(s): CV carotid duplex BI* [id number] ?CONCLUSIONS ?Right ICA stenosis 50-69%. Moderate atheromatous plaque right?carotid bulb/ICA. ?Left ICA stenosis <50%. Mild atheromatous plaque left carotid?bulb/ICA. ?Normal antegrade Doppler flow noted in the right vertebral?artery. ?Normal antegrade Doppler flow noted in the left vertebral?artery. ?Kan Hermosillo MD? ?(Electronically Signed) Date of Service: 02/11/20 Procedure(s): CV echo complete* [id number] ?CONCLUSIONS ?1. Normal left ventricular size, systolic function and wall ?thickness, with no regional wall motion abnormalities. Left ?ventricular ejection fraction is estimated at? 64%. Normal?diastolic function. ?2. Normal right ventricular size and systolic function. ?3.? Pulmonary artery pressure estimated at 32 mmHg. ?4.? Mild mitral and tricuspid valve regurgitation. ?5.? No prior similar studies to compare. ?Flor Greene MD? 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
[2022-04-11] MEDS: enoxaparin 80 mg/0.8 mL Syringe SUBCUT (19:17)
[2022-04-11] MEDS: sodium chloride 0.9% 1,000 ML 100 ML IV (21:03)
--- NOTE | 2022-04-11 21:10 | PC.NURSE ---
Physician Communication Upon shift assessment, patient able to state name and birthday but unable to state place, time, or situation, and speech is unclear. Day nurse reported patient unable to swallow PO medication; when attempting to assess patient ability to swallow, patient unable. Dr. Bui alerted of patient inability to take PO meds this evening and 96 hour hold discussed. Verbal order received for 1:1 sitter. Additionally, patient's HR remaining in the mid 50s, low 60s. Cardizem and precedex titrated down. Dr. Bui notified; verbal order received to discontinue cardizem drip. Dr. Bui to place PRN order for metoprolol IVP PRN medication. In AUG, volume of cardizem drip displayed as 0 ml/ infused, unable to titrate to show paused.
--- NOTE | 2022-04-11 23:44 | PHA.FALL ---
A Pharmacy Consult Was Conducted For Ruthie Shell Jessi Due To: Lopez Fall Scale Risk Level: High Fall Risk On 04/11/22 20:00 And A Medication Fall Risk Score Greater Than 10. The Recommendations Are As Follows: Due to patient's medical history particularly of seizures, CAD, CABG it is recommended that the patient be closely attended when walking due to the high likely rae of falls. The medications involved include his inhalers, diltizaem, divalproex, levetiracetam, and olanzepine.
[2022-04-12] VITALS (54 sets, daily range): BP systolic 109–174; BP diastolic 55–103; PULSE 52–161; RESP 14–31; TEMP 36.4–37.1; O2SAT 90–100; BMI 30.3
--- NOTE | 2022-04-12 04:43 | PC.NURSE ---
Physician Communication From about 0220 to 0230, patient's HR in the 140s. Following that, HR decreased to previous rate low 60s, mid 50s. Dr. Bui notified. Additionally, patient did not have any morning labs ordered; telephone order received for CMP and CBC for AM labs.
[2022-04-12] MEDS: piperacillin-tazobactam 3.375 GM in sodium chloride 0.9% (plus) 50 ML IV ×2 (05:20→12:07)
[2022-04-12] MEDS: enoxaparin 80 mg/0.8 mL Syringe SUBCUT (05:20)
[2022-04-12 05:25] LABS: Basophils % 0.3 %; Eosinophils % 0.3 %; Hematocrit 31.8 % (42.0-52.0); Hemoglobin 10.4 g/dL (11.7-16.6); Lymphocytes # 1.5 10^3/uL (0.8-4.8); Mean Corpuscular HGB Conc 32.7 g/dL (30.0-36.0); Mean Platelet Volume 10.6 fL (7.4-10.4); Monocytes # 0.5 10^3/uL (0.2-0.9); Monocytes % 7.9 %; Neutrophils # 4.64 10^3/uL (1.8-7.7); Neutrophils % 69.1 %; Nucleated Red Blood Cells % 0 %; Platelet Count 146 10^3/cmm (130-400); Red Blood Count 2.89 10^6/uL (4.1-5.3); Red Cell Distribution Width 12.9 % (12.1-15.1); White Blood Count 6.7 10^3/uL (4.0-10.0)
[2022-04-12 05:45] LABS: Alanine Aminotransferase 24 U/L (0-41); Albumin Level 3.1 g/dL (3.5-5.2); Alkaline Phosphatase 54 U/L (40-130); Anion Gap 15.4 (5-19); Aspartate Amino Transferase 37 U/L (0-40); Blood Urea Nitrogen 15 mg/dL (8-23); Calcium 8.7 mg/dL (8.5-10.5); Carbon Dioxide 24 mmol/L (22-29); Chloride 108 mmol/L (98-107); Globulin 2.9 g/dL (1.3-4.6); Glucose 98 mg/dL (65-115); Osmolality Calculated 297 mOsm/kg (285-295); Potassium 4.4 mmol/L (3.5-5.1); Sodium 143 mmol/L (136-145); Total Bilirubin 0.4 mg/dL (0.15-1.2)
--- NOTE | 2022-04-12 07:47 | W.PM.PSYCONS ---
Providers/Reason for Consult Consulting Physican/Specialty*: Franky Quintero MD. Psychiatry. Reason for Consult*: Aggression and discharge planning Attending Physician: Kandi Tello MD Primary Care Provider: Antony Minaya DO Psych Consult HPI History of Present Illness Ruthie Bowen is a 86 year old male who presented to the emergency department with the following report: Chief complaint: Altered Mental Status Stated complaint: SIDE BY SIDE ACCIDENT Time Seen by Provider: 04/10/22 15:32 Source: patient Mode of arrival: ambulatory Limitations: no limitations History of Present Illness: 86-year-old male brought in by EMS was found unresponsive in a etuf-kx-fzut he has a history of dementia. Family said he has been having hallucinations and is actively having hallucinations when he arrived here he is extremely tachycardic and febrile. When he initially was evaluated there is no one at the bedside to give any further history besides EMS Family arrived later and reported that the patient is having increased dementia and hallucinations. He driven off a awwt-er-cbgg and was found next to the cguc-ho-lyfs on the ground. Been gone for over an hour they are unsure of how long he been down on the ground. Patient is really not able to contribute to any of the history. He denies any chest pain shortness of breath dysuria or diarrhea. No abdominal pain. Onset (ago): hour(s) Severity: moderate Relieving factors: none Exacerbating factors: none Associated symptoms: Reports confusion, decreased appetite, malaise, palpitations and weakness; Deny chest pain, cough, diaphoresis, dyspnea, fevers/chills, headache(s), nausea, rash, seizures, short of breath, syncope or vomiting Treatments prior to arrival: none He was admitted to the ICU for definitive treatment of history of an that he had had significant difficulty with his unprovoked aggression. A psychiatric consult was requested for definitive treatment and evaluation of his aggression and questions about discharge planning. It was a to see him yesterday but he was too somnolent for an evaluation. He presents today without any concerns for aggression since the increase in Zyprexa to 10 mg p.o. daily. He presents reporting that he has had some issues with his memory but now just that he is almost 89 years old. He also uses that excuse to identify why he was having bad behavior. Attempts to explore his memory were met with resistance and protective measures seen with some demented patients where he would give coy responses like I am not going to tell you or I might tell you tomorrow or something of that nature. He denies significant psychiatric history or major issues with addiction but he was fairly resistant as well as compromised historian secondary to his memory difficulties. He denied having any current issues. Meds Home Medications and Allergies Home Medications Medication Instructions Recorded Confirmed Last Taken Type acetaminophen 500 mg capsule 1,000 mg PO BID 07/06/20 04/10/22 04/10/22 History clopidogrel 75 mg tablet 75 mg PO DAILY@07/06/20 04/10/22 04/10/22 History docusate sodium 100 mg tablet (DOK) 100 mg PO BID@07/06/20 04/10/22 04/10/22 History furosemide 40 mg tablet 40 mg PO DAILY@07/06/20 04/10/22 04/10/22 History gabapentin 300 mg capsule 300 mg PO BID@,07/06/20 04/10/22 04/10/22 History multivit-iron 18 mg-folic acid 400 1 tab PO DAILY@07/06/20 04/10/22 04/09/22 History mcg-calcium 450 mg-minerals tablet (One Daily [facility]) nitroglycerin 0.4 mg sublingual 0.4 mg sublingual Q5M PRN Chest 07/06/20 04/10/22 06/19/20 History tablet Pain vitamins A,C,I-zgez-rvzllb 14,320 1 cap PO BID@07/06/20 04/10/22 04/10/22 History unit-226 mg-200 unit capsule (PreserVision AREDS) diphenoxylate-atropine 2.5 1 tab PO DAILY PRN Diarrhea 09/20/20 04/10/22 Unknown History mg-0.025 mg tablet (Lomotil) polyethylene glycol 3350 17 17 g PO DAILY PRN Constipation 09/20/20 04/10/22 10/01/20 History gram/dose oral powder (Miralax) ropinirole 1 mg tablet 1 mg PO BEDTIME@199909/20/20 04/10/22 04/09/22 History albuterol sulfate 2.5 mg/3 mL 2.5 mg inhalation Q4H PRN 10/02/20 04/10/22 04/10/22 History (0.083 %) solution for nebulization Shortness Of Breath cyanocobalamin (vitamin B-12) 1,000 mcg PO DAILY@18 10/02/20 04/10/22 04/09/22 History 1,000 mcg tablet (Vitamin B-12) magnesium citrate 150 ml PO DAILY PRN Constipation 10/02/20 04/10/22 Unknown History sennosides 8.6 mg-docusate sodium 1 tab-cap PO DAILY PRN Constipation 10/02/20 04/10/22 06/05/21 History 50 mg tablet (Senna-S) albuterol sulfate 90 mcg/actuation 2 puff inhalation Q6H PRN 06/05/21 04/10/22 04/10/22 History aerosol inhaler (ProAir HFA) Shortness Of Breath fluticasone 100 mcg-salmeterol 50 1 inh inhalation BID 30 days #60 ea 09/07/21 04/10/22 04/10/22 Rx mcg/dose blistr powdr for inhalation (Wixela Inhub) cholecalciferol (vitamin D3) 50 2,000 unit PO DAILY@18 11/09/21 04/10/22 04/09/22 History mcg (2,000 unit) capsule (Vitamin D3) hydrocodone 5 mg-acetaminophen 325 1 tab PO BID PRN Pain 30 days #60 11/09/21 04/10/22 04/10/22 Rx mg tablet tabs pantoprazole 40 mg tablet,delayed 40 mg PO BID 11/09/21 04/10/22 04/10/22 History release (Protonix) ondansetron 4 mg disintegrating 4 mg PO Q6H PRN Nausea #15 tabs 03/01/22 04/10/22 Unknown Rx tablet olanzapine 5 mg tablet (Zyprexa) 5 mg PO BID #60 tabs 04/05/22 04/10/22 04/10/22 Rx divalproex 500 mg tablet,delayed 500 mg PO BID #60 tabs 04/06/22 04/10/22 04/10/22 Rx release (Depakote) levetiracetam 500 mg tablet 1,000 mg PO BID 04/10/22 04/10/22 04/10/22 History ranolazine 500 mg tablet,extended 500 mg PO BEDTIME 04/10/22 04/10/22 04/09/22 History release,12 hr (Ranexa) Allergies Allergy/AdvReac Type Severity Reaction Status Date / Time gluten Allergy Mild sick Verified 02/06/22 13:03 atorvastatin Allergy Unknown Verified 02/06/22 13:03 bee venom protein (honey bee) Allergy ADR-Swelling Verified 02/06/22 13:03 of the Eye chllorine Allergy rash Uncoded 01/30/22 09:43 dairy Allergy ALGY-Swell Uncoded 01/30/22 09:43 Lip/Tongue/Throat Current Medications Current Medications Generic Name Dose Route Start Last Admin Trade Name Freq PRN Reason Stop Dose Admin Albuterol Sulfate 2.5 mg 04/10/22 20:00 04/11/22 20:29 Albuterol 2.5 Mg/0.5 Ml Neb INHALATION Not Given QID.RESPIRATORY ARIST[facility]ES Budesonide 0.5 mg 04/10/22 20:00 04/11/22 20:29 Budesonide 0.5 Mg/2 Ml Neb INHALATION Not Given BID.RESPIRATORY ARISTIDES Clopidogrel Bisulfate 75 mg 04/11/22 08:00 04/11/22 10:52 Clopidogrel 75 Mg Tablet PO Not Given DAILY@08 [facility] Cyanocobalamin 1,000 mcg 04/11/22 18:00 04/11/22 17:34 Cyanocobalamin 1,000 Mcg Tablet PO Not Given DAILY@18 [facility] Divalproex Sodium 500 mg 04/11/22 09:00 04/11/22 10:[address] 500 Mg Tablet PO Not Given BID ARI[facility] Enoxaparin Sodium 80 mg 04/11/22 18:00 04/12/22 05:20 Enoxaparin 80 Mg/0.8 Ml Syringe 1 mg/kg (90 mg) 80 mg SUBCUT Administration Q12H [facility] Esmolol HCl 2,500 mg in 250 mls @ 0 mls/hr 04/10/22 15:45 04/11/22 10:51 Brevibloc Drip IV 0 mcg/kg/min .Q0M ARISTIDES 0 mls/hr Titration Protocol Per Protocol Piperacillin Sod/Tazobactam 50 mls @ 12.5 mls/hr 04/10/22 18:30 04/12/22 05:20 Sod 3.375 gm/ Sodium Chloride IV 12.5 mls/hr Q8H ARISTIDES Administration Protocol Sodium Chloride 1,000 mls @ 100 mls/hr 04/10/22 21:22 04/11/22 21:03 Sodium Chloride 0.9% IV 100 mls/hr .Q10H ARISTIDES Administration dexmedeTOMIDine 0.9 % NaCL 400 mcg in 100 mls @ 0 mls/hr 04/11/22 10:30 04/11/22 22:56 Precedex IV 0 mcg/kg/hr .Q0M ARISTIDES 0 mls/hr Titration Protocol Per Protocol Diltiazem HCl 50 mg/ Sodium 50 mls @ 0 mls/hr 04/11/22 11:00 04/11/22 19:57 Chloride IV Infused .Q0M ARISTID[facility] Titration Protocol Per Protocol Levetiracetam 1,000 mg/ Sodium 110 mls @ 440 mls/hr 04/11/22 14:30 04/11/22 21:50 Chloride IV Infused 899,2099 [facility] Infusion Levetiracetam 1,000 mg 04/11/22 09:00 04/11/22 10:56 Levetiracetam 500 Mg Tablet PO Not Given BID [facility] Non-Formulary Medication 1 inh 04/11/22 09:00 04/11/22 17:34 Fluticasone Propion-Salmeterol [Wixela Inhub] INHALATION Not Given BID [facility] Olanzapine 10 mg 04/11/22 14:30 04/11/22 21:42 Olanzapine 10 Mg Odt PO Not Given BID@0900,2099 [facility] Pantoprazole Sodium 40 mg 04/11/22 09:00 04/11/22 10:[address] 40 Mg Tablet PO Not Given BID [facility] Pantoprazole Sodium 40 mg 04/11/22 14:30 04/11/22 20:46 Pantoprazole 40 Mg Sdv IVP 40 mg 0900,2099 [facility] Administration Ranolazine 500 mg 04/10/22 21:00 04/11/22 21:42 Ranolazine (12hr) 500 Mg Tablet PO Not Given BEDTIME [facility] Ropinirole HCl 1 mg 04/10/22 20:00 04/11/22 20:42 Ropinirole 1 Mg Tablet PO Not Given BEDTIME@2000 [facility] Valproic Acid 500 mg 04/11/22 14:30 04/11/22 21:42 Valproic Acid 250 Mg/5 Ml Udc PO Not Given BID@0900,2100 [facility] Vitamin D 2,000 unit 04/11/22 18:00 04/11/22 17:34 Cholecalciferol (Vitamin D3) 1,000 Unit Tablet PO Not Given DAILY@18 [facility] PFSH NPU PFSH: Medical History Acute perforated gastric ulcer with hemorrhage Reports in 1960s, required surgery 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 Alzheimer disease Bronchitis Degenerative lumbar disc DVT (deep venous thrombosis) Dyspnea Essential tremor Generalized seizure History of TIA (transient ischemic attack) Lewy body dementia Lumbar radiculopathy Pneumonia Self-catheterizes urinary bladder every 3-6 days Shortness of breath Urethral stricture Surgical History History of angioplasty 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 History of total knee arthroplasty Family History Other CAD (coronary artery disease) Social History Smoking and tobacco status: never smoked Second hand smoke exposure: No Alcohol intake: never Lives independently: No Household members: spouse Marital status: History of recent travel: Yes Details: [place] Out of state: Yes Mental Status Exam MSE Comments: This is an elderly white male in hospital gown with limited grooming and adequate eye contact. No abnormal movements except for multiple retardation. Cooperative with exam in no acute distress. Speech was slightly decreased rate and volume. Mood described as fine, affect subdued. Thought process linear and mostly organized. The remainder simply answered with deflection like I know but I am not telling you or I might tell you tomorrow and explained to disguise his memory issues. Thought content: He denied suicidal homicidal ideation, there are no delusions reported or noted, he denied any auditory or visual hallucinations. Attention and concentration were mostly intact and memory was poor but was not formally tested. He is alert and oriented x3. Insight and judgment limited impulse control limited. Vitals/I&O/Wt Last Vital Signs Temp 97.8 F 04/12/22 04:00 Pulse 70 04/12/22 06:00 Resp 26 H 04/12/22 06:00 BP 119/76 04/12/22 06:00 Pulse Ox 93 04/12/22 06:00 O2 Del Method 04/12/22 06:00 O2 Flow Rate 2 04/12/22 06:00 04/11/22 04/12/22 04/12/22 22:59 06:59 14:59 Intake Total 387.749 / 1529.349 50 / 1579.349 Output Total 900 / 900 465 / 1365 Balance -512.251 / 629.349 -415 / 214.349 Weight last 48 hrs Weight 87.952 kg Weight 87.498 kg Weight 88.995 kg Weight 83.915 kg Physical Exam Urinary Catheter Management: Shelley Latex: Cath Placed During This Visit: yes Reason for Continuing Indwelling Catheter: Accurate Measurement of Urinary Output in Critically Ill Patients Urinary Catheter Date of Insertion: 04/10/22 Urinary Catheter Time of Insertion: 21:54 Data NPU : 04/13/22 03:13 04/13/22 03:13 Micro: Microbiology 04/10/22 17:07 Blood Culture - Preliminary Blood NEGATIVE TO DATE 04/10/22 17:00 Blood Culture - Preliminary Blood NEGATIVE TO DATE Microbiology 04/10/22 17:07 Blood Blood Culture - Preliminary NEGATIVE TO DATE 04/10/22 17:00 Blood Blood Culture - Preliminary NEGATIVE TO DATE A&P Assessment and plan (1) Encephalopathy: (2) Fever: (3) Positive cardiac stress test: (4) Tachycardia, paroxysmal: (5) Macrocytosis: (6) Seizures: (7) Lewy body dementia: Qualifiers: Dementia behavioral disturbance: without behavioral disturbance Qualified Code(s): G31.83 - Dementia with Lewy bodies; F02.80 - Dementia in other diseases classified elsewhere without behavioral disturbance Plan This is a 86-year-old white male with a long history of dementia and recent aggression with concerns about functionality at home. 1. Continue current medication. Agree with increase in Zyprexa. 2. Aggression likely secondary to delirium and psychosis fairly common at this level of dementia. 3. Recommend discharge to retirement specializing in dementia care. 4. Please contact for additional concerns. Attestations NPU Medical Necessity Statement*: N/A. Please see primary team note for full details. Coding Level of Care Code Acute Certified Industrial Hygienist for Tushar Hoskins Diagnoses Encephalopathy G93.40 Fever R50.9 Positive cardiac stress test R94.39 Tachycardia, paroxysmal I47.9 Macrocytosis D75.89 Seizures R56.9 Lewy body dementia G31.83; F02.80 Dementia behavioral disturbance: without behavioral disturbance
[2022-04-12] MEDS: budesonide 0.5 mg/2 mL Neb INHALATION ×2 (08:02→20:34)
--- NOTE | 2022-04-12 08:27 | PM.PN ---
Subjective Subjective: Short run of PSVT overnight, remains on cardizem gtt Medications: Reviewed: Yes Vitals/I&O/Wt Last Vital Signs Temp 97.8 F 04/12/22 04:00 Pulse 69 04/12/22 07:50 Resp 17 04/12/22 07:30 BP 119/76 04/12/22 06:00 Pulse Ox 94 04/12/22 07:30 O2 Del Method 04/12/22 07:30 O2 Flow Rate 2 04/12/22 06:00 04/11/22 04/12/22 04/12/22 22:59 06:59 14:59 Intake Total 387.749 / 1529.349 50 / 1579.349 Output Total 900 / 900 465 / 1365 Balance -512.251 / 629.349 -415 / 214.349 Weight last 48 hrs Weight 193 lb 14.4 oz Weight 192 lb 14.4 oz Weight 196 lb 3.2 oz Weight 185 lb Physical Exam Narrative: Gen: laying in bed agitated RS: CTAB/L CVS: S1, S2 regular, No murmur or gallop Ext: No edema or clubbing 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 PA: soft, mild diffuse tenderness. Urinary Catheter Management: Shelley Latex: Cath Placed During This Visit: yes Reason for Continuing Indwelling Catheter: Accurate Measurement of Urinary Output in Critically Ill Patients Urinary Catheter Date of Insertion: 04/10/22 Urinary Catheter Time of Insertion: 21:54 Data : 04/12/22 04:57 04/12/22 04:57 Micro: Microbiology 04/10/22 17:07 Blood Culture - Preliminary Blood NEGATIVE TO DATE 04/10/22 17:00 Blood Culture - Preliminary Blood NEGATIVE TO DATE A&P Assessment and plan (1) Tachycardia, paroxysmal: Likely SVT, cannot r/o atrial flutter (he is not a candidate for OAC anyways) -continue AV mary blockers -cardigem gtt for now and transition to PO once feasible. -I will sign off, call with questions or concerns. (2) Lewy body dementia: Qualifiers: Dementia behavioral disturbance: without behavioral disturbance Qualified Code(s): G31.83 - Dementia with Lewy bodies; F02.80 - Dementia in other diseases classified elsewhere without behavioral disturbance (3) Hypertension: (4) Hyperlipidemia: (5) CAD (coronary artery disease): Plan Advanced age DNR/DNI Attestations Medical Necessity Statement*: As per primary team. Coding Level of Care Code Acute Director Cardiovascular for Chg Fwd Diagnoses Tachycardia, paroxysmal I47.9 Lewy body dementia G31.83; F02.80 Dementia behavioral disturbance: without behavioral disturbance Hypertension I10 Hyperlipidemia E78.5 CAD (coronary artery disease) I25.10
[2022-04-12] MEDS: pantoprazole 40 mg SDV IVP ×2 (09:12→20:05)
--- NOTE | 2022-04-12 09:37 | PC.NURSE ---
Patient is refusing to take morning meds. Yelliing/cussing at staff, mumbling incomprehensibly but nurse can make out that he is upset about a grandkid. Mental status is variable however, nurse will attempt to administer morning medications later.
[2022-04-12] MEDS: OLANZapine 10 mg ODT PO ×2 (10:54→20:04)
[2022-04-12] MEDS: sodium chloride 0.9% 1,000 ML 100 ML IV ×2 (11:21→20:09)
--- NOTE | 2022-04-12 13:09 | P.PN_ITS ---
Subjective Subjective: Seen this morning. Patient is still confused. Patient's has placed him on a 96-hour hold after speaking to [facility]. Patient continues to be on a Cardizem drip. He will need AV mary blocking agent after discussion with cardiology. He is unable to take oral medications due to his confusion and agitation at times. Will discuss with psychiatry regarding medications. Keppra level high. Depakote level low. Vitals/I&O/Wt Last Vital Signs Temp 98.8 F 04/12/22 08:00 Pulse 61 04/12/22 11:15 Resp 18 04/12/22 11:10 BP 144/69 04/12/22 11:00 Pulse Ox 97 04/12/22 11:10 O2 Del Method 04/12/22 11:10 O2 Flow Rate 2 04/12/22 06:00 04/11/22 04/12/22 04/12/22 22:59 06:59 14:59 Intake Total 387.749 / 1529.349 50 / 7908.384 2306.136 / 1172.136 Output Total 900 / 900 465 / 1365 Balance -512.251 / 629.349 -415 / 499.739 1792.136 / 1172.136 Weight last 48 hrs Weight 87.952 kg Weight 87.498 kg Weight 88.995 kg Weight 83.915 kg Physical Exam Narrative: No acute distress, on 2L NC, keeps talking but is confused. NC/AT, EOMI Lungs clear to auscultation b/l, no wheezes or ronchi Abdomen soft nontender to palpation, no guarding, BS + No LE edema, Neuro: confused, moves all 4 extremities, alert but not oriented. Urinary Catheter Management: Shelley Latex: Cath Placed During This Visit: yes Reason for Continuing Indwelling Catheter: Accurate Measurement of Urinary Output in Critically Ill Patients Urinary Catheter Date of Insertion: 04/10/22 Urinary Catheter Time of Insertion: 21:54 Data : 04/12/22 04:57 04/12/22 04:57 Micro: Microbiology 04/10/22 17:07 Blood Culture - Preliminary Blood NEGATIVE TO DATE 04/10/22 17:00 Blood Culture - Preliminary Blood NEGATIVE TO DATE A&P Assessment and plan (1) Encephalopathy: (2) Tachycardia, paroxysmal: (3) Seizures: (4) Lewy body dementia: Qualifiers: Dementia behavioral disturbance: without behavioral disturbance Qualified Code(s): G31.83 - Dementia with Lewy bodies; F02.80 - Dementia in other diseases classified elsewhere without behavioral disturbance (5) Shortness of breath: (6) DVT (deep venous thrombosis): (7) Chronic back pain: (8) Hyperlipidemia: (9) Hypertension: (10) CAD (coronary artery disease): (11) Seizure: Plan #Frequent falls, found on ground #Hx of Seizures #Lewy body dementia, worsening with hallucinations #Fever of unknown origin?resolved #UTI ruled out #Tachycardia SVT Vs. Atrial flutter #Agitation, combativeness, altered - Place on telemetry - Monitor in ICU - COntinue home medications. Keppra level high, Depakote Keppra level is high and Depakote level is low. Will adjust dose. Placed on Keppra 750 twice daily instead of 1000 twice daily. Patient has not had any other temperature spike or true fever since admission. His T-max was 100.2 at admission. UA is negative. Blood cultures negative to date. No other source of infection apparent at this time. ? Patient continues to be confused. We will stop Precedex drip today. Patient has not had a seizure since admission. B12 levels okay. ? Patient unable to participate in orthostatic vital signs. He is currently restrained and cannot participate with physical therapy as well. ? I will stop Zosyn at this time ? Discussed in detail with Dr. Kumari regarding his care. Patient has severe advanced Lewy body dementia and may benefit from a [facility] facility. ? Psych consult placed. Will discuss with Dr. Quintero regarding patient's medication adjustments and care. ? Zyprexa 10 twice daily ODT ? Depakote 500 twice daily. We do not have IV Depakote available in the hospital. He is on liquid form. We will try to administer it syringe if possible. ? Continue IV Keppra. ? Appreciate recommendations from cardiology. We will continue Cardizem drip for now until patient can be switched to an oral medication. He will need AV mary buster. ? Head CT negative. ? We will switch to Lovenox DVT prophylaxis dose. ? Due to patient's frequent falls after discussion with cardiology patient is not candidate for anticoagulant at this time. DNR/DNI lovenox for DVT PPX. Will call patient's today and give an update. Attestations Medical Necessity Statement*: Continue care in the hospital. Patient on a 96- hour hold at this time. Will discuss with psychiatry regarding further management and disposition. Critical Care Time: 50 Coding Level of Care Code Acute New Order Clerk for Chg Fwd Diagnoses Encephalopathy G93.40 Tachycardia, paroxysmal I47.9 Seizures R56.9 Lewy body dementia G31.83; F02.80 Dementia behavioral disturbance: without behavioral disturbance Shortness of breath R06.02 DVT (deep venous thrombosis) I82.409 Chronic back pain M54.9; G89.29 Hyperlipidemia E78.5 Hypertension I10 CAD (coronary artery disease) I25.10 Seizure R56.9
[2022-04-12] MEDS: clopidogrel 75 mg Tablet PO (13:38)
[2022-04-12] MEDS: valproic acid 250 mg/5 mL UDC 500 MG PO ×2 (13:38→20:04)
--- NOTE | 2022-04-12 13:48 | PC.NURSE ---
Patient has become calm and cooperative. ALert and oriented to person, place, time, and situation. Conversational. Is confused about the events of the past 24 hours, but overall seems to have intact memory. Restraints removed as they are no longer indicated, Morning meds which were missed due to mental status have been given. Physician alerted to improvement.
--- NOTE | 2022-04-12 15:36 | PC.NURSE ---
Patient's heart rate jumped to 150's and was sustaining for about [address] Tello and received ordered to give 25mg of metoprolol PO. Before nurse got a chance to give the metoprolol, the heart rate came down within normal limits. Nurse alerted Dr tello and was advised to hold the ordered metoprolol.
[2022-04-12] MEDS: cholecalciferol (vitamin D3) 1,000 unit Tablet 2000 UNIT PO (18:02)
[2022-04-12] MEDS: cyanocobalamin 1,000 mcg Tablet 1000 MCG PO (18:02)
--- NOTE | 2022-04-12 18:15 | PC.NURSE ---
Shift summary: Around 1200, patient's mental status was suddenly improved upon waking up form a nap. Alert and oriented to person, place, time, and situation. Patient was able to take all oral meds and eat a small amount. Psych eval occurred today and plan is to attempt for [facility] placement with dementia care. visited today and she reports that over the past few years his dementia has worsened. Years ago when this started, he would have short periods of confusion lasting only minutes a few times a year, Now they can happen weekly, and can last anywhere between 20 minutes to 4+ days.
[2022-04-12] MEDS: metoprolol tartrate 25 mg Tablet 12.5 MG PO (19:06)
[2022-04-12] MEDS: ropinirole 1 mg Tablet PO (20:04)
[2022-04-12] MEDS: ranolazine (12HR) 500 mg Tablet PO (20:04)
[2022-04-12] MEDS: levETIRAcetam 750 MG in sodium chloride 0.9% (100 ml) 100 ML 440 MG IV (20:52)
[2022-04-12] MEDS: metoprolol tartrate 1 mg/1 mL SDV 5 mL 2.5 MG IVP ×2 (21:58→23:16)
[2022-04-12] MEDS: dexmedeTOMIDine 0.9 % NaCL 400 MCG/100 ML PREMIX IV (22:42)
[2022-04-13] VITALS (51 sets, daily range): BP systolic 91–164; BP diastolic 51–101; PULSE 44–143; RESP 13–27; TEMP 36.3–36.8; O2SAT 88–99; BMI 30.7
[2022-04-13] MEDS: dilTIAZem 5 mg/mL SDV 5 mL 10 MG IVP (00:16)
--- NOTE | 2022-04-13 01:46 | PC.NURSE ---
HR/Agitation At 213, patient's HR increased into the 150s. Dr. Bui notified; no new orders received. At 2146, patient's HR sustaining in the 150s. Order received for 2.5 mg IVP metoprolol tartrate. Medication administered per AUG. At 2200, patient began moving arms in an agitated manner, swinging legs out of bed, and yelling at staff. Patient not alert to place, time, or situation; HR still maintaining in the 150s. Patient stated, Let me out of this bed or I'm going to kick you in the face. Who wants to be kicked first? Patient made additional threats towards staff and attempted to hit and kick. Education provided on HR, bedrest, and hospital stay. Reorientation provided and verbal deescalation attempted with no success. Patient continued to state There will be bad consequences for you if you do not let me do what I want to do, while also pulling at telemetry wires, IV, and cm. At 2224, Dr. Bui contacted and verbal order received to restart precedex, continue to use restraints as needed, and to monitor HR. Precedex started per AUG, restraints applied to prevent pulling of medical wires. At 2311, patient still exhibiting aggressive behavior and continuing to sustain a HR in the 160s. Precedex titrated up to 0.5 mcg/kg/hr. Dr. Bui updated on patient HR, behavior, and increased titration of precedex. Order received for 2.5 mg metoprolol tartrate IVP once. Medication administered per AUG. At 2340, patient's HR maintaining high 140s, low 150s. Patient acting more calm, not attempting to get out of bed or show physical aggression. Dr. Bui notified; order received to maintain precedex at 0.5 mcg/kg/hr to ensure adequate blood pressures. No other orders received. At 0000, patient's HR continuously in the 130-140s, even while patient calm and resting. Dr. Bui notified; order received for 10 mg cardizem IVP once. Cardizem administered per AUG, following which patient's HR decreased to low 70s. Dr. Bui at bedside during administration and conversion. Precedex order clarified: titrations allowed per protocol as long as vital signs allow. No further orders received.
[2022-04-13 03:36] LABS: Basophils % 0.4 %; Eosinophils % 0.4 %; Hematocrit 28.2 % (42.0-52.0); Hemoglobin 9.3 g/dL (11.7-16.6); Lymphocytes # 1.4 10^3/uL (0.8-4.8); Lymphocytes % 29.6 %; Mean Corpuscular Hemoglobin 36.5 pg (28.0-34.0); Mean Corpuscular Volume 110.6 fl (80-94); Mean Platelet Volume 10.4 fL (7.4-10.4); Monocytes # 0.3 10^3/uL (0.2-0.9); Neutrophils % 62.2 %; Nucleated Red Blood Cells % 0.4 %; Platelet Count 141 10^3/cmm (130-400); Red Blood Count 2.55 10^6/uL (4.1-5.3); Red Cell Distribution Width 12.8 % (12.1-15.1); White Blood Count 4.8 10^3/uL (4.0-10.0)
[2022-04-13 04:02] LABS: Blood Urea Nitrogen 12 mg/dL (8-23); Calcium 8.4 mg/dL (8.5-10.5); Carbon Dioxide 24 mmol/L (22-29); Chloride 107 mmol/L (98-107); Glucose 116 mg/dL (65-115); Osmolality Calculated 293 mOsm/kg (285-295); Sodium 141 mmol/L (136-145)
[2022-04-13] MEDS: dexmedeTOMIDine 0.9 % NaCL 400 MCG/100 ML PREMIX 6.6 MCG IV (05:32)
[2022-04-13] MEDS: sodium chloride 0.9% 1,000 ML 100 ML IV (06:25)
[2022-04-13] MEDS: budesonide 0.5 mg/2 mL Neb INHALATION ×2 (07:49→21:37)
[2022-04-13] MEDS: levETIRAcetam 750 MG in sodium chloride 0.9% (100 ml) 100 ML 440 MG IV ×2 (09:05→21:49)
[2022-04-13] MEDS: pantoprazole 40 mg SDV IVP ×2 (09:13→20:16)
[2022-04-13] MEDS: enoxaparin 40 mg/0.4 mL Syringe SUBCUT (09:13)
--- NOTE | 2022-04-13 09:57 | PC.CHAP ---
Pastoral Care Encounter/Spiritual Assessment Type of Contact [] Declined harbor department manager visit [] Patient/Family/Request visit [] Outpatient visit [] Follow-up visit [] Physician referral [] Code/Alert [x] Routine visit [] Staff referral [] Actively dying [] Patient sleeping [] Family support [] [] Out of room [] Palliative care [] [] Receiving care in room [] Pre-surgical visit [] Trauma [] Long length of stay [x] ICU visit [] Other: Relational/Emotional Strength [] Patient feels connected with others/family/visitors/staff [] Distress [] Loneliness/isolation [] Abandonment Spirituality of Patient [] Person of Leslie [] Attends Restorationism of their Leslie [] Believes in Prayer [] Reads Bible or Caodaism materials [] There are Spiritual issues to be addressed Fountain Helper Interventions []x Prayer [] Active listening [] Non-anxious presence [] Spiritual/emotional support [] Crisis/trauma care [] Spiritual counseling [] Bereavement support [] Provided bereavement packet [] Provided Bible/devotional materials [] Provided toy/stuffed animal, coloring book to patient or family member [] Provided Communion [] Anointing/[place] [] Salvation [x] Completed spiritual assessment [] Other: Impact on Illness or Injury [] Angry [] Fearful [] Anxious [] Often cries [] Exhaustion [] Unable to work [] Unable to attend presybeterian [] Unable to walk/stand [] Unable to read [] Unable to drive [] Unable to eat/drink [] Unable to sleep [] Unable to be with family [] Patient intubated [] Other: Summary Time spent with patient
--- NOTE | 2022-04-13 10:26 | PC.SOCIAL ---
Pg 2 IMM Explained to pt's via phone Pg 2 IMM. No questions voiced. Provided pt a copy. Initialed, dated, & timed a copy & placed in chart.
--- NOTE | 2022-04-13 14:11 | PC.NURSE ---
patient becoming a little agitated about not being able to leave hospital, Dr. Tello advised to call Dr. Quintero, Dr. Rodriguez gave t.o. for seroquel 50 mg tid prn agitation
--- NOTE | 2022-04-13 14:30 | P.PN_ITS ---
Subjective Subjective: Seen this morning. pt asleep. he was placed on precedex drip overnight for . however patient woke up later in the morning and now ao x3 HR dropped to 40's overnight Vitals/I&O/Wt Last Vital Signs Temp 97.3 F L 04/13/22 04:30 Pulse 72 04/13/22 12:30 Resp 21 H 04/13/22 12:30 BP 134/63 04/13/22 12:30 Pulse Ox 93 04/13/22 12:30 O2 Del Method 04/13/22 11:00 O2 Flow Rate 2 04/13/22 11:00 04/12/22 04/13/22 04/13/22 22:59 06:59 14:59 Intake Total 1337.5 / 2509.636 1073.476 / 3583.112 14.006 / 14.006 Output Total 275 / 475 600 / 1075 Balance 1062.5 / 2034.636 473.476 / 2508.112 14.006 / 14.006 Weight last 48 hrs Weight 88.859 kg Weight 87.952 kg Physical Exam Narrative: No acute distress, on 2L NC, NC/AT, EOMI Lungs clear to auscultation b/l, no wheezes or ronchi Abdomen soft nontender to palpation, no guarding, BS + No LE edema, Neuro: AOx3, non focal. Urinary Catheter Management: Shelley Latex: Cath Placed During This Visit: yes Reason for Continuing Indwelling Catheter: Accurate Measurement of Urinary Output in Critically Ill Patients Urinary Catheter Date of Insertion: 04/10/22 Urinary Catheter Time of Insertion: 21:54 Data : 04/13/22 03:13 04/13/22 03:13 A&P Assessment and plan (1) Encephalopathy: (2) Tachycardia, paroxysmal: (3) Seizures: (4) Lewy body dementia: Qualifiers: Dementia behavioral disturbance: without behavioral disturbance Qualified Code(s): G31.83 - Dementia with Lewy bodies; F02.80 - Dementia in other diseases classified elsewhere without behavioral disturbance (5) Shortness of breath: (6) DVT (deep venous thrombosis): (7) Chronic back pain: (8) Hyperlipidemia: (9) Hypertension: (10) CAD (coronary artery disease): (11) Seizure: Plan #Frequent falls, found on ground #Hx of Seizures #Lewy body dementia, worsening with hallucinations #Fever of unknown origin?resolved #UTI ruled out #Tachycardia SVT Vs. Atrial flutter #Agitation, combativeness, altered - Place on telemetry - Monitor in ICU - COntinue home medications. Keppra level high, Depakote Keppra level is high and Depakote level is low. Will adjust dose. Placed on Keppra 750 twice daily instead of 1000 twice daily. Patient has not had any other temperature spike or true fever since admission. His T-max was 100.2 at admission. UA is negative. Blood cultures negative to date. No other source of infection apparent at this time. ? Patient continues to be confused. We will stop Precedex drip today. Patient has not had a seizure since admission. B12 levels okay. ? Patient unable to participate in orthostatic vital signs. He is currently restrained and cannot participate with physical therapy as well. ? I will stop Zosyn at this time ? Discussed in detail with Dr. Kumari regarding his care. Patient has severe advanced Lewy body dementia and may benefit from a [facility] [facility] ? Psych consult placed. Will discuss with Dr. Quintero regarding patient's medication adjustments and care. ? Zyprexa 10 twice daily ODT ? Depakote 500 twice daily. - COntinue keppra ? Appreciate recommendations from cardiology. DUe to Low HR will try toprol 12.5 mg daily. ? Head CT negative. ? Continue Lovenox DVT prophylaxis dose. ? Due to patient's frequent falls after discussion with cardiology patient is not candidate for anticoagulant at this time. Patient's mental status is a lot better. He is alert and oriented now. He has been doing well since yesterday. Overnight he did have sundowning and got agitated. He received precedex drip briefly which was later turned off. present at bedside Psych has evaluated patient and [facility]. machine pan greaser working on placement. may transfer to med surg today put on toprol 12.5 daily signed an affadavit with [facility] to place patient on 96 hour old however we have not placed him on a 96 hour hold at this time. He is not appropriate for discharge and we are working on placement to dementia facility. Pt has waxing waning mental status and at times is not oriented and unable to make his own decisions. I don't believe he has capacity to make his own decisions due to advanced lewy body dementia. DNR/DNI lovenox for DVT PPX. Attestations Medical Necessity Statement*: Continue care in the hospital. Will discuss with psychiatry regarding further management and disposition. Critical Care Time: 50 Coding Level of Care Code Acute Fixed Income Trading Vice President for Chg Fwd Diagnoses Encephalopathy G93.40 Tachycardia, paroxysmal I47.9 Seizures R56.9 Lewy body dementia G31.83; F02.80 Dementia behavioral disturbance: without behavioral disturbance Shortness of breath R06.02 DVT (deep venous thrombosis) I82.409 Chronic back pain M54.9; G89.29 Hyperlipidemia E78.5 Hypertension I10 CAD (coronary artery disease) I25.10 Seizure R56.9
[2022-04-13] MEDS: cyanocobalamin 1,000 mcg Tablet 1000 MCG PO (17:26)
[2022-04-13] MEDS: cholecalciferol (vitamin D3) 1,000 unit Tablet 2000 UNIT PO (17:26)
--- NOTE | 2022-04-13 18:36 | PC.NURSE ---
Shift sumary: Patient had a brief episode of agitation but resolved self once left. rested majority of day with no issues
[2022-04-13] MEDS: ranolazine (12HR) 500 mg Tablet PO (20:16)
[2022-04-13] MEDS: valproic acid 250 mg/5 mL UDC 500 MG PO (20:16)
[2022-04-13] MEDS: ropinirole 1 mg Tablet PO (20:16)
[2022-04-13] MEDS: OLANZapine 10 mg ODT PO (20:16)
[2022-04-14] VITALS (42 sets, daily range): BP systolic 111–204; BP diastolic 49–114; PULSE 53–124; RESP 9–31; TEMP 36.9; O2SAT 91–96; BMI 30.7
[2022-04-14] MEDS: levETIRAcetam 750 MG in sodium chloride 0.9% (100 ml) 100 ML 440 MG IV (08:16)
[2022-04-14] MEDS: enoxaparin 40 mg/0.4 mL Syringe SUBCUT (08:16)
[2022-04-14] MEDS: OLANZapine 10 mg ODT PO (08:17)
[2022-04-14] MEDS: pantoprazole 40 mg SDV IVP (08:17)
--- NOTE | 2022-04-14 11:48 | PC.CHAP ---
Pastoral Care Encounter/Spiritual Assessment Type of Contact [] Declined linemarker visit [] Patient/Family/Request visit [] Outpatient visit [] Follow-up visit [] Physician referral x [] Code/Alert [] Routine visit [] Staff referral [] Actively dying [] Patient sleeping [] Family support [] [] Out of room [] Palliative care [] [] Receiving care in room [] Pre-surgical visit [] Trauma [] Long length of stay [x] ICU visit [] Other: Relational/Emotional Strength [] Patient feels connected with others/family/visitors/staff [] Distress [] Loneliness/isolation [] Abandonment Spirituality of Patient [] Person of Leslie [] Attends Lutheran of their Leslie [] Believes in Prayer [] Reads Bible or Orthodox materials [] There are Spiritual issues to be addressed Journeyman Machinist Interventions [x] Prayer [] Active listening [] Non-anxious presence [] Spiritual/emotional support [] Crisis/trauma care [] Spiritual counseling [] Bereavement support [] Provided bereavement packet [] Provided Bible/devotional materials [] Provided toy/stuffed animal, coloring book to patient or family member [] Provided Communion [] Anointing/[place] [] Salvation [x] Completed spiritual assessment [] Other: Impact on Illness or Injury [] Angry [] Fearful [] Anxious [] Often cries [] Exhaustion [] Unable to work [] Unable to attend hinduism [] Unable to walk/stand [] Unable to read [] Unable to drive [] Unable to eat/drink [] Unable to sleep [] Unable to be with family [] Patient intubated [] Other: Summary Time spent with patient
--- NOTE | 2022-04-14 13:13 | P.PN_ITS ---
Subjective Subjective: Seen this morning. No acute overnight events reported by nurse. Heart rate stable. Patient sitting up in chair appearing comfortable at this time. Alert oriented x2. Vitals/I&O/Wt Last Vital Signs Temp 98.4 F 04/14/22 04:00 Pulse 58 L 04/14/22 11:00 Resp 15 04/14/22 11:00 BP 124/66 04/14/22 11:00 Pulse Ox 93 04/14/22 09:09 O2 Del Method 04/14/22 09:09 O2 Flow Rate 2 04/13/22 11:00 04/13/22 04/14/22 04/14/22 22:59 06:59 14:59 Intake Total 747.5 / 869.006 Output Total 850 / 850 925 / 1775 Balance -102.5 / 19.006 -925 / -905.994 Weight last 48 hrs Weight 88.859 kg Weight 88.859 kg Physical Exam Narrative: No acute distress, on 2L NC, NC/AT, EOMI Lungs clear to auscultation b/l, no wheezes or ronchi Abdomen soft nontender to palpation, no guarding, BS + No LE edema, Neuro: AOx2, non focal. Urinary Catheter Management: Shelley Latex: Cath Placed During This Visit: yes Reason for Continuing Indwelling Catheter: Accurate Measurement of Urinary Output in Critically Ill Patients Urinary Catheter Date of Insertion: 04/10/22 Urinary Catheter Time of Insertion: 21:54 Data : 04/13/22 03:13 04/13/22 03:13 A&P Assessment and plan (1) Encephalopathy: (2) Tachycardia, paroxysmal: (3) Seizures: (4) Lewy body dementia: Qualifiers: Dementia behavioral disturbance: without behavioral disturbance Qualified Code(s): G31.83 - Dementia with Lewy bodies; F02.80 - Dementia in other diseases classified elsewhere without behavioral disturbance (5) Shortness of breath: (6) DVT (deep venous thrombosis): (7) Chronic back pain: (8) Hyperlipidemia: (9) Hypertension: (10) CAD (coronary artery disease): (11) Seizure: Plan #Frequent falls, found on ground #Hx of Seizures #Lewy body dementia, worsening with hallucinations #Fever of unknown origin?resolved #UTI ruled out #Tachycardia SVT Vs. Atrial flutter #Agitation, combativeness, altered - Place on telemetry - Monitor in ICU - COntinue home medications. Keppra level high, Depakote Keppra level is high and Depakote level is low. Will adjust dose. Placed on Keppra 750 twice daily instead of 1000 twice daily. Patient has not had any other temperature spike or true fever since admission. His T-max was 100.2 at admission. UA is negative. Blood cultures negative to date. No other source of infection apparent at this time. ? Patient continues to be confused. We will stop Precedex drip today. Patient has not had a seizure since admission. B12 levels okay. ? Patient unable to participate in orthostatic vital signs. He is currently restrained and cannot participate with physical therapy as well. ? I will stop Zosyn at this time ? Discussed in detail with Dr. Kumari regarding his care. Patient has severe advanced Lewy body dementia and may benefit [facility] a [facility] ? Psych consult placed. Will discuss with Dr. Quintero regarding patient's medication adjustments and care. ? Zyprexa 10 twice daily ODT ? Depakote 500 twice daily. - COntinue keppra ? Appreciate recommendations from cardiology. Verapamil 80 3 times daily. Patient seems to be tolerating well. ? Head CT negative. ? Continue Lovenox DVT prophylaxis dose. ? Due to patient's frequent falls after discussion with cardiology patient is not candidate for anticoagulant at this time. Patient's mental status is a lot better. He is alert and oriented now. He has been doing well since yesterday. Overnight he did have sundowning and got agitated. He received precedex drip briefly which was later turned off. present at bedside Psych has evaluated [facility] and [facility]. social media community manager working on placement. may transfer to med surg today signed an affadavit with [facility] to place patient on 96 hour old h owever we have not placed him on a 96 hour hold at this time. He is not appropriate for discharge and we are working on placement to dementia facility. Pt has waxing waning mental status and at times is not oriented and unable to make his own decisions. I don't believe he has capacity to make his own decisions due to advanced lewy body dementia. DNR/DNI lovenox for DVT PPX. Attestations Medical Necessity Statement*: Continue care in the hospital. Will discuss with psychiatry regarding further management and disposition. Pending placement Critical Care Time: 50 Coding Level of Care Code Acute Director Of Manufacturing for Chg Fwd Diagnoses Encephalopathy G93.40 Tachycardia, paroxysmal I47.9 Seizures R56.9 Lewy body dementia G31.83; F02.80 Dementia behavioral disturbance: without behavioral disturbance Shortness of breath R06.02 DVT (deep venous thrombosis) I82.409 Chronic back pain M54.9; G89.29 Hyperlipidemia E78.5 Hypertension I10 CAD (coronary artery disease) I25.10 Seizure R56.9
[2022-04-14] MEDS: cyanocobalamin 1,000 mcg Tablet 1000 MCG PO (17:32)
[2022-04-14] MEDS: cholecalciferol (vitamin D3) 1,000 unit Tablet 2000 UNIT PO (17:32)
--- NOTE | 2022-04-14 19:20 | PC.NURSE ---
Patient transferred to [facility] room 272 at 1905. PSA accompanied transport to sit 1:1 with patient. All belongings brought to room with patient.
[2022-04-15] VITALS: BP 162/67; PULSE 89; RESP 18; TEMP 36.7; O2SAT 94
[2022-04-15 04:00] VITALS: BP 155/69; PULSE 80; RESP 21; TEMP 36.7; O2SAT 93
[2022-04-15 08:00] VITALS: BP 170/92; PULSE 110; PULSE 96; RESP 17; TEMP 36.9; O2SAT 94
[2022-04-15] MEDS: OLANZapine 10 mg ODT PO (09:50)
[2022-04-15] MEDS: clopidogrel 75 mg Tablet PO (09:50)
[2022-04-15] MEDS: valproic acid 250 mg/5 mL UDC 500 MG PO (09:51)
[2022-04-15] MEDS: pantoprazole 40 mg SDV IVP (09:51)
[2022-04-15] MEDS: levETIRAcetam 750 MG in sodium chloride 0.9% (100 ml) 100 ML 440 MG IV (10:49)
[2022-04-15 12:00] VITALS: BP 136/75; PULSE 103; RESP 17; TEMP 36.9; O2SAT 92
--- NOTE | 2022-04-15 12:11 | PC.SOCIAL ---
IMM Update pg 2 of IMM updated and reviewed w/ patients . Copy provided and Copy in chart dated and initialed.
--- NOTE | 2022-04-15 12:13 | PM.PN ---
Subjective Subjective: seen this am. no acute events overnight. pt very alert oriented x3. He knows where he is, what is going on and talks about his history of cabg and his health issues. asking to go home. sitter still in room. patient very appropriate this AM. Pleasant change Vitals/I&O/Wt Last Vital Signs Temp 98.5 F 04/15/22 12:00 Pulse 103 H 04/15/22 12:00 Resp 17 04/15/22 12:00 BP 136/75 04/15/22 12:00 Pulse Ox 92 04/15/22 12:00 O2 Del Method 04/15/22 12:00 O2 Flow Rate 2 04/13/22 11:00 04/14/22 04/15/22 04/15/22 22:59 06:59 14:59 Intake Total 100 / 207.5 0 / 207.5 1277.5 / 1277.5 Output Total 850 / 850 500 / 1350 Balance -750 / -642.5 -500 / -1142.5 1277.5 / 1277.5 Weight last 48 hrs Weight 89.312 kg Weight 88.859 kg Physical Exam Narrative: No acute distress, on 2L NC, NC/AT, EOMI Lungs clear to auscultation b/l, no wheezes or ronchi Abdomen soft nontender to palpation, no guarding, BS + No LE edema, Neuro: AOx3, non focal. Urinary Catheter Management: Shelley Latex: Cath Placed During This Visit: yes Reason for Continuing Indwelling Catheter: Acute Urinary Retention or Obstruction Urinary Catheter Date of Insertion: 04/10/22 Urinary Catheter Time of Insertion: 21:54 Data : 04/13/22 03:13 04/13/22 03:13 A&P Assessment and plan (1) Encephalopathy: (2) Tachycardia, paroxysmal: (3) Seizures: (4) Lewy body dementia: Qualifiers: Dementia behavioral disturbance: without behavioral disturbance Qualified Code(s): G31.83 - Dementia with Lewy bodies; F02.80 - Dementia in other diseases classified elsewhere without behavioral disturbance (5) Shortness of breath: (6) DVT (deep venous thrombosis): (7) Chronic back pain: (8) Hyperlipidemia: (9) Hypertension: (10) CAD (coronary artery disease): (11) Seizure: Plan #Frequent falls, found on ground #Hx of Seizures #Lewy body dementia, worsening with hallucinations, STABLE #Fever of unknown origin?resolved #UTI ruled out #Tachycardia SVT Vs. Atrial flutter - RESOLVED #Agitation, combativeness, altered - RESOLVED - Place on telemetry - Monitor in ICU - COntinue home medications. Keppra level high, Depakote Keppra level is high and Depakote level is low. Will adjust dose. - Continue keppra 750 BID, Depakote 500 BID - B12 levels ok - Psych consult placed. Will discuss with Dr. Quintero regarding patient's medication adjustments and care. ? Zyprexa 10 twice daily ODT ? Appreciate recommendations from cardiology. Verapamil 80 3 times daily. Patient seems to be tolerating well. ? Head CT negative. ? Continue Lovenox DVT prophylaxis dose. ? Due to patient's frequent falls after discussion with cardiology patient is not candidate for anticoagulant at this time. signed an affadavit with [facility] to place patient on 96 hour old however we have not placed him on a 96 hour hold at this time. He is not appropriate for discharge and we are working on placement to dementia facility. Pt has waxing waning mental status and at times is not oriented and unable to make his own decisions. - Today i believe patient is doing really well and has capacity to make his decisions. He would like go home and was very surprised at hearing that NH is being planned. He is alert oriented x3. I discussed with Dr. Quintero. He will re-assess patient and give his recommendation as well. Patient may be able to possibly go home. Will discuss with his as well. DNR/DNI lovenox for DVT PPX. Attestations Medical Necessity Statement*: Continue care in the hospital. Will discuss with psychiatry regarding further management and disposition. Pending placement Critical Care Time: 50 Coding Level of Care Code Acute Ice Sculptor for [facility] Fwd Diagnoses Encephalopathy G93.40 Tachycardia, paroxysmal I47.9 Seizures R56.9 Lewy body dementia G31.83; F02.80 Dementia behavioral disturbance: without behavioral disturbance Shortness of breath R06.02 DVT (deep venous thrombosis) I82.409 Chronic back pain M54.9; G89.29 Hyperlipidemia E78.5 Hypertension I10 CAD (coronary artery disease) I25.10 Seizure R56.9
--- NOTE | 2022-04-15 13:34 | W.PM.NPUPNS ---
Subjective NPU Subjective: Patient presents today reporting that he is doing fine. It was clear that his does not want him to come home and would rather him go to a facility. He kept stressing that he feels like he has earned the right to at home. She talked about functional limitations at home and often disagreed with his reports as to what actually happened. He endorsed being knowledgeable about his cognitive limitations and knowing he has Lewy body dementia. He reports [facility]. Mental Status Exam MSE Comments: This is an elderly white male in hospital gown with adequate grooming and adequate eye contact. No abnormal movements. Cooperative with exam in no acute distress. Speech was normal rate and volume. Mood described as good, affect congruent. Thought process linear and organized. Thought content: He denied suicidal homicidal ideation, there are no delusions reported or noted, he denied any auditory or visual hallucinations. Attention and concentration were intact and memory was grossly intact with some notable memory gaps but was not formally tested. He is alert and oriented x3. Insight and judgment fair impulse control fair Vitals/I&O/Wt Last Vital Signs Temp 98.5 F 04/15/22 12:00 Pulse 103 H 04/15/22 12:00 Resp 17 04/15/22 12:00 BP 136/75 04/15/22 12:00 Pulse Ox 92 04/15/22 12:00 O2 Del Method 04/15/22 12:00 O2 Flow Rate 2 04/13/22 11:00 04/14/22 04/15/22 04/15/22 22:59 06:59 14:59 Intake Total 100 / 207.5 0 / 207.5 1277.5 / 1277.5 Output Total 850 / 850 500 / 1350 Balance -750 / -642.5 -500 / -1142.5 1277.5 / 1277.5 Weight last 48 hrs Weight 89.312 kg Weight 88.859 kg Physical Exam Urinary Catheter Management: Shelley Latex: Cath Placed During This Visit: yes Reason for Continuing Indwelling Catheter: Acute Urinary Retention or Obstruction Urinary Catheter Date of Insertion: 04/10/22 Urinary Catheter Time of Insertion: 21:54 Data NPU : 04/13/22 03:13 04/13/22 03:13 A&P Assessment and plan (1) Encephalopathy: (2) Fever: (3) Positive cardiac stress test: (4) Tachycardia, paroxysmal: (5) Macrocytosis: (6) Seizures: (7) Lewy body dementia: Qualifiers: Dementia behavioral disturbance: without behavioral disturbance Qualified Code(s): G31.83 - Dementia with Lewy bodies; F02.80 - Dementia in other diseases classified elsewhere without behavioral disturbance Plan This is a 86-year-old white male with a long history of dementia and recent aggression with concerns about functionality at home. 1. Continue current medication. Agree with increase in Zyprexa. 2. Aggression likely secondary to delirium and psychosis fairly common at this level of dementia. 3. Given PT/OT and a Kristine exam. 4. Appears to have capacity and is expressing a desire to go home and be managed at home. I would recommend that Dr. Kumari who knows him well also way in on her thoughts about his capacity longitudinally. But currently he appears to be functional enough to make his own decisions. Attestations NPU Medical Necessity Statement*: N/A. Please see primary team note for full details. Coding Level of Care Code Acute Senior Health Consultant for [facility] Diagnoses Encephalopathy G93.40 Fever R50.9 Positive cardiac stress test R94.39 Tachycardia, paroxysmal I47.9 Macrocytosis D75.89 Seizures R56.9 Lewy body dementia G31.83; F02.80 Dementia behavioral disturbance: without behavioral disturbance
[2022-04-15 15:49] VITALS: BP 176/84; PULSE 107; RESP 16; TEMP 36.7; O2SAT 95
[2022-04-15] MEDS: cyanocobalamin 1,000 mcg Tablet 1000 MCG PO (17:48)
[2022-04-15] MEDS: levETIRAcetam 500 mg Tablet 750 MG PO (17:48)
[2022-04-15] MEDS: quetiapine 25 mg Tablet 50 MG PO (17:48)
[2022-04-15] MEDS: cholecalciferol (vitamin D3) 1,000 unit Tablet 2000 UNIT PO (17:49)
[2022-04-15 20:00] VITALS: PULSE 102; RESP 18; O2SAT 95
--- NOTE | 2022-04-15 23:50 | PC.NURSE ---
Shortly after shift patient became agitated and began yelling in hallway.He was wandering the mark at this time as well. At this time he began swinging his cane at staff. Security was called to assist with calming the patient. When talking with the patient, he stated he was at [facility]. This nurse explained to the patient that he was in the hospital. He then asked how he got here, we explained he was brought in by ambulance. At this time he slammed his cane on the floor and yelled No how did I get here?! I explained he was in ICU and transported to this floor by wheelchair. He shoot his head and stated that we were all just crooks. Security arrived and began talking with patient. They were able to keep patient in the room and talk for a short time. The patient remained in room for a short stint of time before wandering the halls again. The sitter remained with the patient for safety. This nurse approached the patient and asked if shift assessment could be performed, to which he responded with a decline. A little later this nurse approached patient about night meds, to which the patient declined also. The patient would continue to walk the mark at different times. One point the patient approached this nurse and asked where a woman was, I asked who she was and he replied Griffin[facility] . I asked who griffin was and he went on to call me obscenities and walk away. The patient stayed in his room for several hours and slept from 2300 to 0100, when he woke up and decided he was leaving and attempted to get dress. He began walking halls and attempting to leave. He was redirected from the elevators and stairs. He is currently walking halls. He is using very profound language towards staff. He is using his cane to bang on objects.
--- NOTE | 2022-04-16 07:45 | PC.NURSE ---
PATIENT LEFT HIS ROOM AND LEFT THE UNIT THROUGH THE ACCESS DOORS THAT LEAD TO THE MOB AND UNIT 2A. THIS NURSE CALLED FOR A CODE 10 TO ASSIST ANA CALMING THE PATIENT. HE AT THIS TIME BEGAN SWINGING HIS CANE AT THIS NURSE AND OTHER STAFF. THE CANE WAS ABLE TO BE REMOVED FROM THE PATIENT'S POCESSION. SECURITY THEN PLACED THE PATIENT IN A WHEELCHAIR AND TRANSPORTED BACK TO ROOM.
[2022-04-16 08:00] VITALS: BP 143/69; PULSE 92; PULSE 95; RESP 16; RESP 17; O2SAT 91; O2SAT 97
--- NOTE | 2022-04-16 08:19 | PC.NURSE ---
At approximately 2200 this nurse was informed by Jo-Ann VICENTE that the patient had a fall. When asked what happened the aid stated that the patient attempted to shut the door on her and while she calling for help due to the patient swinging his cane at her. When the patient asked about fall he stated he did not fall. There were no obvious injuries, the patient would not allow assessment.
[2022-04-16] MEDS: clopidogrel 75 mg Tablet PO (09:29)
[2022-04-16] MEDS: pantoprazole DR 40 mg Tablet PO (09:30)
[2022-04-16] MEDS: levETIRAcetam 500 mg Tablet 750 MG PO ×2 (09:30→17:07)
[2022-04-16] MEDS: valproic acid 250 mg/5 mL UDC 500 MG PO ×2 (09:34→20:18)
[2022-04-16] MEDS: OLANZapine 10 mg TABLET PO (09:34)
--- NOTE | 2022-04-16 10:20 | P.DS_ITS ---
Discharge Providers Date of Admission: 04/10/22 21:22 Date of Discharge: April 16, 2022 Attending Provider at Admission: Kandi Tello MD Attending Provider at Discharge: aKndi Tello MD Primary Care Provider: Antony Minaya DO Diagnoses at Discharge Discharge Diagnosis (1) Encephalopathy: Status: Acute (2) Fever: Status: Acute (3) Positive cardiac stress test: Status: Acute (4) Tachycardia, paroxysmal: Status: Acute (5) Macrocytosis: Status: Acute (6) Seizures: Status: Acute (7) Lewy body dementia: Status: Acute Qualifiers: Dementia behavioral disturbance: without behavioral disturbance Qualified Code(s): G31.83 - Dementia with Lewy bodies; F02.80 - Dementia in other diseases classified elsewhere without behavioral disturbance Reason for Visit Reason for Visit: SIDE BY SIDE ACCIDENT Physical Exam Urinary Catheter Management: Shelley Latex: Cath Placed During This Visit: yes, but has since been removed by the nurse Reason for Continuing Indwelling Catheter: Decision to DC Catheter Urinary Catheter Date of Insertion: 04/10/22 Urinary Catheter Time of Insertion: 21:54 Date Urinary Catheter Removed: 04/15/22 Time Urinary Catheter Discontinued: 15:00 Discharge Data Studies Completed and Pending Completed Studies During Hospitalization Category Date Time Status CT head wo con* [id number] Stat Cat Scan 04/10/22 17:13 Completed XR chest 1V portable [id number] Stat Exams 04/10/22 15:34 Completed Pending at discharge Category Date Time Status Sputum Culture and Gram Stain Stat Lab 04/10/22 18:18 Uncollected Radiology Impressions Chest X-Ray 04/10/22 15:34 IMPRESSION: 1. Mild cardiomegaly 2. Mild basilar atelectasis. Head CT 04/10/22 17:13 IMPRESSION: No acute intracranial finding. Laboratory Results WBC 4.8 10^3/uL (4.0-10.0) 04/13/22 03:13 RBC 2.55 10^6/uL (4.1-5.3) L 04/13/22 03:13 Hgb 9.3 g/dL (11.7-16.6) L 04/13/22 03:13 Hct 28.2 % (42.0-52.0) L 04/13/22 03:13 MCV 110.6 fl (80-94) H 04/13/22 03:13 MCH 36.5 pg (28.0-34.0) H 04/13/22 03:13 MCHC 33.0 g/dL (30.0-36.0) 04/13/22 03:13 RDW 12.8 % (12.1-15.1) 04/13/22 03:13 Plt Count 141 10^3/cmm (130-400) 04/13/22 03:13 MPV 10.4 fL (7.4-10.4) 04/13/22 03:13 Neut % (Auto) 62.2 % 04/13/22 03:13 Lymph % (Auto) 29.6 % 04/13/22 03:13 Wells % (Auto) 7.0 % 04/13/22 03:13 Eos % (Auto) 0.4 % 04/13/22 03:13 Baso % (Auto) 0.4 % 04/13/22 03:13 Neut # (Auto) 3.00 10^3/uL (1.8-7.7) 04/13/22 03:13 Lymph # (Auto) 1.4 10^3/uL (0.8-4.8) 04/13/22 03:13 Wells # (Auto) 0.3 10^3/uL (0.2-0.9) 04/13/22 03:13 Eos # (Auto) 0.0 10^3/uL (0.0-0.8) 04/13/22 03:13 Baso # (Auto) 0.0 10^3/uL (0.0-0.1) 04/13/22 03:13 Nucleated RBC % (auto) 0.4 % 04/13/22 03:13 Nucleated RBCs # 0.0 /100WBC 04/13/22 03:13 Specimen Type Arterial 04/10/22 16:56 Sample Site Radial, left 04/10/22 16:56 ABG pH 7.39 (7.35-7.45) 04/10/22 16:56 ABG pCO2 44.3 mmHg (35-45) 04/10/22 16:56 ABG pO2 78.3 mmHg (80.0-100.0) L 04/10/22 16:56 ABG HCO3 26.9 mmol/L (22-26) H 04/10/22 16:56 ABG O2 Saturation 96.3 04/10/22 16:56 ABG Base Excess 1.6 mmol/L (-2.0-2.0) 04/10/22 16:56 Aaron Test Pos 04/10/22 16:56 A-a O2 Gradient 8.7 mmHg (5-10) 04/10/22 16:56 Hematocrit 29.7 % (42-52) L 04/10/22 16:56 Hgb O2 Saturation 94.1 % (95-100) L 04/10/22 16:56 Carboxyhemoglobin 1.5 %THgb (0.4-20.1) 04/10/22 16:56 Methemoglobin 0.7 % (0.4-1.5) 04/10/22 16:56 Total Hemoglobin 9.7 g/dL (14-18) L 04/10/22 16:56 Sodium 142.0 mmol/L (131-143) 04/10/22 16:56 Potassium 3.6 mmol/L (3.5-5.0) 04/10/22 16:56 Glucose 118.0 mg/dL (70-115) H 04/10/22 16:56 Ionized Calcium 1.1 mmol/L (1.1-1.4) 04/10/22 16:56 O2 Delivery Device Nc 04/10/22 16:56 O2 Liters/Min 2.0 % 04/10/22 16:56 FiO2 28.0 % 04/10/22 16:56 Vice President Global Advertising Sales ID Cak 04/10/22 16:56 Sodium 141 mmol/L (136-145) 04/13/22 03:13 Potassium 4.0 mmol/L (3.5-5.1) 04/13/22 03:13 Chloride 107 mmol/L (98-107) 04/13/22 03:13 Carbon Dioxide 24 mmol/L (22-29) 04/13/22 03:13 Anion Gap 14.0 (5-19) 04/13/22 03:13 BUN 12 mg/dL (8-23) 04/13/22 03:13 Creatinine 1.0 mg/dL (0.7-1.2) 04/13/22 03:13 GFR Calculation Not Reportable 04/13/22 03:13 Glucose 116 mg/dL (65-115) H 04/13/22 03:13 Calculated Osmolality 293 mOsm/kg (285-295) 04/13/22 03:13 Lactic Acid 2.0 mmol/L (0.5-2.2) 04/10/22 20:30 Calcium 8.4 mg/dL (8.5-10.5) L 04/13/22 03:13 Magnesium 2.0 mg/dL (1.7-2.3) 04/11/22 05:16 Total Bilirubin 0.4 mg/dL (0.15-1.2) 04/12/22 04:57 AST 37 U/L (0-40) 04/12/22 04:57 ALT 24 U/L (0-41) 04/12/22 04:57 Alkaline Phosphatase 54 U/L (40-130) 04/12/22 04:57 Creatine Kinase 143 U/L (39-308) 04/10/22 17:00 Troponin T Baseline 30 ng/L (0-15) H 04/10/22 15:50 Troponin T 120 Minute 27.01 ng/L (0-15) H 04/10/22 18:14 Delta Troponin T -2.99 ABS# (0-10) L 04/10/22 18:14 Troponin T Hi Sens 6Hr 31.47 ng/L (0-15) H 04/10/22 20:30 Troponin T Hi Sens 6Hr Delta 1.47 ng/L (0-12) 04/10/22 20:30 Total Protein 6.0 g/dL (6.6-8.7) L 04/12/22 04:57 Albumin 3.1 g/dL (3.5-5.2) L 04/12/22 04:57 Globulin 2.9 g/dL (1.3-4.6) 04/12/22 04:57 Lipase 13 U/L (13-60) 04/10/22 17:00 Urine Color Yellow (Yellow) 04/10/22 16:35 Urine Appearance Clear (CLEAR) 04/10/22 16:35 Urine pH 6 (5-7) 04/10/22 16:35 Ur Specific [place] 1.005 (1.005-1.030) 04/10/22 16:35 Urine Protein Neg (Negative) 04/10/22 16:35 Urine Glucose (UA) Norm (Normal) 04/10/22 16:35 Urine Ketones Negative (Negative) 04/10/22 16:35 Urine Blood Neg (Negative) 04/10/22 16:35 Urine Nitrate Negative (Negative) 04/10/22 16:35 Urine Bilirubin Neg (Negative) 04/10/22 16:35 Urine Urobilinogen Norm mg/dL (Negative) 04/10/22 16:35 Ur Leukocyte Esterase Negative (Negative) 04/10/22 16:35 Valproic Acid 25.8 ug/mL (50-100) L 04/11/22 05:16 Levetiracetam 51.0 mcg/mL (6.0-46.0) H 04/10/22 15:50 Serum Ketones Negative (Negative) 04/10/22 17:00 Vitals Last Vital Signs Temp 98.1 F 04/15/22 15:49 Pulse 95 04/16/22 08:00 Resp 17 04/16/22 08:00 BP 143/69 04/16/22 08:00 Pulse Ox 91 04/16/22 08:00 O2 Del Method 04/16/22 08:00 O2 Flow Rate 2 04/13/22 11:00 Discharge Plan Discharge Patient Disposition: Home Condition: Stable Prescriptions: No Action fluticasone propion-salmeterol [Wixela Inhub] 100-50 mcg/dose blister with device 1 inh inhalation BID 30 Days Qty: 60 4RF clopidogrel 75 mg tablet 75 mg PO DAILY@08 Hold Instructions: Until your primary care provider has an opportunity to review the risks and benefits of being on Plavix. gabapentin 300 mg capsule 300 mg PO BID@ docusate sodium [DOK] 100 mg tablet 100 mg PO BID@08, furosemide 40 mg tablet 40 mg PO DAILY@08 PreserVision AREDS [id number] pzug-ip-uieu capsule 1 cap PO BID@,18 One Daily Women's Health 18 mg iron-400 mcg-450 mg Ca tablet 1 tab PO DAILY@18 nitroglycerin 0.4 mg tablet, sublingual 0.4 mg sublingual Q5M PRN (Reason: Chest Pain) Rx Instructions: do not exceed 3 doses per episode acetaminophen 500 mg capsule 1,000 mg PO BID pantoprazole [Protonix] 40 mg tablet,delayed release (DR/EC) 40 mg PO BID hydrocodone-acetaminophen 5-325 mg tablet 1 tab PO BID PRN (Reason: Pain) 30 Days Qty: 60 0RF ondansetron 4 mg tablet,disintegrating 4 mg PO Q6H PRN (Reason: Nausea) Qty: 15 0RF olanzapine [Zyprexa] 5 mg tablet 5 mg PO BID Qty: 60 1RF Depakote 500 mg tablet,delayed release (DR/EC) 500 mg PO BID Qty: 60 3RF ropinirole 1 mg Tablet 1 mg PO BEDTIME@2000 diphenoxylate-atropine [Lomotil] 2.5-0.025 mg Tablet 1 tab PO DAILY PRN (Reason: Diarrhea) polyethylene glycol 3350 [Miralax] 17 gram/dose Powder 17 g PO DAILY PRN (Reason: Constipation) albuterol sulfate 2.5 mg /3 mL (0.083 %) Solution For Nebulization 2.5 mg INHALATION Q4H PRN (Reason: Shortness Of Breath) sennosides-docusate sodium [Senna-S] 8.6-50 mg Tablet 1 tab-cap PO DAILY PRN (Reason: Constipation) cyanocobalamin (vitamin B-12) [Vitamin B-12] 1,000 mcg Tablet 1,000 mcg PO DAILY@18 magnesium citrate Solution 150 ml PO DAILY PRN (Reason: Constipation) cholecalciferol (vitamin D3) [Vitamin D3] 50 mcg (2,000 unit) capsule 2,000 unit PO DAILY@18 albuterol sulfate [ProAir HFA] 90 mcg/actuation HFA aerosol inhaler 2 puff INHALATION Q6H PRN (Reason: Shortness Of Breath) levetiracetam 500 mg tablet 1,000 mg PO BID Ranexa 500 mg tablet extended release 12 hr 500 mg PO BEDTIME Referrals: Antony Minaya DO [Primary Care Provider] - Patient Instructions: Opioid Safety Coding Level of Care Code Acute [facility]g [facility] note Diagnoses Encephalopathy G93.40 Fever R50.9 Positive cardiac stress test R94.39 Tachycardia, paroxysmal I47.9 Macrocytosis D75.89 Seizures R56.9 Lewy body dementia G31.83; F02.80 Dementia behavioral disturbance: without behavioral disturbance
--- NOTE | 2022-04-16 13:38 | P.PN_ITS ---
Subjective Subjective: Patient was able to void yesterday evening around 7 PM. This morning he got up from bed and wandered off into the hospitals old COVID unit. Code 10 was called. Patient had to be brought back to his room in a wheelchair. He got agitated and restless. I went to evaluate patient bedside. When I saw him he said that he does not like people touching him. And he wanted to go home. He wanted to know when his will be in. Patient was not aware of the fact that he was on a 96-hour hold since admission. This hold was placed by the court. Explained to the patient regarding the hold and told him that until that hold is lifted he cannot leave the hospital legally. Patient seem to demons trate understanding and said that he will wait for an answer from us. He is alert oriented x3 at this time. Vitals/I&O/Wt Last Vital Signs Temp 98.1 F 04/15/22 15:49 Pulse 95 04/16/22 08:00 Resp 17 04/16/22 08:00 BP 143/69 04/16/22 08:00 Pulse Ox 91 04/16/22 08:00 O2 Del Method 04/16/22 08:00 O2 Flow Rate 2 04/13/22 11:00 04/15/22 04/16/22 04/16/22 22:59 06:59 14:59 Output Total 650 / 650 Balance -650 / 627.5 Weight last 48 hrs Weight 89.312 kg Physical Exam Narrative: No acute distress, on 2L NC, NC/AT, EOMI Lungs clear to auscultation b/l, no wheezes or ronchi Abdomen soft nontender to palpation, no guarding, BS + No LE edema, Neuro: AOx3, non focal. Urinary Catheter Management: Shelley Latex: Cath Placed During This Visit: yes, but has since been removed by the nurse Reason for Continuing Indwelling Catheter: Decision to DC Catheter Urinary Catheter Date of Insertion: 04/10/22 Urinary Catheter Time of Insertion: 21:54 Date Urinary Catheter Removed: 04/15/22 Time Urinary Catheter Discontinued: 15:00 Data : 04/13/22 03:13 04/13/22 03:13 Micro: Microbiology 04/10/22 17:07 Blood Culture - Final Blood NO GROWTH AFTER 5 DAYS 04/10/22 17:00 Blood Culture - Final Blood NO GROWTH AFTER 5 DAYS A&P Assessment and plan (1) Encephalopathy: (2) Tachycardia, paroxysmal: (3) Seizures: (4) Lewy body dementia: Qualifiers: Dementia behavioral disturbance: without behavioral disturbance Qualified Code(s): G31.83 - Dementia with Lewy bodies; F02.80 - Dementia in other diseases classified elsewhere without behavioral disturbance (5) Shortness of breath: (6) DVT (deep venous thrombosis): (7) Chronic back pain: (8) Hyperlipidemia: (9) Hypertension: (10) CAD (coronary artery disease): (11) Seizure: Plan #Frequent falls, found on ground #Hx of Seizures #Lewy body dementia, worsening with hallucinations, STABLE #Fever of unknown origin?resolved #UTI ruled out #Tachycardia SVT Vs. Atrial flutter - RESOLVED #Agitation, combativeness, altered - RESOLVED - Place on telemetry - Monitor in ICU - COntinue home medications. Keppra level high, Depakote Keppra level is high and Depakote level is low. Will adjust dose. - Continue keppra 750 BID, Depakote 500 BID - B12 levels ok - Psych consult placed. Will discuss with Dr. Quintero regarding patient's medication adjustments and care. ? Zyprexa 10 twice daily ODT ? Appreciate recommendations from cardiology. Verapamil 80 3 times daily. Patient seems to be tolerating well. ? Head CT negative. ? Continue Lovenox DVT prophylaxis dose. ? Due to patient's frequent falls after discussion with cardiology patient is not candidate for anticoagulant at this time. signed an affadavit with [facility] to place patient on 96 hour old however we have not placed him on a 96 hour hold at this time. Initially after admission patient was not appropriate for discharge. He was not alert or oriented and unable to make his own decisions. However after adjustment of his medications patient has been more alert oriented and Dr. Quintero and I believe he does have capacity to make his decisions at this time. -It turns out patient is on a 96-hour hold by the court at this time from [facility]. -Patient's was willing to take him home yesterday as patient was alert oriented and feeling much better compared to prior. Home health company was going to be set up. -We will call patient's today to let her know of his progress and to see if she will be coming in to pick him up. -Patient does appear to have capacity and does have aggression from time to time secondary to delirium and psychosis which is fairly common at this level of dementia. I believe if he were to go home with a family member it would be okay however he cannot be discharged home alone. [place] with no services for up to 21 miles around them. Patient is unsafe to be alone by himself. He will be a risk to himself if that were the case. He can be dis charged safely home as long as family can agree to be with him 22/01. He does have times where he is very very appropriate and does have episodes of delirium and psychosis as the has explained twice previously. Last 48 hours however patient has been appropriate except this morning and had to be called as he wandered off. After medication adjustment he has not been aggressive in last 48 hours. -We will plan to discharge patient home today as long as family can come pick him up. DNR/DNI lovenox for DVT PPX. Attestations Medical Necessity Statement*: Plan to send patient home today as long this family can pick them up. He cannot be sent home alone and must require supervision. Coding Level of Care Code Acute Mix Maker for [facility] Fwd Diagnoses Encephalopathy G93.40 Tachycardia, paroxysmal I47.9 Seizures R56.9 Lewy body dementia G31.83; F02.80 Dementia behavioral disturbance: without behavioral disturbance Shortness of breath R06.02 DVT (deep venous thrombosis) I82.409 Chronic back pain M54.9; G89.29 Hyperlipidemia E78.5 Hypertension I10 CAD (coronary artery disease) I25.10 Seizure R56.9
[2022-04-16 15:08] VITALS: BP 149/80; PULSE 100; RESP 17; O2SAT 94
[2022-04-16] MEDS: cholecalciferol (vitamin D3) 1,000 unit Tablet 2000 UNIT PO (17:07)
[2022-04-16] MEDS: cyanocobalamin 1,000 mcg Tablet 1000 MCG PO (17:07)
--- NOTE | 2022-04-16 18:05 | PC.NURSE ---
PATIENT'S 96 HOUR HOLD WAS RESENDED BY DR. JOSEPH. THIS NURSE ATTEMPTED TO CALL AND RECEIVED PRETTY LANGSTON INSTEAD. I TOLD IVIS THAT PATIENT WOULD BE DISCHARGED HOME TODAY AND IVIS STATED HER MOTHER WAS IN THE HOSPITAL WITH A DIVERTICULITIS FLARE UP BECAUSE OF MRLinh KINGSTON' BEHAVIOR AND THAT THEY WOULD NOT COME PICK HIM UP. THAT THE SHAREPOINT TRAINER HAVE BEEN CALLED MULTIPLE TIMES BECAUSE OF HIS VIOLENT BEHAVIOR AT HOME. THIS NURSE TOLD IVIS THAT SHE WOULD CONTACT DR. MEDINA AND CASE MANAGEMENT AND CALL HER BACK. THIS NURSE CONTACTED DR. MEDINA AND EXPLAINED THE SITUATION. I THEN CONTACTED ENVELOPE FOLDING MACHINE OPERATOR WHO CONTACTED ADMINISTRATION FINANCIAL REPORTING SPECIALIST AND ANDREW TIERNEY. ANDREW TIERNEY CALLED AND EXPLAINED THAT IF PATIENT WAS NO LONGER ON A 96 HOUR HOLD THAT WE COULD NOT HOLD THE PATIENT. THAT IF DR. MEDINA DECIDED TO NOT DISCHARGE THAT PATIENT WOULD BE ABLE TO LEAVE AMA IF THAT WAS HIS WISH. DR. MEDINA NOTIFIED OF THIS UPDATE. DR. MEDINA THEN EXPRESSED THAT SHE DID NOT FEEL COMFORTABLE DISCHARGING THE PATIENT HOME WITHOUT SOMEONE BEING THERE TO HELP HIM. DR. JOSEPH THEN CAME TO THE FLOOR AND SAW THE PATIENT. HE ASKED THE PATIENT IF HE WOULD BE WILLING TO STAY UNTIL WE COULD MAKE SAFER ARRANGEMENTS FOR HIM TO GO HOME. PATIENT AGREED TO STAY AT THIS TIME. DR. JOSEPH ALSO EXPLAINED TO THE PATIENT THAT IF HE TRIED TO LEAVE THAT HE WOULD BE PLACED ON ANOTHER 96 HOUR HOLD TO KEEP HIM HERE FOR HIS OWN SAFETY. PATIENT STATED HE UNDERSTOOD. PATIENT HAS BEEN MORE CALM THIS AFTERNOON WITH 1:1 SITTER AT BEDSIDE. PRETTY LANGSTON HAS BEEN UPDATED AND AGREED TO THE PLAN. DR. MEDINA NOTIFIED WELL.
--- NOTE | 2022-04-16 18:45 | W.PM.NPUPNS ---
Subjective NPU Subjective: Patient presented today reporting that he is doing well. He was very frustrated at the fact that the plan for discharge was diverted secondary to his being in the hospital. However we discussed the fact that given the circumstances of his admission, his Lewy body dementia and the likelihood he would be home alone that discharge was not safe. He further punctuated our concerns identifying that he has not driven in some time but that if he found himself in a situation where he thought he needed to get somewhere and there was no one to take him that he would drive and we identified the great risk that would come with that. We agreed that he would stay and we would look to work with the treatment team in the morning to figure out if there was any person in his [place] that could serve as a support as he is returning home checking in on him. Additionally we discussed trying to get home health in place. Mental Status Exam MSE Comments: This is an elderly white male in hospital gown with adequate grooming and adequate eye contact. No abnormal movements. Cooperative with exam in no acute distress. Speech was normal rate and volume. Mood described as good, affect congruent. Thought process linear and organized. Thought content: He denied suicida orl homicidal ideation, there are no delusions reported or noted, he denied any auditory or visual hallucinations. Attention and concentration were intact and memory was grossly intact with some notable memory gaps but was not formally tested. He is alert and oriented x3. Insight and judgment fair impulse control fair. However memory challenges and likely stubbornness make him a great risk to take dangerous chances if he is left home alone without options. Vitals/I&O/Wt Last Vital Signs Temp 99.2 F 04/16/22 19:47 Pulse 90 04/16/22 20:00 Resp 16 04/16/22 20:00 BP 153/70 04/16/22 19:47 Pulse Ox 94 04/16/22 20:00 O2 Del Method 04/16/22 20:00 O2 Flow Rate 2 04/13/22 11:00 04/16/22 14:59 Intake Total Output Total Balance Physical Exam Urinary Catheter Management: Shelley Latex: Cath Placed During This Visit: yes, but has since been removed by the nurse Reason for Continuing Indwelling Catheter: Decision to DC Catheter Urinary Catheter Date of Insertion: 04/10/22 Urinary Catheter Time of Insertion: 21:54 Date Urinary Catheter Removed: 04/15/22 Time Urinary Catheter Discontinued: 15:00 Data NPU : 04/13/22 03:13 04/13/22 03:13 A&P Assessment and plan (1) Encephalopathy: (2) Tachycardia, paroxysmal: (3) Seizures: (4) Lewy body dementia: Qualifiers: Dementia behavioral disturbance: without behavioral disturbance Qualified Code(s): G31.83 - Dementia with Lewy bodies; F02.80 - Dementia in other diseases classified elsewhere without behavioral disturbance (5) Shortness of breath: (6) DVT (deep venous thrombosis): (7) Chronic back pain: (8) Hyperlipidemia: (9) Hypertension: (10) CAD (coronary artery disease): (11) Seizure: (12) Fever: (13) Positive cardiac stress test: (14) Macrocytosis: Plan This is a 86-year-old white male with a long history of dementia and recent aggression with concerns about functionality at home. 1. Continue current medication. Agree with increase in Zyprexa. 2. Aggression likely secondary to delirium and psychosis fairly common at this level of dementia. 3. Recommend PT/OT and a Kristine exam. 4. Appears to have capacity and is expressing a desire to go home and be managed at home with supports like his and home health. Currently without his and home health in place discharge to home without someone was going to check in on him at least every other day would create undue risk. I would recommend that Dr. Kumari who knows him well also way in on her thoughts about his capacity longitudinally. 5. We will follow in the morning. Attestations NPU Medical Necessity Statement*: N/A. Please see primary team note for full details. Coding Level of Care Code Acute Medical Coding Auditor for [facility] Fwd Diagnoses Encephalopathy G93.40 Tachycardia, paroxysmal I47.9 Seizures R56.9 Lewy body dementia G31.83; F02.80 Dementia behavioral disturbance: without behavioral disturbance Shortness of breath R06.02 DVT (deep venous thrombosis) I82.409 Chronic back pain M54.9; G89.29 Hyperlipidemia E78.5 Hypertension I10 CAD (coronary artery disease) I25.10 Seizure R56.9 Fever R50.9 Positive cardiac stress test R94.39 Macrocytosis D75.89
[2022-04-16 19:47] VITALS: BP 153/70; PULSE 73; RESP 18; TEMP 37.3; O2SAT 98
[2022-04-16 20:00] VITALS: PULSE 90; RESP 16; O2SAT 94
[2022-04-16] MEDS: ranolazine (12HR) 500 mg Tablet PO (20:18)
[2022-04-16] MEDS: OLANZapine 10 mg ODT PO (20:18)
[2022-04-16] MEDS: ropinirole 1 mg Tablet PO (20:18)
--- NOTE | 2022-04-16 20:37 | PC.NURSE ---
Pt was mostly coopoperative during the assessment, but had a burst of anger while trying to assess marble machine tender strength. The patient grabbed the nurses hands, squeezed tightly, and twisted the nurses arms roughly. The patient then exclaimed See? I'm perfectly capable of taking care of myself! and began to express upset at not being able to go home.
[2022-04-17 08:00] VITALS: PULSE 83; RESP 18; O2SAT 93
[2022-04-17] MEDS: pantoprazole DR 40 mg Tablet PO (10:14)
[2022-04-17] MEDS: enoxaparin 40 mg/0.4 mL Syringe SUBCUT (10:14)
[2022-04-17] MEDS: clopidogrel 75 mg Tablet PO (10:14)
[2022-04-17] MEDS: OLANZapine 10 mg ODT PO (10:15)
[2022-04-17] MEDS: valproic acid 250 mg/5 mL UDC 500 MG PO (10:15)
[2022-04-17] MEDS: levETIRAcetam 500 mg Tablet 750 MG PO (10:15)
[2022-04-17 12:00] VITALS: BP 115/66; PULSE 98; RESP 18; TEMP 37; O2SAT 92
[2022-04-17 13:32] VITALS: BP 115/66; PULSE 98; RESP 18; TEMP 37; O2SAT 92
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
--- NOTE | 2022-04-17 13:33 | PC.NURSE ---
IV removed, catheter noted to be intact. Pressure dressing applied, pt tolerated well. Discharge instructions given per physician's orders, daughter noted to be at side. Patient instructed to make follow up appointment with PCP, as patient was insistent on going home. Medications sent to patient requested pharmacy. Patient ambulated to front entrance accompanied by daughter.
== END 2022-04-17 13:38 | disposition home or self-care (01) | DRG 57 ==
LOC: ER 19:06 → ICU 20:34 → MEDSURG 04-14 19:19
PROVIDERS: Internal Medicine; Admitting Provider Internal Medicine; Emergency Provider Family Medicine; PCP Emergency Medicine Emergency Medical Services; Visit Provider Family Medicine
DX: G31.83 Neurocognitive disorder with Lewy bodies (principal); F02.82 Dementia in other diseases classified elsewhere, unspecified severity, with psychotic disturbance; F02.811 Dementia in other diseases classified elsewhere, unspecified severity, with agitation; F05 Delirium due to known physiological condition; I48.92 Unspecified atrial flutter; I47.1 Supraventricular tachycardia; Z86.73 Personal history of transient ischemic attack (TIA), and cerebral infarction without residual deficits; N35.919 Unspecified urethral stricture, male, unspecified site; Z86.718 Personal history of other venous thrombosis and embolism; G25.0 Essential tremor; G40.909 Epilepsy, unspecified, not intractable, without status epilepticus; Z66 Do not resuscitate; Z57.4 Occupational exposure to toxic agents in agriculture; M54.16 Radiculopathy, lumbar region; Z87.01 Personal history of pneumonia (recurrent); I25.10 Atherosclerotic heart disease of native coronary artery without angina pectoris; Z95.1 Presence of aortocoronary bypass graft; Z96.612 Presence of left artificial shoulder joint; Z96.659 Presence of unspecified artificial knee joint; I47.9 Paroxysmal tachycardia, unspecified; D75.89 Other specified diseases of blood and blood-forming organs; E78.5 Hyperlipidemia, unspecified; R29.6 Repeated falls; G89.29 Other chronic pain
CPT/HCPCS: 36415; 36600; 51702; 70450; 71045; 80048; 80051; 80053; 80164; 80177; 81003; 82009; 82330; 82550; 82805; 83605; 83690; 83735; 84484; 85025; 87040; 92523; 92610; 93005; 94640; 96361; 96365; 96372; 96375; 99291; C9113; J0153; J1630; J1644; J1650; J1953; J2543; J3486; J3490; J7030; J7611; J7626

== ENCOUNTER 2022-04-23 12:13 | Emergency (ER) | payer OTHER, SELFPAY ==
--- NOTE | 2022-04-23 12:18 | ECG_ITS ---
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 Measurements Intervals [place] Rate: 79 P: 8 [place]: 163 QRS: 106 QRSD: 141 T: 35 QT: 384 QTc: 441 Interpretive Statements SINUS RHYTHM RIGHT AXIS DEVIATION [QRS AXIS > 100] RIGHT BUNDLE BRANCH BLOCK Compared to ECG 04/11/2022 10:36:48 Right-axis deviation now present Right bundle-branch block now present Electronically Signed On 04-23-2022 21:59:40 CDT by Flor Greene M.D. [id number] f
--- NOTE | 2022-04-23 12:31 | XRR_ITS ---
PROCEDURE INFORMATION: Exam: XR Chest Exam date and time: 04/23/2022 12:37 PM Age: 86 years old Clinical indication: Pain; Chest pressure; Prior surgery; Surgery date: 6+ months; Additional info: Chest pain TECHNIQUE: Imaging protocol: Radiologic exam of the chest. Views: 1 view. COMPARISON: CR (CHEST, ) 04/10/2022 4:49 PM FINDINGS: Lungs: Mild persistent hazy left basilar opacity appears unchanged. No consolidation on the right. Pleural spaces: Unremarkable. No pleural effusion. No pneumothorax. Heart/Mediastinum: Cardiac silhouette mildly enlarged. Bones/joints: Median sternotomy wires. Left shoulder arthroplasty. XR/XR chest 1V portable [id number] IMPRESSION: No acute findings. Persistent hazy left basilar the the opacity favored represent atelectasis and scarring.
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
[2022-04-23 12:35] VITALS: BP 151/67; PULSE 81; RESP 12; TEMP 36.6; O2SAT 98; BMI 28.8
[2022-04-23 12:35] LABS: Basophils % 0.2 %; Eosinophils % 0.4 %; Hematocrit 33.5 % (42.0-52.0); Hemoglobin 11.2 g/dL (11.7-16.6); Lymphocytes # 1.1 10^3/uL (0.8-4.8); Lymphocytes % 21.3 %; Mean Corpuscular HGB Conc 33.4 g/dL (30.0-36.0); Mean Corpuscular Hemoglobin 37.1 pg (28.0-34.0); Mean Corpuscular Volume 110.9 fl (80-94); Mean Platelet Volume 10.5 fL (7.4-10.4); Monocytes # 0.4 10^3/uL (0.2-0.9); Monocytes % 8.4 %; Neutrophils # 3.56 10^3/uL (1.8-7.7); Neutrophils % 69.5 %; Nucleated Red Blood Cells % 0 %; Platelet Count 203 10^3/cmm (130-400); Red Blood Count 3.02 10^6/uL (4.1-5.3); Red Cell Distribution Width 13.3 % (12.1-15.1); White Blood Count 5.1 10^3/uL (4.0-10.0)
[2022-04-23 12:53] LABS: D Dimer 0.82 ug/mIFEU (0-0.59)
[2022-04-23 12:57] LABS: Alanine Aminotransferase 20 U/L (0-41); Albumin Level 4.2 g/dL (3.5-5.2); Alkaline Phosphatase 53 U/L (40-130); Blood Urea Nitrogen 20 mg/dL (8-23); Calcium 9.5 mg/dL (8.5-10.5); Carbon Dioxide 26 mmol/L (22-29); Chloride 107 mmol/L (98-107); Globulin 2.8 g/dL (1.3-4.6); Glucose 138 mg/dL (65-115); Osmolality Calculated 307 mOsm/kg (285-295); Sodium 146 mmol/L (136-145); Total Bilirubin 0.4 mg/dL (0.15-1.2)
[2022-04-23 12:58] LABS: Anion Gap 17.4 (5-19); Potassium 4.4 mmol/L (3.5-5.1); Troponin(5th) Baseline 44 ng/L (0-15)
[2022-04-23 12:59] LABS: Aspartate Amino Transferase 23 U/L (0-40)
[2022-04-23 14:42] VITALS: BP 137/84; PULSE 87; RESP 18; O2SAT 95
--- NOTE | 2022-04-23 15:04 | PC.NURSE ---
PT STATED HE WANTED TO LEAVE AMA. PHYSICIAN INFORMED. ATTEMPT TO REDIRECT PT FAILED. PT SIGNED AMA FORM. PT AWARE OF PLACE, TIME, YEAR, AND SITUATION. PT REQUESTED REGISTRATION TO CALL HIM AN UBER. PT'S INFORMED OF AMA.
== END 2022-04-23 15:13 | disposition left against medical advice (07) ==
PROVIDERS: Emergency Provider Emergency Medicine; PCP Emergency Medicine Emergency Medical Services
DX: R07.9 Chest pain, unspecified (principal); Z53.29 Procedure and treatment not carried out because of patient's decision for other reasons
CPT/HCPCS: 71045; 80053; 84484; 85025; 85378; 93005; 99284

== ENCOUNTER → 2022-05-02 09:51 | Outpatient (BNVA) | payer OTHER, SELFPAY | PROVIDERS: PCP Emergency Medicine Emergency Medical Services; Visit Provider Anesthesiology Pain Medicine | DX: G89.29 Other chronic pain (principal); M51.36 Other intervertebral disc degeneration, lumbar region; M47.816 Spondylosis without myelopathy or radiculopathy, lumbar region; M54.16 Radiculopathy, lumbar region; M79.604 Pain in right leg | CPT/HCPCS: 99213 ==

== ENCOUNTER 2023-08-06 06:00 | Outpatient (RCR) | payer OTHER, SELFPAY | END 2023-08-30 23:59 | disposition home or self-care (01) | LOC: APT 06:00 | PROVIDERS: Visit Provider Nurse Practitioner Family | DX: M25.561 Pain in right knee (principal) | CPT/HCPCS: 97110; 97112; 97161; 97530 ==

== ENCOUNTER → 2023-08-15 13:53 | Outpatient (BNVA) | payer OTHER, SELFPAY | PROVIDERS: PCP Nurse Practitioner Family; Visit Provider Specialist | DX: M17.12 Unilateral primary osteoarthritis, left knee; Z96.651 Presence of right artificial knee joint | CPT/HCPCS: 73560; 73565; 99214 ==

== ENCOUNTER 2023-08-31 06:00 | Outpatient (RCR) | payer OTHER, SELFPAY | END 2023-09-30 23:59 | disposition home or self-care (01) | LOC: APT 06:00 | PROVIDERS: PCP Nurse Practitioner Family; Visit Provider Nurse Practitioner Family | DX: M25.561 Pain in right knee (principal) | CPT/HCPCS: 97110; 97112; 97530 ==

== ENCOUNTER 2024-04-01 06:00 | Outpatient (RCR) | payer OTHER, SELFPAY | END 2024-05-01 23:59 | disposition home or self-care (01) | LOC: APT 06:00 | PROVIDERS: PCP Nurse Practitioner Family; Visit Provider Nurse Practitioner Family | DX: R26.9 Unspecified abnormalities of gait and mobility (principal); M79.606 Pain in leg, unspecified | CPT/HCPCS: 97110; 97112; 97161; 97530 ==

== ENCOUNTER 2024-05-02 06:00 | Outpatient (RCR) | payer OTHER, SELFPAY | END 2024-05-31 23:59 | disposition home or self-care (01) | LOC: APT 06:00 | PROVIDERS: PCP Nurse Practitioner Family; Visit Provider Nurse Practitioner Family | DX: R26.81 Unsteadiness on feet (principal); M79.605 Pain in left leg; M79.604 Pain in right leg | CPT/HCPCS: 97110; 97530 ==

== ENCOUNTER 2024-06-01 06:00 | Outpatient (RCR) | payer OTHER, SELFPAY | END 2024-07-01 23:59 | disposition home or self-care (01) | LOC: APT 06:00 | PROVIDERS: PCP Nurse Practitioner Family; Visit Provider Nurse Practitioner Family | DX: R26.9 Unspecified abnormalities of gait and mobility (principal); M79.604 Pain in right leg; M79.605 Pain in left leg | CPT/HCPCS: 97110; 97112; 97530 ==

== ENCOUNTER 2024-07-02 06:00 | Outpatient (RCR) | payer OTHER, SELFPAY | END 2024-08-01 23:59 | disposition home or self-care (01) | LOC: APT 06:00 | PROVIDERS: PCP Nurse Practitioner Family; Visit Provider Nurse Practitioner Family | DX: R26.9 Unspecified abnormalities of gait and mobility (principal); M79.606 Pain in leg, unspecified | CPT/HCPCS: 97110; 97112; 97530 ==